=== PATIENT | female | born 1980 | race Caucasian/White ===

== ENCOUNTER 2020-04-08 14:19 | Emergency (ER) | payer SELFPAY ==
[~2020-04-08] VITALS: Ht 167 cm; Wt 68.0 kg
[~2020-04-08 14:19] MED LIST: ALPR.5T PO; ARPZ10T; BSP10T PO; DIAZ10TA; FRS325T PO; HYDR50TA76 PO; IBUP-1780 PO; Ibuprofen PO; LORA0.5T34 PO; MAGN400T6 PO; PREN1TAB39 PO; PRX10T PO; SERT50TA PO
[2020-04-08 14:20] VITALS: BP 148/104
--- NOTE | 2020-04-08 14:27 | ED Psychosocial ---
General Chief Complaint: Psych/Social Disorder Stated Complaint: CONVULSIONS Source: patient Exam Limitations: clinical condition History of Present Illness Date Seen by Provider: April 08, 2020 Time Seen by Provider: 14:24 Initial Comments To ER with reports of convulsions getting more and more frequent over the past couple of months since she moved to [place] and then back to [place]. She is brought to the ER by her mother. She reports that she used meth but assures me it was no more recently than 1 week ago. She feels anxious. Timing/Duration: intermittent Severity: moderate Associated Symptoms: anxiety Allergies and Home Medications Allergies Coded Allergies: No Known Drug Allergies (Unverified , 01/23/10) Home Medications Buspirone Hcl 10 Mg Tablet, 15 MG PO BID, (Reported) Ferrous Sulfate 325 Mg Tab, 325 MG PO BID WITH MEALS Prescribed by: EVGENY LEE on 08/30/14 151 Hydroxyzine HCl 25 Mg Tablet, 25 MG PO Q4H Prescribed by: RENY CARY on 04/08/20 1610 Hydroxyzine Hcl 50 Mg Tablet, 1 EACH PO TID, (Reported) Lorazepam 0.5 Mg Tablet, 0.5 MG PO TID PRN for SEVERE ANXIETY Prescribed by: EVGENY LEE on 08/30/14 151 Vits W-Ca,Fe,Fa(<1MG) 1 Each Tablet, 1 EACH PO DAILY, (Reported) Sertraline Hcl 50 Mg Tablet, 50 MG PO DAILY, (Reported) [Ibuprofen] 600 MG TAB, 600 MG PO Q6H PRN for PAIN Prescribed by: EVGENY LEE on 08/30/14 1516 Patient Home Medication List Home Medication List Reviewed: Yes Review of Systems Constitutional: see HPI EENTM: see HPI Cardiovascular: no symptoms reported Genitourinary: no symptoms reported Psychiatric/Neurological: See HPI, Other (over body convulsions, able to continue carrying on conversation with me during these convulsions) Past Npvdtfx-Gyuodr-Tsgsjz Hx Immunizations Up To Date Tetanus Booster (TDap): Unknown PED Vaccines UTD: Yes Date of Influenza Vaccine: Aug 26, 2014 Past Medical History Reproductive Disorders: No Anxiety Adverse Reaction/Blood Tranf: No Family Medical History Patient reports no known family medical history. No Pertinent Family Hx Physical Exam Vital Signs - First Documented 04/08/20 14:20 Temp 37.0 Pulse 88 Resp 16 B/P (MAP) 148/104 (119) Pulse Ox 100 O2 Delivery Room Air Capillary Refill : Height, Weight, BMI Height: 5'6" Weight: 150lbs. oz. 68.556031wi; BMI Method:Stated General Appearance: WD/WN, no apparent distress HEENT: PERRL/EOMI, normal ENT inspection Respiratory: no respiratory distress, no accessory muscle use Cardiovascular: regular rate, rhythm, no murmur Gastrointestinal: normal bowel sounds, non tender, soft Neurologic/Psychiatric: alert Appearance/Memory: appropriate appearance, appropriate insight Behavior/Eye Contact: cooperative Skin: normal color, warm/dry Progress/Results/Core Measures Results/Orders Lab Results Laboratory Tests Test 04/08/20 15:10 04/08/20 15:27 Range/Units White Blood Count 6.7 4.3-11.0 10^3/uL Red Blood Count 5.00 4.35-5.85 10^6/uL Hemoglobin 15.1 11.5-16.0 G/DL Hematocrit 46 35-52 % Mean Corpuscular Volume 91 80-99 FL Mean Corpuscular Hemoglobin 30 25-34 PG Mean Corpuscular Hemoglobin Concent 33 32-36 G/DL Red Cell Distribution Width 13.4 10.0-14.5 % Platelet Count 267 130-400 10^3/uL Mean Platelet Volume 10.8 H 7.4-10.4 FL Neutrophils (%) (Auto) 63 42-75 % Lymphocytes (%) (Auto) 28 12-44 % Monocytes (%) (Auto) 8 0-12 % Eosinophils (%) (Auto) 2 0-10 % Basophils (%) (Auto) 0 0-10 % Neutrophils # (Auto) 4.2 1.8-7.8 X 10^3 Lymphocytes # (Auto) 1.9 1.0-4.0 X 10^3 Monocytes # (Auto) 0.5 0.0-1.0 X 10^3 Eosinophils # (Auto) 0.1 0.0-0.3 10^3/uL Basophils # (Auto) 0.0 0.0-0.1 10^3/uL Sodium Level 139 135-145 MMOL/L Potassium Level 4.1 3.6-5.0 MMOL/L Chloride Level 104 98-107 MMOL/L Carbon Dioxide Level 25 21-32 MMOL/L Anion Gap 10 5-14 MMOL/L Blood Urea Nitrogen 9 7-18 MG/DL Creatinine 0.92 0.60-1.30 MG/DL Estimat Glomerular Filtration Rate > 60 BUN/Creatinine Ratio 10 Glucose Level 86 70-105 MG/DL Calcium Level 10.0 8.5-10.1 MG/DL Corrected Calcium 8.5-10.1 MG/DL Total Bilirubin 0.4 0.1-1.0 MG/DL Aspartate Amino Transf (AST/SGOT) 18 5-34 U/L Alanine Aminotransferase (ALT/SGPT) 15 0-55 U/L Alkaline Phosphatase 66 40-136 U/L Total Protein 8.4 H 6.4-8.2 GM/DL Albumin 4.7 H 3.2-4.5 GM/DL Urine Color YELLOW Urine Clarity CLEAR Urine pH 8.0 5-9 Urine Specific Ames 1.010 L 1.016-1.022 Urine Protein NEGATIVE NEGATIVE Urine Glucose (UA) NEGATIVE NEGATIVE Urine Ketones NEGATIVE NEGATIVE Urine Nitrite NEGATIVE NEGATIVE Urine Bilirubin NEGATIVE NEGATIVE Urine Urobilinogen 0.2 < = 1.0 MG/DL Urine Leukocyte Esterase NEGATIVE NEGATIVE Urine RBC (Auto) NEGATIVE NEGATIVE Urine RBC NONE /HPF Urine WBC NONE /HPF Urine Squamous Epithelial Cells 0-2 /HPF Urine Crystals NONE /LPF Urine Bacteria NEGATIVE /HPF Urine Casts NONE /LPF Urine Mucus NEGATIVE /LPF Urine Culture Indicated NO Urine Opiates Screen NEGATIVE NEGATIVE Urine Oxycodone Screen NEGATIVE NEGATIVE Urine Methadone Screen NEGATIVE NEGATIVE Urine Propoxyphene Screen NEGATIVE NEGATIVE Urine Barbiturates Screen NEGATIVE NEGATIVE Ur Tricyclic Antidepressants Screen NEGATIVE NEGATIVE Urine Phencyclidine Screen NEGATIVE NEGATIVE Urine Amphetamines Screen POSITIVE H NEGATIVE Urine Methamphetamines Screen POSITIVE H NEGATIVE Urine Benzodiazepines Screen NEGATIVE NEGATIVE Urine Cocaine Screen NEGATIVE NEGATIVE Urine Cannabinoids Screen NEGATIVE NEGATIVE My Orders Orders - RENY CARY APRN Cbc With Automated Diff (04/08/20 14:21) Comprehensive Metabolic Panel (04/08/20 14:21) Ua Culture If Indicated (04/08/20 14:21) Drug Screen Stat (Urine) (04/08/20 14:21) Ed Iv/Invasive Line Start (04/08/20 14:21) Lorazepam Injection (Ativan Injection) (04/08/20 14:30) Medications Given in ED Current Medications Medications Dose Ordered Sig/Marion Route Start Time Stop Time Status Last Admin Dose Admin Lorazepam 1 mg ONCE ONCE IVP 04/08/20 14:30 04/08/20 14:31 DC 04/08/20 14:35 1 MG Vital Signs/I&O 04/08/20 14:20 Temp 37.0 Pulse 88 Resp 16 B/P (MAP) 148/104 (119) Pulse Ox 100 O2 Delivery Room Air Departure Communication (Admissions) [phone] with patient that her symptoms are caused by a combination of anxiety and methamphetamine use. She states she hasn't used methamphetamine for 11 days and it can stay positive in her system for 11 days. She informs me that I'm unaware of this fact because it never worked in a treatment center.She then stormed out of the emergency room, threw her discharge papers. Impression Primary Impression: Methamphetamine abuse Additional Impression: Convulsion Qualified Codes: R56.9 - Unspecified convulsions Disposition: 01 HOME, SELF-CARE Condition: Stable Departure-Patient Inst. Decision time for Depature: 16:08 Referrals: NO,LOCAL PHYSICIAN (PCP/Family) Primary Care Physician Patient Instructions: Panic Disorder (DC) Add. Discharge Instructions: All discharge instructions reviewed with patient and/or family. Voiced understanding. Scripts Hydroxyzine HCl (Hydroxyzine HCl) 25 Mg Tablet 25 MG PO Q4H, #30 TAB Prov: RENY CARY APRN 04/08/20 RENY CARY APRN April 08, 2020 14:27
[2020-04-08] MEDS ORDERED: LORazepam INJ 2 MG/ML (ATIVAN) VIAL IVP ONE (14:30)
--- NOTE | 2020-04-08 14:40 | NUR ---
LAB CONTACTED FOR BLOOD.
[2020-04-08 15:15] LABS: BASOPHILS % (AUTO) 0 % (0-10); EOSINOPHILS # (AUTO) 0.1 10^3/uL (0.0-0.3); EOSINOPHILS % (AUTO) 2 % (0-10); HEMATOCRIT 46 % (35-52); HEMOGLOBIN 15.1 G/DL (11.5-16.0); LYMPHOCYTES # (AUTO) 1.9 X 10^3 (1.0-4.0); LYMPHOCYTES % (AUTO) 28 % (12-44); MEAN CORPUSCULAR HEMOGLOBIN 30 PG (25-34); MEAN CORPUSCULAR HGB CONC 33 G/DL (32-36); MEAN CORPUSCULAR VOLUME 91 FL (80-99); MEAN PLATELET VOLUME 10.8 FL (7.4-10.4); MONOCYTES # (AUTO) 0.5 X 10^3 (0.0-1.0); MONOCYTES % (AUTO) 8 % (0-12); NEUTROPHILS # (AUTO) 4.2 X 10^3 (1.8-7.8); NEUTROPHILS % (AUTO) 63 % (42-75); PLATELET COUNT 267 10^3/uL (130-400); RED CELL DISTRIBUTION WIDTH 13.4 % (10.0-14.5); WHITE BLOOD COUNT 6.7 10^3/uL (4.3-11.0)
--- NOTE | 2020-04-08 15:25 | NUR ---
RESTING IN BED ET DENIES NEEDS AT THIS TIME.
[2020-04-08 15:26] LABS: ALBUMIN 4.7 GM/DL (3.2-4.5); CHLORIDE 104 MMOL/L (98-107); POTASSIUM 4.1 MMOL/L (3.6-5.0); SODIUM 139 MMOL/L (135-145)
[2020-04-08 15:28] LABS: GLUCOSE 86 MG/DL (70-105)
[2020-04-08 15:29] LABS: TOTAL PROTEIN 8.4 GM/DL (6.4-8.2)
[2020-04-08 15:30] LABS: BILIRUBIN,TOTAL 0.4 MG/DL (0.1-1.0); CARBON DIOXIDE 25 MMOL/L (21-32)
[2020-04-08 15:32] LABS: ALKALINE PHOSPHATASE 66 U/L (40-136); CREATININE SERUM 0.92 MG/DL (0.60-1.30); GFR ESTIMATED > 60
[2020-04-08 15:33] LABS: BUN/CREATININE RATIO 10
[2020-04-08 15:35] LABS: ALANINE AMINOTRANSFERASE 15 U/L (0-55)
[2020-04-08 15:37] LABS: BILIRUBIN,URINE NEGATIVE (NEGATIVE); CLARITY,URINE CLEAR; COLOR,URINE YELLOW; GLUCOSE, URINE (UA) NEGATIVE (NEGATIVE); KETONES,URINE NEGATIVE (NEGATIVE); LEUKOCYTE ESTERASE ,URINE NEGATIVE (NEGATIVE); NITRITE,URINE NEGATIVE (NEGATIVE); PROTEIN,URINE NEGATIVE (NEGATIVE)
[2020-04-08 15:48] LABS: BACTERIA,URINE NEGATIVE /HPF; SQUAMOUS EPITHELIAL CELL,UR 0-2 /HPF
[2020-04-08 15:53] LABS: AMPHETAMINE SCREEN, URINE POSITIVE (NEGATIVE); BARBITURATE SCREEN URINE NEGATIVE (NEGATIVE); BENZODIAZEPINES SCREEN URINE NEGATIVE (NEGATIVE); CANNABINOID SCREEN, URINE NEGATIVE (NEGATIVE); COCAINE SCREEN URINE NEGATIVE (NEGATIVE); METHADONE STAT NEGATIVE (NEGATIVE); METHAMPHETAMINE SCREEN URINE S POSITIVE (NEGATIVE); OPIATE SCREEN URINE NEGATIVE (NEGATIVE); OXYCODONE STAT NEGATIVE (NEGATIVE); PROPOXYPHENE STAT NEGATIVE (NEGATIVE); TRICYCLIC ANTIDEPRESSANTS SCRE NEGATIVE (NEGATIVE)
--- NOTE | 2020-04-08 16:09 | NUR ---
RENY TALKING TO PT'S MOTHER AT THIS TIME.
[2020-04-08] MEDS ORDERED: HYDR-700 PO (16:10)
--- NOTE | 2020-04-08 16:14 | NUR ---
PT UPSET UPON DISCHARGE. THROWING HER PAPERS AND CUSSING. STATES WE WONT DO ANYTHING FOR HER BECAUSE SHE "SUPPOSEDLY" HAD DRUGS IN HER SYSTEM. WANTING PROVIDERS NAME BECAUSE SHE SHOULD HAVE HAD A CT AND EKG DONE. STATES WE DID NOTHING FOR HER. NOTIFIED HER THAT HER BP WAS BETTER, NO LONGER HAVING SPASMS, AND SHE HAS BEEN SLEEPING SINCE MEDICATION GIVEN. PT STATES YOU FUCKING DID NOTHING FOR ME AND STORMED OUT THE DOOR.
--- OUTSIDE RECORDS SUMMARY | 2020-04-08 18:06 | XMS REPORT ---
Author Faith Yang [facility] Address [address] [place] [address] Care Team Providers Care Associate Buyer Name Role Phone SERENAPHANA Unavailable PROBLEMS Type Condition ICD9-CM Code [id number] Code Onset Dates Condition S tatus SNOMED Code Problem Constipation, unspecified constipation type K59.00 Active 91993590 Problem Generalized abdominal pain R10.84 Act yuriy [id number] ALLERGIES No Information ENCOUNTERS Encounter Location Date Diagnosis [facility] [address] [id number] [address] [place] [phone] Feb, [facility] [address] [id number] Feb, Sore throat J02.9 and Dental infection K04.7 [facility] [id number] [place] [id number] Feb, [facility] [address] [id number] [address] [place] [address] Jul, Generalized abdominal pain R 10.84 ; Constipation, unspecified constipation type K59.00 and Drug abuse F19.10 [facility] [address] [id number] [address] [place] [id number] Jan, Encounter for dental examina tion Z01.20 and Dental caries K02.9 [facility] [address] [id number] [address] [place] [phone] Feb, [facility] [id number] [address] [place] [phone] 13 Feb, 2015 [facility] [address] [id number] [address] [place] [phone] Sep, [facility] [address] [id number] [address] [place] [address], [place] [address] 17 Sep, 2014 [facility] [address] [id number] [address] [place] [address], [place] [address] 20 Aug, 2014 [facility] [address] [id number] [address] [place] [address], [place] [address] 20 Aug, 2014 [facility] [address] [id number] [address] [place] [address], [place] [address] 17 Aug, 2014 [facility] [address] [id number] [address] [place] [address], [place] [address] 30 Sep, 2013 [facility] [address] [id number] [address] [place] [address], [place] [address] 29 Sep, 2013 [facility] [address] [id number] [address] [place] [address], [place] [address] 29 Sep, 2013 [facility] [address] [id number] [address] [place] [address], [place] [address] 22 Sep, 2013 [facility] [address] [id number] [address] [place] [address], [place] [address] 22 Sep, 2013 [facility] [address] [id number] [address] [place] [address], [place] [address] 22 Sep, 2013 [facility] [address] [id number] [address] [place] [address], [place] [address] 22 Sep, 2013 [facility] [address] [id number] [address] [place] [address], [place] [address] 17 Sep, 2013 [facility] [address] [id number] [address] [place] [address], [place] [address] 17 Sep, 2013 [facility] [address] [id number] [address] [place] [address], [place] [address] 15 Sep, 2013 [facility] [address] [id number] [address] [place] [address], [place] [address] 15 Sep, 2013 [facility] [address] [id number] [address] [place] [address], [place] [address] 10 Sep, 2013 [facility] [address] [id number] [facility] [place] [address] 10 Jul, 2013 [facility] [address] [id number] [address] [place] [address], [place] [address] 05 Jul, 2013 [facility] [address] [id number] [address] [place] [address], [place] [address] 04 Jul, 2013 [facility] [address] [id number] [address] [place] [address], [place] [address] 03 Jul, 2013 [facility] [address] [id number] [address] [place] [address], [place] [address] Jul, [facility] [address] [id number] [address] [place] [address], [place] [address] Jul, [facility] [address] [id number] [address] [place] [address], [place] [address] Jun, [facility] [address] [id number] [address] [place] [address], [place] [address] Jun, [facility] [address] [id number] [address] [place] [address], [place] [address] Jun, [facility] [address] [id number] [address] [place] [address], [place] [address] Jun, [facility] [address] [id number] [address] [place] [address], [place] [address] May, [facility] [address] [id number] [address] [place] [address], [place] [address] May, [facility] [address] [id number] [address] [place] [address], [place] [address] May, [facility] [address] [id number] [address] [place] [address], [place] [address] May, [facility] [address] [id number] [address] [place] [address], [place] [address] Apr, [facility] [address] [id number] [address] [place] [address] Apr, [facility] [address] [id number] [address] [place] [phone] Aug, [facility] [address] [id number] [address] [place] [address] Aug, [facility] [address] [id number] [address] [place] [address] Aug, [facility] [address] [id number] [address] [place] [address] Aug, [facility] [address] [id number] [address] [place] [phone] Aug, [facility] [address] [id number] [address] [place] [address] Aug, [facility] [address] [id number] [address] [place] [address] Jul, [facility] [address] [id number] [address] [place] [address] Jun, [facility] [address] [id number] [address] [place] [address] Aug, IMMUNIZATIONS No Known Immunizations SOCIAL HISTORY Never Assessed REASON FOR VISIT PLAN OF CARE VITAL SIGNS MEDICATIONS Unknown Medications RESULTS No Results PROCEDURES No Known procedures INSTRUCTIONS MEDICATIONS ADMINISTERED No Known Medications MEDICAL (GENERAL) HISTORY Type Description Date Medical History HBP Medical History Back problems Medical History Maternal drug dependence com plicating , childbirth, or the puerperium, unspecified as to episode of care
--- OUTSIDE RECORDS SUMMARY | 2020-04-08 18:06 | XMS REPORT ---
Author Author Faith Pat [facility] Address [address] [place] [address] Care Team Providers Care Job Molder Name Role Phone Raffy Patistin Unavailable PROBLEMS Type Condition ICD9-CM Code [id number] Code Onset Dates Condition S tatus SNOMED Code Problem Borderline personality disorder in adult F60.3 Active [id number] ALLERGIES No Information ENCOUNTERS Encounter Location Date Diagnosis [facility] [address] [place] [address] [id number] Oct, [facility] [address] [place] [id number] Oct, [facility] [address] [place] [address] [id number] Oct, [facility] [address] [place] [address] [id number] Oct, [facility] [address] [place] [address] [id number] Oct, Anxiety F41.9 and Problems in relationship with spouse or partner Z63.0 [facility] [address] [place] [id number] Oct, [facility] [address] [place] [id number] Oct, Problems in relationship with spouse or partner Z63.0 [facility] [address] [place] [address] [id number] Oct, Borderline personality disorder in adult F60.3 ; Screening cholesterol level Z13.220 and Screening for diabetes mellitus Z13.1 IMMUNIZATIONS No Known Immunizations SOCIAL HISTORY Never Assessed REASON FOR VISIT Test results PLAN OF CARE VITAL SIGNS MEDICATIONS Unknown Medications RESULTS No Results PROCEDURES No Known procedures INSTRUCTIONS MEDICATIONS ADMINISTERED No Known Medications MEDICAL (GENERAL) HISTORY Type Description Date Medical History Borderline personality disorder Medical History PTSD Medical History ADHD Medical History L4-5 pain (resolved) Medical History Gestational diabetes
--- OUTSIDE RECORDS SUMMARY | 2020-04-08 18:06 | XMS REPORT ---
Author Author Faith LEE EVGENY [facility] Address [address] [place] [address] Care Team Providers Care Shirt Presser Name Role Phone EVGENY LEE Unavailable PROBLEMS Type Condition ICD9-CM Code QFO01-AB Code Onset Dates Condition S tatus SNOMED Code Problem Constipation, unspecified constipation type K59.00 Active [id number] Problem Generalized abdominal pain R10.84 Act yuriy [id number] ALLERGIES No Information ENCOUNTERS Encounter Location Date Diagnosis [facility] [address] [facility] [id number] [address] [place] [phone] Feb, [facility] [address] [phone] Feb, Sore throat J02.9 and Dental infection K04.7 [facility] [id number] [place] [phone] Feb, [facility] [address] [id number] [address] [place] [phone] Jul, Generalized abdominal pain R 10.84 ; Constipation, unspecified constipation type K59.00 and Drug abuse F19.10 [facility] [address] [facility] [id number] [address] [place] [id number] Jan, Encounter for dental examina tion Z01.20 and Dental caries K02.9 [facility] [address] [id number] [address] [place] [phone] 14 Feb, 2015 [facility] [id number] [place] [phone] 13 Feb, 2015 [facility] [address] [id number] [address] [place] [phone] Sep, [facility] [address] [id number] [address] [place] [address], [place] [address] 17 Sep, 2014 [facility] [address] [id number] [address] [place] [address], [place] [address] 20 Aug, 2014 [facility] [address] [id number] [address] [place] [address], [place] [address] 20 Aug, 2014 [facility] [address] [id number] [address] [place] [address], [place] [address] 17 Aug, 2014 [facility] [address] [id number] [address] [place] [address], [place] [address] 30 Sep, 2013 [facility] [address] [id number] [address] [place] [address], [place] [phone] 29 Sep, 2013 [facility] [address] [id number] [address] [place] [address], [place] [address] 29 Sep, 2013 [facility] [address] [id number] [address] [place] [address], [place] [phone] 22 Sep, 2013 [facility] [address] [id number] [address] [place] [address], [place] [address] 22 Sep, 2013 [facility] [address] [id number] [address] [place] [address], [place] [address] 22 Sep, 2013 [facility] [address] [id number] [address] [place] [address], [place] [address] 22 Sep, 2013 [facility] [address] [id number] [address] [place] [address], [place] [address] 17 Sep, 2013 [facility] [address] [id number] [address] [place] [address], [place] [address] 17 Sep, 2013 [facility] [address] [id number] [address] [place] [address], [place] [address] 15 Sep, 2013 [facility] [address] [id number] [address] [place] [address], [place] [address] 15 Sep, 2013 [facility] [address] [id number] [address] [place] [address], [place] [id number] 10 Sep, 2013 [facility] [address] [id number] [facility] [place] [address] 10 Jul, 2013 [facility] [address] [id number] [address] [place] [address], [place] [address] 05 Jul, 2013 [facility] [address] [id number] [address] [place] [address], [place] [address] 04 Jul, 2013 [facility] [address] [id number] [address] [place] [address], [place] [address] 03 Jul, 2013 [facility] [address] [id number] [address] [place] [address], [place] [address] Jul, [facility] [address] [id number] [address] [place] [address], [place] [address] Jul, [facility] [address] [id number] [address] [place] [address], [place] [id number] Jun, [facility] [address] [id number] [address] [place] [address], [place] [address] Jun, [facility] [address] [id number] [address] [place] [address], [place] [address] Jun, [facility] [address] [id number] [address] [place] [address], [place] [address] Jun, [facility] [address] [id number] [address] [place] [address], [place] [address] May, [facility] [address] [id number] [address] [place] [address], [place] [address] May, [facility] [address] [id number] [address] [place] [address], [place] [address] May, [facility] [address] [id number] [address] [place] [address], [place] [address] May, [facility] [address] [id number] [address] [place] [address], [place] [address] Apr, [facility] [address] [id number] [address] [place] [phone] Apr, [facility] [address] [id number] [address] [place] [phone] Aug, [facility] [address] [id number] [address] [place] [phone] Aug, [facility] [address] [id number] [address] [place] [phone] Aug, [facility] [address] [id number] [address] [place] [phone] Aug, [facility] [address] [id number] [address] [place] [phone] Aug, [facility] [address] [id number] [address] [place] [phone] Aug, [facility] [address] [id number] [address] [place] [phone] Jul, [facility] [address] [id number] [address] [place] [phone] Jun, [facility] [address] [id number] [address] [place] [phone] Aug, IMMUNIZATIONS No Known Immunizations SOCIAL HISTORY [...]
--- OUTSIDE RECORDS SUMMARY | 2020-04-08 18:06 | XMS REPORT ---
Author Author Faith Pat [facility] Address [address] [place] [address] Care Team Providers Care Loom Inspector Name Role Phone Bi Jesica Unavailable PROBLEMS Type Condition ICD9-CM Code EQD68-KI Code Onset Dates Condition S tatus SNOMED Code Problem Encounter for weight loss counseling Z71.3 Active 033510860 Problem Dysuria R30.0 Active 78970874 Problem Borderline personality disorder in adult F60.3 Active 12242108 Problem Anxiety F41.9 Active 87569456 Problem History of PID Z87.42 Active 62338 2000 Problem Encounter for smoking cessation counseling Z71.6 Active 399440910 ALLERGIES No Information ENCOUNTERS Encounter Location Date Diagnosis [facility] [address] [place] [address] [phone] Feb, Anxiety F41.9 [facility] [address] [place] [address] [phone] Oct, Dysuria R30.0 ; History of PID Z87.42 ; Encounter for smoking cessation counseling Z71.6 and Encounter for weight loss counseling Z71.3 [facility] [address] [place] [address] [id number] Oct, [facility] [address] [place] [address] [phone] Oct, Anxiety F41.9 [facility] [address] [place] [address] [id number] Oct, Anxiety F41.9 [facility] [address] [place] [address] [id number] Oct, [facility] [address] [place] [address] [id number] Oct, [facility] [address] [place] [address] [phone] Oct, Anxiety F41.9 and Problems in relationship with spouse or partner Z63.0 [facility] [address] [place] [address] [id number] Oct, [employer] [facility] [address] [place] [address] [id number] Oct, Problems in relationship with spouse or partner Z63.0 [employer] [address] [place] [address] [phone] Oct, Borderline personality disorder in adult F60.3 ; Screening cholesterol level Z13.220 and Screening for diabetes mellitus Z13.1 IMMUNIZATIONS No Known Immunizations SOCIAL HISTORY Never Assessed REASON FOR VISIT Med refill PLAN OF CARE VITAL SIGNS MEDICATIONS Medication Instructions Dosage Frequency Start Date End Date Duration S tatus Gabapentin 600 MG Orally four times a day 1 tablet 6h Oct, 30 day(s) Active RESULTS No Results PROCEDURES No Known procedures INSTRUCTIONS MEDICATIONS ADMINISTERED No Known Medications MEDICAL (GENERAL) HISTORY Type Description Date Medical History Borderline personality disorder Medical History PTSD Medical History ADHD Medical History L4-5 pain (resolved) Medical History Gestational diabetes
--- OUTSIDE RECORDS SUMMARY | 2020-04-08 18:06 | XMS REPORT ---
Author Author Faith Pat [facility] Address [address] [place] [address] Care Team Providers Care Animal Control Specialist Name Role Phone Bi, Jesica Unavailable PROBLEMS Type Condition ICD9-CM Code BUS48-[place] Code Onset Dates Condition S tatus SNOMED Code Problem Borderline personality disorder in adult F60.3 Active 22431175 ALLERGIES No Known Allergies ENCOUNTERS Encounter Location Date Diagnosis [facility] [address] [place] [address] [phone] Oct, [facility] [address] [place] [address] [phone] Oct, [facility] [address] [place] [address] [phone] Oct, [facility] [address] [place] [address] [id number] Oct, Borderline personality disorder in adult F60.3 ; Screening cholesterol level Z13.220 and Screening for diabetes mellitus Z13.1 IMMUNIZATIONS No Known Immunizations SOCIAL HISTORY Never Assessed REASON FOR VISIT establish care and PLAN OF CARE Activity Details Follow Up 6 Months or prn Reason: Pending Test HEMOGLOBIN A1c Pending Test LIPID PANEL WITH REFLEX TO D IRECT LDL VITAL SIGNS Temperature 97.9 degrees Fahrenheit 2019-11-09 Heart Rate 80 /min 2019-11-09 Respiratory Rate 20 /min 2019-11-09 Oximetry 100 % 2019-11-09 Weight 149.2 lbs 2019-11-09 Height 65.0 in 2019-11-09 BMI 24.83 kg/m2 2019-11-09 Blood pressure systolic 139 mm Hg 2019-11-09 Blood pressure diastolic 89 mm Hg 2019-11-09 MEDICATIONS Medication Instructions Dosage Frequency Start Date End Date Duration S tatus Latuda 60 MG Orally Once a day 1 tablet with food 24h Active Gabapentin 600 MG Orally Once a day 1 tablet 24h Active RESULTS No Results PROCEDURES No Known procedures INSTRUCTIONS MEDICATIONS ADMINISTERED No Known Medications MEDICAL (GENERAL) HISTORY Type Description Date Medical History Borderline personality disorder Medical History PTSD Medical History ADHD Medical History L4-5 pain (resolved) Medical History Gestational diabetes
--- OUTSIDE RECORDS SUMMARY | 2020-04-08 18:06 | XMS REPORT ---
Author Author Faith Vieyra Doctor Organization [facility] Address Unknown Phone Unavailable Care Team Providers Care Balloon Maker Name Role Phone Migration, Doctor Unavailable Unavailable PROBLEMS Type Condition ICD9-CM Code IIG90-PT Code Onset Dates Condition S tatus SNOMED Code Problem Screening for diabetes mellitus V77.1 Active 951322332 Problem Screening for iron deficiency anemia V78.0 Active 470256304 Problem Need for prophylactic vaccination and inoculation, Influen za V04.81 Active 150478320 Problem Insufficient care V23.7 Act yuriy [id number] Problem Elevated blood pressure reading without diagnosi s of hypertension 796.2 Active 514889920 Problem Constipation, unspecified constipation type K59.00 Active 49833277 Problem DTAP TEST V06.1 Active Problem Generalized abdominal pain R10.84 Act yuriy 204427593 Problem Screening of Streptococcus B V28.6 A ctive 591066143 Problem Other malaise and fatigue 780.79 Acti ve 332508384 Problem Lumbago 724.2 Active 630763505 Problem Maternal drug dependence com plicating , childbirth, or the puerperium, unspecified as to episode of care 648.30 Active Problem Anxiety state, unspecified 300.00 Act yuriy [id number] ALLERGIES No Information ENCOUNTERS Encounter Location Date Diagnosis [facility] [address] [facility] [id number] [address] [place] [address] Jul, Generalized abdominal pain R 10.84 ; Constipation, unspecified constipation type K59.00 and Drug abuse F19.10 [facility] [address] [facility] [id number] [place] [id number] Jan, Encounter for dental examination Z01.20 and Dental caries K02.9 [facility] [address] [id number] [place] [address] Feb, [facility] [address] [id number] [place] [address] Feb, [facility] [address] [id number] [place] [address] 17 Sep, 2014 [facility] [address] [id number] [place] [address] 17 Sep, 2014 [facility] [address] [id number] [place] [address] 20 Aug, 2014 [facility] [address] [id number] [place] [address] 20 Aug, 2014 [facility] [address] [id number] [place] [address] 17 Aug, 2014 [facility] [address] [id number] [place] [address] 30 Jul, 2013 [facility] [address] [id number] [place] [address] 29 Sep, 2013 [facility] [address] [id number] [place] [address] 29 Sep, 2013 [facility] [address] [id number] [place] [address] 22 Sep, 2013 [facility] [address] [id number] [place] [address] 22 Sep, 2013 [facility] [address] [id number] [place] [address] 22 Sep, 2013 [facility] [address] [id number] [place] [address] 22 Jul, 2013 [facility] [address] [id number] [place] [address] 17 Sep, 2013 [facility] [address] [id number] [place] [address] 17 Sep, 2013 [facility] [address] [id number] [place] [address] 15 Sep, 2013 [facility] [address] [id number] [place] [address] 15 Sep, 2013 [facility] [address] [id number] [place] [address] 10 Jul, 2013 [facility] [address] [facility] [id number] [facility] [place] [address] 10 Jul, 2013 [facility] [address] [facility] [id number] [facility] [place] [address] 05 Jul, 2013 [facility] [address] [id number] [facility] [place] [address] 04 Jul, 2013 [facility] [address] [facility] [id number] [facility] [place] [address] Jul, 2013 [facility] [address] [facility] [id number] [facility] [place] [address] Jul, [facility] [address] [facility] [id number] [place] [address] Jul, [facility] [address] [id number] [place] [address] Jun, [facility] [address] [id number] [place] [address] Jun, [facility] [address] [id number] [place] [address] Jun, [facility] [address] [id number] [place] [address] Jun, [facility] [address] [id number] [place] [address] May, [facility] [address] [id number] [place] [address] May, [facility] [address] [id number] [place] [address] May, [facility] [address] [id number] [place] [address] May, [facility] [address] [id number] [place] [address] Apr, [facility] [address] [id number] [place] [address] Apr, [facility] [address] [id number] [place] [address] Aug, [facility] [address] [id number] [place] [address] Aug, [facility] [address] [id number] [place] [address] Aug, [facility] [address] [id number] [place] [address] Aug, [facility] [id number] [place] [address] Aug, [facility] [address] [id number] [place] [address] Aug, [facility] [address] [id number] [place] [address] Jul, [facility] [address] [id number] [place] [address] Jun, [facility] [address] [id number] [place] [address] Aug, IMMUNIZATIONS No Known Immunizations SOCIAL HISTORY Never Assessed REASON FOR VISIT PLAN OF CARE VITAL SIGNS MEDICATIONS No Known Medications RESULTS No Results PROCEDURES No Known procedures INSTRUCTIONS MEDICATIONS ADMINISTERED No Known Medications MEDICAL (GENERAL) HISTORY Type Description Date Medical History HBP Medical History Back problems
--- OUTSIDE RECORDS SUMMARY | 2020-04-08 18:06 | XMS REPORT ---
Author Faith Yang [facility] Address [address] [place] [address] Care Team Providers Care Lining Cementer Name Role Phone SERENAPHANA Unavailable PROBLEMS Type Condition ICD9-CM Code MCI88-TB Code Onset Dates Condition S tatus SNOMED Code Problem Constipation, unspecified constipation type K59.00 Active 05653469 Problem Generalized abdominal pain R10.84 Act yuriy [id number] ALLERGIES No Information ENCOUNTERS Encounter Location Date Diagnosis [facility] [place] [address] [id number] [address] [place] [id number] 14 Feb, 2020 [facility] [address] [address] Feb, Sore throat J02.9 and Dental infection K04.7 [facility] [id number] [place] [address] Feb, [facility] [address] [id number] [address] [place] [id number] Jul, Generalized abdominal pain R 10.84 ; Constipation, unspecified constipation type K59.00 and Drug abuse F19.10 [facility] [address] [id number] [address] [place] [address] [id number] Jan, Encounter for dental examina tion Z01.20 and Dental caries K02.9 [facility] [place] [address] [id number] [address] [place] [id number] Feb, [facility] [place] [id number] [place] [address] 13 Feb, 2015 [facility] [place] [address] [id number] [address] [place] [id number] Sep, [facility] [address] [id number] [address] [place] [address], [place] [address] 17 Sep, 2014 [facility] [address] [id number] [address] [place] [address], [place] [address] 20 Aug, 2014 [facility] [address] [id number] [address] [place] [address], [place] [address] 20 Aug, 2014 [facility] [address] [id number] [address] [place] [address], [place] [address] 17 Aug, 2014 [facility] [address] [id number] [address] [place] [address], [place] [address] 30 Sep, 2013 [facility] [address] [id number] [address] [place] [address], [place] [address] 29 Sep, 2013 [facility] [address] [id number] [address] [place] [address], [place] [address] 29 Sep, 2013 [facility] [address] [id number] [address] [place] [address], [place] [address] 22 Sep, 2013 [facility] [address] [id number] [address] [place] [address], [place] [address] 22 Sep, 2013 [facility] [address] [id number] [address] [place] [address], [place] [address] 22 Sep, 2013 [facility] [address] [id number] [address] [place] [address], [place] [address] 22 Sep, 2013 [facility] [address] [id number] [address] [place] [address], [place] [address] 17 Sep, 2013 [facility] [address] [id number] [address] [place] [address], [place] [address] 17 Sep, 2013 [facility] [address] [id number] [address] [place] [address], [place] [address] 15 Sep, 2013 [facility] [address] [id number] [address] [place] [address], [place] [address] 15 Sep, 2013 [facility] [address] [id number] [address] [place] [address], [place] [address] 10 Sep, 2013 [facility] [address] [id number] [facility] [place] [address] 10 Jul, 2013 [facility] [address] [id number] [address] [place] [address], [place] [address] 05 Jul, 2013 [facility] [address] [id number] [address] [place] [address], [place] [address] 04 Jul, 2013 [facility] [address] [id number] [address] [place] [address], [place] [address] 03 Jul, 2013 [facility] [address] [id number] [address] [place] [address], [place] [address] Jul, [facility] [address] [id number] [address] [place] [address], [place] [address] Jul, [facility] [address] [id number] [address] [place] [address], [place] [address] Jun, [facility] [address] [id number] [address] [place] [address], [place] [address] Jun, [facility] [address] [id number] [address] [place] [address], [place] [address] Jun, [facility] [address] [id number] [address] [place] [address], [place] [address] Jun, [facility] [address] [id number] [address] [place] [address], [place] [address] May, [facility] [address] [id number] [address] [place] [address], [place] [address] May, [facility] [address] [id number] [address] [place] [address], [place] [address] May, [facility] [address] [id number] [address] [place] [address], [place] [address] May, [facility] [address] [id number] [address] [place] [address], [place] [address] Apr, [facility] [address] [id number] [address] [place] [id number] Apr, [facility] [place] [address] [id number] [address] [place] [id number] Aug, [facility] [place] [address] [id number] [address] [place] [id number] Aug, [facility] [place] [address] [id number] [address] [place] [id number] Aug, [facility] [place] [address] [id number] [address] [place] [id number] Aug, [facility] [place] [address] [id number] [address] [place] [id number] Aug, [facility] [place] [address] [id number] [address] [place] [id number] Aug, [facility] [place] [address] [id number] [address] [place] [id number] Jul, [facility] [place] [address] [id number] [address] [place] [id number] Jun, [facility] [place] [address] [id number] [address] [place] [id number] Aug, IMMUNIZATIONS No Known Immunizations SOCIAL HISTORY [...]
--- OUTSIDE RECORDS SUMMARY | 2020-04-08 18:06 | XMS REPORT ---
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 [email or web address] Unbxd Address [address] [address] Care Team Providers Care Book Publisher Name Role Phone NO, LOCAL PHYSICIAN Unavailable Unavailable LYONS, MARGI K Unavailable JENNY GUO Unavailable Migration, Doctor Unavailable Unavailable Migration, Doctor Unavailable Unavailable Migration, Doctor Unavailable Unavailable Migration, Doctor Unavailable Unavailable Migration, Doctor Unavailable Unavailable Migration, Doctor Unavailable Unavailable МАРИНА ESQUEDA Unavailable Unavailable ALMAZAN, ZAHEER Unavailable Unavailable ALMAZAN, ZAHEER Unavailable Unavailable ALMAZAN, ZAHEER Unavailable Unavailable LYONS, MARGI Unavailable Marla JENA Unavailable LYONS, MARGI Unavailable LYONS, MARGI Unavailable LYONS, MARGI Unavailable LYONS, MARGI Unavailable Marla JENA Unavailable Via [facility] Unavailable Unavaila ble Unavailable Unavailable Bi, Jesica Unavailable Ziggy Norris Unavailable Unavailable Bi, Jesica Unavailable Bi, Jesica Unavailable Ziggy Norris Unavailable Bi, Jesica Unavailable Bi, Jesica Unavailable Bi, Jesica Unavailable Via [facility] Unavailable Unavaila ble Migration, Doctor Unavailable Unavailable LYONS, MARGI Unavailable EVGENY LEE Unavailable LYONS, MARGI Unavailable Bi, Jesica Unavailable Jesica Pat Unavailable Unavailable Unavailable ELBERTBEATA Unavailable Unavailable ALICIA ENG Unavailable Unavailable ALICIA ENG Unavailable Unavailable STEPHANY JANE MD Unavailable Unavailable NO, LOCAL PHYSICIAN PCP Unavailable Unavailable Unavailable Unavailable Unavailable Unavailable Unavailable Unavailable Unavailable Unavailable Unavailable Unavailable Unavailable Unavailable Unavailable Unavailable Unavailable Unavailable Unavailable Allergies Normalized Allergy Reported Date of Reaction(s) Care Provider Facility Allergy Type classification allergen Allergy Onset NKMA (13 Unclassified NO KNOWN DRUG 10-12-2019 - UNKNOWN [facility] sources.) ALLERGIES [facility] #1 [facility] ([address]) Medications Current Medications Medication Ingredient Drug Dose Dates Status Sig Sig Care Class(es) (Normalized) (Original) Provid er gabapentin gabapentin Anti-epilep 600 mg 11-16-20 Active take 1 Gabapentin no 600 mg oral Translation tic Agent 19 tablet by 600 MG name tablet (5 s: [ mouth four Orally four sources.) Gabapentin times daily times a day 600 MG] 1 tablet 6h Oct, 30 day(s) Active 600 mg Active take 1 Gabapent no name tablet in 600 by MG mouth Orally once Once a daily day 1 tablet 24h Active lurasidone lurasidone Atypical 60 mg Active take 1 Latuda 60 MG no hydrochlori Translation Antipsychot tablet by Orally Once na me de 60 mg s: [ Latuda ic mouth once a day 1 oral tablet 60 MG] daily at tablet with (4 mealtime food 24h 30 sources.) days Active nitrofurant NITROFURANT Nitrofuran 100 mg Active take 1 Macrobid 100 no oin, OIN, Antibacteri capsule by MG Orally name macrocrysta MACROCRYSTA al mouth every every 12 hrs ls 25 mg / LS / twelve hours 1 capsule nitrofurant Nitrofurant at mealtime with food oin, oin, 12h 7 day(s) monohydrate Monohydrate Active 75 mg oral Translation capsule (1 s: [ source.) Macrobid 100 MG] no no Active no no information Vits information information Vits name (1 source.) W-Ca,Fe,Fa( W-Ca,Fe,Fa( <1MG) Active 1 ORAL Daily Completed/Discontinued Medications Medication Ingredient Drug Dose Dates Status Sig Sig Care Class(es) (Normalized) (Original) Provid er no Acetaminoph no 10-12-20 no no no no information en information - informat information infor mation name (1 source.) 10-12-20 ion 19 no Acetaminoph Opioid 10-12-20 no no no no information en / Agonist - informat information informati on name (1 source.) HYDROcodone 10-15-20 ion 19 ciprofloxac Ciprofloxac Quinolone 500 mg 10-12-20 no no no no in 500 mg in Antimicrobi - informat information informa tion name oral tablet al 10-19-20 ion (1 source.) 19 no fentaNYL Opioid 10-12-20 no no no no information Agonist - informat information information name (1 source.) 10-12-20 ion 19 no Ketorolac Nonsteroida 12-23-19 no no no no information l - informat information information name (2 Anti-inflam 12-23-19 ion sources.) matory 20 Drug, Cyclooxygen ase Inhibitor 10-12-2019 no no no no name - information inform informat 10-12-2019 ation ion no KETOROLAC no 07-03-20 no no no no information VIAL INJ 30 information - informat informati on information name (1 source.) MG/CC 07-03-20 ion (TORADOL 19 VIAL) no Morphine Opioid 10-12-20 no no no no information Agonist - informat information information name (1 source.) 10-12-20 ion 19 naproxen Naproxen Nonsteroida 250 mg 10-12-20 no no no no 250 mg oral l - informat information information name tablet (1 Anti-inflam 10-18-20 ion source.) matory Drug 19 no Normal no 07-03-20 no no no no information saline information - informat information infor mation name (1 source.) 07-03-20 ion 19 no Ondansetron Serotonin-3 12-23-19 no no no no information Receptor 20 - informat information information name (1 source.) Antagonist 12-23-19 ion 20 no PROMETHAZIN no 07-03-20 no no no no information E VIAL INJ information - informat informatio n information name (1 source.) 25 MG/CC 07-03-20 ion (PHENERGAN 19 VIAL) no Sodium no 11-15-20 no no no no information Chloride information 19 - informat information inf ormation name (1 source.) 0.9% 10-12-20 ion intravenous 19 solutio(Sod ium Chloride 0.9% Bolus) Problems Problem Normalized Date Last Normalized Normalized Provider Tiffany israelty Classification Problem(s) Recorded Problem Problem Sta tus Duration Other upper Acute Episodic Active MARGI LYONS [facility] respiratory pharyngitis[facility] [address] [facility] infections (3 unspecified of [place] sources.) Translations: [place] ([address]) [ - Sore throat J02.9] Other nervous Anesthesia of Episodic Active [facility] skin District [facility] of disorders (1 [place] source.) [facility] ([address]) Personality Borderline Chronic Active [facility] core disorders ([address] [facility] ([address]) sources.) disorder Translations: [ Borderline personality disorder in adult, - Borderline personality disorder in adult F60.3] Other nervous Disturbance of Episodic Active [facility] skin sensation District #1 of disorders (1 [place] source.) [facility] ([address]) Other Other long Episodic Active no name [facility] - source.) drug therapy [place] ([address]) Unclassified Patient no information Active Ziggy Norris [facility] ([address] [facility] ([address]) status Translations: [ Encounter for weight loss counseling, Encounter for smoking cessation counseling] Other female Personal Episodic [facility] genital history of [facility] ([address]) disorders (8 other diseases sources.) of the female genital tract Translations: [ History of PID, - History of PID [id number]] Genitourinary Personal Episodic Active no name Via Armando howell symptoms and history of Hospitals - ill-defined urinary [place] conditions (10 (tract) ([address]) sources.) infections Translations: [ - Dysuria R30.0, Dysuria, Dysuria, Personal history of other diseases of urinary system] Calculus of Personal Episodic Active no name [facility] urinary tract history of Hospitals - (1 source.) urinary [place] calculi ([address]) Administrative Problems in Episodic Active Jesica Pat althcore /social relationship [address] [facility] ([address]) admission (20 with spouse or sources.) partner Translations: [ - Problems in relationship with spouse or partner Z63.0, - Encounter for weight loss counseling Z71.3, - Encounter for smoking cessation counseling Z71.6] Epilepsy; Seizure Episodic Active LOCAL NO Castro Via convulsions (1 [facility] source.) Hospital (000[address]) Urinary tract Tubulo-interst Episodic Active no name Via [facility] infections (1 [facility] - source.) nephritis, not [place] specified as ([address]) acute or chronic Procedures Procedure Normalized Procedure Procedure Result Performer Facility Date 11-23-2019 Urine test no information no name [facility] visual color cmprsn (34578) meths 11-23-2019 Urnls dip stick/tablet no information no [facility] rg[facility] non-auto w/o (08153) micrscp Immunizations The data below is from unstructured sources Immunization Event Date Not Given Reason Dose Number [employer] Lot Number Vaccine Information Statement (VIS) Deta il Results Test Name Value Interpretation Reference Range Date Time Fa cility (Normalized) (Normalized) (Medline Reference) laboratory on 2020-04-08 Albumin 4.7 g/dL (H) 3.4 - 5.4 g/dL 04-08-2020 PENDING LOCATION [Mass/Vol] 11: [facility] (22111) ALP [Catalytic 66 U/L (NEG) 44 - 147 U/L 04-08-2020 PEND ING LOCATION activity/Vol] 11: [facility] (68598) ALT [Catalytic 15 U/L (NEG) 4 - 40 U/L 04-08-2020 PENDIN G LOCATION activity/Vol] 11: [facility] (30037) Amphetamines Positive (A) 04-08-2020 PENDING LOCAT ION Screen Ql (U) 11: [facility] (21021) Anion gap 10 mmol/L (NEG) 3 - 11 mmol/L 04-08-2020 PENDING LOCATION [Moles/Vol] 11: [facility] (23455) AST [Catalytic 18 U/L (NEG) 10 - 34 U/L 04-08-2020 PENDI NG LOCATION activity/Vol] 11: [facility] (48046) Bacteria LM Ql Negative (no code) 04-08-2020 PENDING LOC ATION (Urine sed) 11: [facility] (55283) Barbiturates Ql Negative (no code) 04-08-2020 PENDING LO CATION (U) 11:0400 [facility] (10542) Basophils (Bld) 0.0 10*3/uL (NEG) 0 - 0.3 10*3/uL 04-08-2020 PENDING LOCATION [#/Vol] 11:0 [facility] (11411) Basophils/100 0 % (NEG) 0.5 - 1 % 04-08-2020 PENDING LOCATION WBC (Bld) 11:0 [facility] (75379) Benzodiazepines Negative (no code) 04-08-2020 PENDING LO CATION Ql (U) 11:0 [facility] (34149) Bilirubin 0.4 mg/dL (NEG) 0.1 - 1.2 mg/dL 04-08-2020 PENDIN G LOCATION [Mass/Vol] 11:0 [facility] (81978) Bilirubin Ql (U) Negative (no code) 04-08-2020 PENDING L OCATION 11: [facility] (00366) Calcium 10.0 mg/dL (NEG) 8.5 - 10.2 mg/dL 04-08-2020 PEND ING LOCATION [Mass/Vol] 11: [facility] (86875) Cannabinoids Negative (no code) 04-08-2020 PENDING LOCAT ION Screen Ql (U) 11:0 [facility] (72079) Casts LM Ql NONE (no code) 04-08-2020 PENDING LOCATI ON (Urine sed) 11:0 [facility] (80604) Chloride 104 mmol/L (NEG) 95 - 106 mmol/L 04-08-2020 PENDI NG LOCATION [Moles/Vol] 11:0400 [facility] (54450) Clarity (U) CLEAR (no code) 04-08-2020 PENDING LOCATI ON 11:-0400 [facility] (16465) CO2 [Moles/Vol] 25 mmol/L (NEG) 23 - 29 mmol/L 04-08-2020 P ENDING LOCATION 11:0400 [facility] (17724) Cocaine Ql (U) Negative (no code) 04-08-2020 PENDING LOC ATION 11:0400 [facility] (44861) Color (U) YELLOW (no code) 04-08-2020 PENDING LOCATI ON 11: [facility] (80153) Creatinine 0.92 mg/dL (NEG) 04-08-2020 PENDING LOCATI ON [Mass/Vol] 11:-0 [facility] (39274) Creatinine and > (no code) 04-08-2020 PENDING LOC ATION Glomerular 11: [facility] (89606) filtration rate.predicted panel - Serum, Plasma or Blood Crystals LM Ql NONE (no code) 04-08-2020 PENDING LOC ATION (Urine sed) 11: [facility] (44922) Eosinophils 0.1 10*3/uL (NEG) 0.05 - 0.5 04-08-2020 PENDING LOCATION (Bld) [#/Vol] 10*3/uL 11:0 [facility] (25366) Eosinophils/100 2 % (NEG) 1 - 4 % 04-08-2020 PENDIN G LOCATION WBC (Bld) 11: [facility] (27741) Epithelial 0-2 (no code) 04-08-2020 PENDING LOCATI ON cells.squamous 11: [facility] (05031) LM Ql (Urine sed) Erythrocyte 13.4 % (NEG) 11.6 - 14.6 % 04-08-2020 PENDIN G LOCATION distribution 11: [facility] (49045) width (RBC) [Ratio] Glucose 86 mg/dL (NEG) 60 - 125 mg/dL 04-08-2020 PENDING LOCATION [Mass/Vol] 11:0 [facility] (32029) Glucose Auto Negative (no code) 04-08-2020 PENDING LOCAT ION test strip Ql 11:0 [facility] (18720) (U) Hematocrit (Bld) 46 % (NEG) 36.1 - 50.3 % 04-08-2020 P ENDING LOCATION [Volume 11: [facility] (58722) fraction] Hemoglobin (Bld) 15.1 g/dL (NEG) 12.1 - 17.2 g/dL 04-08-2020 PENDING LOCATION [Mass/Vol] 11:0400 [facility] (10465) Ketones Auto Negative (no code) 04-08-2020 PENDING LOCAT ION test strip Ql 11:0400 [facility] (59426) (U) Leukocyte Negative (no code) 04-08-2020 PENDING LOCATI ON esterase Test 11:0 [facility] (25086) strip Ql (U) Lymphocytes 1.9 10*3/uL (NEG) 0.9 - 2.9 04-08-2020 PENDING LOCATION (Bld) [#/Vol] 10*3/uL 11:0 [facility] (99549) Lymphocytes/100 28 % (NEG) 20 - 40 % 04-08-2020 PENDIN G LOCATION WBC (Bld) 11: [facility] (21702) MCH (RBC) 30 pg (NEG) 27 - 31 pg 04-08-2020 PENDING LOC ATION [Entitic mass] 11: [facility] (48750) MCHC (RBC) 33 g/dL (NEG) 32 - 36 g/dL 04-08-2020 PENDING LOCATION [Mass/Vol] 11: [facility] (85255) MCV (RBC) 91 (NEG) 04-08-2020 PENDING LOCATI ON [Entitic vol] 11: [facility] (73734) Methadone Screen Negative (no code) 04-08-2020 PENDING L OCATION Ql (U) 11:0 [facility] (61656) Methamphetamine Positive (A) 04-08-2020 PENDING LO CATION (U) [Mass/Vol] 11:0 [facility] (24089) Monocytes (Bld) 0.5 10*3/uL (NEG) 0.3 - 0.9 04-08-2020 PEND ING LOCATION [#/Vol] 10*3/uL 11:0400 [facility] (65676) Monocytes/100 8 % (NEG) 2 - 8 % 04-08-2020 PENDING LOCATION WBC (Bld) 11:0 [facility] (15175) Mucus Ql (Urine Negative (no code) 04-08-2020 PENDING LO CATION sed) 11:0400 [facility] (51040) Neutrophils 4.2 10*3/uL (NEG) 1.7 - 7 10*3/uL 04-08-2020 PE NDING LOCATION (Bld) [#/Vol] 11:0400 [facility] (96910) Neutrophils/100 63 % (NEG) 40 - 60 % 04-08-2020 PENDIN G LOCATION WBC (Bld) 11: [facility] (13212) Nitrite Ql (U) Negative (no code) 04-08-2020 PENDING LOC ATION 11:0 [facility] (24547) Opiates Screen Negative (no code) 04-08-2020 PENDING LOC ATION Ql (U) 11: [facility] (72157) Oxycodone Ql (U) Negative (no code) 04-08-2020 PENDING L OCATION 11: [facility] (31964) pH (U) 8.0 [pH] (no code) 4.6 - 8 [pH] 04-08-2020 PENDING L OCATION 11: [facility] (45724) Phencyclidine Ql Negative (no code) 04-08-2020 PENDING L OCATION (U) 11: [facility] (11805) Platelet mean 10.8 (H) 04-08-2020 PENDING LOCA TION volume (Bld) 11: [facility] (99650) [Entitic vol] Platelets (Bld) 267 10*3/uL (NEG) 150 - 450 04-08-2020 PEND ING LOCATION [#/Vol] 10*3/uL 11: [facility] (76482) Potassium 4.1 mmol/L (NEG) 3.7 - 5.2 mmol/L 04-08-2020 PEND ING LOCATION [Moles/Vol] 11: [facility] (18063) Propoxyphene Ql Negative (no code) 04-08-2020 PENDING LO CATION (U) 11: [facility] (39946) Protein 8.4 g/dL (H) 6.4 - 8.3 g/dL 04-08-2020 PENDING LOCATION [Mass/Vol] 11:0 [facility] (92550) Protein Ql (U) Negative (no code) 04-08-2020 PENDING LOC ATION 11:0 [facility] (31057) RBC (Bld) 5.00 10*6/uL (NEG) 4.2 - 6.1 04-08-2020 PENDING L OCATION [#/Vol] 10*6/uL 11:10-0400 [facility] (49777) RBC LM.HPF NONE (no code) 04-08-2020 PENDING LOCATI ON (Urine sed) 11: [facility] (42967) [#/Area] RBC Ql (U) Negative (no code) 04-08-2020 PENDING LOCATI ON 11: [facility] (17543) Sodium 139 mmol/L (NEG) 135 - 145 mmol/L 04-08-2020 PEND ING LOCATION [Moles/Vol] 11: [facility] (44130) Specific gravity 1.010 (L) 04-08-2020 PENDING L OCATION (U) [Rel 11: [facility] (93615) density] Tricyclic Negative (no code) 04-08-2020 PENDING LOCATI ON antidepressants 11: [facility] (75093) Screen Ql (U) Urea nitrogen 9 mg/dL (NEG) 7 - 20 mg/dL 04-08-2020 PENDI NG LOCATION [Mass/Vol] 11: [facility] (52795) Urea 10 mg/mg (no code) 6 - 22 mg/mg 04-08-2020 PENDING L OCATION nitrogen/Creatin 11: [facility] (77058) ine [Mass ratio] Urinalysis NO (no code) 04-08-2020 PENDING LOCATI ON complete W 11: [facility] (82595) Reflex Culture panel - Urine Urobilinogen (U) 0.2 mg/dL (no code) 04-08-2020 PENDING L OCATION [Mass/Vol] 11: [facility] (35013) WBC (Bld) 6.7 10*3/uL (NEG) 3.5 - 10.5 04-08-2020 PENDING L OCATION [#/Vol] 10*3/uL 11:0 [facility] (56281) WBC LM.HPF NONE (no code) 04-08-2020 PENDING LOCATI ON (Urine sed) 11:0 [facility] (95608) [#/Area] not yet categorized on 2020-03-11 Control neg~pos (no code) [facility] (15964) Exp date 5/12/22 (no code) [facility] (62364) Lot # [id number] (no code) [facility] (68078) not yet categorized on 2019-12-24 Type of Urine Clean Catch (no code) [facility] collection Clinic () method laboratory on 2019-12-23 Albumin 4.0 g/dL (no code) 3.4 - 5.4 g/dL 12-23-2019 Via Chr isti [Mass/Vol] 21:500500 Clinic (05394) ALP [Catalytic 46 U/L (no code) 44 - 147 U/L 12-23-2019 [facility] activity/Vol] 21:500500 Clinic (52237) ALT [Catalytic 14 U/L (no code) 4 - 40 U/L 12-23-2019 Via Ch risti activity/Vol] :0500 Clinic (02987) Anion gap 9 mmol/L (no code) 3 - 11 mmol/L 12-23-2019 Via Chri sti [Moles/Vol] :500500 Clinic (63667) Appearance (U) Clear (no code) 12-23-2019 [facility] 21:0500 Clinic (57198) AST [Catalytic 14 U/L (null) 10 - 34 U/L 12-23-2019 Via C hristi activity/Vol] :500500 Clinic (01326) Bilirubin 0.9 mg/dL (no code) 0.1 - 1.2 mg/dL 12-23-2019 [facility] r[facility] [Mass/Vol] :500500 Clinic (85570) Bilirubin Ql (U) Negative (no code) 12-23-2019 Via Armando ti 21:0 Clinic (17307) Calcium 9.0 mg/dL (no code) 8.5 - 10.2 mg/dL 12-23-2019 Via C hristi [Mass/Vol] :0500 Clinic (31259) Chloride 105 mmol/L (no code) 95 - 106 mmol/L 12-23-2019 Via C hristi [Moles/Vol] :500500 Clinic (27934) CO2 [Moles/Vol] 23 mmol/L (no code) 23 - 29 mmol/L 12-23-2019 V ia [facility] 21:50-0500 Clinic (22015) Color (U) Straw (no code) 12-23-2019 [facility] 21:100500 Clinic (69703) Creatinine 0.60 mg/dL (no code) 12-23-2019 [facility] [Mass/Vol] 21:50-0500 Clinic (11139) Erythrocyte 12.8 % (no code) 11.6 - 14.6 % 12-23-2019 Via Ch r[facility] distribution :320 Clinic (84794) width (RBC) [Ratio] GFR/1.73 sq mL/min/{1.73_m2} (no code) 90 - 120 12-23-2019 [facility] M.predicted MDRD mL/min/{1.73_m2} 21:500500 Clinic (0 0000) (S/P/Bld) [Vol rate/Area] Globulin (S) 2.6 g/dL (no code) 2 - 3.5 g/dL 12-23-2019 [facility] r[facility] [Mass/Vol] 21:500500 Clinic (61084) Glucose 94 mg/dL (no code) 60 - 125 mg/dL 12-23-2019 [facility] [Mass/Vol] 21:500500 Clinic (19736) Glucose Auto Negative (no code) 12-23-2019 [facility] test strip Ql 21:0 Clinic (57282) (U) HCG ( Negative (no code) 12-23-2019 [facility] test) Ql (U) 21:110500 Clinic (06397) Hematocrit (Bld) 38.0 % (no code) 36.1 - 50.3 % 12-23-2019 V [facility] [Volume :320500 Clinic (96915) fraction] Hemoglobin (Bld) 12.5 g/dL (no code) 12.1 - 17.2 g/dL 12-23-2019 [facility] [Mass/Vol] 21:32-0500 Clinic (97983) Ketones Auto Negative (no code) 12-23-2019 [facility] test strip Ql 21:0 Clinic (06198) (U) Leukocyte Negative (no code) 12-23-2019 [facility] esterase Test 21:0500 Clinic (11775) strip Ql (U) MCH (RBC) 30.3 pg (no code) 27 - 31 pg 12-23-2019 [facility] [Entitic mass] 21:320500 Clinic (60301) MCHC (RBC) 32.9 g/dL (no code) 32 - 36 g/dL 12-23-2019 Via Chri sti [Mass/Vol] 21:320500 Clinic (55663) MCV (RBC) 92.0 fL (no code) 80 - 100 fL 12-23-2019 Via Venkata i [Entitic vol] 21:320500 Clinic (93460) Nitrite Ql (U) Negative (no code) 12-23-2019 [facility] 21:100500 Clinic (25339) pH (U) 8.0 (no code) 12-23-2019 [facility] 21:100500 Clinic (85738) Platelet mean 10.7 fL (no code) 7.2 - 11.7 fL 12-23-2019 [facility] volume (Bld) :320500 Clinic (25324) [Entitic vol] Platelets (Bld) 268 10*3/uL (no code) 150 - 450 12-23-2019 [facility] [#/Vol] 10*3/uL 21:320500 Clinic (73976) Potassium 3.4 mmol/L (null) 3.7 - 5.2 mmol/L 12-23-2019 [facility] [Moles/Vol] 21:50-0500 Clinic (00863) Protein (U) Negative (no code) 0 - 20 mg/dL 12-23-2019 Via [facility] [Mass/Vol] 21:100500 Clinic (86613) Protein 6.6 g/dL (no code) 6.4 - 8.3 g/dL 12-23-2019 [facility] [Mass/Vol] 21:50-0500 Clinic (49052) RBC (Bld) 4.13 10*6/uL (no code) 4.2 - 6.1 12-23-2019 Via Armando ti [#/Vol] 10*6/uL 21:320500 Clinic (76986) RBC (U) [#/Vol] Negative (no code) 0 - 55 /uL 12-23-2019 Via C hristi 21:100500 Clinic (33716) Sodium 137 mmol/L (no code) 135 - 145 mmol/L 12-23-2019 [facility] [Moles/Vol] 21:50-0500 Clinic (25233) Specific gravity 1.005 (no code) 12-23-2019 Via Armando ti (U) [Rel 21:100500 Clinic (50523) density] Urea nitrogen 5 mg/dL (no code) 7 - 20 mg/dL 12-23-2019 Via C hristi [Mass/Vol] 21:50-0500 Clinic (13699) Urobilinogen (U) Negative (no code) 12-23-2019 [facility] ti [Mass/Vol] 21:100500 Clinic (33660) WBC (Bld) 6.3 10*3/uL (no code) 3.5 - 10.5 12-23-2019 Via Armando ti [#/Vol] 10*3/uL 21:32-0500 Clinic (97346) urinalysis w/o scope (ih) on 2019-11-23 Appearance (U) cloudy (no code) 11-23-2019 [facility] 07:00-0500 Clinic (62455) Bilirubin Ql (U) Negative (no code) 11-23-2019 [facility] 07:000500 Clinic (45200) Color (U) yellow (no code) 11-23-2019 [facility] 07:000500 Clinic (46444) Glucose Ql (U) Negative (no code) 11-23-2019 [facility] 07:000500 Clinic (14939) Hemoglobin Ql Negative (no code) 11-23-2019 [facility] (U) 07:00-0500 Clinic (86121) Ketones Ql (U) Negative (no code) 11-23-2019 [facility] 07:00-0500 Clinic (72524) Leukocyte Negative (no code) 11-23-2019 [facility] esterase Test 07:00-0500 Clinic (56357) strip Ql (U) Nitrite Ql (U) Negative (no code) 11-23-2019 [facility] 07:00-0500 Clinic (04858) pH (U) 7.5 [pH] (no code) 4.6 - 8 [pH] 11-23-2019 [facility] 07:00-0500 Clinic (72031) Protein Ql (U) Negative (no code) 11-23-2019 [facility] 07:00-0500 Clinic (49952) Specific gravity 1.015 (no code) 11-23-2019 [facility] (U) [Rel 07:00-0500 Clinic (75363) density] Urobilinogen (U) 0.2 mg/dL (no code) 11-23-2019 [facility] [Mass/Vol] 07:000500 Clinic (72790) Urinalysis w/o no information (no code) 11-23-2019 [facility] re scope (IH) 07:000500 Clinic (07816) test urine (ih) on 2019-11-23 HCG ( no information (no code) 11-23-2019 [facility] re test) Ql (U) 07:00-0500 Clinic (72145) laboratory on 2019-11-23 Glucose Ql (U) neg~neg~neg (no code) [facility] (09827[facility] Nitrite Ql (U) yellow~cloudy~ne (no code) [facility] g~neg Clinic (44493) laboratory on 2019-11-09 Cholesterol 172 mg/dL (N) 180 - 200 mg/dL [facility] [Mass/Vol] Clinic (81884) Cholesterol in 63 mg/dL (N) [facility] HDL [Mass/Vol] Clinic (98760) Cholesterol in 88 mg/dL (N) 0 - 100 mg/dL [facility] LDL [Mass/Vol] Clinic (78546) Cholesterol non 109 mg/dL (N) [facility] HDL [Mass/Vol] Clinic (75088) Cholesterol.tota 2.7 {ratio} (N) [facility] l/Cholesterol in Clinic (27131) HDL [Mass ratio] HbA1c (Bld) 5.2 (N) [facility] [Mass fraction] Clinic (90613) Triglyceride 114 mg/dL (N) 0 - 150 mg/dL [facility] [Mass/Vol] Clinic (99556) not yet categorized on 2019-10-12 Tricyclics Negative (no code) 10-12-2019 [facility] 10:03-0500 Clinic (49370) Type of Urine Catheter (no code) [facility] (24460) method no information Reason For (no code) [facility] Exam\.br\fever w Hospitals - abdominal and [place] (57435) back pain\.br\ \.br\REPORT\.br\ EXAMINATION: CT Abdomen and Pelvis with intravenous contrast.\.br\ \.br\TECHNIQUE: Multiple contiguous axial images were obtained through the abdomen\.br\and pelvis after the uneventful administration of intravenous contrast. All CT\.br\scans use one or more of the following dose optimizing techniques: automated\.br\ex posure control, MA and/or KvP adjustment based on a patient size and exam\.br\type, or iterative reconstruction.\ .br\ \.br\HISTORY: Abdominal pain.\.br\ \.br\COMPARISON: None available.\.br\ \.br\FINDINGS:\. br\ \.br\Limited views of the lower thorax are unremarkable.\.b r\ \.br\The liver is normal without focal lesion. There is no biliary ductal dilation.\.br\Ga llbladder is normal. Pancreas is normal. Spleen is normal. Adrenal glands\.br\are normal.\.br\ \.br\There are patchy areas of linear hypoenhancement in the right kidney with mild\.br\dilatio n of the renal pelvis and urothelial enhancement suggestive of\.br\pyeloneph ritis. No obstructing stone is seen. Left kidney appears normal.\.br\Urin baylee bladder is normal.\.br\ \.br\There are no dilated loops of large or small bowel. No obstruction or\.br\inflammat ion. No free fluid or air. No abdominal or pelvic lymphadenopathy. \.br\Aorta is normal in caliber without aneurysm.\.br\ \.br\There are no suspicious osseous lesions.\.br\ \.br\IMPRESSION: \.br\ \.br\1. CT findings suggestive of right-sided pyelonephritis.\ .br\ \.br\Tech Comments: IV Contrast Name: Omnipaque 300\.br\Contrast amount in ml's: 80.000\.br\Dicta bharat on workstation:[id number]\.br\ \.br\Signature Line\.br\ FINAL \.br\ \.br\DICTATED BY: ANNIA MATTSON MD\.br\DICTATED DT/TM: 10/12/2019 5:05 PM\.br\SIGNED BY: ANNIA MATTSON MD\.br\SIGNED (ELECTRONIC SIGNATURE): 10/12/2019 6:16 PM\.br\ \.br\TECHNOLOGIS T: HUGH FARMER RT(R),SHABBIR LOONEY ARR\.br\ \.br\ laboratory on 2019-10-12 Albumin 3.7 g/dL (no code) 3.4 - 5.4 g/dL 10-12-2019 [facility] is[facility] [Mass/Vol] 09:480500 Clinic ([id number]) ALP [Catalytic 63 U/L (no code) 44 - 147 U/L 10-12-2019 [facility] Le[facility] activity/Vol] 09:48 Clinic (10611) ALT [Catalytic 35 U/L (no code) 4 - 40 U/L 10-12-2019 Via Ch risti activity/Vol] 09:48050 Clinic (06821) Amphetamine+Meth Negative (no code) 10-12-2019 Via Armando dante amphetamine Ql 10:03 Clinic (35927) (U) Anion gap 11 mmol/L (no code) 3 - 11 mmol/L 10-12-2019 Via Chri sti [Moles/Vol] 09:160500 Clinic (33593) Anion gap 10 mmol/L (no code) 3 - 11 mmol/L 10-12-2019 [facility] Chri sti [Moles/Vol] 09:480500 Clinic (60917) Appearance (U) Clear (no code) 10-12-2019 [facility] 09:550500 Clinic (43870) AST [Catalytic 34 U/L (no code) 10 - 34 U/L 10-12-2019 Via C hristi activity/Vol] 09:480500 Clinic ([id number]) Barbiturates Negative (no code) 10-12-2019 [facility] Screen Ql (U) 10:030500 Clinic (21609) Basophils (Bld) 0.02 10*3/uL (no code) 0 - 0.3 10*3/uL 9 [facility] [#/Vol] 09:240500 Clinic (90027) Basophils/100 0 % (no code) 0.5 - 1 % 10-12-2019 [facility] Chri sti WBC (Bld) 09:240500 Clinic (01494) Benzodiazepines Negative (no code) 10-12-2019 Via Venkata i Ql (U) 10:030500 Clinic (01794) Bilirubin 0.8 mg/dL (no code) 0.1 - 1.2 mg/dL 10-12-2019 [facility] Ch risti [Mass/Vol] 09:48-0500 Clinic (16031) Bilirubin Ql (U) Negative (no code) 10-12-2019 Via Armando ti 09:55-0500 Clinic (00223) Calcium 8.3 mg/dL (null) 8.5 - 10.2 mg/dL 10-12-2019 Via C hristi [Mass/Vol] 09:480500 Clinic (40547) Calcium.ionized 1.03 mmol/L (null) 1.2 - 1.4 mmol/L 9 [facility] Le[facility] (Bld) 09:160500 Clinic (98350) [Moles/Vol] Cannabinoids Positive (null) 10-12-2019 [facility] Screen Ql (U) 10:0500 Clinic (16987) Chloride (BldC) 101 (no code) 10-12-2019 Via Venkata i [Moles/Vol] 09:160500 Clinic (94861) Chloride 99 mmol/L (no code) 95 - 106 mmol/L 10-12-2019 [facility] Ch risti [Moles/Vol] 09:48-0500 Clinic (00550) CO2 [Moles/Vol] 21 mmol/L (null) 23 - 29 mmol/L 10-12-2019 V [facility] Leanna 09:48-0500 Clinic (75046) CO2 Calc (BldV) 22 (null) 10-12-2019 [facility] Venkata i [Moles/Vol] 09:16-0500 Clinic (01502) Cocaine Ql (U) Negative (no code) 10-12-2019 [facility] 10:030500 Clinic (03985) Color (U) Straw (no code) 10-12-2019 [facility] 09:55-0500 Clinic (07281) Creatinine 0.6 mg/dL (no code) 10-12-2019 [facility] [Mass/Vol] 09:16-0500 Clinic (32665) Creatinine 0.70 mg/dL (no code) 10-12-2019 [facility] [Mass/Vol] 09:48 Clinic (69488) Eosinophils 0.02 10*3/uL (no code) 0.05 - 0.5 10-12-2019 [facility] Ch risti (Bld) [#/Vol] 10*3/uL 09: Clinic (38595) Eosinophils/100 0 % (no code) 1 - 4 % 10-12-2019 [facility]isti WBC (Bld) 09: Clinic () Erythrocyte 12.7 % (no code) 11.6 - 14.6 % 10-12-2019 [facility] Ch risti distribution 09: Clinic () width (RBC) [Ratio] GFR/1.73 sq mL/min/{1.73_m2} (no code) 90 - 120 10-12-2019 [facility] M.predicted MDRD mL/min/{1.73_m2} 09:48 Clinic (0 0000) (S/P/Bld) [Vol rate/Area] Globulin (S) 3.2 g/dL (no code) 2 - 3.5 g/dL 10-12-2019 [facility] Ch risti [Mass/Vol] 09:48 Clinic (31713) Glucose 107 mg/dL (null) 60 - 125 mg/dL 10-12-2019 [facility] [Mass/Vol] 09:16 Clinic (22472) Glucose 108 mg/dL (null) 60 - 125 mg/dL 10-12-2019 [facility] [Mass/Vol] 09:48 Clinic (02583) Glucose Auto Negative (no code) 10-12-2019 [facility] test strip Ql 09:55 Clinic (17302) (U) HCG ( Negative (no code) 10-12-2019 [facility] test) Ql (U) 09: Clinic (95571) Hematocrit (Bld) 35.9 % (null) 36.1 - 50.3 % 10-12-2019 V woo Ram [Volume 09: Clinic (05542) fraction] Hematocrit 36.0 (null) 10-12-2019 [facility] (BldV) [Volume 09:16 Clinic (97315) fraction] Hemoglobin (Bld) 12.2 g/dL (no code) 12.1 - 17.2 g/dL 10-12-2019 [facility] [Mass/Vol] 09:160500 Clinic (54763) Hemoglobin (Bld) 11.7 g/dL (null) 12.1 - 17.2 g/dL 10-12-2019 [facility] [Mass/Vol] 09:0 Clinic (24179) Immature 0.3 (no code) 10-12-2019 [facility] granulocytes 09:0500 Clinic (54574) Auto Ql (Bld) Ketones Auto Negative (no code) 10-12-2019 [facility] test strip Ql 09:550 Clinic (94160) (U) Leukocyte Negative (no code) 10-12-2019 [facility] esterase Test 09:550 Clinic (43203) strip Ql (U) Lymphocytes 1.08 10*3/uL (no code) 0.9 - 2.9 10-12-2019 [facility] Chr isti (Bld) [#/Vol] 10*3/uL 09:0500 Clinic (96977) Lymphocytes/100 12 % (null) 20 - 40 % 10-12-2019 Via risti WBC (Bld) 09: Clinic (65747) MCH (RBC) 30.2 pg (no code) 27 - 31 pg 10-12-2019 [facility] [Entitic mass] 09: Clinic (41496) MCHC (RBC) 32.6 g/dL (no code) 32 - 36 g/dL 10-12-2019 [facility] Chri sti [Mass/Vol] 09:240500 Clinic (35127) MCV (RBC) 92.8 fL (no code) 80 - 100 fL 10-12-2019 Via Venkata i [Entitic vol] 09: Clinic (30051) Methadone Screen Negative (no code) 10-12-2019 [facility] Armando ti Ql (U) 10:030500 Clinic (38981) Monocytes (Bld) 1.03 10*3/uL (null) 0.3 - 0.9 10-12-2019 [facility] [#/Vol] 10*3/uL 09:240500 Clinic (52944) Monocytes/100 12 % (null) 2 - 8 % 10-12-2019 Via Chri sti WBC (Bld) 09: Clinic (68147) Neutrophils 6.58 10*3/uL (no code) 1.7 - 7 10*3/uL 10-12-2019 V woo Ram (Bld) [#/Vol] 09:240500 Clinic (42273) Nitrite Ql (U) Negative (no code) 10-12-2019 [facility] 09:550500 Clinic (89812) Nucleated 0.0 (no code) 10-12-2019 [facility] RBC/100 WBC 09: Clinic (52698) (Bld) [Ratio] Opiates Screen Negative (no code) 10-12-2019 [facility] Ql (U) 10: Clinic (15329) pH (U) 9.0 (null) 10-12-2019 [facility] 09:550500 Clinic (28681) Phencyclidine Ql Negative (no code) 10-12-2019 [facility] Armando ti (U) 10:030500 Clinic (65891) Platelet mean 11.5 fL (no code) 7.2 - 11.7 fL 10-12-2019 [facility] volume (Bld) 09:0500 Clinic (91941) [Entitic vol] Platelets (Bld) 261 10*3/uL (no code) 150 - 450 10-12-2019 [facility] [#/Vol] 10*3/uL 09:240500 Clinic (37885) Potassium 4.0 mmol/L (no code) 3.7 - 5.2 mmol/L 10-12-2019 [facility] [Moles/Vol] 09:160500 Clinic (74700) Potassium 3.9 mmol/L (no code) 3.7 - 5.2 mmol/L 10-12-2019 [facility] [Moles/Vol] 09:48-0500 Clinic (77316) Protein (U) Negative (no code) 0 - 20 mg/dL 10-12-2019 [facility] isti [Mass/Vol] 09:55-0500 Clinic (61363) Protein 6.9 g/dL (no code) 6.4 - 8.3 g/dL 10-12-2019 [facility] [Mass/Vol] 09:48-0500 Clinic (40572) RBC (Bld) 3.87 10*6/uL (null) 4.2 - 6.1 10-12-2019 [facility] Armando ti [#/Vol] 10*6/uL 09:240500 Clinic (81605) RBC (U) [#/Vol] Negative (no code) 0 - 55 /uL 10-12-2019 Via C hristi 09:550500 Clinic (31365) Segmented 75 % (no code) 35 - 80 % 10-12-2019 [facility] neutrophils/100 09:240500 Clinic (35000) WBC (Bld) Sodium 134 mmol/L (null) 135 - 145 mmol/L 10-12-2019 [facility] [Moles/Vol] 09:160500 Clinic (99262) Sodium 130 mmol/L (null) 135 - 145 mmol/L 10-12-2019 [facility] [Moles/Vol] 09:480500 Clinic (29263) Specific gravity 1.005 (no code) 10-12-2019 Via Armadno ti (U) [Rel 09:550500 Clinic (24285) density] Urea nitrogen 6 mg/dL (no code) 7 - 20 mg/dL 10-12-2019 Via C hristi [Mass/Vol] 09:160500 Clinic (58668) Urea nitrogen 5 mg/dL (no code) 7 - 20 mg/dL 10-12-2019 [facility] C hristi [Mass/Vol] 09:48-0500 Clinic (27861) Urobilinogen (U) Negative (no code) 10-12-2019 [facility] Armando ti [Mass/Vol] 09:55-0500 Clinic (56449) WBC (Bld) 8.8 10*3/uL (no code) 3.5 - 10.5 10-12-2019 [facility] Armando ti [#/Vol] 10*3/uL 09:240500 Clinic (60280) not yet categorized on 2019-07-03 Urine Volume Urine Volume (no code) 07-03-2019 Hospital Sufficient 20:07-0400 [facility] (10[facility] (68072) no information Urine Saved if (A) 07-03-2019 Hospital Culture Needed 20: [facility] (48hrs from time [facility] of collection) (93652) laboratory on 2019-07-03 Albumin BCG dye 4.3 (no code) 07-03-2019 Hospital [Mass/Vol] 19:330400 [facility] (40434) ALP [Catalytic 64 U/L (no code) 44 - 147 U/L 07-03-2019 Hosp ital activity/Vol] 19:330400 [facility] (85667) ALT [Catalytic 21 U/L (no code) 4 - 40 U/L 07-03-2019 Hospit al activity/Vol] 19:330400 [facility] (27254) Amphetamines Ql Negative (no code) 07-03-2019 Hospital (U) 20: [facility] (31423) Amylase 57 U/L (no code) 40 - 140 U/L 07-03-2019 Hospital [Catalytic 19:0400 [facility] activity/Vol] [facility] (87671) Anion gap 16 mmol/L (H) 3 - 11 mmol/L 07-03-2019 Hospital [Moles/Vol] 19:330400 [facility] (30747) AST [Catalytic 19 U/L (no code) 10 - 34 U/L 07-03-2019 Hospi adam activity/Vol] 19:330400 [facility] (17603) Bacteria LM Ql Negative (no code) 07-03-2019 Hospital (Urine sed) 20: [facility] (59593) Barbiturates Negative (no code) 07-03-2019 Hospital Screen Ql (U) 20: [facility] (31158) Basophils (Bld) 0.0 10*3/uL (no code) 0 - 0.3 10*3/uL 07-03-2019 Hospital [#/Vol] 19:33-0400 [facility] (24417) Basophils/100 0.20 % (no code) 0.5 - 1 % 07-03-2019 Hospital WBC (Bld) 19:33-0400 [facility] (32477) Benzodiazepine Negative (no code) 07-03-2019 Hospital metabolites 20: [facility] Screen Ql (U) [facility] (74210) Bilirubin 0.6 mg/dL (no code) 0.1 - 1.2 mg/dL 07-03-2019 Hospit al [Mass/Vol] 19:330400 [facility] (23906) Bilirubin N/A (A) 07-03-2019 Hospital Confirm Ql (U) 20: [facility] (86354) Bilirubin Ql (U) Negative (no code) 07-03-2019 Hospital 20: [facility] () Calcium 9.5 mg/dL (no code) 8.5 - 10.2 mg/dL 07-03-2019 Hospi adam [Mass/Vol] 19:330 [facility] () Carboxy Negative (no code) 07-03-2019 Hospital tetrahydrocannab 20: [facility] inol Ql (U) [facility] (25071) Chloride 109 mmol/L (no code) 95 - 106 mmol/L 07-03-2019 Hospi adam [Moles/Vol] 19:330 [facility] (59631) Clarity (U) Clear (no code) 07-03-2019 Hospital 20: [facility] (01966) Cocaine Ql (U) Negative (no code) 07-03-2019 Hospital 20: [facility] (17499) Color (U) Yellow (no code) 07-03-2019 Hospital 20: [facility] (77233) Creatinine 0.75 mg/dL (no code) 07-03-2019 Hospital [Mass/Vol] 19:040 [facility] (23557) Eosinophils 0.2 10*3/uL (no code) 0.05 - 0.5 07-03-2019 Hospita l (Bld) [#/Vol] 10*3/uL 19:330400 [facility] (18519) Eosinophils/100 3.7 % (no code) 1 - 4 % 07-03-2019 Hospit al WBC (Bld) 19:330 [facility] (50374) Epithelial 0-5/HPF (A) 07-03-2019 Hospital cells.squamous 20: [facility] LM.HPF (Urine [facility] sed) [#/Area] (85433) Erythrocyte 12.0 % (no code) 11.6 - 14.6 % 07-03-2019 Hospit al distribution 19: [facility] width (RBC) [facility] [Ratio] (73875) Ethanol Ql (U) <10.00 (L) 07-03-2019 Hospital 20: [facility] () GFR/1.73 sq 86 (no code) 90 - 120 07-03-2019 Hospital M.predicted MDRD mL/min/{1.73_m2} mL/min/{1.73_m2} 19: [facility] (S/P/Bld) [Vol [facility] rate/Area] (30630) Globulin (S) 2.8 g/dL (no code) 2 - 3.5 g/dL 07-03-2019 Hospit al [Mass/Vol] 19: [facility] (34394) Glucose 93 mg/dL (no code) 60 - 125 mg/dL 07-03-2019 Hospita l [Mass/Vol] 19:33040 [facility] (97001) Glucose Test Negative (no code) 07-03-2019 Hospital strip (U) 20: [facility] [Mass/Vol] [facility] (39092) HCO3 (P) 17 (L) 07-03-2019 Hospital [Moles/Vol] 19: [facility] (87706) Hematocrit (Bld) 45.0 % (no code) 36.1 - 50.3 % 07-03-2019 H ospital [Volume 19:0 [facility] fraction] [facility] (58863) Hemoglobin (Bld) 14.9 g/dL (no code) 12.1 - 17.2 g/dL 07-03-2019 Hospital [Mass/Vol] 19:330400 [facility] (32730) Hemoglobin Ql Negative (no code) 07-03-2019 Hospital (U) 20: [facility] (40483) Ketones (U) Negative (no code) 07-03-2019 Hospital [Mass/Vol] 20: [facility] (28106) Leukocyte Negative (no code) 07-03-2019 Hospital esterase Test 20: [facility] strip Ql (U) [facility] (16146) Lipase 35 U/L (no code) 10 - 73 U/L 07-03-2019 Hospital [Catalytic 19: [facility] activity/Vol] [facility] (64500) Lymphocytes 1.97 10*3/uL (no code) 0.9 - 2.9 07-03-2019 Hospita l (Bld) [#/Vol] 10*3/uL 19: [facility] (29801) Lymphocytes/100 32.8 % (no code) 20 - 40 % 07-03-2019 Hospit al WBC (Bld) 19:0 [facility] (52008) MCH (RBC) 30.6 pg (no code) 27 - 31 pg 07-03-2019 Hospital [Entitic mass] 19:330400 [facility] (38974) MCHC (RBC) 33.1 g/dL (no code) 32 - 36 g/dL 07-03-2019 Hospital [Mass/Vol] 19:330400 [facility] (71117) MCV (RBC) 92.4 fL (no code) 80 - 100 fL 07-03-2019 Hospital [Entitic vol] 19:330400 [facility] (01928) Methylenedioxyme Negative (no code) 07-03-2019 Hospital thamphetamine 20: [facility] Screen Ql (U) [facility] (96717) Monocytes (Bld) 0.5 10*3/uL (no code) 0.3 - 0.9 07-03-2019 Hosp ital [#/Vol] 10*3/uL 19:330400 [facility] (68199) Monocytes/100 8.0 % (no code) 2 - 8 % 07-03-2019 Hospital WBC (Bld) 19:0400 [facility] (05212) Neutrophils 3.32 10*3/uL (no code) 1.7 - 7 10*3/uL 07-03-2019 H ospital (Bld) [#/Vol] 19:330400 [facility] (48295) Neutrophils/100 55.3 % (no code) 40 - 60 % 07-03-2019 Hospit al WBC (Bld) 19: [facility] (23304) Nitrite Ql (U) Negative (no code) 07-03-2019 Hospital 20: [facility] (33661) Opiates Screen Negative (no code) 07-03-2019 Hospital Ql (U) 20: [facility] (61467) Osmolality Calc 283 (no code) 07-03-2019 Hospital [Osmolality] 19: [facility] (68578) Oxycodone Ql (U) Negative (no code) 07-03-2019 Hospital 20: [facility] (30492) pH (U) 8.5 [pH] (no code) 4.6 - 8 [pH] 07-03-2019 Hospital 20: [facility] (81541) Phencyclidine Ql Negative (no code) 07-03-2019 Hospital (U) 20: [facility] (71238) Platelet mean 11.0 fL (H) 7.2 - 11.7 fL 07-03-2019 Hosp ital volume (Bld) 19:330400 [facility] [Entitic vol] [facility] (87566) Platelets (Bld) 294 10*3/uL (no code) 150 - 450 07-03-2019 Hosp ital [#/Vol] 10*3/uL 19:330400 [facility] (92307) Potassium 3.9 mmol/L (no code) 3.7 - 5.2 mmol/L 07-03-2019 Hosp ital [Moles/Vol] 19:330400 [facility] (61872) Propoxyphene Ql Negative (no code) 07-03-2019 Hospital (U) 20: [facility] (35239) Protein (U) Negative (no code) 0 - 20 mg/dL 07-03-2019 Hospita l [Mass/Vol] 20:0400 [facility] (03824) Protein 7.1 g/dL (no code) 6.4 - 8.3 g/dL 07-03-2019 Hospita l [Mass/Vol] 19:33-0400 [facility] (20148) RBC (Bld) 4.87 10*6/uL (no code) 4.2 - 6.1 07-03-2019 Hospital [#/Vol] 10*6/uL 19:330400 [facility] (60413) RBC LM.HPF Negative (no code) 0 - 4 /[HPF] 07-03-2019 Hospital (Urine sed) 20: [facility] [#/Area] [facility] (44030) Sodium 138 mmol/L (no code) 135 - 145 mmol/L 07-03-2019 Hosp ital [Moles/Vol] 19:330400 [facility] (24216) Specific gravity 1.015 (no code) 07-03-2019 Hospital (U) [Rel 20: [facility] density] [facility] (12105) Tricyclic Negative (no code) 07-03-2019 Hospital antidepressants 20: [facility] Ql (U) [facility] (88154) Urea nitrogen 6 mg/dL (no code) 7 - 20 mg/dL 07-03-2019 Hospi adam [Mass/Vol] 19:0400 [facility] (73266) Urobilinogen Qn 0.2 (no code) 07-03-2019 Hospital (U) 20: [facility] (43536) WBC (Bld) 6.00 10*3/uL (no code) 3.5 - 10.5 07-03-2019 Hospital [#/Vol] 10*3/uL 19:33-0400 [facility] (70107) WBC LM.HPF Nothing Seen on (no code) 07-03-2019 Hospital (Urine sed) Microscopic 20:07 [facility] [#/Area] [facility] (05031) Yeast.budding Ql No Yeast present (no code) 07-03-2019 Hosp ital (Urine sed) 20:07040 [facility] (79150) Vital Signs Vital Sign Value Interpretation Reference Date Time Care Prov ider Facility (Normalized) (Normalized) Range BMI (Body Mass 25.06 kg/m2 (no code) 15 - 25 kg/m2 11-23-2019 Ronan Norris [facility] Index) 16:00-050 Clinic (25745) BMI (Body Mass 24.83 kg/m2 (no code) 15 - 25 kg/m2 11-16-2019 Ronan Pat [facility] Index) 12:00-05067204 Clinic (84009) BMI (Body Mass 24.83 kg/m2 (no code) 15 - 25 kg/m2 11-09-2019 Ronan Pat [facility] Index) 15:20-0500 87565 Clinic (29039) Body 97.8 [degF] (no code) 97.8 - 99.0 11-23-2019 Ziggy calhoun [facility] Temperature [degF] 16:00-0500 [address] Clinic (0000 0) Body 97.8 [degF] (no code) 97.8 - 99.0 11-16-2019 Jesica kennedy [facility] Temperature [degF] 12:00-05067204 Clinic (0000 0) Body 97.9 [degF] (no code) 97.8 - 99.0 11-09-2019 Jesica kennedy [facility] Temperature [degF] 15:20-05067204 Clinic (0000 0) Body weight 68.31 kg (no code) kg 11-23-2019 Ziggy villalpando [facility] 16:00-0500 Clinic (32859) Body weight 67.68 kg (no code) kg 11-16-2019 Jesica Pat [facility] 12:00 Clinic (60585) Body weight 67.68 kg (no code) kg 11-09-2019 Jesica Pat [facility] 15: Clinic (60058) Blood Pressure 114/ (no code) Systolic: 90 - 11-23-2019 Dino Norris [facility] 77mm[Hg] 120 mm[Hg] 16: Clinic (14496) Diastolic: 60 - 80 mm[Hg] Blood Pressure 128/ (no code) Systolic: 90 - 11-16-2019 Leobardo Pat [facility] 82mm[Hg] 120 mm[Hg] 12: Clinic (76531) Diastolic: 60 - 80 mm[Hg] Blood Pressure 139/ (no code) Systolic: 90 - 11-09-2019 Leobardo Pat [facility] 89mm[Hg] 120 mm[Hg] 15: Clinic (94290) Diastolic: 60 - 80 mm[Hg] Height 165.1 cm (no code) cm 11-23-2019 Ziggy Norris [facility] 16:00 Clinic (44420) Height 165.1 cm (no code) cm 11-16-2019 Jes[facility] 12: [facility] (85971) Height 165.1 cm (no code) cm 11-09-2019 Jesica [facility] 15: Clinic (83652) Pulse (Heart 81 /min (no code) 60 - 100 /min 11-23-2019 Ziggy Norris [facility] Rate) 16:00 Clinic (50927) Pulse (Heart 76 /min (no code) 60 - 100 /min 11-16-2019 Jesica Pat [facility] Rate) 12:00 Clinic (08492) Pulse (Heart 80 /min (no code) 60 - 100 /min 11-09-2019 Jesica Pat [facility] Rate) 15: Clinic (15802) Pulse Oximetry 100 % (no code) 95 - 100 % 11-23-2019 Ziggy Key kylenida [facility] 16:00-0500 [address] Clinic (66135) Pulse Oximetry 99 % (no code) 95 - 100 % 11-16-2019 [facility] 12:00-0500 53887 Clinic (48333) Pulse Oximetry 100 % (no code) 95 - 100 % 11-09-2019 Jesica Pat [facility] 15:20-0500 29624 Clinic (35054) Respiratory 18 /min (no code) 12 - 20 /min 11-23-2019 Ziggy alva [facility] Rate 16:00-0500 [id number] Clinic (25407) Respiratory 17 /min (no code) 12 - 20 /min 11-16-2019 Jesica goff [facility] Rate 12:00-0500 25011 Clinic (74077) Respiratory 20 /min (no code) 12 - 20 /min 11-09-2019 Jesica goff [facility] Rate 15:20-0500 51009 Clinic (02142) Interventions No Information Plan of Treatment Normalized Care Care Detail Care Activity Date Care Provider F acility Activity Patient Education Panic Disorder (DC) no information LOCAL NO [facility] (05928) Patient encounter [facility] 11-13-2019 Jesica Pat [phone] [facility] (76626) Patient encounter [facility] 11-27-2019 Jesica Pat [phone] [facility] (49110) Patient encounter [facility] 12-10-2019 Ziggy Norris [facility] [id number] (55542) Patient referral no information no information LOCAL NO [facility] (20053) no information no information no information Jesica Pat [address] [facility] (03082) Goals Patient Goal Desired Goal no information no information Social History Normalized Code Original Code Date Value Tobacco smoking status Tobacco smoking status no information Smokes tobacco daily NHIS NHIS (finding) no information no information 09-19-2015 Occasionally Us es no information no information 08-29-2014 No no information no information 08-30-2014 Denies no information no information 04-08-2020 Current [facility] Smoker no information no information 04-08-2020 METH Sex Assigned At Sex Assigned At no information F emale Functional Status The data below is from unstructured sourcesNo functional status results.No functional status results.No functional status results.No functional status results.No functional status results.No Functional Status information availableNo Functional Status information available Mental Status The data below is from unstructured sourcesNo Mental Status Information Available Encounters Encounter Normalized Encounter Encounter Diagnosis Care Provi luis Organization Date Type 04-08-2020 Emergency department no information (no phone) [facility] patient visit Hospital (no phone) 04-08-2020 04-08-2020 Emergency department no information STEPHANY UMANA MD [facility] patient visit (no phone) [facility] (no phone) 12-23-2019 Emergency department no information (no phone) Vi a [facility] - patient visit - [place] (no phone ) 12-23-2019 10-12-2019 Emergency department no information no name no organization name - patient visit 10-12-2019 03-11-2020 Nursing evaluation of Acute pharyngitis, CHRIS WHITMAN (no [facility] (no phone) patient and report unspecified phone) 03-28-2020 Patient encounter Borderline personality Lyndsay winchester (no [facility] procedure disorder phone) (no phone) 03-26-2020 Patient encounter Anxiety disorder, Jesica Pat (n o [facility] procedure unspecified phone) (no phone) 03-24-2020 Patient encounter Anxiety disorder, Jesica Pat (n o [facility] procedure unspecified phone) (no phone) 03-16-2020 Patient encounter no information [facility]) [facility] (no 03-16-2020 phone) 03-11-2020 Patient encounter no information (no phone) [facility] (no phone) 11-23-2019 Patient encounter Dysuria [facility]iggy Norris [facility] (no phone) 11-23-2019 11-19-2019 Patient encounter no information Jesica Pat (no [facility] procedure phone) (no phone) 11-16-2019 Patient encounter Anxiety disorder, Stefano Corbett (no [facility] procedure unspecified phone) Jesica Pat (no phone) (no phone) 11-14-2019 Patient encounter no information Jesica Pat (no [facility] procedure phone) (no phone) 11-13-2019 Patient encounter Anxiety disorder, Jesica Pat (n o [facility] - procedure unspecified phone) Stefano Corbett (no phone) 11-13-2019 (no phone) 11-09-2019 Patient encounter Borderline personality Jesica Gómez marcia (no [facility] - procedure disorder phone) Stefano Changsummer (no phone) 11-09-2019 (no phone) 07-03-2019 Patient encounter no information no name no or ganization name - procedure 07-03-2019 03-11-2020 Telephone encounter no information CHRIS RUT (no [facility] phone) MARGI LYONS (no (no phone) phone) 11-23-2019 Tobacco use cessation no information no name n o organization name intermediate 3-10 minutes Medical Equipment The data below is from unstructured sourcesNo Medical Equipment Information available Payers Normalized Payer Value Unknown no information ([id number]) Private Health Insurance no information Evaluation note Note Type Note Facility Evaluation No Assessments Information Available A scension note [facility] ([id number]) History general Narrative - Reported Note Type Note Facility History general Narrative - Reported Type Medical Borderline personality diso rder History Medical PTSD History Medical ADHD History Medical L4-5 pain (resolved) History Medical Gestational diabetes History [facility] ([id number]) History general Narrative - Reported Note Type Note Facility History general Narrative - Reported Type Medical HBP History Medical Back problems History Medical Maternal drug dependence co mplicating , childbirth, or the puerperium, History unspecified as to episode o [facility] ([id number]) Clinical Note Note Type Note Facility Note Reason For Exam\.br\Abdomin al pain, generalized\.br\ \.br\REPORT\.br\PROCEDURE: Via CT Abdomen Pelvis without contrast.\.br\ \.br\TECHNIQ UE: Multiple contiguous [facility] axial images were obtained through the abdomen\.br\and pelvis without the use of Hospitals intravenous contrast. All CT scans use one or more\.b r\of the following dose - [place] optimizing techniques: automated exposu re control, MA\.br\and/or KvP adjustment (28129) based on a patient size and exam type, or iterative\.br\reconstruction.\.br\ \.br\INDICATION: Abdominal pain.\.br\ \ .br\Comparison made with prior examination of 10/12/2019.\.br\ \.br\FI NDINGS: The heart size is normal. The lung bases are clear. The liver is\.br\ normal in size without focal lesions. Gallbladder is unremarkable. No biliary \.br\duct dilatation. Spleen is normal. The pancreas and adrenal glands are\.br \unremarkable. There is no evidence of nephrolithiasis or obstructive uropathy .\.br\Aorta is nonaneurysmal. Bowel gas pattern is nonspecific. No free air. No \.br\ascites. No focal inflammatory changes. Bladder is normal. No pelvic m ass,\.br\adenopathy or free fluid. There are numerous calcified phleboliths in t he\.br\pelvis. It is difficult to completely exclude a distal ureteral st one.\.br\ \.br\IMPRESSION: Multiple calcified phleboliths in the pelvis. Di fficult to exclude\.br\the distal or ureteral ureteral stone although there is no overt evidence of\.br\hydronephrosis.\.br\ \.br\No oth er acute abnormality in the abdomen or pelvis.\.br\ \.br\\.br\Dictated on work station:[id number]\.br\ \.br\Signature Line\.br\ FINAL \.br\ \.br\DICTATED BY: VINH JONAS II, MD\.br\DICTATED DT/TM: 12/24/19 7:40 AM\.br\SIGNED BY: VINH JONAS II, MD\.br\SIGNED (ELECTRONIC SIGNA TURLaureano): 12/24/2019 7:45 AM\.br\ \.br\TECHNOLOGIST: VIKTOR ABBOTT RT(R)(C T)\.br\ \.br\ Advance Directives Directive Response Recor ded Date/Time Advance Directives No 2:43pm Health Care Power of Lock And Dam Equipment Repairer No 09/19/15 2:43pm Organ Donor Yes 09/19/15 2:43pm Resuscitation Status Full Code 09/19/15 2:43pm Directive Response Recor ded Date/Time Advance Directives No 6:44pm Health Care Power of Lock And Dam Equipment Repairer No 08/14/14 6:44pm Organ Donor Yes 08/14/14 6:44pm Resuscitation Status Full Code 08/14/14 6:44pm Directive Response Recor ded Date/Time Advance Directives No 10:24pm Health Care Power of Lock And Dam Equipment Repairer No 08/28/14 10:24pm Organ Donor Yes 08/28/14 10:24pm Resuscitation Status Full Code 08/28/14 10:24pm Resuscitation Status Full Code 08/28/14 8:48pm Advance Directive Response Recorded Date/Time Advance Directives No Ma y 2019 2:24pm Health Care Power of Lock And Dam Equipment Repairer No September 19, 2015 2:43pm Organ Donor Yes September 19, 2015 2:43pm Resuscitation Status Full Code April 08, 2020 2:24pm Discharge Instructions No hospital discharge instructions.No hospital discharge instructions. Patient Instructions Physician Instructions New, Converted or Re-Newed RX: Call to Patients Pharmacy Goal/Follow Up: Follow up with mental health as soon as possible. Follow up in 6 weeks for visit. Activity: Activity as Tolerated (Avoid stenuous activity x 6 weeks) Symptoms to Report to : Bleeding Excessive, Fever Over 101 Degrees F, Pain/Pressure in Chest, Cramps in Feet or Legs, Vaginal Discharge Foul, Shortness of Breath For Any Problems or Questions: Contact Your Physician Chief Complaint and Reason for Visit Chief Complaint Psych/Social Disorde r Reason for Visit [id number] Additional Source Comments This clinical document has been generated using [employer] software that has been certified by the Office of the National Coordinator for Health Information Technology (ONC 15.99.04.3023.Diam.[id number]) and the National Committee for Line Maintainer Section (NCQA, as an eMeasure certified technology). FOR RECORDS PERTAINING TO PATIENTS WHO ARE OR HAVE BEEN ENROLLED IN A CHEMICAL D EPENDENCY/SUBSTANCE ABUSE PROGRAM, SOME INFORMATION MAY BE OMITTED. This clinica l summary was aggregated from multiple sources. Caution should be exercised in using it in the provision of clinical care. This summary normalizes information from multiple sources, and as a consequence, information in this document may ma terially change the coding, format and clinical context of patient data. In cece tion, data may be omitted in some cases. CLINICAL DECISIONS SHOULD BE BASED ON T HE PRIMARY CLINICAL RECORDS. [employer] [facility]. provides no warranty or guara ntee of the accuracy or completeness of information in this document.The followi ng information is based on time limited clinical information UNRECOGNIZED CONTENT PROVIDED BELOW FOR UNRECOGNIZED SECTION REASON FOR VISIT [id number]-Migestablish care and BHanxiety medsMAPpa in right sideTest resultsDCF Reportstate insurance inquiryMed refillMessage to s elf UNRECOGNIZED CONTENT PROVIDED BELOW FOR UNRECOGNIZED SECTION MEDICAL (GENERAL) HISTORY Type Description Date Medical History HBP Medical History Back problems
--- OUTSIDE RECORDS SUMMARY | 2020-04-08 18:06 | XMS REPORT ---
Author Author Faith [facility] Address [address] [place] [id number] Care Team Providers Care Chief Wharfinger Name Role Phone Ziggy Norris Unavailable PROBLEMS Type Condition ICD9-CM Code [id number] Code Onset Dates Condition S tatus SNOMED Code Problem Encounter for weight loss counseling Z71.3 Active 570149924 Problem Dysuria R30.0 Active 71102341 Problem Borderline personality disorder in adult F60.3 Active 95866971 Problem Anxiety F41.9 Active 28278726 Problem History of PID Z87.42 Active 96746 2000 Problem Encounter for smoking cessation counseling Z71.6 Active [id number] ALLERGIES No Known Allergies ENCOUNTERS Encounter Location Date Diagnosis [facility] [address] [place] [address] [id number] Nov, [facility] [address] [place] [address] [phone] Oct, [facility] [address] [place] [address] [id number] Oct, Dysuria R30.0 ; History of PID Z87.42 ; Encounter for smoking cessation counseling Z71.6 and Encounter for weight loss counseling Z71.3 [facility] [address] [place] [address] [id number] Oct, [facility] [address] [place] [address] [phone] Oct, Anxiety F41.9 [facility] [address] [place] [address] [phone] Oct, Anxiety F41.9 [facility] [address] [place] [address] [phone] Oct, [facility] [address] [place] [address] [id number] Oct, [facility] [address] [place] [address] [phone] Oct, Anxiety F41.9 and Problems in relationship with spouse or partner Z63.0 [facility] [address] [place] [address] [id number] Oct, [facility] [address] [place] [address] [phone] Oct, Problems in relationship with spouse or partner Z63.0 [facility] [address] [place] [address] [phone] Oct, Borderline personality disorder in adult F60.3 ; Screening cholesterol level Z13.220 and Screening for diabetes mellitus Z13.1 IMMUNIZATIONS No Known Immunizations SOCIAL HISTORY Never Assessed REASON FOR VISIT pain right side PLAN OF CARE Activity Details Follow Up 2 Weeks Reason: VITAL SIGNS Temperature 97.8 degrees Fahrenheit 2019-11-23 Heart Rate 81 /min 2019-11-23 Respiratory Rate 18 /min 2019-11-23 Oximetry 100 % 2019-11-23 Weight 150.6 lbs 2019-11-23 Height 65.0 in 2019-11-23 BMI 25.06 kg/m2 2019-11-23 Blood pressure systolic 114 mm Hg 2019-11-23 Blood pressure diastolic 77 mm Hg 2019-11-23 MEDICATIONS Medication Instructions Dosage Frequency Start Date End Date Duration S tatus Gabapentin 600 MG Orally four times a day 1 tablet 6h Oct, 30 day(s) Active Latuda 60 MG Orally Once a day 1 tablet with food 24h 30 days Active Ibuprofen 800 MG Orally Three times a day 1 tablet with food or milk as needed 8h 10 days Active Macrobid 100 MG Orally every 12 hrs 1 capsule with food 12h 7 day(s) Active BusPIRone HCl 10 MG Orally Twice a day 1 tablet 12h Oct, 30 days Active RESULTS Name Result Date Reference Range Urinalysis w/o scope () 2019-11-23 Urine-Color yellow Appearance cloudy leukocyte neg Nitrite, Urine neg Urobilinogen,Semi-Qn 0.2 Protein neg pH 7.5 Occult Blood neg Specific [place] 1.015 Ketones neg Bilirubin neg Glucose neg WBC Esterase Urinalysis Gross Exam Microscopic Examination Test Urine () 2019-11-23 Test, Urine PROCEDURES Procedure Date Ordered Result Body Site URINE TEST Nov 23, 2019 BEHAV CHNG SMOKING 3-10 MIN Nov 23, 2019 URINE-NO MICRO Nov 23, 2019 INSTRUCTIONS MEDICATIONS ADMINISTERED No Known Medications MEDICAL (GENERAL) HISTORY Type Description Date Medical History Borderline personality disorder Medical History PTSD Medical History ADHD Medical History L4-5 pain (resolved) Medical History Gestational diabetes
--- OUTSIDE RECORDS SUMMARY | 2020-04-08 18:06 | XMS REPORT ---
Author Author Faith Pat [facility] Address [address] [address] Care Team Providers Care Director Of Online Education Name Role Phone Raffy Patistin Unavailable PROBLEMS Type Condition ICD9-CM Code [id number] Code Onset Dates Condition S tatus SNOMED Code Problem Borderline personality disorder in adult F60.3 Active 70709822 Problem Anxiety F41.9 Active 52266704 ALLERGIES No Information ENCOUNTERS Encounter Location Date Diagnosis [facility] [address] [place] [address] [phone] Oct, [facility] [address] [place] [address] [phone] Oct, [facility] [address] [place] [address] [id number] Oct, Anxiety F41.9 [facility] [address] [place] [address] [id number] Oct, [facility] [address] [place] [address] [id number] Oct, [facility] [address] [place] [address] [phone] Oct, Anxiety F41.9 and Problems in relationship with spouse or partner Z63.0 [facility] [address] [place] [address] [phone] Oct, [facility] [address] [place] [address] [id number] Oct, Problems in relationship with spouse or partner Z63.0 [facility] [address] [place] [address] [phone] Oct, Borderline personality disorder in adult F60.3 ; Screening cholesterol level Z13.220 and Screening for diabetes mellitus Z13.1 IMMUNIZATIONS No Known Immunizations SOCIAL HISTORY Never Assessed REASON FOR VISIT MAP PLAN OF CARE VITAL SIGNS MEDICATIONS Unknown Medications RESULTS No Results PROCEDURES No Known procedures INSTRUCTIONS MEDICATIONS ADMINISTERED No Known Medications MEDICAL (GENERAL) HISTORY Type Description Date Medical History Borderline personality disorder Medical History PTSD Medical History ADHD Medical History L4-5 pain (resolved) Medical History Gestational diabetes
--- OUTSIDE RECORDS SUMMARY | 2020-04-08 18:06 | XMS REPORT ---
Author Author Faith Pat [email or web address] Address [address] [place] [address] Care Team Providers Care Aeronautical Design Engineer Name Role Phone Raffy Patistin Unavailable PROBLEMS Type Condition ICD9-CM Code [id number] Code Onset Dates Condition S tatus SNOMED Code Problem Borderline personality disorder in adult F60.3 Active 45685163 ALLERGIES No Information ENCOUNTERS Encounter Location Date Diagnosis [email or web address] [address] [place] [address] [phone] Oct, [email or web address] [address] [place] [address] [phone] Oct, [email or web address] [address] [place] [address] [phone] Oct, [email or web address] [address] [place] [address] [phone] Oct, [email or web address] [address] [place] [address] [id number] Oct, Anxiety F41.9 and Problems in relationship with spouse or partner Z63.0 [email or web address] [address] [place] [address] [phone] Oct, [email or web address] [address] [place] [address] [phone] Oct, Problems in relationship with spouse or partner Z63.0 [facility] [address] [place] [address] [id number] Oct, Borderline personality disorder in adult F60.3 ; Screening cholesterol level Z13.220 and Screening for diabetes mellitus Z13.1 IMMUNIZATIONS No Known Immunizations SOCIAL HISTORY Never Assessed REASON FOR VISIT DCF Report PLAN OF CARE VITAL SIGNS MEDICATIONS Unknown Medications RESULTS No Results PROCEDURES No Known procedures INSTRUCTIONS MEDICATIONS ADMINISTERED No Known Medications MEDICAL (GENERAL) HISTORY Type Description Date Medical History Borderline personality disorder Medical History PTSD Medical History ADHD Medical History L4-5 pain (resolved) Medical History Gestational diabetes
--- OUTSIDE RECORDS SUMMARY | 2020-04-08 18:06 | XMS REPORT ---
Author Author Faith Pat [facility] Address [address] [place] [address] Care Team Providers Care Sailing Instructor Name Role Phone Raffy Patistin Unavailable PROBLEMS Type Condition ICD9-CM Code FBS17-IX Code Onset Dates Condition S tatus SNOMED Code Problem Encounter for weight loss counseling Z71.3 Active 075527070 Problem Dysuria R30.0 Active 96146774 Problem Borderline personality disorder in adult F60.3 Active 34864259 Problem Anxiety F41.9 Active 72881830 Problem History of PID Z87.42 Active 32785 2000 Problem Encounter for smoking cessation counseling Z71.6 Active 207465621 ALLERGIES No Information ENCOUNTERS Encounter Location Date Diagnosis [facility] [address] [place] [address] [phone] March, Borderline personality disorder in adult F60.3 and Anxiety F41.9 [facility] [address] [place] [address] [id number] Feb, Anxiety F41.9 [facility] [address] [place] [address] [id number] Feb, Anxiety F41.9 [facility] [address] [place] [address] [phone] Oct, Dysuria R30.0 ; History of PID Z87.42 ; Encounter for smoking cessation counseling Z71.6 and Encounter for weight loss counseling Z71.3 [facility] [address] [place] [address] [phone] Oct, [facility] [address] [place] [address] [id number] Oct, Anxiety F41.9 [facility] [address] [place] [address] [id number] Oct, Anxiety F41.9 [facility] [address] [place] [address] [id number] Oct, [facility] [address] [place] [address] [id number] Oct, [facility] [address] [place] [address] [id number] Oct, Anxiety F41.9 and Problems in relationship with spouse or partner Z63.0 [facility] [address] [place] [address] [phone] Oct, [facility] [address] [place] [address] [phone] Oct, Problems in relationship with spouse or partner Z63.0 [facility] [address] [place] [address] [phone] Oct, Borderline personality disorder in adult F60.3 ; Screening cholesterol level Z13.220 and Screening for diabetes mellitus Z13.1 IMMUNIZATIONS No Known Immunizations SOCIAL HISTORY Never Assessed REASON FOR VISIT Message to self PLAN OF CARE VITAL SIGNS MEDICATIONS Medication Instructions Dosage Frequency Start Date End Date Duration S tatus Latuda 60 MG Orally Once a day 1 tablet with food 24h 30 days Active RESULTS No Results PROCEDURES No Known procedures INSTRUCTIONS MEDICATIONS ADMINISTERED No Known Medications MEDICAL (GENERAL) HISTORY Type Description Date Medical History Borderline personality disorder Medical History PTSD Medical History ADHD Medical History L4-5 pain (resolved) Medical History Gestational diabetes
--- OUTSIDE RECORDS SUMMARY | 2020-04-08 18:06 | XMS REPORT ---
Author Author Faith Pat [facility] Address [address] [place] [address] Care Team Providers Care Mri Tech Name Role Phone Raffy Patistin Unavailable PROBLEMS Type Condition ICD9-CM Code FUG39-WN Code Onset Dates Condition S tatus SNOMED Code Problem Encounter for weight loss counseling Z71.3 Active 167791271 Problem Dysuria R30.0 Active 41867227 Problem Borderline personality disorder in adult F60.3 Active 04575287 Problem Anxiety F41.9 Active 67271551 Problem History of PID Z87.42 Active 84995 2000 Problem Encounter for smoking cessation counseling Z71.6 Active 950947006 ALLERGIES No Information ENCOUNTERS Encounter Location Date Diagnosis [facility] [address] [place] [address] [id number] Nov, [facility] [address] [place] [address] [phone] Oct, Dysuria R30.0 ; History of PID Z87.42 ; Encounter for smoking cessation counseling Z71.6 and Encounter for weight loss counseling Z71.3 [facility] [address] [place] [address] [phone] Oct, [facility] [address] [place] [address] [phone] Oct, Anxiety F41.9 [facility] [address] [place] [address] [phone] Oct, Anxiety F41.9 [facility] [address] [place] [address] [id number] Oct, [facility] [address] [place] [address] [phone] Oct, [facility] [address] [place] [address] [id number] Oct, Anxiety F41.9 and Problems in relationship with spouse or partner Z63.0 [facility] [address] [place] [address] [phone] Oct, [facility] [address] [place] [address] [id number] Oct, Problems in relationship with spouse or partner Z63.0 [facility] [address] [place] [address] [phone] Oct, Borderline personality disorder in adult F60.3 ; Screening cholesterol level Z13.220 and Screening for diabetes mellitus Z13.1 IMMUNIZATIONS No Known Immunizations SOCIAL HISTORY Never Assessed REASON FOR VISIT state insurance inquiry PLAN OF CARE VITAL SIGNS MEDICATIONS Unknown Medications RESULTS No Results PROCEDURES No Known procedures INSTRUCTIONS MEDICATIONS ADMINISTERED No Known Medications MEDICAL (GENERAL) HISTORY Type Description Date Medical History Borderline personality disorder Medical History PTSD Medical History ADHD Medical History L4-5 pain (resolved) Medical History Gestational diabetes
--- OUTSIDE RECORDS SUMMARY | 2020-04-08 18:06 | XMS REPORT ---
Author Author Faith Pat [facility] Address [address] [place] [address] Care Team Providers Care Diet Therapist Name Role Phone Raffy Patistin Unavailable PROBLEMS Type Condition ICD9-CM Code [id number] Code Onset Dates Condition S tatus SNOMED Code Problem Borderline personality disorder in adult F60.3 Active 46907946 Problem Anxiety F41.9 Active 61369631 ALLERGIES No Known Allergies ENCOUNTERS Encounter Location Date Diagnosis [facility] [address] [place] [address] [phone] Oct, [facility] [address] [place] [address] [phone] Oct, [facility] [address] [place] [address] [phone] Oct, Anxiety F41.9 [facility] [address] [place] [address] [phone] Oct, [facility] [address] [place] [address] [phone] Oct, [facility] [address] [place] [address] [phone] Oct, Anxiety F41.9 and Problems in relationship with spouse or partner Z63.0 [facility] [address] [place] [address] [phone] Oct, [facility] [address] [place] [address] [phone] Oct, Problems in relationship with spouse or partner Z63.0 [facility] [address] [place] [address] [phone] Oct, Borderline personality disorder in adult F60.3 ; Screening cholesterol level Z13.220 and Screening for diabetes mellitus Z13.1 IMMUNIZATIONS No Known Immunizations SOCIAL HISTORY Never Assessed REASON FOR VISIT anxiety meds PLAN OF CARE Activity Details Follow Up 3 Months or sooner if needed . Reason: VITAL SIGNS Temperature 97.8 degrees Fahrenheit 2019-11-16 Heart Rate 76 /min 2019-11-16 Respiratory Rate 17 /min 2019-11-16 Oximetry 99 % 2019-11-16 Weight 149.2 lbs 2019-11-16 Height 65.0 in 2019-11-16 BMI 24.83 kg/m2 2019-11-16 Blood pressure systolic 128 mm Hg 2019-11-16 Blood pressure diastolic 82 mm Hg 2019-11-16 MEDICATIONS Medication Instructions Dosage Frequency Start Date End Date Duration S tatus Latuda 60 MG Orally Once a day 1 tablet with food 24h 30 days Active Gabapentin 600 MG Orally four times a day 1 tablet 6h Oct, 30 day(s) Active BusPIRone HCl 10 MG Orally Twice a day 1 tablet 12h Oct, 30 days Active Gabapentin 600 MG Orally Once a day 1 tablet 24h Active RESULTS No Results PROCEDURES No Known procedures INSTRUCTIONS MEDICATIONS ADMINISTERED No Known Medications MEDICAL (GENERAL) HISTORY Type Description Date Medical History Borderline personality disorder Medical History PTSD Medical History ADHD Medical History L4-5 pain (resolved) Medical History Gestational diabetes
--- OUTSIDE RECORDS SUMMARY | 2020-04-08 18:07 | XMS REPORT ---
Author Author Faith Vieyra Doctor Organization [facility] Address Unknown Phone Unavailable Care Team Providers Care Bung Sewer Name Role Phone Migration, Doctor Unavailable Unavailable PROBLEMS Type Condition ICD9-CM Code RJP35-ZG Code Onset Dates Condition S tatus SNOMED Code Problem Screening for diabetes mellitus V77.1 Active 722323639 Problem Screening for iron deficiency anemia V78.0 Active 872805116 Problem Need for prophylactic vaccination and inoculation, Influen za V04.81 Active 768419876 Problem Insufficient care V23.7 Act yuriy [id number] Problem Elevated blood pressure reading without diagnosi s of hypertension 796.2 Active 520552757 Problem Constipation, unspecified constipation type K59.00 Active 51692433 Problem DTAP TEST V06.1 Active Problem Generalized abdominal pain R10.84 Act yuriy 326646990 Problem Screening of Streptococcus B V28.6 A ctive 130510769 Problem Other malaise and fatigue 780.79 Acti ve 884170146 Problem Lumbago 724.2 Active 025457364 Problem Maternal drug dependence com plicating , childbirth, or the puerperium, unspecified as to episode of care 648.30 Active Problem Anxiety state, unspecified 300.00 Act yuriy [id number] ALLERGIES No Information ENCOUNTERS Encounter Location Date Diagnosis [facility] [address] [id number] [address] [place] [id number] Jul, Generalized abdominal pain R 10.84 ; Constipation, unspecified constipation type K59.00 and Drug abuse F19.10 [facility] [address] [facility] [id number] [address] [place] [id number] Jan, Encounter for dental examina tion Z01.20 and Dental caries K02.9 [facility] [address] [facility] [id number] [address] [place] [phone] Feb, [facility] [address] [id number] [address] [place] [id number] 13 Feb, 2015 [facility] [address] [id number] [address] [place] [address], [place] [address] 17 Sep, 2014 [facility] [place] [address] [id number] [address] [place] [address], [place] [address] 17 Sep, 2014 [facility] [address] [id number] [address] [place] [address], [place] [address] 20 Aug, 2014 [facility] [place] [facility] [address] [id number] [address] [place] [address], [place] [address] 20 Aug, 2014 [facility] [address] [id number] [address] [place] [address], [place] [address] 17 Aug, 2014 [facility] [place] [address] [id number] [address] [place] [address], [place] [address] 30 Jul, 2013 [facility] [place] [address] [id number] [address] [place] [address], [place] [address] 29 Jul, 2013 [facility] [place] [address] [id number] [address] [place] [address], [place] [id number] 29 Jul, 2013 [facility] [place] [address] [id number] [address] [place] [address], [place] [address] 22 Jul, 2013 [facility] [place] [facility] [address] [id number] [address] [place] [address], [place] [address] 22 Jul, 2013 [facility] [place] [facility] [address] [id number] [address] [place] [address], [place] [address] 22 Jul, 2013 [facility] [place] [facility] [address] [id number] [address] [place] [address], [place] [address] 22 Jul, 2013 [facility] [place] [facility] [address] [id number] [address] [place] [address], [place] [address] 17 Sep, 2013 [facility] [place] [facility] [address] [id number] [address] [place] [address], [place] [id number] 17 Sep, 2013 [facility] [place] [facility] [address] [id number] [address] [place] [address], [place] [address] 15 Sep, 2013 [facility] [place] [address] [id number] [facility] [place] [address] 15 Jul, 2013 [facility] [address] [id number] [facility] [place] [address] 10 Jul, 2013 [facility] [address] [id number] [facility] [place] [address] 10 Jul, 2013 [facility] [address] [id number] [address] [place] [address], [place] [id number] 05 Sep, 2013 [facility] [address] [id number] [address] [place] [address], [place] [id number] 04 Jul, 2013 [facility] [address] [id number] [address] [place] [address], [place] [address] 03 Jul, 2013 [facility] [address] [id number] [address] [place] [address], [place] [address] 02 Jul, 2013 [facility] [address] [id number] [address] [place] [address], [place] [address] 02 Jul, 2013 [facility] [address] [id number] [address] [place] [address], [place] [address] Jun, [facility] [address] [id number] [address] [place] [address], [place] [address] Jun, [facility] [address] [id number] [address] [place] [address], [place] [address] Jun, [facility] [address] [id number] [address] [place] [address], [place] [address] Jun, [facility] [address] [id number] [address] [place] [address], [place] [address] May, [facility] [address] [id number] [address] [place] [address], [place] [address] May, [facility] [address] [id number] [address] [place] [address], [place] [address] May, [facility] [address] [id number] [address] [place] [address], [place] [address] May, [facility] [address] [id number] [address] [place] [id number] Apr, [facility] [address] [id number] [address] [place] [phone] Apr, [facility] [address] [id number] [address] [place] [phone] Aug, [facility] [address] [id number] [address] [place] [phone] Aug, [facility] [address] [id number] [address] [place] [phone] Aug, [facility] [address] [id number] [address] [place] [id number] Aug, [facility] [address] [id number] [address] [place] [id number] Aug, [facility] [address] [id number] [address] [place] [phone] Aug, [facility] [address] [id number] [address] [place] [phone] Jul, [facility] [address] [id number] [address] [place] [phone] Jun, [facility] [address] [id number] [address] [place] [phone] Aug, IMMUNIZATIONS No Known Immunizations SOCIAL HISTORY Never Assessed REASON FOR VISIT EMR-[facility] PLAN OF CARE VITAL SIGNS MEDICATIONS No Known Medications RESULTS No Results PROCEDURES No Known procedures INSTRUCTIONS MEDICATIONS ADMINISTERED No Known Medications MEDICAL (GENERAL) HISTORY Type Description Date Medical History HBP Medical History Back problems
--- OUTSIDE RECORDS SUMMARY | 2020-04-08 18:07 | XMS REPORT ---
Author Author Faith LYONS Organization [facility] Address [address] [place] [address] Care Team Providers Care Wedding Makeup Artist Name Role Phone SERENA MARGI Unavailable PROBLEMS Type Condition ICD9-CM Code PUE41-II Code Onset Dates Condition S tatus SNOMED Code Problem Screening for diabetes mellitus V77.1 Active 120751149 Problem Screening for iron deficiency anemia V78.0 Active 293942919 Problem Need for prophylactic vaccination and inoculation, Influen za V04.81 Active 915028493 Problem Insufficient care V23.7 Act yuriy 6305336205824 Problem Elevated blood pressure reading without diagnosi s of hypertension 796.2 Active 181309523 Problem Constipation, unspecified constipation type K59.00 Active 49184449 Problem DTAP TEST V06.1 Active Problem Generalized abdominal pain R10.84 Act yuriy 169048611 Problem Screening of Streptococcus B V28.6 A ctive 060630825 Problem Other malaise and fatigue 780.79 Acti ve 569491818 Problem Lumbago 724.2 Active 355654443 Problem Maternal drug dependence com plicating , childbirth, or the puerperium, unspecified as to episode of care 648.30 Active Problem Anxiety state, unspecified 300.00 Act yuriy 103235862 ALLERGIES No Information ENCOUNTERS Encounter Location Date Diagnosis [facility] [address] [facility] [id number] [address] [place] [id number] Jul, Generalized abdominal pain R 10.84 ; Constipation, unspecified constipation type K59.00 and Drug abuse F19.10 [facility] [address] [facility] [id number] [address] [place] [address] [id number] Jan, Encounter for dental examina tion Z01.20 and Dental caries K02.9 [facility] [address] [facility] [id number] [address] [place] [phone] Feb, [facility] [address] [id number] [address] [place] [address], [place] [address] 13 Feb, 2015 [facility] [place] [facility] [address] [id number] [address] [place] [address], [place] [address] 17 Sep, 2014 [facility] [place] [facility] [address] [id number] [address] [place] [address], [place] [address] 17 Sep, 2014 [facility] [place] [facility] [address] [id number] [address] [place] [address], [place] [address] 20 Aug, 2014 [facility] [address] [id number] [address] [place] [address], [place] [address] 20 Aug, 2014 [facility] [place] [facility] [address] [id number] [address] [place] [address], [place] [address] 17 Aug, 2014 [facility] [place] [facility] [address] [id number] [address] [place] [address], [place] [address] 30 Jul, 2013 [facility] [place] [facility] [address] [id number] [address] [place] [address], [place] [address] 29 Sep, 2013 [facility] [place] [facility] [address] [id number] [address] [place] [address], [place] [address] 29 Sep, 2013 [facility] [place] [facility] [address] [id number] [address] [place] [address], [place] [address] 22 Sep, 2013 [facility] [place] [facility] [address] [id number] [address] [place] [address], [place] [address] 22 Sep, 2013 [facility] [place] [facility] [address] [id number] [address] [place] [address], [place] [address] 22 Sep, 2013 [facility] [place] [facility] [address] [id number] [address] [place] [address], [place] [address] 22 Sep, 2013 [facility] [place] [facility] [address] [id number] [address] [place] [address], [place] [address] 17 Sep, 2013 [facility] [place] [facility] [address] [id number] [address] [place] [address], [place] [address] 17 Sep, 2013 [facility] [place] [facility] [address] [id number] [address] [place] [address], [place] [address] 15 Jul, 2013 [facility] [place] [facility] [address] [id number] [address] [place] [address], [place] [address] 15 Jul, 2013 [facility] [place] [facility] [address] [id number] [facility] [address] 10 Jul, 2013 [facility] [place] [facility] [address] [id number] [address] [place] [address], [place] [address] 10 Jul, 2013 [facility] [place] [facility] [address] [id number] [address] [place] [address], [place] [address] 05 Jul, 2013 [facility] [place] [facility] [address] [id number] [address] [place] [address], [place] [address] 04 Jul, 2013 [facility] [place] [facility] [address] [id number] [address] [place] [address], [place] [address] 03 Jul, 2013 [facility] [place] [facility] [address] [id number] [address] [place] [address], [place] [address] 02 Jul, 2013 [facility] [place] [facility] [address] [id number] [address] [place] [address], [place] [address] 02 Jul, 2013 [facility] [place] [facility] [address] [id number] [address] [place] [address], [place] [address] Jun, [facility] [place] [facility] [address] [id number] [address] [place] [address], [place] [address] Jun, [facility] [place] [facility] [address] [id number] [address] [place] [address], [place] [address] Jun, [facility] [place] [facility] [address] [id number] [address] [place] [address], [place] [address] Jun, [facility] [place] [facility] [address] [id number] [address] [place] [address], [place] [address] May, [facility] [place] [facility] [address] [id number] [address] [place] [address], [place] [address] May, [facility] [place] [facility] [address] [id number] [address] [place] [address], [place] [address] May, [facility] [place] [facility] [address] [id number] [address] [place] [id number] May, [facility] [address] [id number] [address] [place] [phone] Apr, [facility] [address] [id number] [address] [place] [phone] Apr, [facility] [address] [id number] [address] [place] [phone] Aug, [facility] [address] [id number] [address] [place] [phone] Aug, [facility] [address] [id number] [address] [place] [phone] Aug, [facility] [address] [id number] [address] [place] [phone] Aug, [facility] [address] [id number] [address] [place] [phone] Aug, [facility] [address] [id number] [address] [place] [phone] Aug, [facility] [address] [id number] [address] [place] [phone] Jul, [facility] [address] [id number] [address] [place] [phone] Jun, [facility] [address] [id number] [address] [place] [phone] Aug, IMMUNIZATIONS No Known Immunizations SOCIAL HISTORY Never Assessed REASON FOR VISIT PLAN OF CARE VITAL SIGNS Height 65 in 2014-08-07 Weight 188.1 lbs 2014-08-07 Temperature 97.6 degrees Fahrenheit 2014-08-07 Heart Rate 78 bpm 2014-08-07 Respiratory Rate 20 2014-08-07 Blood pressure systolic 120 mmHg 2014-08-07 Blood pressure diastolic 78 mmHg 2014-08-07 MEDICATIONS No Known Medications RESULTS No Results PROCEDURES Procedure Date Ordered Result Body Site URINE-NO MICRO Aug 07, 2014 INSTRUCTIONS MEDICATIONS ADMINISTERED No Known Medications MEDICAL (GENERAL) HISTORY Type Description Date Medical History HBP Medical History Back problems
--- OUTSIDE RECORDS SUMMARY | 2020-04-08 18:07 | XMS REPORT ---
Author Author Faith LYONS Organization [facility] Address [address] [place] [address] Care Team Providers Care Research Geologist Name Role Phone SERENA MARGI Unavailable PROBLEMS Type Condition ICD9-CM Code AKO47-UN Code Onset Dates Condition S tatus SNOMED Code Problem Screening for diabetes mellitus V77.1 Active 015016254 Problem Screening for iron deficiency anemia V78.0 Active 649037892 Problem Need for prophylactic vaccination and inoculation, Influen za V04.81 Active 426442249 Problem Insufficient care V23.7 Act yuriy 6051107551010 Problem Elevated blood pressure reading without diagnosi s of hypertension 796.2 Active 903095931 Problem Constipation, unspecified constipation type K59.00 Active 04771430 Problem DTAP TEST V06.1 Active Problem Generalized abdominal pain R10.84 Act yuriy 112271438 Problem Screening of Streptococcus B V28.6 A ctive 912133416 Problem Other malaise and fatigue 780.79 Acti ve 690977012 Problem Lumbago 724.2 Active 842393722 Problem Maternal drug dependence com plicating , childbirth, or the puerperium, unspecified as to episode of care 648.30 Active Problem Anxiety state, unspecified 300.00 Act yuriy 165897250 ALLERGIES No Information ENCOUNTERS Encounter Location Date Diagnosis [facility] [address] [facility] [id number] [address] [place] [id number] Jul, Generalized abdominal pain R 10.84 ; Constipation, unspecified constipation type K59.00 and Drug abuse F19.10 [facility] [address] [facility] [id number] [address] [place] [id number] Jan, Encounter for dental examina tion Z01.20 and Dental caries K02.9 [facility] [address] [facility] [id number] [address] [place] [phone] Feb, [facility] [address] [id number] [address] [place] [address], [place] [address] 13 Feb, 2015 [facility] [place] [facility] [address] [id number] [address] [place] [address], [place] [address] 17 Sep, 2014 [facility] [place] [facility] [address] [id number] [address] [place] [address], [place] [address] 17 Sep, 2014 [facility] [place] [facility] [address] [id number] [address] [place] [address], [place] [address] 20 Aug, 2014 [facility] [address] [id number] [address] [place] [address], [place] [address] 20 Aug, 2014 [facility] [place] [facility] [address] [id number] [address] [place] [address], [place] [address] 17 Aug, 2014 [facility] [place] [facility] [address] [id number] [address] [place] [address], [place] [address] 30 Jul, 2013 [facility] [place] [facility] [address] [id number] [address] [place] [address], [place] [address] 29 Sep, 2013 [facility] [place] [facility] [address] [id number] [address] [place] [address], [place] [address] 29 Sep, 2013 [facility] [place] [facility] [address] [id number] [address] [place] [address], [place] [address] 22 Sep, 2013 [facility] [place] [facility] [address] [id number] [address] [place] [address], [place] [address] 22 Sep, 2013 [facility] [place] [facility] [address] [id number] [address] [place] [address], [place] [address] 22 Sep, 2013 [facility] [place] [facility] [address] [id number] [address] [place] [address], [place] [address] 22 Sep, 2013 [facility] [place] [facility] [address] [id number] [address] [place] [address], [place] [address] 17 Sep, 2013 [facility] [place] [facility] [address] [id number] [address] [place] [address], [place] [address] 17 Sep, 2013 [facility] [place] [facility] [address] [id number] [address] [place] [address], [place] [address] 15 Jul, 2013 [facility] [place] [facility] [address] [id number] [address] [place] [address], [place] [address] 15 Jul, 2013 [facility] [place] [facility] [address] [id number] [facility] [place] [address] 10 Jul, 2013 [facility] [place] [facility] [address] [id number] [address] [place] [address], [place] [address] 10 Jul, 2013 [facility] [place] [facility] [address] [id number] [address] [place] [address], [place] [address] 05 Jul, 2013 [facility] [place] [facility] [address] [id number] [address] [place] [address], [place] [address] 04 Jul, 2013 [facility] [place] [facility] [address] [id number] [address] [place] [address], [place] [address] 03 Jul, 2013 [facility] [place] [facility] [address] [id number] [address] [place] [address], [place] [address] 02 Jul, 2013 [facility] [place] [facility] [address] [id number] [address] [place] [address], [place] [address] 02 Jul, 2013 [facility] [place] [facility] [address] [id number] [address] [place] [address], [place] [address] Jun, [facility] [place] [facility] [address] [id number] [address] [place] [address], [place] [address] Jun, [facility] [place] [facility] [address] [id number] [address] [place] [address], [place] [address] Jun, [facility] [place] [facility] [address] [id number] [address] [place] [address], [place] [address] Jun, [facility] [place] [facility] [address] [id number] [address] [place] [address], [place] [address] May, [facility] [place] [facility] [address] [id number] [address] [place] [address], [place] [address] May, [facility] [place] [facility] [address] [id number] [address] [place] [address], [place] [address] May, [facility] [place] [facility] [address] [id number] [address] [place] [phone] May, [facility] [address] [id number] [address] [place] [phone] Apr, [facility] [address] [id number] [address] [place] [phone] Apr, [facility] [address] [id number] [address] [place] [phone] Aug, [facility] [address] [id number] [address] [place] [phone] Aug, [facility] [address] [id number] [address] [place] [phone] Aug, [facility] [address] [id number] [address] [place] [phone] Aug, [facility] [address] [id number] [address] [place] [id number] Aug, [facility] [address] [id number] [address] [place] [phone] Aug, [facility] [address] [id number] [address] [place] [id number] Jul, [facility] [address] [id number] [address] [place] [id number] Jun, [facility] [address] [id number] [address] [place] [id number] Aug, IMMUNIZATIONS No Known Immunizations SOCIAL HISTORY Never Assessed REASON FOR VISIT PLAN OF CARE VITAL SIGNS Height 65 in 2014-08-19 Weight 187.1 lbs 2014-08-19 Temperature 97.4 degrees Fahrenheit 2014-08-19 Heart Rate 82 bpm 2014-08-19 Respiratory Rate 20 2014-08-19 Blood pressure systolic 132 mmHg 2014-08-19 Blood pressure diastolic 62 mmHg 2014-08-19 MEDICATIONS No Known Medications RESULTS No Results PROCEDURES Procedure Date Ordered Result Body Site URINE-NO MICRO Aug 19, 2014 INSTRUCTIONS MEDICATIONS ADMINISTERED No Known Medications MEDICAL (GENERAL) HISTORY Type Description Date Medical History HBP Medical History Back problems
--- OUTSIDE RECORDS SUMMARY | 2020-04-08 18:07 | XMS REPORT ---
Author Author Faith Vieyra Doctor Organization [facility] Address Unknown Phone Unavailable Care Team Providers Care Central Services Tech Name Role Phone Migration, Doctor Unavailable Unavailable PROBLEMS Type Condition ICD9-CM Code ASL88-ON Code Onset Dates Condition S tatus SNOMED Code Problem Screening for diabetes mellitus V77.1 Active 844392382 Problem Screening for iron deficiency anemia V78.0 Active 534809286 Problem Need for prophylactic vaccination and inoculation, Influen za V04.81 Active 624370478 Problem Insufficient care V23.7 Act yuryi [id number] Problem Elevated blood pressure reading without diagnosi s of hypertension 796.2 Active 086899179 Problem Constipation, unspecified constipation type K59.00 Active 36766801 Problem DTAP TEST V06.1 Active Problem Generalized abdominal pain R10.84 Act yuriy 339572341 Problem Screening of Streptococcus B V28.6 A ctive 715447041 Problem Other malaise and fatigue 780.79 Acti ve 941207655 Problem Lumbago 724.2 Active 292219744 Problem Maternal drug dependence com plicating , childbirth, or the puerperium, unspecified as to episode of care 648.30 Active Problem Anxiety state, unspecified 300.00 Act yuriy [id number] ALLERGIES No Information ENCOUNTERS Encounter Location Date Diagnosis [facility] [address] [id number] [address] [place] [id number] Jul, Generalized abdominal pain R 10.84 ; Constipation, unspecified constipation type K59.00 and Drug abuse F19.10 [facility] [address] [facility] [id number] [address] [place] [id number] Jan, Encounter for dental examina tion Z01.20 [address] Dental caries K02.9 [facility] [address] [facility] [id number] [address] [place] [address] Feb, [facility] [address] [id number] [address] [place] [address] 13 Feb, 2015 [facility] [address] [id number] [address] [place] [address], [place] [address] 17 Sep, 2014 [facility] [address] [id number] [address] [place] [address], [place] [address] 17 Sep, 2014 [facility] [address] [id number] [address] [place] [address], [place] [address] 20 Aug, 2014 [facility] [address] [id number] [address] [place] [address], [place] [address] 20 Aug, 2014 [facility] [address] [id number] [address] [place] [address], [place] [address] 17 Aug, 2014 [facility] [address] [id number] [address] [place] [address], [place] [address] 30 Jul, 2013 [facility] [address] [id number] [address] [place] [address], [place] [address] 29 Jul, 2013 [facility] [address] [id number] [address] [place] [address], [place] [address] 29 Jul, 2013 [facility] [address] [id number] [address] [place] [address], [place] [address] 22 Jul, 2013 [facility] [address] [id number] [address] [place] [address], [place] [address] 22 Jul, 2013 [facility] [address] [id number] [address] [place] [address], [place] [address] 22 Jul, 2013 [facility] [address] [id number] [address] [place] [address], [place] [address] 22 Jul, 2013 [facility] [address] [id number] [address] [place] [address], [place] [address] 17 Sep, 2013 [facility] [address] [id number] [address] [place] [address], [place] [address] 17 Sep, 2013 [facility] [address] [id number] [address] [place] [address], [place] [address] 15 Sep, 2013 [facility] [address] [id number] [facility] [place] [address] 15 Jul, 2013 [facility] [address] [id number] [facility] [place] [address] 10 Jul, 2013 [facility] [address] [id number] [facility] [place] [address] 10 Jul, 2013 [facility] [address] [id number] [address] [place] [address], [place] [address] 05 Sep, 2013 [facility] [address] [id number] [address] [place] [address], [place] [address] 04 Jul, 2013 [facility] [address] [id number] [address] [place] [address], [place] [address] 03 Jul, 2013 [facility] [address] [id number] [address] [place] [address], [place] [address] 02 Jul, 2013 [facility] [address] [id number] [address] [place] [address], [place] [address] 02 Jul, 2013 [facility] [address] [id number] [address] [place] [address], [place] [address] Jun, [facility] [address] [id number] [address] [place] [address], [place] [address] Jun, [facility] [address] [id number] [address] [place] [address], [place] [address] Jun, [facility] [address] [id number] [address] [place] [address], [place] [address] Jun, [facility] [address] [id number] [address] [place] [address], [place] [address] May, [facility] [address] [id number] [address] [place] [address], [place] [address] May, [facility] [address] [id number] [address] [place] [address], [place] [address] May, [facility] [address] [id number] [address] [place] [address], [place] [address] May, [facility] [address] [id number] [address] [place] [address] Apr, [facility] [address] [id number] [address] [place] [address] Apr, [facility] [address] [id number] [address] [place] [address] Aug, [facility] [address] [id number] [address] [place] [address] Aug, [facility] [address] [id number] [address] [place] [address] Aug, [facility] [address] [id number] [address] [place] [address] Aug, [facility] [address] [id number] [address] [place] [address] Aug, [facility] [address] [id number] [address] [place] [address] Aug, [facility] [address] [id number] [address] [place] [address] Jul, [facility] [address] [id number] [address] [place] [address] Jun, [facility] [address] [id number] [address] [place] [address] Aug, IMMUNIZATIONS No Known Immunizations SOCIAL HISTORY Never Assessed REASON FOR VISIT EMR[place] [place]AN OF CARE VITAL SIGNS MEDICATIONS No Known Medications RESULTS No Results PROCEDURES No Known procedures INSTRUCTIONS MEDICATIONS ADMINISTERED No Known Medications MEDICAL (GENERAL) HISTORY Type Description Date Medical History HBP Medical History Back problems
--- OUTSIDE RECORDS SUMMARY | 2020-04-08 18:07 | XMS REPORT ---
Author Author Faith LYONS Organization [facility] Address [address] [place] [address] Care Team Providers Care Consulting Services Project Manager Name Role Phone SERENA MARGI Unavailable PROBLEMS Type Condition ICD9-CM Code WHU88-MC Code Onset Dates Condition S tatus SNOMED Code Problem Screening for diabetes mellitus V77.1 Active 787349573 Problem Screening for iron deficiency anemia V78.0 Active 250132640 Problem Need for prophylactic vaccination and inoculation, Influen za V04.81 Active 986876736 Problem Insufficient care V23.7 Act yuriy 1723620449718 Problem Elevated blood pressure reading without diagnosi s of hypertension 796.2 Active 440712130 Problem Constipation, unspecified constipation type K59.00 Active 26235960 Problem DTAP TEST V06.1 Active Problem Generalized abdominal pain R10.84 Act yuriy 924121256 Problem Screening of Streptococcus B V28.6 A ctive 656024706 Problem Other malaise and fatigue 780.79 Acti ve 301881947 Problem Lumbago 724.2 Active 960174663 Problem Maternal drug dependence com plicating , childbirth, or the puerperium, unspecified as to episode of care 648.30 Active Problem Anxiety state, unspecified 300.00 Act yuriy 915014958 ALLERGIES No Information ENCOUNTERS Encounter Location Date Diagnosis [facility] [address] [facility] [id number] [address] [place] [address] Jul, Generalized abdominal pain R 10.84 ; Constipation, unspecified constipation type K59.00 and Drug abuse F19.10 [facility] [address] [facility] [id number] [address] [place] [id number] Jan, Encounter for dental examina tion Z01.20 and Dental caries K02.9 [facility] [address] [facility] [id number] [address] [place] [address] Feb, [facility] [address] [id number] [address] [place] [address], [place] [address] 13 Feb, 2015 [facility] [address] [id number] [address] [place] [address], [place] [address] 17 Sep, 2014 [facility] [address] [id number] [address] [place] [address], [place] [address] 17 Sep, 2014 [facility] [address] [id number] [address] [place] [address], [place] [address] 20 Aug, 2014 [facility] [address] [id number] [address] [place] [address], [place] [address] 20 Aug, 2014 [facility] [address] [id number] [address] [place] [address], [place] [address] 17 Aug, 2014 [facility] [address] [id number] [address] [place] [address], [place] [address] 30 Jul, 2013 [facility] [address] [id number] [address] [place] [address], [place] [address] 29 Sep, 2013 [facility] [address] [id number] [address] [place] [address], [place] [address] 29 Sep, 2013 [facility] [address] [id number] [address] [place] [address], [place] [address] 22 Sep, 2013 [facility] [address] [id number] [address] [place] [address], [place] [address] 22 Sep, 2013 [facility] [address] [id number] [address] [place] [address], [place] [address] 22 Sep, 2013 [facility] [address] [id number] [address] [place] [address], [place] [address] 22 Sep, 2013 [facility] [address] [id number] [address] [place] [address], [place] [address] 17 Sep, 2013 [facility] [address] [id number] [address] [place] [address], [place] [address] 17 Sep, 2013 [facility] [address] [id number] [address] [place] [address], [place] [address] 15 Jul, 2013 [facility] [address] [id number] [address] [place] [address], [place] [address] 15 Jul, 2013 [facility] [address] [id number] [facility] [place] [address] 10 Jul, 2013 [facility] [address] [id number] [address] [place] [address], [place] [address] 10 Jul, 2013 [facility] [address] [id number] [address] [place] [address], [place] [address] 05 Jul, 2013 [facility] [address] [id number] [address] [place] [address], [place] [address] 04 Jul, 2013 [facility] [address] [id number] [address] [place] [address], [place] [address] 03 Jul, 2013 [facility] [address] [id number] [address] [place] [address], [place] [address] 02 Jul, 2013 [facility] [address] [id number] [address] [place] [address], [place] [address] 02 Jul, 2013 [facility] [address] [id number] [address] [place] [address], [place] [address] Jun, [facility] [address] [id number] [address] [place] [address], [place] [address] Jun, [facility] [address] [id number] [address] [place] [address], [place] [address] Jun, [facility] [address] [id number] [address] [place] [address], [place] [address] Jun, [facility] [address] [id number] [address] [place] [address], [place] [address] May, [facility] [address] [id number] [address] [place] [address], [place] [address] May, [facility] [address] [id number] [address] [place] [address], [place] [address] May, [facility] [address] [id number] [address] [place] [address] May, [facility] [address] [id number] [address] [place] [address] Apr, [facility] [address] [id number] [address] [place] [address] Apr, [facility] [address] [id number] [address] [place] [address] Aug, [facility] [address] [id number] [address] [place] [phone] Aug, [facility] [address] [id number] [address] [place] [address] Aug, [facility] [address] [id number] [address] [place] [address] Aug, [facility] [address] [id number] [address] [place] [address] Aug, [facility] [address] [id number] [address] [place] [address] Aug, [facility] [address] [id number] [address] [place] [address] Jul, [facility] [address] [id number] [address] [place] [address] Jun, [facility] [address] [id number] [address] [place] [address] Aug, IMMUNIZATIONS No Known Immunizations SOCIAL HISTORY Never Assessed REASON FOR VISIT PLAN OF CARE VITAL SIGNS Height 65 in 2014-07-23 Weight 182 lbs 2014-07-23 Temperature 97.6 degrees Fahrenheit 2014-07-23 Heart Rate 80 bpm 2014-07-23 Respiratory Rate 20 2014-07-23 Blood pressure systolic 126 mmHg 2014-07-23 Blood pressure diastolic 70 mmHg 2014-07-23 MEDICATIONS No Known Medications RESULTS No Results PROCEDURES Procedure Date Ordered Result Body Site URINE-NO MICRO Jul 23, 2014 INSTRUCTIONS MEDICATIONS ADMINISTERED No Known Medications MEDICAL (GENERAL) HISTORY Type Description Date Medical History HBP Medical History Back problems
--- OUTSIDE RECORDS SUMMARY | 2020-04-08 18:07 | XMS REPORT ---
Author Author Faith LYONS Organization [facility] Address [address] [place] [address] Care Team Providers Care Shipping Lead Name Role Phone SERENA MARGI Unavailable PROBLEMS Type Condition ICD9-CM Code NLG18-YV Code Onset Dates Condition S tatus SNOMED Code Problem Screening for diabetes mellitus V77.1 Active 592447155 Problem Screening for iron deficiency anemia V78.0 Active 348740492 Problem Need for prophylactic vaccination and inoculation, Influen za V04.81 Active 141094282 Problem Insufficient care V23.7 Act yuriy 8579240224469 Problem Elevated blood pressure reading without diagnosi s of hypertension 796.2 Active 614531484 Problem Constipation, unspecified constipation type K59.00 Active 91082349 Problem DTAP TEST V06.1 Active Problem Generalized abdominal pain R10.84 Act yuriy 605622539 Problem Screening of Streptococcus B V28.6 A ctive 962936478 Problem Other malaise and fatigue 780.79 Acti ve 058776387 Problem Lumbago 724.2 Active 438936711 Problem Maternal drug dependence com plicating , childbirth, or the puerperium, unspecified as to episode of care 648.30 Active Problem Anxiety state, unspecified 300.00 Act yuriy 249900192 ALLERGIES No Information ENCOUNTERS Encounter Location Date Diagnosis [facility] [address] [facility] [id number] [address] [place] [address] Jul, Generalized abdominal pain R 10.84 ; Constipation, unspecified constipation type K59.[address] [facility] [address] [facility] [id number] [address] [place] [id number] Jan, Encounter for dental examina tion Z01.20 and Dental caries K02.9 [facility] [address] [facility] [id number] [address] [place] [address] Feb, [facility] [address] [id number] [address] [place] [address], [place] [address] 13 Feb, 2015 [facility] [address] [id number] [address] [place] [address], [place] [address] 17 Sep, 2014 [facility] [address] [id number] [address] [place] [address], [place] [address] 17 Sep, 2014 [facility] [address] [id number] [address] [place] [address], [place] [address] 20 Aug, 2014 [facility] [address] [id number] [address] [place] [address], [place] [address] 20 Aug, 2014 [facility] [address] [id number] [address] [place] [address], [place] [address] 17 Aug, 2014 [facility] [address] [id number] [address] [place] [address], [place] [address] 30 Jul, 2013 [facility] [address] [id number] [address] [place] [address], [place] [address] 29 Sep, 2013 [facility] [address] [id number] [address] [place] [address], [place] [address] 29 Sep, 2013 [facility] [address] [id number] [address] [place] [address], [place] [address] 22 Sep, 2013 [facility] [address] [id number] [address] [place] [address], [place] [address] 22 Sep, 2013 [facility] [address] [id number] [address] [place] [address], [place] [address] 22 Sep, 2013 [facility] [address] [id number] [address] [place] [address], [place] [address] 22 Sep, 2013 [facility] [address] [id number] [address] [place] [address], [place] [address] 17 Sep, 2013 [facility] [address] [id number] [address] [place] [address], [place] [address] 17 Sep, 2013 [facility] [address] [id number] [address] [place] [address], [place] [address] 15 Jul, 2013 [facility] [address] [id number] [address] [place] [address], [place] [address] 15 Jul, 2013 [facility] [address] [id number] [facility] [place] [address] 10 Jul, 2013 [facility] [address] [id number] [address] [place] [address], [place] [address] 10 Jul, 2013 [facility] [address] [id number] [address] [place] [address], [place] [address] 05 Jul, 2013 [facility] [address] [id number] [address] [place] [address], [place] [address] 04 Jul, 2013 [facility] [address] [id number] [address] [place] [address], [place] [address] 03 Jul, 2013 [facility] [address] [id number] [address] [place] [address], [place] [address] 02 Jul, 2013 [facility] [address] [id number] [address] [place] [address], [place] [address] 02 Jul, 2013 [facility] [address] [id number] [address] [place] [address], [place] [address] Jun, [facility] [address] [id number] [address] [place] [address], [place] [address] Jun, [facility] [address] [id number] [address] [place] [address], [place] [address] Jun, [facility] [address] [id number] [address] [place] [address], [place] [address] Jun, [facility] [address] [id number] [address] [place] [address], [place] [address] May, [facility] [address] [id number] [address] [place] [address], [place] [address] May, [facility] [address] [id number] [address] [place] [address], [place] [address] May, [facility] [address] [id number] [address] [place] [address] May, [facility] [address] [id number] [address] [place] [address] Apr, [facility] [address] [id number] [address] [place] [id number] Apr, [facility] [address] [id number] [address] [place] [id number] Aug, [facility] [address] [id number] [address] [place] [id number] Aug, [facility] [address] [id number] [address] [place] [id number] Aug, [facility] [address] [id number] [address] [place] [id number] Aug, [facility] [address] [id number] [address] [place] [id number] Aug, [facility] [address] [id number] [address] [place] [phone] Aug, [facility] [address] [id number] [address] [place] [id number] Jul, [facility] [address] [id number] [address] [place] [id number] Jun, [facility] [address] [id number] [address] [place] [id number] Aug, IMMUNIZATIONS No Known Immunizations SOCIAL HISTORY Never Assessed REASON FOR VISIT PLAN OF CARE VITAL SIGNS Height 65 in 2014-07-08 Weight 180.6 lbs 2014-07-08 Temperature 98 degrees Fahrenheit 2014-07-08 Heart Rate 86 bpm 2014-07-08 Respiratory Rate 22 2014-07-08 Blood pressure systolic 130 mmHg 2014-07-08 Blood pressure diastolic 86 mmHg 2014-07-08 MEDICATIONS No Known Medications RESULTS No Results PROCEDURES No Known procedures INSTRUCTIONS MEDICATIONS ADMINISTERED No Known Medications MEDICAL (GENERAL) HISTORY Type Description Date Medical History HBP Medical History Back problems
--- OUTSIDE RECORDS SUMMARY | 2020-04-08 18:07 | XMS REPORT ---
Author Author Faith LYONS Organization [facility] Address [address] [place] [address] Care Team Providers Care Art Sales Consultant Name Role Phone SERENA MARGI Unavailable PROBLEMS Type Condition ICD9-CM Code [id number] Code Onset Dates Condition S tatus SNOMED Code Problem Screening for diabetes mellitus V77.1 Active 450150557 Problem Screening for iron deficiency anemia V78.0 Active 986167415 Problem Need for prophylactic vaccination and inoculation, Influen za V04.81 Active 415296412 Problem Insufficient care V23.7 Act yuriy [id number] Problem Elevated blood pressure reading without diagnosi s of hypertension 796.2 Active 687213517 Problem Constipation, unspecified constipation type K59.00 Active 90269302 Problem DTAP TEST V06.1 Active Problem Generalized abdominal pain R10.84 Act yuriy 428977421 Problem Screening of Streptococcus B V28.6 A ctive 586205091 Problem Other malaise and fatigue 780.79 Acti ve 176870115 Problem Lumbago 724.2 Active 592041614 Problem Maternal drug dependence com plicating , childbirth, or the puerperium, unspecified as to episode of care 648.30 Active Problem Anxiety state, unspecified 300.00 Act yuriy [id number] ALLERGIES No Information ENCOUNTERS Encounter Location Date Diagnosis [facility] [address] [facility] [id number] [address] [place] [address] Jul, Generalized abdominal pain R 10.84 ; Constipation, unspecified constipation type K59.00 and Drug abuse F19.10 [facility] [address] [facility] [id number] [address] [place] [id number] Jan, Encounter for dental examina tion Z01.20 and Dental caries K02.9 [facility] [address] [facility] [id number] [address] [place] [address] Feb, [facility] [address] [id number] [address] [place] [address], [place] [address] 13 Feb, 2015 [facility] [address] [id number] [address] [place] [address], [place] [address] 17 Sep, 2014 [facility] [address] [id number] [address] [place] [address], [place] [id number] 17 Sep, 2014 [facility] [address] [id number] [address] [place] [address], [place] [address] 20 Aug, 2014 [facility] [address] [id number] [address] [place] [address], [place] [address] 20 Aug, 2014 [facility] [address] [id number] [address] [place] [address], [place] [address] 17 Aug, 2014 [facility] [address] [id number] [address] [place] [address], [place] [address] 30 Jul, 2013 [facility] [address] [id number] [address] [place] [address], [place] [address] 29 Sep, 2013 [facility] [address] [id number] [address] [place] [address], [place] [address] 29 Sep, 2013 [facility] [address] [id number] [address] [place] [address], [place] [address] 22 Sep, 2013 [facility] [address] [id number] [address] [place] [address], [place] [address] 22 Sep, 2013 [facility] [address] [id number] [address] [place] [address], [place] [address] 22 Sep, 2013 [facility] [address] [id number] [address] [place] [address], [place] [address] 22 Sep, 2013 [facility] [address] [id number] [address] [place] [address], [place] [address] 17 Sep, 2013 [facility] [address] [id number] [address] [place] [address], [place] [address] 17 Sep, 2013 [facility] [address] [id number] [address] [place] [address], [place] [address] 15 Jul, 2013 [facility] [address] [id number] [address] [place] [address], [place] [address] 15 Jul, 2013 [facility] [address] [id number] [facility] [place] [address] 10 Jul, 2013 [facility] [address] [id number] [address] [place] [address], [place] [address] 10 Jul, 2013 [facility] [address] [id number] [address] [place] [address], [place] [address] 05 Jul, 2013 [facility] [address] [id number] [address] [place] [address], [place] [address] 04 Jul, 2013 [facility] [address] [id number] [address] [place] [address], [place] [address] 03 Jul, 2013 [facility] [address] [id number] [address] [place] [address], [place] [address] 02 Jul, 2013 [facility] [address] [id number] [address] [place] [address], [place] [address] 02 Jul, 2013 [facility] [address] [id number] [address] [place] [address], [place] [address] Jun, [facility] [address] [id number] [address] [place] [address], [place] [address] Jun, [facility] [address] [id number] [address] [place] [address], [place] [address] Jun, [facility] [address] [id number] [address] [place] [address], [place] [address] Jun, [facility] [address] [id number] [address] [place] [address], [place] [address] May, [facility] [address] [id number] [address] [place] [address], [place] [address] May, [facility] [address] [id number] [address] [place] [address], [place] [address] May, [facility] [address] [id number] [address] [place] [address] May, [facility] [address] [id number] [address] [place] [address] Apr, [facility] [address] [id number] [address] [place] [address] Apr, [facility] [address] [id number] [address] [place] [address] Aug, [facility] [address] [id number] [address] [place] [address] Aug, [facility] [address] [id number] [address] [place] [address] Aug, [facility] [address] [id number] [address] [place] [address] Aug, [facility] [address] [id number] [address] [place] [address] Aug, [facility] [address] [id number] [address] [place] [address] Aug, [facility] [address] [id number] [address] [place] [address] Jul, [facility] [address] [id number] [address] [place] [address] Jun, [facility] [address] [id number] [address] [place] [address] Aug, IMMUNIZATIONS No Known Immunizations SOCIAL HISTORY Never Assessed REASON FOR VISIT PLAN OF CARE VITAL SIGNS Height 65 in 2014-08-14 Weight 187 lbs 2014-08-14 Temperature 97.9 degrees Fahrenheit 2014-08-14 Heart Rate 88 bpm 2014-08-14 Respiratory Rate 20 2014-08-14 Blood pressure systolic 128 mmHg 2014-08-14 Blood pressure diastolic 78 mmHg 2014-08-14 MEDICATIONS No Known Medications RESULTS No Results PROCEDURES Procedure Date Ordered Result Body Site URINE-NO MICRO Aug 14, 2014 INSTRUCTIONS MEDICATIONS ADMINISTERED No Known Medications MEDICAL (GENERAL) HISTORY Type Description Date Medical History HBP Medical History Back problems
--- OUTSIDE RECORDS SUMMARY | 2020-04-08 18:07 | XMS REPORT ---
Author Author Faith LYONS Organization [facility] Address [address] [place] [address] Care Team Providers Care [employer] Supervisor Name Role Phone SERENAPHANA Unavailable PROBLEMS Type Condition ICD9-CM Code [id number] Code Onset Dates Condition S tatus SNOMED Code Problem Screening for diabetes mellitus V77.1 Active 720659801 Problem Screening for iron deficiency anemia V78.0 Active 744963627 Problem Need for prophylactic vaccination and inoculation, Influen za V04.81 Active 713029188 Problem Insufficient care V23.7 Act yuriy [id number] Problem Elevated blood pressure reading without diagnosi s of hypertension 796.2 Active 085207778 Problem Constipation, unspecified constipation type K59.00 Active 76619203 Problem DTAP TEST V06.1 Active Problem Generalized abdominal pain R10.84 Act yuriy 119966587 Problem Screening of Streptococcus B V28.6 A ctive 395936358 Problem Other malaise and fatigue 780.79 Acti ve 713897894 Problem Lumbago 724.2 Active 847455213 Problem Maternal drug dependence com plicating , childbirth, or the puerperium, unspecified as to episode of care 648.30 Active Problem Anxiety state, unspecified 300.00 Act yuriy 230511209 ALLERGIES No Information ENCOUNTERS Encounter Location Date Diagnosis [facility] [address] [place] [address] Jun, [facility] [address] [facility] [id number] [address] [address] Jul, Generalized abdominal pain R 10.84 ; Constipation, unspecified constipation type K59.00 and Drug abuse F19.10 [facility] [address] [id number] [place] [id number] Jan, Encounter for dental examina tion Z01.20 and Dental caries K02.9 [facility] [address] [id number] [address] [place] [address], [place] [address] 14 Feb, 2015 [facility] [address] [id number] [address] [place] [address], [place] [address] 13 Feb, 2015 [facility] [address] [id number] [address] [place] [address], [place] [address] 17 Sep, 2014 [facility] [address] [id number] [address] [place] [address], [place] [address] Sep, [facility] [address] [id number] [address] [place] [address], [place] [address] Aug, [facility] [address] [id number] [address] [place] [address], [place] [address] 20 Aug, 2014 [facility] [address] [id number] [address] [place] [address], [place] [address] 17 Aug, 2014 [facility] [address] [id number] [address] [place] [address], [place] [address] 30 Jul, 2013 [facility] [address] [id number] [address] [place] [address], [place] [address] 29 Jul, 2013 [facility] [address] [id number] [address] [place] [address], [place] [address] 29 Jul, 2013 [facility] [address] [id number] [address] [place] [address], [place] [address] 22 Jul, 2013 [facility] [address] [id number] [address] [place] [address], [place] [address] 22 Jul, 2013 [facility] [address] [id number] [address] [place] [address], [place] [address] 22 Jul, 2013 [facility] [address] [id number] [address] [place] [address], [place] [address] 22 Jul, 2013 [facility] [address] [id number] [address] [place] [address], [place] [address] 17 Jul, 2013 [facility] [address] [id number] [address] [place] [address], [place] [address] 17 Jul, 2013 [facility] [address] [id number] [facility] [place] [address] 15 Jul, 2013 [facility] [address] [id number] [address] [place] [address], [place] [address] 15 Jul, 2013 [facility] [address] [id number] [address] [place] [address], [place] [address] 10 Jul, 2013 [facility] [address] [id number] [address] [place] [address], [place] [address] 10 Jul, 2013 [facility] [address] [id number] [address] [place] [address], [place] [address] 05 Jul, 2013 [facility] [address] [id number] [address] [place] [address], [place] [address] 04 Jul, 2013 [facility] [address] [id number] [address] [place] [address], [place] [address] 03 Jul, 2013 [facility] [address] [id number] [address] [place] [address], [place] [address] 02 Jul, 2013 [facility] [address] [id number] [address] [place] [address], [place] [address] Jul, 2013 [facility] [address] [id number] [address] [place] [address], [place] [address] Jun, [facility] [address] [id number] [address] [place] [address], [place] [address] Jun, [facility] [address] [id number] [address] [place] [address], [place] [address] Jun, [facility] [address] [id number] [address] [place] [address], [place] [address] Jun, [facility] [address] [id number] [address] [place] [address], [place] [address] May, [facility] [address] [id number] [address] [place] [address], [place] [address] May, [facility] [address] [id number] [address] [place] [address] 14 May, 2014 [facility] [address] [id number] [address] [place] [address] May, [facility] [address] [id number] [address] [place] [address] Apr, [facility] [address] [id number] [address] [place] [address] Apr, [facility] [address] [id number] [address] [place] [address] Aug, [facility] [address] [id number] [address] [place] [address] Aug, [facility] [address] [id number] [address] [place] [address] Aug, [facility] [address] [id number] [address] [place] [address] Aug, [facility] [address] [id number] [address] [place] [address] Aug, [facility] [address] [id number] [address] [place] [address] Aug, [facility] [address] [id number] [address] [place] [address] Jul, [facility] [address] [id number] [address] [place] [address] Jun, [facility] [address] [id number] [address] [place] [address] Aug, IMMUNIZATIONS No Known Immunizations SOCIAL HISTORY Never Assessed REASON FOR VISIT PLAN OF CARE VITAL SIGNS Height 65 in 2014-06-25 Weight 177.3 lbs 2014-06-25 Temperature 97.5 degrees Fahrenheit 2014-06-25 Heart Rate 84 bpm 2014-06-25 Respiratory Rate 18 2014-06-25 Blood pressure systolic 117 mmHg 2014-06-25 Blood pressure diastolic 82 mmHg 2014-06-25 MEDICATIONS Unknown Medications RESULTS No Results PROCEDURES Procedure Date Ordered Result Body Site URINE-NO MICRO June 25, 2014 INSTRUCTIONS MEDICATIONS ADMINISTERED No Known Medications MEDICAL (GENERAL) HISTORY Type Description Date Medical History HBP Medical History Back problems
--- OUTSIDE RECORDS SUMMARY | 2020-04-08 18:07 | XMS REPORT ---
Author Author Faith Vieyra Doctor Organization [facility] Address Unknown Phone Unavailable Care Team Providers Care Manager Clinical Informatics Name Role Phone Migration, Doctor Unavailable Unavailable PROBLEMS Type Condition ICD9-CM Code JNK17-UF Code Onset Dates Condition S tatus SNOMED Code Problem Screening for diabetes mellitus V77.1 Active 767102360 Problem Screening for iron deficiency anemia V78.0 Active 164865230 Problem Need for prophylactic vaccination and inoculation, Influen za V04.81 Active 599243180 Problem Insufficient care V23.7 Act yuriy 0814017444215 Problem Elevated blood pressure reading without diagnosi s of hypertension 796.2 Active 821264247 Problem Constipation, unspecified constipation type K59.00 Active 75389079 Problem DTAP TEST V06.1 Active Problem Generalized abdominal pain R10.84 Act yuriy 516120970 Problem Screening of Streptococcus B V28.6 A ctive 600561841 Problem Other malaise and fatigue 780.79 Acti ve 356605575 Problem Lumbago 724.2 Active 686174801 Problem Maternal drug dependence com plicating , childbirth, or the puerperium, unspecified as to episode of care 648.30 Active Problem Anxiety state, unspecified 300.00 Act yuriy [id number] ALLERGIES No Information ENCOUNTERS Encounter Location Date Diagnosis [facility] [address] [place] [id number] [address] [place] [address] Jul, Generalized abdominal pain R 10.84 ; Constipation, unspecified constipation type K59.00 and Drug abuse F19.10 [facility] [address] [facility] [id number] [address] [place] [id number] Jan, Encounter for dental examina tion Z01.20 and Dental caries K02.9 [facility] [address] [facility] [id number] [address] [place] [address] Feb, [facility] [address] [place] [id number] [address] [place] [address] 13 Feb, 2015 [facility] [address] [id number] [address] [place] [address], [place] [address] 17 Sep, 2014 [facility] [address] [id number] [address] [place] [address], [place] [address] 17 Sep, 2014 [facility] [address] [id number] [address] [place] [address], [place] [address] 20 Aug, 2014 [facility] [address] [id number] [address] [place] [address], [place] [address] 20 Aug, 2014 [facility] [address] [id number] [address] [place] [address], [place] [address] 17 Aug, 2014 [facility] [address] [id number] [address] [place] [address], [place] [address] 30 Jul, 2013 [facility] [address] [id number] [address] [place] [address], [place] [address] 29 Jul, 2013 [facility] [address] [id number] [address] [place] [address], [place] [address] 29 Jul, 2013 [facility] [address] [id number] [address] [place] [address], [place] [address] 22 Jul, 2013 [facility] [address] [id number] [address] [place] [address], [place] [address] 22 Jul, 2013 [facility] [address] [id number] [address] [place] [address], [place] [address] 22 Jul, 2013 [facility] [address] [id number] [address] [place] [address], [place] [address] 22 Jul, 2013 [facility] [address] [id number] [address] [place] [address], [place] [address] 17 Sep, 2013 [facility] [address] [id number] [address] [place] [address], [place] [address] 17 Sep, 2013 [facility] [address] [id number] [address] [place] [address], [place] [address] 15 Sep, 2013 [facility] [address] [id number] [facility] [place] [address] 15 Jul, 2013 [facility] [address] [id number] [facility] [place] [address] 10 Jul, 2013 [facility] [address] [id number] [facility] [place] [address] 10 Jul, 2013 [facility] [address] [id number] [address] [place] [address], [place] [address] 05 Sep, 2013 [facility] [address] [id number] [address] [place] [address], [place] [address] 04 Jul, 2013 [facility] [address] [id number] [address] [place] [address], [place] [address] 03 Jul, 2013 [facility] [address] [id number] [address] [place] [address], [place] [address] 02 Jul, 2013 [facility] [address] [id number] [address] [place] [address], [place] [address] 02 Jul, 2013 [facility] [address] [id number] [address] [place] [address], [place] [address] Jun, [facility] [address] [id number] [address] [place] [address], [place] [address] Jun, [facility] [address] [id number] [address] [place] [address], [place] [address] Jun, [facility] [address] [id number] [address] [place] [address], [place] [address] Jun, [facility] [address] [id number] [address] [place] [address], [place] [address] May, [facility] [address] [id number] [address] [place] [address], [place] [address] May, [facility] [address] [id number] [address] [place] [address], [place] [address] May, [facility] [address] [id number] [address] [place] [address], [place] [address] May, [facility] [address] [id number] [address] [place] [address] Apr, [facility] [address] [id number] [address] [place] [address] Apr, [facility] [address] [id number] [address] [place] [address] Aug, [facility] [address] [id number] [address] [place] [address] Aug, [facility] [address] [id number] [address] [place] [address] Aug, [facility] [address] [id number] [address] [place] [phone] Aug, [facility] [address] [id number] [address] [place] [phone] Aug, [facility] [address] [id number] [address] [place] [phone] Aug, [facility] [address] [id number] [address] [place] [phone] Jul, [facility] [address] [id number] [address] [place] [id number] Jun, [facility] [address] [id number] [address] [place] [phone] Aug, IMMUNIZATIONS No Known Immunizations SOCIAL HISTORY Never Assessed REASON FOR VISIT EMR[place] [place] OF CARE VITAL SIGNS MEDICATIONS No Known Medications RESULTS No Results PROCEDURES No Known procedures INSTRUCTIONS MEDICATIONS ADMINISTERED No Known Medications MEDICAL (GENERAL) HISTORY Type Description Date Medical History HBP Medical History Back problems
--- OUTSIDE RECORDS SUMMARY | 2020-04-08 18:07 | XMS REPORT ---
Author Author Faith Gutiérrez Organization [facility] [place] Address [address] [place] [address] Care Team Providers Care Glass Forming Engineer Name Role Phone JENA Gutiérrez Unavailable PROBLEMS Type Condition ICD9-CM Code [id number] Code Onset Dates Condition S tatus SNOMED Code Problem Screening for diabetes mellitus V77.1 Active 796514921 Problem Screening for iron deficiency anemia V78.0 Active 243427800 Problem Need for prophylactic vaccination and inoculation, Influen za V04.81 Active 667679923 Problem Insufficient care V23.7 Act yuriy [id number] Problem Elevated blood pressure reading without diagnosi s of hypertension 796.2 Active 348819442 Problem Constipation, unspecified constipation type K59.00 Active 85301393 Problem DTAP TEST V06.1 Active Problem Generalized abdominal pain R10.84 Act yuriy 124722598 Problem Screening of Streptococcus B V28.6 A ctive 331345625 Problem Other malaise and fatigue 780.79 Acti ve 068725554 Problem Lumbago 724.2 Active 282228460 Problem Maternal drug dependence com plicating , childbirth, or the puerperium, unspecified as to episode of care 648.30 Active Problem Anxiety state, unspecified 300.00 Act yuriy [id number] ALLERGIES No Information ENCOUNTERS Encounter Location Date Diagnosis [facility] [address] [facility] [id number] [address] [place] [address] Jul, Generalized abdominal pain R 10.84 ; Constipation, unspecified constipation type K59.00 and Drug abuse F19.10 [facility] [address] [facility] [id number] [address] [place] [address] [id number] Jan, Encounter for dental examina tion Z01.20 and Dental caries K02.9 [facility] [place] [address] [facility] [id number] [address] [place] [address] 14 Feb, 2015 [facility] [address] [id number] [address] [place] [address], [place] [address] 13 Feb, 2015 [facility] [address] [id number] [address] [place] [address], [place] [address] 17 Sep, 2014 [facility] [address] [id number] [address] [place] [address], [place] [address] 17 Sep, 2014 [facility] [address] [id number] [address] [place] [address], [place] [address] 20 Aug, 2014 [facility] [address] [id number] [address] [place] [address], [place] [address] 20 Aug, 2014 [facility] [address] [id number] [address] [place] [address], [place] [address] 17 Aug, 2014 [facility] [address] [id number] [address] [place] [address], [place] [address] 30 Jul, 2013 [facility] [address] [id number] [address] [place] [address], [place] [address] 29 Sep, 2013 [facility] [address] [id number] [address] [place] [address], [place] [address] 29 Sep, 2013 [facility] [address] [id number] [address] [place] [address], [place] [address] 22 Sep, 2013 [facility] [address] [id number] [address] [place] [address], [place] [address] 22 Sep, 2013 [facility] [address] [id number] [address] [place] [address], [place] [address] 22 Sep, 2013 [facility] [address] [id number] [address] [place] [address], [place] [address] 22 Sep, 2013 [facility] [address] [id number] [address] [place] [address], [place] [address] 17 Sep, 2013 [facility] [address] [id number] [address] [place] [address], [place] [address] 17 Sep, 2013 [facility] [address] [id number] [facility] [place] [address] 15 Jul, 2013 [facility] [address] [id number] [address] [place] [address], [place] [address] 15 Jul, 2013 [facility] [address] [id number] [facility] [place] [address] 10 Jul, 2013 [facility] [address] [id number] [address] [place] [address], [place] [address] 10 Jul, 2013 [facility] [address] [id number] [address] [place] [address], [place] [address] 05 Jul, 2013 [facility] [address] [id number] [address] [place] [address], [place] [address] 04 Jul, 2013 [facility] [address] [id number] [address] [place] [address], [place] [address] 03 Jul, 2013 [facility] [address] [id number] [address] [place] [address], [place] [address] 02 Jul, 2013 [facility] [address] [id number] [address] [place] [address], [place] [address] 02 Jul, 2013 [facility] [address] [id number] [address] [place] [address], [place] [address] Jun, [facility] [address] [id number] [address] [place] [address], [place] [address] Jun, [facility] [address] [id number] [address] [place] [address], [place] [address] Jun, [facility] [address] [id number] [address] [place] [address], [place] [address] Jun, [facility] [address] [id number] [address] [place] [address], [place] [address] May, [facility] [address] [id number] [address] [place] [address], [place] [address] May, [facility] [address] [id number] [address] [place] [address], [place] [address] 14 May, 2014 [facility] [place] [address] [id number] [address] [place] [address] 14 May, 2014 [facility] [place] [address] [id number] [address] [place] [address] Apr, [facility] [place] [address] [id number] [address] [place] [address] Apr, [facility] [place] [address] [id number] [address] [place] [address] Aug, [facility] [place] [address] [id number] [address] [place] [phone] Aug, [facility] [place] [address] [id number] [address] [place] [phone] Aug, [facility] [place] [address] [id number] [address] [place] [address] Aug, [facility] [place] [address] [id number] [address] [place] [address] Aug, [facility] [place] [address] [id number] [address] [place] [phone] Aug, [facility] [place] [address] [id number] [address] [place] [phone] Jul, [facility] [place] [address] [id number] [address] [place] [address] Jun, [facility] [place] [address] [id number] [address] [place] [address] Aug, IMMUNIZATIONS No Known Immunizations SOCIAL HISTORY Never Assessed REASON FOR VISIT PLAN OF CARE VITAL SIGNS Height 65 in 2014-06-10 Weight 160.25 lbs 2014-06-10 Temperature 97.9 degrees Fahrenheit 2014-06-10 Heart Rate 80 bpm 2014-06-10 Respiratory Rate 18 2014-06-10 Blood pressure systolic 118 mmHg 2014-06-10 Blood pressure diastolic 84 mmHg 2014-06-10 MEDICATIONS No Known Medications RESULTS No Results PROCEDURES Procedure Date Ordered Result Body Site COMPLETE CBC W/AUTO DIFF WBC June 10, 2014 GLUCOSE TEST June 10, 2014 DRUG SCREEN, QUALITATE/MULTI June 10, 2014 OB US >/= 14 WKS, SNGL FETUS June 10, 2014 VENIPUNCT, ROUTINE* June 10, 2014 URINE-NO MICRO June 10, 2014 INSTRUCTIONS MEDICATIONS ADMINISTERED No Known Medications MEDICAL (GENERAL) HISTORY Type Description Date Medical History HBP Medical History Back problems
--- OUTSIDE RECORDS SUMMARY | 2020-04-08 18:07 | XMS REPORT ---
Author Author Faith Gutiérrez Organization [facility] Address [address] [place] [address] Care Team Providers Care Treatment Specialist Name Role Phone JENA Gutiérrez Unavailable PROBLEMS Type Condition ICD9-CM Code MPG14-YF Code Onset Dates Condition S tatus SNOMED Code Problem Screening for diabetes mellitus V77.1 Active 193711969 Problem Screening for iron deficiency anemia V78.0 Active 716248983 Problem Need for prophylactic vaccination and inoculation, Influen za V04.81 Active 737878190 Problem Insufficient care V23.7 Act yuriy [id number] Problem Elevated blood pressure reading without diagnosi s of hypertension 796.2 Active 779066116 Problem Constipation, unspecified constipation type K59.00 Active 58533277 Problem DTAP TEST V06.1 Active Problem Generalized abdominal pain R10.84 Act yuriy 729002652 Problem Screening of Streptococcus B V28.6 A ctive 066825607 Problem Other malaise and fatigue 780.79 Acti ve 885033671 Problem Lumbago 724.2 Active 671422409 Problem Maternal drug dependence com plicating , childbirth, or the puerperium, unspecified as to episode of care 648.30 Active Problem Anxiety state, unspecified 300.00 Act yuriy 357622816 ALLERGIES No Information ENCOUNTERS Encounter Location Date Diagnosis [facility] [address] [place] [address] Jun, [facility] [address] [facility] [id number] [address] [address] Jul, Generalized abdominal pain R 10.84 ; Constipation, unspecified constipation type K59.00 and Drug abuse F19.10 [facility] [address] [facility] [id number] [address] [id number] Jan, Encounter for dental examina tion Z01.20 and Dental caries K02.9 [facility] [address] [id number] [address] [place] [address], [place] [address] 14 Feb, 2015 [facility] [address] [id number] [address] [place] [address], [place] [address] 13 Feb, 2015 [facility] [address] [id number] [address] [place] [address], [place] [address] 17 Sep, 2014 [facility] [address] [id number] [address] [place] [address], [place] [address] Sep, [facility] [address] [id number] [address] [place] [address], [place] [address] Aug, [facility] [address] [id number] [address] [place] [address], [place] [address] Aug, [facility] [address] [id number] [address] [place] [address], [place] [address] Aug, [facility] [address] [id number] [address] [place] [address], [place] [address] 30 Jul, 2013 [facility] [address] [id number] [address] [place] [address], [place] [address] 29 Jul, 2013 [facility] [address] [id number] [address] [place] [address] 29 Jul, 2013 [facility] [address] [id number] [address] [place] [address] 22 Jul, 2013 [facility] [address] [id number] [address] [place] [address] 22 Jul, 2013 [facility] [address] [id number] [address] [place] [address], [place] [address] 22 Jul, 2013 [facility] [address] [id number] [address] [place] [address], [place] [address] 22 Jul, 2013 [facility] [address] [id number] [address] [place] [address] 17 Jul, 2013 [facility] [address] [id number] [address] [place] [address] 17 Jul, 2013 [facility] [address] [id number] [address] [place] [address], [place] [address] 15 Jul, 2013 [facility] [address] [id number] [address] [place] [address], [place] [address] 15 Jul, 2013 [facility] [address] [id number] [address] [place] [address], [place] [address] 10 Jul, 2013 [facility] [address] [id number] [address] [place] [address], [place] [address] 10 Jul, 2013 [facility] [address] [id number] [address] [place] [address], [place] [address] 05 Jul, 2013 [facility] [address] [id number] [address] [place] [address], [place] [address] 04 Jul, 2013 [facility] [address] [id number] [address] [place] [address], [place] [address] 03 Jul, 2013 [facility] [address] [id number] [address] [place] [address], [place] [address] 02 Jul, 2014 [facility] [address] [id number] [address] [place] [address], [place] [address] Jul, [facility] [address] [id number] [address] [place] [address], [place] [address] Jun, [facility] [address] [id number] [address] [place] [address], [place] [address] Jun, [facility] [address] [id number] [address] [place] [address], [place] [address] Jun, [facility] [address] [id number] [address] [place] [address], [place] [address] Jun, [facility] [address] [id number] [address] [place] [address], [place] [address] May, [facility] [address] [id number] [address] [place] [address], [place] [address] May, [facility] [address] [id number] [address] [place] [address] 14 May, 2014 [facility] [address] [id number] [address] [place] [address] May, [facility] [address] [id number] [address] [place] [address] Apr, [facility] [address] [id number] [address] [place] [phone] Apr, [facility] [address] [id number] [address] [place] [address] Aug, [facility] [address] [id number] [address] [place] [address] Aug, [facility] [address] [id number] [address] [place] [address] Aug, [facility] [address] [id number] [address] [place] [address] Aug, [facility] [address] [id number] [address] [place] [address] Aug, [facility] [address] [id number] [address] [place] [address] Aug, [facility] [address] [id number] [address] [place] [address] Jul, [facility] [address] [id number] [address] [place] [address] Jun, [facility] [address] [id number] [address] [place] [address] Aug, IMMUNIZATIONS No Known Immunizations SOCIAL HISTORY Never Assessed REASON FOR VISIT PLAN OF CARE VITAL SIGNS Height 65 in 2014-07-30 Weight 184.3 lbs 2014-07-30 Temperature 98 degrees Fahrenheit 2014-07-30 Heart Rate 84 bpm 2014-07-30 Respiratory Rate 18 2014-07-30 Blood pressure systolic 122 mmHg 2014-07-30 Blood pressure diastolic 74 mmHg 2014-07-30 MEDICATIONS Unknown Medications RESULTS No Results PROCEDURES Procedure Date Ordered Result Body Site GLUCOSE BLOOD TEST Jul 30, 2014 URINALYSIS, AUTO, W/O SCOPE Jul 30, 2014 STREP CULTURE Jul 30, 2014 INSTRUCTIONS MEDICATIONS ADMINISTERED No Known Medications MEDICAL (GENERAL) HISTORY Type Description Date Medical History HBP Medical History Back problems
--- OUTSIDE RECORDS SUMMARY | 2020-04-08 18:08 | XMS REPORT ---
Author Author Faith Vieyra Doctor Organization [facility] Address Unknown Phone Unavailable Care Team Providers Care Branch Credit Counselor Name Role Phone Migration, Doctor Unavailable Unavailable PROBLEMS Type Condition ICD9-CM Code HYY24-RB Code Onset Dates Condition S tatus SNOMED Code Problem Screening for diabetes mellitus V77.1 Active 872288649 Problem Screening for iron deficiency anemia V78.0 Active 200240437 Problem Need for prophylactic vaccination and inoculation, Influen za V04.81 Active 276410926 Problem Insufficient care V23.7 Act yuriy [id number] Problem Elevated blood pressure reading without diagnosi s of hypertension 796.2 Active 550981541 Problem Constipation, unspecified constipation type K59.00 Active 70051812 Problem DTAP TEST V06.1 Active Problem Generalized abdominal pain R10.84 Act yuriy 420631603 Problem Screening of Streptococcus B V28.6 A ctive 552821788 Problem Other malaise and fatigue 780.79 Acti ve 901791694 Problem Lumbago 724.2 Active 500573559 Problem Maternal drug dependence com plicating , childbirth, or the puerperium, unspecified as to episode of care 648.30 Active Problem Anxiety state, unspecified 300.00 Act yuriy [id number] ALLERGIES No Information ENCOUNTERS Encounter Location Date Diagnosis [facility] [address] [id number] [address] [place] [address] Jul, Generalized abdominal pain R 10.84 ; Constipation, unspecified constipation type K59.00 and Drug abuse F19.10 [facility] [address] [facility] [id number] [address] [place] [id number] Jan, Encounter for dental examina tion Z01.20 and Dental caries K02.9 [facility] [address] [facility] [id number] [address] [place] [address] Feb, [facility] [address] [id number] [address] [place] [address] 13 Feb, 2015 [facility] [address] [id number] [address] [place] [address], [place] [address] 17 Sep, 2014 [facility] [address] [id number] [address] [place] [address], [place] [address] 17 Sep, 2014 [facility] [address] [id number] [address] [place] [address], [place] [address] 20 Aug, 2014 [facility] [address] [id number] [address] [place] [address], [place] [address] 20 Aug, 2014 [facility] [address] [id number] [address] [place] [address], [place] [address] 17 Aug, 2014 [facility] [address] [id number] [address] [place] [address], [place] [address] 30 Jul, 2013 [facility] [address] [id number] [address] [place] [address], [place] [address] 29 Jul, 2013 [facility] [address] [id number] [address] [place] [address], [place] [address] 29 Jul, 2013 [facility] [address] [id number] [address] [place] [address], [place] [address] 22 Jul, 2013 [facility] [address] [id number] [address] [place] [address], [place] [address] 22 Jul, 2013 [facility] [address] [id number] [address] [place] [address], [place] [address] 22 Jul, 2013 [facility] [address] [id number] [address] [place] [address], [place] [address] 22 Jul, 2013 [facility] [address] [id number] [address] [place] [address], [place] [address] 17 Sep, 2013 [facility] [address] [id number] [address] [place] [address], [place] [address] 17 Sep, 2013 [facility] [address] [id number] [address] [place] [address], [place] [address] 15 Sep, 2013 [facility] [address] [id number] [facility] [place] [address] 15 Jul, 2013 [facility] [address] [id number] [facility] [place] [address] 10 Jul, 2013 [facility] [address] [id number] [facility] [place] [address] 10 Jul, 2013 [facility] [address] [id number] [address] [place] [address], [place] [address] 05 Sep, 2013 [facility] [address] [id number] [address] [place] [address], [place] [address] 04 Jul, 2013 [facility] [address] [id number] [address] [place] [address], [place] [address] 03 Jul, 2013 [facility] [address] [id number] [address] [place] [address], [place] [address] 02 Jul, 2013 [facility] [address] [id number] [address] [place] [address], [place] [address] 02 Jul, 2013 [facility] [address] [id number] [address] [place] [address], [place] [address] Jun, [facility] [address] [id number] [address] [place] [address], [place] [address] Jun, [facility] [address] [id number] [address] [place] [address], [place] [address] Jun, [facility] [address] [id number] [address] [place] [address], [place] [address] Jun, [facility] [address] [id number] [address] [place] [address], [place] [id number] May, [facility] [address] [id number] [address] [place] [address], [place] [id number] May, [facility] [address] [id number] [address] [place] [address], [place] [address] May, [facility] [address] [id number] [address] [place] [address], [place] [address] May, [facility] [address] [id number] [address] [place] [id number] Apr, [facility] [address] [id number] [address] [place] [phone] Apr, [facility] [address] [id number] [address] [place] [phone] Aug, [facility] [address] [id number] [address] [place] [id number] Aug, [facility] [address] [id number] [address] [place] [id number] Aug, [facility] [address] [id number] [address] [place] [phone] Aug, [facility] [address] [id number] [address] [place] [phone] Aug, [facility] [address] [id number] [address] [place] [phone] Aug, [facility] [address] [id number] [address] [place] [phone] Jul, [facility] [address] [id number] [address] [place] [phone] Jun, [facility] [address] [id number] [address] [place] [id number] Aug, IMMUNIZATIONS No Known Immunizations SOCIAL HISTORY Never Assessed REASON FOR VISIT EMR-[facility] PLAN OF CARE VITAL SIGNS MEDICATIONS No Known Medications RESULTS No Results PROCEDURES No Known procedures INSTRUCTIONS MEDICATIONS ADMINISTERED No Known Medications MEDICAL (GENERAL) HISTORY Type Description Date Medical History HBP Medical History Back problems
--- OUTSIDE RECORDS SUMMARY | 2020-04-08 18:08 | XMS REPORT ---
Author Author Faith Vieyra Doctor Organization [facility] Address Unknown Phone Unavailable Care Team Providers Care Delinquent Tax Collection Assistant Name Role Phone Migration, Doctor Unavailable Unavailable PROBLEMS Type Condition ICD9-CM Code [id number] Code Onset Dates Condition S tatus SNOMED Code Problem Screening for diabetes mellitus V77.1 Active 888529141 Problem Screening for iron deficiency anemia V78.0 Active 364838943 Problem Need for prophylactic vaccination and inoculation, Influen za V04.81 Active 509973223 Problem Insufficient care V23.7 Act yuriy [id number] Problem Elevated blood pressure reading without diagnosi s of hypertension 796.2 Active 762113646 Problem Constipation, unspecified constipation type K59.00 Active 79151044 Problem DTAP TEST V06.1 Active Problem Generalized abdominal pain R10.84 Act yuriy 608924979 Problem Screening of Streptococcus B V28.6 A ctive 361330242 Problem Other malaise and fatigue 780.79 Acti ve 206619312 Problem Lumbago 724.2 Active 061142851 Problem Maternal drug dependence com plicating , childbirth, or the puerperium, unspecified as to episode of care 648.30 Active Problem Anxiety state, unspecified 300.00 Act yuriy 664976509 ALLERGIES No Information ENCOUNTERS Encounter Location Date Diagnosis [facility] [address] [id number] [address] [place] [id number] Jul, Generalized abdominal pain R 10.84 ; Constipation, unspecified constipation type K59.00 and Drug abuse F19.10 [facility] [address] [facility] [id number] [address] [place] [id number] Jan, Encounter for dental examina tion Z01.20 and Dental caries K02.9 [facility] [address] [facility] [id number] [address] [place] [phone] Feb, [facility] [address] [id number] [address] [place] [id number] 13 Feb, 2015 [facility] [address] [id number] [address] [place] [address], [place] [address] 17 Sep, 2014 [facility] [address] [id number] [address] [place] [address], [place] [address] 17 Sep, 2014 [facility] [address] [id number] [address] [place] [address], [place] [address] 20 Aug, 2014 [facility] [address] [id number] [address] [place] [address], [place] [address] 20 Aug, 2014 [facility] [address] [id number] [address] [place] [address], [place] [address] 17 Aug, 2014 [facility] [address] [id number] [address] [place] [address], [place] [address] 30 Jul, 2013 [facility] [address] [id number] [address] [place] [address], [place] [address] 29 Jul, 2013 [facility] [address] [id number] [address] [place] [address], [place] [address] 29 Jul, 2013 [facility] [address] [id number] [address] [place] [address], [place] [address] 22 Jul, 2013 [facility] [address] [id number] [address] [place] [address], [place] [address] 22 Jul, 2013 [facility] [address] [id number] [address] [place] [address], [place] [address] 22 Jul, 2013 [facility] [address] [id number] [address] [place] [address], [place] [address] 22 Jul, 2013 [facility] [address] [id number] [address] [place] [address], [place] [address] 17 Sep, 2013 [facility] [address] [id number] [address] [place] [address], [place] [address] 17 Sep, 2013 [facility] [address] [id number] [address] [place] [address], [place] [address] 15 Sep, 2013 [facility] [address] [id number] [facility] [place] [address] 15 Jul, 2013 [facility] [address] [id number] [facility] [place] [address] 10 Jul, 2013 [facility] [address] [id number] [facility] [place] [address] 10 Jul, 2013 [facility] [address] [id number] [address] [place] [address], [place] [address] 05 Sep, 2013 [facility] [address] [id number] [address] [place] [address], [place] [address] 04 Jul, 2013 [facility] [address] [id number] [address] [place] [address], [place] [address] 03 Jul, 2013 [facility] [address] [id number] [address] [place] [address], [place] [address] 02 Jul, 2013 [facility] [address] [id number] [address] [place] [address], [place] [address] 02 Jul, 2013 [facility] [address] [id number] [address] [place] [address], [place] [address] Jun, [facility] [address] [id number] [address] [place] [address], [place] [address] Jun, [facility] [address] [id number] [address] [place] [address], [place] [address] Jun, [facility] [address] [id number] [address] [place] [address], [place] [address] Jun, [facility] [address] [id number] [address] [place] [address], [place] [address] May, [facility] [address] [id number] [address] [place] [address], [place] [address] May, [facility] [address] [id number] [address] [place] [address], [place] [address] May, [facility] [address] [id number] [address] [place] [address], [place] [address] May, [facility] [address] [id number] [address] [place] [phone] Apr, [facility] [address] [id number] [address] [place] [phone] Apr, [facility] [address] [id number] [address] [place] [phone] Aug, [facility] [address] [id number] [address] [place] [phone] Aug, [facility] [address] [id number] [address] [place] [phone] Aug, [facility] [address] [id number] [address] [place] [phone] Aug, [facility] [address] [id number] [address] [place] [phone] Aug, [facility] [address] [id number] [address] [place] [phone] Aug, [facility] [address] [id number] [address] [place] [phone] Jul, [facility] [address] [id number] [address] [place] [phone] Jun, [facility] [address] [id number] [address] [place] [phone] Aug, IMMUNIZATIONS No Known Immunizations SOCIAL HISTORY Never Assessed REASON FOR VISIT [facility] PLAN OF CARE VITAL SIGNS MEDICATIONS Medication Instructions Dosage Frequency Start Date End Date Duration S tatus Magnesium Oxide 400 mg 1 Tablet 1 time per day 17 Sep, 2 014 Active buspirone 15 mg take 1 tablet by Oral route 2 times pe r day DOSE INCREASE Jul, Active Vistaril 50 mg take 1-2 capsule by Oral route 3 times per day Jul, Active Folic Acid 1 mg take 1 tablet (1 mg) by oral route once da rubén Jul, Active Zoloft 50 mg 1 tablet by Oral route 1 time per day DOS E INCREASE Jul, Active RESULTS No Results PROCEDURES No Known procedures INSTRUCTIONS MEDICATIONS ADMINISTERED No Known Medications MEDICAL (GENERAL) HISTORY Type Description Date Medical History HBP Medical History Back problems
--- OUTSIDE RECORDS SUMMARY | 2020-04-08 18:08 | XMS REPORT ---
Author Author Faith GUO Organization [facility] Address [address] [place] [address] Care Team Providers Care Sprinkler Irrigation Equipment Mechanic Name Role Phone JENNY GUO Unavailable PROBLEMS Type Condition ICD9-CM Code FLW49-VN Code Onset Dates Condition S tatus SNOMED Code Problem Maternal drug dependence com plicating , childbirth, or the puerperium, unspecified as to episode of care 648.30 Active Problem Elevated blood pressure reading without diagnosi s of hypertension 796.2 Active 111128613 Problem DTAP TEST V06.1 Active Problem Need for prophylactic vaccination and inoculation, Influen za V04.81 Active 007375516 Problem Screening for diabetes mellitus V77.1 Active 071139473 Problem Insufficient care V23.7 Act yuriy [id number] Problem Screening for iron deficiency anemia V78.0 Active 099226734 Problem Generalized abdominal pain R10.84 Act yuriy 221392814 Problem Constipation, unspecified constipation type K59.00 Active 92548448 Problem Lumbago 724.2 Active 681481532 Problem Anxiety state, unspecified 300.00 Act yuriy 634939970 Problem Screening of Streptococcus B V28.6 A ctive 304397602 Problem Other malaise and fatigue 780.79 Acti ve 491828603 ALLERGIES Substance Reaction Event Type Date Status N.K.D.A. Unknown Non Drug Allergy Jul, Unknown SOCIAL HISTORY No smoking Hx information available PLAN OF CARE Activity Details Follow Up 2 Weeks Reason:establish car e VITAL SIGNS Height 65 in 2016-08-16 Weight 163.0 lbs 2016-08-16 Temperature 98.1 degrees Fahrenheit 2016-08-16 Heart Rate 104 bpm 2016-08-16 Respiratory Rate 20 2016-08-16 BMI 27.12 kg/m2 2016-08-16 Blood pressure systolic 140 mmHg 2016-08-16 Blood pressure diastolic 90 mmHg 2016-08-16 MEDICATIONS Medication Instructions Dosage Frequency Start Date End Date Duration S tatus Xanax 0.5 MG Orally Three times a day 1 tablet 8h Active Citrate of Magnesia 1.745 GM/30ML Orally mix one to on e with fluid for all 8 ounces as directed Jul, Active Bentyl 10 mg Orally Four times a day 1 capsule 6h Jul, Jul, 10 days Active RESULTS Name Result Date Reference Range UA LONG DIP (IN HOUSE) 2016-08-16 Lot # [id number] Exp date 2016-12 Clarity clear Color yellow Odor none GLU negative GLORIA negative KET negative SG 1.020 BLO negative pH 6.0 Protein negaive URO 0.2 NIT negative NANCY negative Lot # [id number] Exp date 2017-09 URINE DRUG SCREEN (IN HOUSE) 2016-08-16 Lot # [id number] Exp date Control + COCAINE negative AMPH positive MTD negative THC positive OPIATE negative BENZO positive PCP negative BAR negative OXY negtive MAMP positive TCA positive MDMA negative AMYLASE 2016-08-16 Amylase, Serum 54 31-124 LIPASE 2016-08-16 Lipase, Serum 28 0-59 CBC 2016-08-16 WBC 7.6 3.4-10.8 RBC 4.39 3.77-5.28 Hemoglobin 12.6 11.1-15.9 Hematocrit 38.9 34.0-46.6 MCV 89 79-97 MCH 28.7 26.6-33.0 MCHC 32.4 31.5-35.7 RDW 13.5 12.3-15.4 Platelets 301 150-379 Neutrophils 61 Lymphs 30 Monocytes 8 Eos 1 Basos 0 Neutrophils (Absolute) 4.6 1.4-7.0 Lymphs (Absolute) 2.3 0.7-3.1 Monocytes(Absolute) 0.6 0.1-0.9 Eos (Absolute) 0.1 0.0-0.4 Baso (Absolute) 0.0 0.0-0.2 Immature Granulocytes 0 Immature Grans (Abs) 0.0 0.0-0.1 CMP 2016-08-16 Glucose, Serum 86 65-99 BUN 10 6-20 Creatinine, Serum 0.77 0.57-1.00 eGFR If NonAfricn Am 100 >59 eGFR If Africn Am 116 >59 BUN/Creatinine Ratio 13 8-20 Sodium, Serum 141 134-144 Potassium, Serum 4.5 3.5-5.2 Chloride, Serum 101 97-108 Carbon Dioxide, Total 18 18-29 Calcium, Serum 9.1 8.7-10.2 Protein, Total, Serum 7.3 6.0-8.5 Albumin, Serum 4.5 3.5-5.5 Globulin, Total 2.8 1.5-4.5 A/G Ratio 1.6 1.1-2.5 Bilirubin, Total 0.4 0.0-1.2 Alkaline Phosphatase, S 68 39-117 AST (SGOT) 18 0-40 ALT (SGPT) 13 0-32 Xray : Abdomen (IN HOUSE) 2016-08-16 PROCEDURES Procedure Date Ordered Related Diagnosis Body Site URINALYSIS, AUTO, W/O SCOPE Aug 16, 2016 LAB NOT BILLED BY [facility] Aug 16, 2016 VENIPUNCT, ROUTINE* Aug 16, 2016 X-RAY EXAM OF ABDOMEN Aug 16, 2016 Office Visit, Est Pt., Level 3 Aug 16, 2016 DRUG SCREEN NON TLC DEVICES Aug 16, 2016 IMMUNIZATIONS No Known Immunizations
--- OUTSIDE RECORDS SUMMARY | 2020-04-08 18:08 | XMS REPORT ---
Author Author Faith Vieyra Doctor Organization [facility] Address Unknown Phone Unavailable Care Team Providers Care Senior Salesforce Developer Name Role Phone Migration, Doctor Unavailable Unavailable PROBLEMS Type Condition ICD9-CM Code VCC70-KJ Code Onset Dates Condition S tatus SNOMED Code Problem Screening for diabetes mellitus V77.1 Active 879216816 Problem Screening for iron deficiency anemia V78.0 Active 518365373 Problem Need for prophylactic vaccination and inoculation, Influen za V04.81 Active 502490330 Problem Insufficient care V23.7 Act yuriy 2629806870056 Problem Elevated blood pressure reading without diagnosi s of hypertension 796.2 Active 055800396 Problem Constipation, unspecified constipation type K59.00 Active 68797197 Problem DTAP TEST V06.1 Active Problem Generalized abdominal pain R10.84 Act yuriy 311464556 Problem Screening of Streptococcus B V28.6 A ctive 413988696 Problem Other malaise and fatigue 780.79 Acti ve 867515659 Problem Lumbago 724.2 Active 811699670 Problem Maternal drug dependence com plicating , childbirth, or the puerperium, unspecified as to episode of care 648.30 Active Problem Anxiety state, unspecified 300.00 Act yuriy 692520145 ALLERGIES No Information ENCOUNTERS Encounter Location Date Diagnosis [facility] [address] [id number] [address] [place] [id number] Jul, Generalized abdominal pain R 10.84 ; Constipation, unspecified constipation type K59.00 and Drug abuse F19.10 [facility] [address] [facility] [id number] [address] [place] [id number] Jan, Encounter for dental examina tion Z01.20 and Dental caries K02.9 [facility] [address] [facility] [id number] [address] [place] [phone] Feb, [facility] [address] [id number] [address] [place] [phone] 13 Feb, 2015 [facility] [address] [id number] [address] [place] [address], [place] [address] 17 Sep, 2014 [facility] [address] [id number] [address] [place] [address], [place] [address] 17 Sep, 2014 [facility] [address] [id number] [address] [place] [address], [place] [address] 20 Aug, 2014 [facility] [address] [id number] [address] [place] [address], [place] [address] 20 Aug, 2014 [facility] [address] [id number] [address] [place] [address], [place] [address] 17 Aug, 2014 [facility] [address] [id number] [address] [place] [address], [place] [address] 30 Jul, 2013 [facility] [address] [id number] [address] [place] [address], [place] [address] 29 Jul, 2013 [facility] [address] [id number] [address] [place] [address], [place] [address] 29 Jul, 2013 [facility] [address] [id number] [address] [place] [address], [place] [address] 22 Jul, 2013 [facility] [address] [id number] [address] [place] [address], [place] [address] 22 Jul, 2013 [facility] [address] [id number] [address] [place] [address], [place] [address] 22 Jul, 2013 [facility] [address] [id number] [address] [place] [address], [place] [address] 22 Jul, 2013 [facility] [address] [id number] [address] [place] [address], [place] [address] 17 Sep, 2013 [facility] [address] [id number] [address] [place] [address], [place] [address] 17 Sep, 2013 [facility] [address] [id number] [address] [place] [address], [place] [address] 15 Sep, 2013 [facility] [address] [id number] [facility] [place] [address] 15 Jul, 2013 [facility] [address] [id number] [facility] [place] [address] 10 Jul, 2013 [facility] [address] [id number] [facility] [place] [address] 10 Jul, 2013 [facility] [address] [id number] [address] [place] [address], [place] [address] 05 Sep, 2013 [facility] [address] [id number] [address] [place] [address], [place] [address] 04 Jul, 2013 [facility] [address] [id number] [address] [place] [address], [place] [address] 03 Jul, 2013 [facility] [address] [id number] [address] [place] [address], [place] [address] 02 Jul, 2013 [facility] [address] [id number] [address] [place] [address], [place] [address] 02 Jul, 2013 [facility] [address] [id number] [address] [place] [address], [place] [address] Jun, [facility] [address] [id number] [address] [place] [address], [place] [address] Jun, [facility] [address] [id number] [address] [place] [address], [place] [address] Jun, [facility] [address] [id number] [address] [place] [address], [place] [address] Jun, [facility] [address] [id number] [address] [place] [address], [place] [address] May, [facility] [address] [id number] [address] [place] [address], [place] [address] May, [facility] [address] [id number] [address] [place] [address], [place] [address] May, [facility] [address] [id number] [address] [place] [address], [place] [address] May, [facility] [address] [id number] [address] [place] [phone] Apr, [facility] [address] [id number] [address] [place] [phone] Apr, [facility] [address] [id number] [address] [place] [phone] Aug, [facility] [address] [id number] [address] [place] [phone] Aug, [facility] [address] [id number] [address] [place] [phone] Aug, [facility] [address] [id number] [address] [place] [phone] Aug, [facility] [address] [id number] [address] [place] [phone] Aug, [facility] [address] [id number] [address] [place] [id number] Aug, [facility] [address] [id number] [address] [place] [id number] Jul, [facility] [address] [id number] [address] [place] [phone] Jun, [facility] [address] [id number] [address] [place] [phone] Aug, IMMUNIZATIONS No Known Immunizations SOCIAL HISTORY Never Assessed REASON FOR VISIT [facility] PLAN OF CARE VITAL SIGNS MEDICATIONS No Known Medications RESULTS No Results PROCEDURES No Known procedures INSTRUCTIONS MEDICATIONS ADMINISTERED No Known Medications MEDICAL (GENERAL) HISTORY Type Description Date Medical History HBP Medical History Back problems
== END 2020-04-08 16:14 | disposition home or self-care (01) ==
LOC: EDUNIT# 14:19 → ER 14:20
DX: R56.9 Unspecified convulsions (principal); F15.10 Other stimulant abuse, uncomplicated; F41.9 Anxiety disorder, unspecified
CPT/HCPCS: 36415; 80053; 80306; 81000; 85025

== ENCOUNTER 2020-06-18 21:37 | Emergency (ER) | payer SELFPAY ==
[~2020-06-18] VITALS: Ht 165 cm; Wt 66.0 kg
[~2020-06-18 21:37] MED LIST changes: +HYDR-700 PO
--- OUTSIDE RECORDS SUMMARY | 2020-06-18 21:43 | XMS REPORT ---
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 [employer] Organization [id number] [employer] Address [address] [address] Care Team Providers Care Sales Branch Manager Name Role Phone NO, LOCAL PHYSICIAN Unavailable Unavailable LYONS, MARGI K Unavailable JENNY GUO Unavailable Migration, Doctor Unavailable Unavailable Migration, Doctor Unavailable Unavailable Migration, Doctor Unavailable Unavailable Migration, Doctor Unavailable Unavailable Migration, Doctor Unavailable Unavailable Migration, Doctor Unavailable Unavailable МАРИНА ESQUEDA Unavailable Unavailable ALMAZAN, ZAHEER Unavailable Unavailable ALMAZAN, ZAHEER Unavailable Unavailable ALMAZAN, ZAHEER Unavailable Unavailable LYONS, MARGI Unavailable JENA Gutiérrez Unavailable LYONS, MARGI Unavailable LYONS, MARGI Unavailable LYONS, MARGI Unavailable LYONS, MARGI Unavailable BLAYNE GutiérrezIDI Unavailable [facility] Unavailable Unavaila ble Unavailable Unavailable Bi, Jesica Unavailable Ziggy Norris Unavailable Unavailable Bi, Jesica Unavailable Bi, Jesica Unavailable Ziggy Norris Unavailable Bi, Jesica Unavailable Bi, Jesica Unavailable Bi, Jesica Unavailable [facility] Unavailable Unavaila ble Migration, Doctor Unavailable Unavailable LYONS, MARGI Unavailable JESUS EVGENY Unavailable LYONS, MARGI Unavailable Bi, Jesica Unavailable Jesica Pat Unavailable Unavailable Unavailable BEATA BOSWELL Unavailable Unavailable ALICIA ENG Unavailable Unavailable ALICIA ENG Unavailable Unavailable BUCK ARCE, STEPHANY Jimenez Unavailable Unavailable RENY CARY APRN Unavailable Unavailable NO, LOCAL PHYSICIAN PCP Unavailable SHERRIE MAN Unavailable Unavailable Jesica Pat Unavailable JESUS, EVGENY Unavailable Jesica Pat Unavailable EDM , EDDOC - Generic for Unavailable Unavailable REFERRED, SELF Unavailable Unavailable Physician, No Primary or Family Unavailable Unavaila deya Driscoll MD, Gregg Key Unavailable Unavailable CHRIS BETTENCOURT Unavailable Unavailable JESUS, EVGENY Unavailable JESUS, EVGENY Unavailable Unavailable Unavailable Unavailable Unavailable Unavailable Unavailable Unavailable Unavailable Unavailable Unavailable Unavailable Unavailable Unavailable Unavailable Unavailable Unavailable Unavailable Unavailable Unavailable Unavailable Allergies Allergy Reported Allergen(s) Allergy Type Date of Reaction(s) Care Facility Classificati Onset Provider on Unclassified No Known Medication [facility] 10-12-2019 NA NA Via [facility] (5 sources) Allergies [facility] ([id number]) Unclassified Depakot Propensity 04-15-2020 NIght Jesica jimenez [facility] (1 source) to adverse terrors Other Phone: Clinic reactions [phone] Encounters Encounter Date Encounter Type Encounter Diagnosis Care Provider Facility Start: Patient encounter NA NA Pending sale to [facility] 05-22-2020 procedure [facility] Start: Patient encounter CHRIS BETTENCOURT [facility] 05-12-2020 procedure [facility] Start: Patient encounter CHRIS BETTENCOURT [facility] 04-30-2020 procedure [facility] Start: Emergency department EDDOC - Generic for [facility] 04-19-2020 patient visit MARV ARCE End: 04-19-2020 Start: Patient encounter Unspecified Jesica Perez [facility] 04-15-2020 procedure convulsions Start: Emergency department LOCAL NO [facility] 04-08-[address] [facility] End: 04-08-2020 Start: Emergency department STEPHANY ARCE V [facility] 04-08-2020 patient visit [facility] End: 04-08-2020 Start: Patient encounter RENY CARY [facility] 04-08-2020 procedure [facility] Start: Patient encounter Jesica Pat [facility] 04-07-2020 procedure Start: Patient encounter Borderline [facility] 03-28-2020 procedure personality disorde r Start: Patient encounter Anxiety disorder, Jesica Pat [facility] 03-26-2020 procedure unspecified Start: Patient encounter Anxiety disorder, Jesica Pat [facility] 03-24-2020 procedure unspecified Start: Patient encounter [facility] Di strict #1 03-16-2020 procedure of [facility] End: 03-16-2020 Start: Patient encounter NA [facility]alt 03-11-2020 procedure [facility] Start: Emergency department NA NA [facility] 12-23-2019 patient visit - [place] End: 12-23-2019 Start: Patient encounter Dysuria Ziggy Norris [facility] 11-23-2019 procedure Start: [facility] use [facility] 11-23-2019 intermediate 3-10 Other Phone: [phone]) minutes Start: [facility] 11-19-2019 procedure Start: Patient encounter Anxiety disorderStefano Bernardosummer [facility] 11-16-2019 procedure unspecified Start: Patient encounter Jesica Pat [facility] 11-14-2019 procedure Start: Patient encounter Anxiety disorder, Jesica Pat [facility] 11-13-2019 procedure unspecified Start: Patient encounter Borderline Jesica Pat [facility] 11-09-2019 procedure personality disorde r Start: Emergency department NA NA Via [facility] 10-12-2019 patient visit ([id number]) End: 10-12-2019 Start: Patient encounter [facility] Di strict #1 07-03-2019 procedure of [facility] ([id number]) End: 07-03-2019 Start: Emergency department SHERRIE FELICIANO [facility] 09-19-2015 patient visit [facility] End: 09-19-2015 Medical Equipment The data below is from unstructured sourcesNo Medical Equipment Information available Goals Date Patient Goal Desired Activity/St ate Immunizations The data below is from unstructured sources Immunization Event Date Not Given Reason Dose Number Solar Manager Lot Number Vaccine Information Statement (VIS) Deta il No Known Immunizations Interventions No Information Medications Current Medications Medication Drug Dates Sig Sig (Original) Class(es) (Normalized) gabapentin 600 mg oral Anti-epile Start: take 1 tablet G abapentin 600 MG Orally four times a tablet ptic Agent 11-16-2019 by mouth four day 1 tablet 6h Oct, 30 day(s) (6 sources) times daily Active take 1 Gabapentin 600 tablet by MG Orally Once mouth once a day 1 tablet daily 24h Active lamoTRIgine 25 mg oral Mood Start: take 1 tablet L amictal 25 MG Orally Once a day 1 tablet Stabilizer 04-15-2020 by mouth once tablet 24h 1 March, 30 day(s) Active (1 source) , daily Anti-epile ptic Agent nitrofurantoin, Nitrofuran take 1 capsule Macrobid 100 M G Orally every 12 hrs 1 macrocrystals 25 mg / Antibacter by mouth every capsule with food 12h 7 day(s) Active nitrofurantoin, ial twelve hours at monohydrate 75 mg oral mealtime capsule (1 source) Vits Vits W-Ca,Fe,Fa( A ctive 1 ORAL W-Ca,Fe,Fa(<1MG) Daily (1 source) Completed/Discontinued Medications Medication Drug Dates Sig Sig (Original) Class(es) (Normalized) Acetaminophen Start: (1 source) 10-12-2019 End: 10-12-2019 Acetaminophen / Opioid Start: HYDROcodone Agonist 10-12-2019 (1 source) End: 10-15-2019 ciprofloxacin 500 mg Quinolone Start: oral tablet Antimicrob 10-12-2019 (1 source) ial End: 10-19-2019 fentaNYL Opioid Start: (1 source) Agonist 10-12-2019 End: 10-12-2019 Ketorolac Nonsteroid Start: (2 sources) al 12-23-2019 Anti-infla mmatory End: Drug, 12-23-2019 Cyclooxyge nase Inhibitor Start: 10-12-2019 End: 10-12-2019 KETOROLAC VIAL INJ 30 Start: MG/CC (TORADOL VIAL) 07-03-2019 (1 source) End: 07-03-2019 lurasidone hydrochloride Atypical take 1 tablet Latud a 60 MG Orally Once a day 1 tablet 60 mg oral tablet Antipsycho by mouth once with food 24 h 30 days Not-Taking (5 sources) tic daily at mealtime Morphine Opioid Start: (1 source) Agonist 10-12-2019 End: 10-12-2019 naproxen 250 mg oral Nonsteroid Start: tablet al 10-12-2019 (1 source) Anti-infla mmatory End: Drug 10-18-2019 Normal saline Start: (1 source) 07-03-2019 End: 07-03-2019 Ondansetron Serotonin- Start: (1 source) 3 Receptor 12-23-2019 Antagonist End: 12-23-2019 PROMETHAZINE VIAL INJ 25 Start: MG/CC (PHENERGAN VIAL) 07-03-2019 (1 source) End: 07-03-2019 Sodium Chloride 0.9% Start: intravenous 10-12-2019 solutio(Sodium Chloride 0.9% Bolus) End: (1 source) 10-12-2019 Payers Date Payer Normalized Payer Policy ID [facility] [id number] [place] [id number] Plan of Treatment Date Care Activity Detail Author Start: [facility] 05-16-2020 Start: Patient encounter procedure [facility] [employer] [facility] 12-10-2019 Start: [facility] 11-27-2019 Start: Patient encounter procedure [facility] [employer] [facility] 11-13-2019 Patient Education Panic Disorder (DC) [place] [facility] ([id number]) Patient referral [place] Via [facility] ([id number]) [facility] (27925) Problems Active Problems Problem Problem Date Last Documented Episodic/[facility] Provider Classificati Recorded Date onic on Administrati Problems in relationship with Episodic Jesica Pat ve/social spouse or partner ; Translations: O ther Phone: admission [Patient encounter status] [phone] (20 sources) [phone] Other female History of pelvic inflammatory Episodic Ziggy genital disease ; Translations: [History of Buehner disorders PID] Other Phone: (6 sources) [phone] Other female Personal history of other diseases Episodic Ziggy genital of the female genital tract ; Buehn er disorders Translations: [ - History of PID Ot her Phone: (6 sources) [id number]] [phone] Personality Borderline personality disorder ; Chronic Jesica Bi disorders Translations: [Borderline Other Cliff ne: (20 sources) personality disorder] [phone] Residual Procedure and treatment not carried 04-08-2020 Epi sodic SHERRIE codes; out due to patient leaving prior to ALAN FELICIANO unclassified being seen by health care p glendy (1 source) Past or Other Problems Problem Problem Date Last Documented Episodic/Chr Provider Classificati Recorded Date onic on Calculus of Personal history of urinary calculi Episodic NA NA urinary tract (1 source) Genitourinar Personal history of urinary (tract) 04-20-2020 Ep isodic NA NA y symptoms infections ; Translations: and [Dysuria] ill-defined conditions (15 sources) Other Anesthesia of skin Episodic BEATA nervous BROWN system disorders (1 source) Other Disturbance of skin sensation Episodic BEATA nervous BROWN system disorders (1 source) Urinary Tubulo-interstitial nephritis, not Episodic NA NA tract specified as acute or chron ic infections (1 source) Procedures Date Procedure Procedure Detail Performing Cl inician Start: Urine Ziggy Raoultonieanuj 11-23-2019 test visual color Other Phone: cmprsn meths Start: Urnls dip Ziggy Raoulnida 11-23-2019 stick/tablet rgnt Other Phone: non-auto w/o micrscp Results Test Name Value Interpreta Reference Facilit Date tion Range y Time not yet categorized on 2020-05-22 COMMENT Invalid Communi Interpreta ty tion Code [facility] ([id number]) Prescribed Drug 1 Gabapentin Invalid Communi Interpreta ty tion Code [facility] (99230) Prescribed Drug 2 Gabapentin Invalid Communi Interpreta ty tion Code [facility] (79805) Prescribed Drug 3 Gabapentin Invalid Communi Interpreta ty tion Code [facility] (94254) Prescribed Drug 4 Gabapentin Invalid Communi Interpreta ty tion Code [facility] (51796) Prescribed Drug 5 Gabapentin Invalid Communi Interpreta ty tion Code [facility] (41510) laboratory on 2020-05-22 Amphetamines Ql (U) Negative Normal <500 ng/mL Commun i [facility] (70930) Barbiturates Ql (U) Negative Normal <300 ng/mL Commun i [facility] (64083) Benzodiazepines Ql Negative Normal <100 ng/mL Communi (U) [facility] (50990) Benzoylecgonine Ql Negative Normal <150 ng/mL Communi (U) [facility] (27335) Creatinine (U) 38.6 mg/dL Normal > or = Communi [Mass/Vol] 20.0 mg/dL [facility] (61584) Drug screen comment CONSISTENT Normal Communi (U) [Interp] [facility] (66731) Drug screen comment INCONSISTENT Abnormal Communi (U) [Interp] [facility] (86822) Methadone Ql (U) Negative Normal <100 ng/mL Communi [facility] (55070) Opiates Ql (U) Negative Normal <100 ng/mL Communi [facility] (88829) Oxidants Ql (U) Negative Normal <200 Communi mcg/mL [facility] (70443) oxyCODONE Ql (U) Negative Normal <100 ng/mL Communi [facility] (67115) pH (U) 7.1 [pH] Normal 4.5-9.[address] [facility] (23824) Phencyclidine Ql (U) Negative Normal <25 ng/mL Commu ni [facility] (32036) Tetrahydrocannabinol 17 High <5 ng/mL Commu ni (U) [Mass/Vol] [facility] (28900) Tetrahydrocannabinol Positive Abnormal <20 ng/mL Commu ni Ql (U) [facility] (98509) not yet categorized on 2020-05-12 Exp date 06/13/2020 Invalid Communi Interpreta ty tion Code [facility] (25663) GLU FINGERSTICK 106 Invalid Communi Interpreta ty tion Code [facility] (94016) Lot # [id number] Invalid Communi Interpreta ty tion Code [facility] (66408) Lot # [id number] Invalid Communi Interpreta ty tion Code [facility] (44125) PC + Invalid Communi Interpreta ty tion Code [facility] (49560) TCA 10/2020~+~neg~neg~neg~positive~neg~neg~neg~ne Invalid Communi g~neg~neg~neg~neg~neg Interpreta ty tion Code [facility] (19883) not yet categorized on 2020-04-30 BLO Negative Invalid Communi Interpreta ty tion Code [facility] (52952) COMMENT Invalid Communi Interpreta ty tion Code [facility] (71115) KET 10/27/2020~clear~yello~none~neg~neg~neg Invali d Communi Interpreta ty tion Code [facility] (08881) NANCY neg~neg Invalid Communi Interpreta ty tion Code [facility] (63244) Lot # [id number] Invalid Communi Interpreta ty tion Code [facility] (38275) SG 1.005 Invalid Communi Interpreta ty tion Code [facility] (73763) TCA [id number]~10/2020~pos~neg~neg~neg~positive~n Invalid Communi eg~neg~neg~neg~neg~positive~neg~neg~neg Interpreta ty tion Code [facility] (59563) URO 0.2 Invalid Communi Interpreta ty tion Code [facility] (76202) laboratory on 2020-04-30 Amphetamines Ql (U) Negative Normal <500 ng/mL Commun i ty [facility] (52109) Barbiturates Ql (U) Negative Normal <300 ng/mL Commun i ty [facility] (31636) Benzodiazepines Ql Negative Normal <100 ng/mL Communi (U) ty [facility] (74868) Benzoylecgonine Ql Negative Normal <150 ng/mL Communi (U) [facility] (11819) Creatinine (U) 16.8 mg/dL Low > or = Communi [Mass/Vol] 20.0 mg/dL [facility] (62071) Drug screen comment CONSISTENT Normal Communi (U) [Interp] [facility] (39415) Drug screen comment INCONSISTENT Abnormal Communi (U) [Interp] [facility] (17188) Methadone Ql (U) Negative Normal <100 ng/mL Communi [facility] (66742) Opiates Ql (U) Negative Normal <100 ng/mL Communi [facility] (92214) Oxidants Ql (U) Negative Normal <200 Communi mcg/mL [facility] (75897) oxyCODONE Ql (U) Negative Normal <100 ng/mL Communi [facility] (16262) pH (Bld) 6.0 [pH] Invalid Communi Interpreta ty tion [facility] (40560) pH (U) 6.4 [pH] Normal 4.5-9.[address] [facility] (79711) Phencyclidine Ql (U) Negative Normal <25 ng/mL Commu ni [facility] (20772) Protein (U) Negative Invalid Communi [Mass/Vol] Interpreta ty tion Code [facility] (35381) Specific gravity (U) 1.006 Normal > or = Commu ni [Rel density] 1.003 [facility] (05810) Tetrahydrocannabinol 12 High <5 ng/mL Commu ni (U) [Mass/Vol] [facility] (23779) Tetrahydrocannabinol Positive Abnormal <20 ng/mL Commu ni Ql (U) [facility] (79398) not yet categorized on 2020-04-19 UA BACTERIA 2+ Abnormal NEGATIVE [facility] (88145) UA BILIRUBIN Negative NEGATIVE [place] [facility] (50087[facility] UA BLOOD DIPSTICK Negative NEGATIVE [facility] (50792) UA EPITHELIAL CELLS 2+ Abnormal 0 - 1+ [place] epi/[facility] (19343) UA GLUCOSE DIPSTICK Negative NEGATIVE [facility] (52039) UA KETONE DIPSTICK Negative NEGATIVE [facility] (13648) UA LEUKOCYTE 2+ Abnormal NEGATIVE [place] [facility] (49506) UA NITRITE DIPSTICK Negative NEGATIVE [facility] (93770) UA PROTEIN DIPSTICK Negative NEGATIVE [facility] (25347) UA RBC 0-3 Invalid 0 - 3 [place] Interpreta rbc/[facility] [place] (12437) UA SPECIFIC GRAVITY 1.009 Low 1.015-1.[address] (18042) UA UROBILINOGEN NORMAL NORMAL [facility] (69178) UA VOLUME FOR EXAM 6.0 Invalid (12mL STD) [facility] mL [facility] (82534) UA WBC 0 - 5 [place] wbc/[facility] (60698) UR PH 6.0 Normal 5.0-7.0 [facility] (12981) UR TEST Negative Invalid NEGATIVE [facility] (88406) laboratory on 2020-04-08 Albumin [Mass/Vol] 4.7 g/dL High 3.2-4.5 PENDING 03-28 2-2 g/dL LOCATIO 020 [facility] 11:10-0 (42968) 400 ALP [Catalytic 66 U/L Negative 40-136 U/L PENDING activity/Vol] LOCATIO 020 [facility] 11:10-0 (22774) 400 ALT [Catalytic 15 U/L Negative 0-55 U/L PENDING activity/Vol] LOCATIO 020 [facility] 11:10-0 (10312) 400 Amphetamines Screen Positive Abnormal NEGATIVE PENDING 10-29 Ql (U) LOCATIO 020 [facility] 11:27-0 (33430) 400 Anion gap 10 mmol/L Negative 5-14 PENDING 2 [Moles/Vol] mmol/L LOCATIO 020 [facility] 11:10-0 (37520) 400 AST [Catalytic 18 U/L Negative 5-34 U/L PENDING activity/Vol] LOCATIO 020 N [facility] 11:10-0 (63975) 400 Bacteria LM Ql Negative Invalid PENDING (Urine sed) Interpreta LOCATIO 020 tion Code N [facility] 11:27-0 (80576) 400 Barbiturates Ql (U) Negative Invalid NEGATIVE PENDING 10-29 Interpreta LOCATIO 020 tion Code N [facility] 11:27-0 (08171) 400 Basophils (Bld) 0.0 10*3/uL Negative 0.0-0.1 PENDING 04-08 [#/Vol] 10*3/uL LOCATIO 020 N [facility] 11:10-0 (80261) 400 Basophils/100 WBC 0 % Negative 0-10 % PENDING 04-08 (Bld) LOCATIO 020 N [facility] 11:10-0 (78662) 400 Benzodiazepines Ql Negative Invalid NEGATIVE PENDING - 2-2 (U) Interpreta LOCATIO 020 tion Code N [facility] 11:27-0 (92822) 400 Bilirubin [Mass/Vol] 0.4 mg/dL Negative 0.1-1.0 PENDING -2 mg/dL LOCATIO 020 N [facility] 11:10-0 (04803) 400 Bilirubin Ql (U) Negative Invalid NEGATIVE PENDING Interpreta LOCATIO 020 tion Code N [facility] 11:27-0 (43662) 400 Calcium [Mass/Vol] 10.0 mg/dL Negative 8.5-10.1 PENDING -2 mg/dL LOCATIO 020 N [facility] 11:10-0 (17857) 400 Cannabinoids Screen Negative Invalid NEGATIVE PENDING 10-29 Ql (U) Interpreta LOCATIO 020 tion Code N [facility] 11:27-0 (69497) 400 Casts LM Ql (Urine NONE Invalid PENDING sed) Interpreta LOCATIO 020 tion Code N [facility] 11:27-0 (22653) 400 Chloride [Moles/Vol] 104 mmol/L Negative 98-107 PENDING 0 5-12-2 mmol/L LOCATIO 020 N [facility] 11:10-0 (77359) 400 Clarity (U) CLEAR Invalid PENDING Interpreta LOCATIO 020 tion Code N [facility] 11:27-0 (71413) 400 CO2 [Moles/Vol] 25 mmol/L Negative 21-32 PENDING mmol/L LOCATIO 020 N [facility] 11:10-0 (86713) 400 Cocaine Ql (U) Negative Invalid NEGATIVE PENDING Interpreta LOCATIO 020 tion Code N [facility] 11:27-0 (36469) 400 Color (U) YELLOW Invalid PENDING Interpreta LOCATIO 020 tion Code N [facility] 11:27-0 (67112) 400 Creatinine 0.92 mg/dL Negative 0.60-1.30 PENDING [Mass/Vol] mg/dL LOCATIO 020 N [facility] 11:10-0 (96377) 400 Creatinine and > PENDING Glomerular LOCATIO 020 filtration N [facility] 11:10-0 rate.predicted panel (25310) 400 - Serum, Plasma or Blood Crystals LM Ql NONE Invalid PENDING (Urine sed) Interpreta LOCATIO 020 tion Code N [facility] 11:27-0 (89537) 400 Eosinophils (Bld) 0.1 10*3/uL Negative 0.0-0.3 PENDING 10-29 [#/Vol] 10*3/uL LOCATIO 020 N [facility] 11:10-0 (24382) 400 Eosinophils/100 WBC 2 % Negative 0-10 % PENDING 10-29 (Bld) LOCATIO 020 N [facility] 11:10-0 (58299) 400 Epithelial 0-2 Invalid PENDING cells.squamous LM Ql Interpreta LOCATIO 020 (Urine sed) tion Code N [facility] 11:27-0 (56506) 400 Erythrocyte 13.4 % Negative 10.0-14.5 PENDING distribution width % LOCATIO 020 (RBC) [Ratio] N [facility] 11:10-0 (31392) 400 Glucose [Mass/Vol] 86 mg/dL Negative 70-105 PENDING 05-1 2-2 mg/dL LOCATIO 020 N [facility] 11:10-0 (84862) 400 Glucose Auto test Negative Invalid NEGATIVE PENDING 04-08 strip Ql (U) Interpreta LOCATIO 020 tion Code N [facility] 11:27-0 (97031) 400 Hematocrit (Bld) 46 % Negative 35-52 % PENDING [Volume fraction] LOCATIO 020 N [facility] 11:10-0 (81612) 400 Hemoglobin (Bld) 15.1 g/dL Negative 11.5-16.0 PENDING 04-08- [Mass/Vol] g/dL LOCATIO 020 N [facility] 11:10-0 (64885) 400 Ketones Auto test Negative Invalid NEGATIVE PENDING 04-08 strip Ql (U) Interpreta LOCATIO 020 tion Code N [facility] 11:27-0 (25232) 400 Leukocyte esterase Negative Invalid NEGATIVE PENDING 03-28 Test strip Ql (U) Interpreta LOCATIO 020 tion Code [facility] 11:27-0 (91034) 400 Lymphocytes (Bld) 1.9 10*3/uL Negative 1.0-4.0 PENDING 10-29 [#/Vol] 10*3 LOCATIO 020 [facility] 11:10-0 (76259) 400 Lymphocytes/100 WBC 28 % Negative 12-44 % PENDING 2 (Bld) LOCATIO 020 [facility] 11:10-0 (81379) 400 MCH (RBC) [Entitic 30 pg Negative 25-34 pg PENDING 05-1 2-2 mass] LOCATIO 020 [facility] 11:10-0 (51291) 400 MCHC (RBC) 33 g/dL Negative 32-36 g/dL PENDING [Mass/Vol] LOCATIO 020 [facility] 11:10-0 (71103) 400 MCV (RBC) [Entitic 91 Negative 80-99 PENDING 05-1 2-2 vol] [foz_us] LOCATIO 020 [facility] 11:10-0 (19926) 400 Methadone Screen Ql Negative Invalid NEGATIVE PENDING 10-29 (U) Interpreta LOCATIO 020 tion Code [facility] 11:27-0 (99635) 400 Methamphetamine (U) Positive Abnormal NEGATIVE PENDING 10-29 [Mass/Vol] LOCATIO 020 [facility] 11:27-0 (39859) 400 Monocytes (Bld) 0.5 10*3/uL Negative 0.0-1.0 PENDING 04-08 [#/Vol] 10*3 LOCATIO 020 N [facility] 11:10-0 (05039) 400 Monocytes/100 WBC 8 % Negative 0-12 % PENDING 04-082 (Bld) LOCATIO 020 N [facility] 11:10-0 (33256) 400 Mucus Ql (Urine sed) Negative Invalid PENDING 04-08 Interpreta LOCATIO 020 tion Code N [facility] 11:27-0 ([id number]) 400 Neutrophils (Bld) 4.2 10*3/uL Negative 1.8-7.8 PENDING 10-29 [#/Vol] 10*3 LOCATIO 020 N [facility] 11:10-0 ([id number]) 400 Neutrophils/100 WBC 63 % Negative 42-75 % PENDING 10-29 (Bld) LOCATIO 020 N [facility] 11:10-0 ([id number]) 400 Nitrite Ql (U) Negative Invalid NEGATIVE PENDING Interpreta LOCATIO 020 tion Code N [facility] 11:27-0 ([id number]) 400 Opiates Screen Ql Negative Invalid NEGATIVE PENDING 04-08 (U) Interpreta LOCATIO 020 tion Code N [facility] 11:27-0 ([id number]) 400 oxyCODONE Ql (U) Negative Invalid NEGATIVE PENDING Interpreta LOCATIO 020 tion Code N [facility] 11:27-0 ([id number]) 400 pH (U) 8.0 [pH] Invalid 5-9 PENDING Interpreta LOCATIO 020 tion Code N [facility] 11:27-0 ([id number]) 400 Phencyclidine Ql (U) Negative Invalid NEGATIVE PENDING Interpreta LOCATIO 020 tion Code N [facility] 11:27-0 ([id number]) 400 Platelet mean volume 10.8 High 7.4-10.4 PENDING (Bld) [Entitic vol] [[id number]] LOCATIO 020 N [facility] 11:10-0 ([id number]) 400 Platelets (Bld) 267 10*3/uL Negative 130-400 PENDING 04-08 [#/Vol] 10*3/uL LOCATIO 020 N [facility] 11:10-0 ([id number]) 400 Potassium 4.1 mmol/L Negative 3.6-5.0 PENDING [Moles/Vol] mmol/L LOCATIO 020 N [facility] 11:10-0 ([id number]) 400 Propoxyphene Ql (U) Negative Invalid NEGATIVE PENDING 10-29 Interpreta LOCATIO 020 tion Code N [facility] 11:27-0 ([id number]) 400 Protein [Mass/Vol] 8.4 g/dL High 6.4-8.2 PENDING 05- 2-2 g/dL LOCATIO 020 N [facility] 11:10-0 ([id number]) 400 Protein Ql (U) Negative Invalid NEGATIVE PENDING Interpreta LOCATIO 020 tion Code N [facility] 11:27-0 (69442) 400 RBC (Bld) [#/Vol] 5.00 10*6/uL Negative 4.35-5.85 PENDING 10*6/uL LOCATIO 020 N [facility] 11:10-0 ([id number]) 400 RBC LM.HPF (Urine NONE Invalid PENDING sed) [#/Area] Interpreta LOCATIO 020 tion Code N [facility] 11:27-0 ([id number]) 400 RBC Ql (U) Negative Invalid NEGATIVE PENDING Interpreta LOCATIO 020 tion Code N [facility] 11:27-0 ([id number]) 400 Sodium [Moles/Vol] 139 mmol/L Negative 135-145 PENDING 10-29 mmol/L LOCATIO 020 [facility] 11:10-0 (52975) 400 Specific gravity (U) 1.010 Low 1.016-1.02 PENDING 0 [Rel density] 2 LOCATIO 020 N [facility] 11:27-0 (72079) 400 Tricyclic Negative Invalid NEGATIVE PENDING antidepressants Interpreta LOCATIO 020 Screen Ql (U) tion Code N [facility] 11:27-0 (03428) 400 Urea nitrogen 9 mg/dL Negative 7-18 mg/dL PENDING [Mass/Vol] LOCATIO 020 N [facility] 11:10-0 (52364) 400 Urea 10 mg/mg PENDING nitrogen/Creatinine LOCATIO 020 [Mass ratio] N [facility] 11:10-0 (65965) 400 Urinalysis complete NO Invalid PENDING W Reflex Culture Interpreta LOCATIO 020 panel - Urine tion Code N [facility] 11:27-0 ([id number]) 400 Urobilinogen (U) 0.2 mg/dL Invalid < = 1.0 PENDING [Mass/Vol] Interpreta mg/dL LOCATIO 020 tion Code N [facility] 11:27-0 ([id number]) 400 WBC (Bld) [#/Vol] 6.7 10*3/uL Negative 4.3-11.0 PENDING 10-29 10*3/uL LOCATIO 020 N [facility] 11:10-0 ([id number]) 400 WBC LM.HPF (Urine NONE Invalid PENDING sed) [#/Area] Interpreta LOCATIO 020 tion Code N [facility] 11:27-0 ([id number]) 400 not yet categorized on 2020-03-11 Control neg~pos Invalid Communi Interpreta ty tion Code [facility] ([id number]) Exp date 04/08/22 Invalid Communi Interpreta ty tion Code [facility] ([id number]) Lot # [id number] Invalid Communi Interpreta ty tion Code [facility] ([id number]) not yet categorized on 2019-12-24 Type of Urine Clean Catch Invalid Via collection method Interpreta [facility]anna tion Code Clinic (40515) laboratory on 2019-12-23 Albumin [Mass/Vol] 4.0 g/dL Invalid 3.5-4.8 Via 11-29 6-2 Interpreta g/dL Leanna 020 tion Code Clinic 21:50-0 (59312) 500 ALP [Catalytic 46 U/L Invalid 26-104 U/L Via activity/Vol] Interpreta Leanna 020 tion Code Clinic 21:50-0 (47066) 500 ALT [Catalytic 14 U/L Invalid 14-54 U/L Via activity/Vol] Interpreta Leanna 020 tion Code Clinic 21:50-0 (05113) 500 Anion gap 9 mmol/L Invalid 3-20 mEq/L Via [Moles/Vol] Interpreta Leanna 020 tion Code Clinic 21:50-0 ([id number]) 500 Appearance (U) Clear Invalid Via Interpreta Leanna 020 tion Code Clinic 21:10-0 (36033) 500 AST [Catalytic 14 U/L Invalid 15-41 U/L Via activity/Vol] Interpreta Leanna 020 tion Code Clinic 21:50-0 ([id number]) 500 Bilirubin [Mass/Vol] 0.9 mg/dL Invalid 0.2-1.2 Via Interpreta mg/dL Leanna 020 tion Code Clinic 21:50-0 ([id number]) 500 Bilirubin Ql (U) Negative Invalid Negative Via Interpreta [facility] 020 tion Code Clinic 21:10-0 ([id number]) 500 Calcium [Mass/Vol] 9.0 mg/dL Invalid 8.6-10.0 Via 11-29 Interpreta mg/dL [facility] 020 tion Code Clinic 21:50-0 (42234) 500 Chloride [Moles/Vol] 105 mmol/L Invalid 99-109 Via 0 Interpreta mEq/L [facility] 020 tion Code Clinic 21:50-0 ([id number]) 500 CO2 [Moles/Vol] 23 mmol/L Invalid 22-32 Via Interpreta mEq/L Le[facility] 020 tion Code Clinic 21:50-0 (02883) 500 Color (U) Straw Invalid Via Interpreta [facility] 020 tion Code Clinic 21:10-0 (40276) 500 Creatinine 0.60 mg/dL Invalid 0.44-1.03 Via [Mass/Vol] Interpreta mg/dL Le[facility] 020 tion Code Clinic 21:50-0 (76887) 500 Erythrocyte 12.8 % Invalid 11.5-14.5 Via distribution width Interpreta % Leanna 020 (RBC) [Ratio] tion Code Clinic 21:32-0 (42108) 500 GFR/1.73 sq mL/min/{1.73_m2} Invalid >60 mL/min Via M.predicted MDRD Interpreta Leanna 020 (S/P/Bld) [Vol tion Code Clinic 21:50-0 rate/Area] (57810) 500 Globulin (S) 2.6 g/dL Invalid 1.9-4.3 Via [Mass/Vol] Interpreta g/dL Le[facility] 020 tion Code Clinic 21:50-0 (37618) 500 Glucose [Mass/Vol] 94 mg/dL Invalid 70-100 Via 11-29 Interpreta mg/dL [facility] 020 tion Code Clinic 21:50-0 (10915) 500 Glucose Auto test Negative Invalid Negative Via 12-23 strip Ql (U) Interpreta Le[facility] 020 tion Code Clinic 21:10-0 ([id number]) 500 HCG ( test) Negative Invalid Negative Via Ql (U) Interpreta Le[facility] 020 tion Code Clinic 21:11-0 ([id number]) 500 Hematocrit (Bld) 38.0 % Invalid 37.0-47.0 Via [Volume fraction] Interpreta % Leanna 020 tion Code Clinic 21:32-0 (82738) 500 Hemoglobin (Bld) 12.5 g/dL Invalid 12.0-16.0 Via [Mass/Vol] Interpreta g/dL Le[facility] 020 tion Code Clinic 21:32-0 (93741) 500 Ketones Auto test Negative Invalid Negative Via 12-23 strip Ql (U) Interpreta Leanna 020 tion Code Clinic 21:10-0 (57893) 500 Leukocyte esterase Negative Invalid Negative Via 11-29 Test strip Ql (U) Interpreta Leanna 020 tion Code Clinic 21:10-0 (02645) 500 MCH (RBC) [Entitic 30.3 pg Invalid 27.0-32.0 Via 11-29 mass] Interpreta pg Leanna 020 tion Code Clinic 21:32-0 (65780) 500 MCHC (RBC) 32.9 g/dL Invalid 32.0-36.0 Via [Mass/Vol] Interpreta g/dL Le[facility] 020 tion Code Clinic 21:32-0 (42913) 500 MCV (RBC) [Entitic 92.0 fL Invalid 82.0-99.0 Via 11-29-2 vol] Interpreta fL Leanna 020 tion Code Clinic 21:32-0 (11249) 500 Nitrite Ql (U) Negative Invalid Negative Via Interpreta [facility] 020 tion Code Clinic 21:10-0 (31238) 500 pH (U) 8.0 Invalid 5.0-8.0 Via Interpreta [facility] 020 tion Code Clinic 21:10-0 (82537) 500 Platelet mean volume 10.7 fL Invalid 9.4-12.4 Via (Bld) [Entitic vol] Interpreta fL Leanna 020 tion Code Clinic 21:32-0 (11392) 500 Platelets (Bld) 268 10*3/uL Invalid 150-400 Via 12-23 [#/Vol] Interpreta K/uL Leanna 020 tion Code Clinic 21:32-0 (97081) 500 Potassium 3.4 mmol/L Invalid 3.6-5.1 Via [Moles/Vol] Interpreta mEq/L [facility] 020 tion Code Clinic 21:50-0 (06512) 500 Protein (U) Negative Invalid Negative Via [Mass/Vol] Interpreta Leanna 020 tion Code Clinic 21:100 (56587) 500 Protein [Mass/Vol] 6.6 g/dL Invalid 6.1-7.9 Via 11-29 Interpreta g/dL Leanna 020 tion Code Clinic 21:50-0 (87493) 500 RBC (Bld) [#/Vol] 4.13 10*6/uL Invalid 4.00-5.20 Via Interpreta 10*6/uL Leanna 020 tion Code Clinic 21:32-0 (47535) 500 RBC (U) [#/Vol] Negative Invalid Negative Via Interpreta Leanna 020 tion Code Clinic 21:100 (76534) 500 Sodium [Moles/Vol] 137 mmol/L Invalid 136-144 Via Interpreta mEq/L Leanna 020 tion Code Clinic 21:50-0 (23686) 500 Specific gravity (U) 1.005 Invalid 1.003-1.03 Via 0 [Rel density] Interpreta 0 Leanna 020 tion Code Clinic 21:100 (64296) 500 Urea nitrogen 5 mg/dL Invalid 4-20 mg/dL Via [Mass/Vol] Interpreta Leanna 020 tion Code Clinic 21:50-0 (17518) 500 Urobilinogen (U) Negative Invalid <1.0 mg/dL Via 12-23 [Mass/Vol] Interpreta Leanna 020 tion Code Clinic 21:10-0 (95751) 500 WBC (Bld) [#/Vol] 6.3 10*3/uL Invalid 4.8-10.8 Via Interpreta K/uL Leanna 020 tion Code Clinic 21:32-0 (40818) 500 urinalysis w/o scope (ih) on 2019-11-23 Appearance (U) cloudy [address] 07:00-0 (65135) 500 Bilirubin Ql (U) Negative [address] 07:00-0 (37192) 500 Color (U) yellow [address] 07:00-0 (42975) 500 Glucose Ql (U) Negative [address] 07:00-0 (81911) 500 Hemoglobin Ql (U) Negative Invalid [facility] 11-23 Interpreta ore 019 tion Code Clinic 07:00-0 (13086) 500 Ketones Ql (U) Negative [address] 07:00-0 (18393) 500 Leukocyte esterase Negative [address] Test strip Ql (U) [address] 07:00-0 (33908) 500 Nitrite Ql (U) Negative [address] 07:00-0 (36901) 500 pH (U) 7.5 [pH] Invalid [facility] 11-23 Interpreta ore 019 tion Code Clinic 07:00-0 (05007) 500 Protein Ql (U) Negative Invalid [address] Interpreta ore 019 tion Code Clinic 07:00-0 (50832) 500 Specific gravity (U) 1.[address] [Rel density] Interpreta ore 019 tion Code [facility] 07:00-0 (59646) 500 Urobilinogen (U) 0.2 mg/dL Invalid [facility] [Mass/Vol] Interpreta [facility] 019 tion Code [facility] 07:00-0 (84103) 500 Urinalysis w/o scope [facility] ([facility]) [address] 07:00-0 (22316) 500 test urine (ih) on 2019-11-23 HCG ( test) [facility] Ql (U) [address] 07:00-0 (03168) 500 laboratory on 2019-11-23 Glucose Ql (U) neg~neg~neg Invalid [facility] Interpreta ore tion Code [facility] (57482) Nitrite Ql (U) yellow~cloudy~neg~neg Invalid [facility] Interpreta ore tion Code [facility] (10485) laboratory on 2019-11-09 Cholesterol 172 mg/dL Normal <200 mg/dL [facility] [Mass/Vol] [facility] (07273) Cholesterol in HDL 63 mg/dL Normal >50 mg/dL [facility] [Mass/Vol] [facility] (89897) Cholesterol in LDL 88 mg/dL Normal mg/dL [facility] [Mass/Vol] (calc) [facility] (75876) Cholesterol non HDL 109 mg/dL Normal <130 mg/dL [facility] [Mass/Vol] (calc) [facility] (12725) Cholesterol.total/Ch 2.7 {ratio} Normal <5.0 Healt hC olesterol in HDL (calc) [facility] [Mass ratio] [facility] (56922) HbA1c (Bld) [Mass 5.2 Normal <5.7 % of [facility] fraction] total Hgb [facility] (53650) Triglyceride 114 mg/dL Normal <150 mg/dL [facility] [Mass/Vol] [facility] (55312) not yet categorized on 2019-10-12 Tricyclics Negative Invalid Not Via Interpreta Detected Leanna 019 tion Code [facility] 10:030 (23950) 500 Type of Urine Catheter Invalid Via collection method Interpreta Leanna tion Code [facility] (77568) Reason For Exam\.br\fever w abdominal and Invalid Via back pain\.br\ \.br\REPORT\.br\EXAMINATION: Interpreta Leanna CT Abdomen and Pelvis with intravenous tion Code [facility]osp[facility] contrast.\.br\ \.br\TECHNIQUE: Multiple ls - contiguous axial images were obtained through [place] the abdomen\.br\and pelvis after the (22567) uneventful administration of intravenou s contrast. All CT\.br\scans use one or m ore of the following dose optimizing technique s: automated\.br\exposure control, MA and/ or KvP adjustment based on a patient size and exam\.br\type, or iterative reconstruction.\.br\ \.br\HISTORY: Abdo seble pain.\.br\ \.br\COMPARISON: None available.\.br\ \.br\FINDINGS:\.br\ \.br\Limited views of the lower thorax are unremarkable.\.br\ \.br\The liver is no rmal without focal lesion. There is no bilia ry ductal dilation.\.br\Gallbladder is nor mal. Pancreas is normal. Spleen is normal. A drenal glands\.br\are normal.\.br\ \.br\There are patchy areas of linear hypoenhancement in the right kidney with mild\.br\dilation of the renal pelvis and urothelial enhancement suggestive of\.br\pyelonephritis. No obstructing stone is seen. Left kidney appears normal.\.br\Urinary bladder is normal.\.br\ \.br\There are no dilated loops of large or small bowel. No obstruction or\.br\inflammation. No free fluid or a ir. No abdominal or pelvic lymphadenopathy.\.br\Aorta is normal in caliber without aneurysm.\.br\ \.br\The re are no suspicious osseous lesions.\.br\ \.br\IMPRESSION:\.br\ \.br\1. CT findin gs suggestive of right-sided pyelonephritis.\.br\ \.br\Tech Comments : IV Contrast Name: Omnipaque 300\.br\Contra st amount in ml's: 80.000\.br\Dictated on workstation:[id number]\.br\ \.br\Signature Line\.br\ FINAL \.br\ \.br\DICTATED BY: ANNIA MATTSON MD\.br\DICTATED DT/TM: 10/12/2019 5:05 PM\.br\SIGNED BY: ANNIA MATTSON MD\.br\SIGNED (ELECTRONIC SIGNATURE): 10/12/2019 6:16 PM\.br\ \.br\TECHNOLOGI ST: HUGH FARMER(R),AAYUSH, SHABBIR AR R\.br\ \.br\ laboratory on 2019-10-12 Albumin [Mass/Vol] 3.7 g/dL 3.5-4.8 Via g/dL [facility] 019 Clinic 09:48-0 (83231) 500 ALP [Catalytic 63 U/L 26-104 U/L Via activity/Vol] [facility] 019 Clinic 09:48-0 (22903) 500 ALT [Catalytic 35 U/L 14-54 U/L Via activity/Vol] [facility] 019 Clinic 09:48-0 (98347) 500 Amphetamine+Methamph Negative Invalid Not Via etamine Ql (U) Interpreta Detected Leanna 019 tion Code Clinic 10:03-0 (61387) 500 Anion gap 11 mmol/L Invalid 3-20 mEq/L Via [Moles/Vol] Interpreta Leanna 019 tion Code Clinic 09:16-0 (07203) 500 Anion gap 10 mmol/L 3-20 mEq/L Via [Moles/Vol] [facility] 09:48-0 (73895) 500 Appearance (U) Clear Invalid Via Interpreta Leanna 019 tion Code Clinic 09:55-0 (23942) 500 AST [Catalytic 34 U/L 15-41 U/L Via activity/Vol] [place] [address] Clinic 09:48-0 (54674) 500 Barbiturates Screen Negative Invalid Not Via Ql (U) Interpreta Detected Leanna 019 tion Code Clinic 10:03-0 (29563) 500 Basophils (Bld) 0.02 10*3/uL Invalid 0.00-0.20 Via 09-28 5 [#/Vol] Interpreta 10*3/uL Leanna 019 tion Code Clinic 09:24-0 (73725) 500 Basophils/100 WBC 0 % Invalid 0-2 % Via 10-12 -2 (Bld) Interpreta Leanna 019 tion Code Clinic 09:24-0 (54027) 500 Benzodiazepines Ql Negative Invalid Not Via 09-28 5-2 (U) Interpreta Detected Leanna 019 tion Code Clinic 10:03-0 (05855) 500 Bilirubin [Mass/Vol] 0.8 mg/dL 0.2-1.2 Via 10-12 -2 mg/dL Leanna 019 Clinic 09:48-0 (09678) 500 Bilirubin Ql (U) Negative Invalid Negative Via Interpreta Leanna 019 tion Code Clinic 09:55-0 (42093) 500 Calcium [Mass/Vol] 8.3 mg/dL Invalid 8.6-10.0 Via - 5-2 Interpreta mg/dL Leanna 019 tion Code Clinic 09:48-0 (92550) 500 Calcium.ionized 1.03 mmol/L Invalid 1.19-1.41 Via 10-12 (Bld) [Moles/Vol] Interpreta mmol/L Leanna 019 tion Code Clinic 09:16-0 (70130) 500 Cannabinoids Screen Positive Invalid Not Via Ql (U) Interpreta Detected Leanna 019 tion Code Clinic 10:030 (90644) 500 Chloride (BldC) 101 Invalid 99-109 Via [Moles/Vol] Interpreta mEq/L Leanna 019 tion Code Clinic 09:16-0 (01178) 500 Chloride [Moles/Vol] 99 mmol/L 99-109 Via 10-12 mEq/L [facility] 019 Clinic 09:48-0 (31390) 500 CO2 [Moles/Vol] 21 mmol/L Invalid 22-32 Via Interpreta mEq/L Leanna 019 tion Code Clinic 09:48-0 (98308) 500 CO2 Calc (BldV) 22 Invalid 25-29 Via [Moles/Vol] Interpreta mEq/L Leanna 019 tion Code Clinic 09:16-0 (38137) 500 Cocaine Ql (U) Negative Invalid Not Via Interpreta Detected Leanna 019 tion Code Clinic 10:03-0 (15645) 500 Color (U) Straw Invalid Via Interpreta Leanna 019 tion Code Clinic 09:55-0 (40031) 500 Creatinine 0.6 mg/dL Invalid 0.4-1.0 Via 10-12- [Mass/Vol] Interpreta mg/dL Leanna 019 tion Code Clinic 09:16-0 (31346) 500 Creatinine 0.70 mg/dL 0.44-1.03 Via 10-12-2 [Mass/Vol] mg/dL Leanna 019 Clinic 09:48-0 (81979) 500 Eosinophils (Bld) 0.02 10*3/uL Invalid 0.00-0.50 Via [#/Vol] Interpreta 10*3/uL Leanna 019 tion Code Clinic 09:24-0 (42188) 500 Eosinophils/100 WBC 0 % Invalid 0-4 % Via 2 (Bld) Interpreta Leanna 019 tion Code Clinic 09:24-0 (04212) 500 Erythrocyte 12.7 % Invalid 11.5-14.5 Via distribution width Interpreta % Leanna 019 (RBC) [Ratio] tion Code Clinic 09:24-0 (82473) 500 GFR/1.73 sq mL/min/{1.73_m2} >60 mL/min Via M.predicted MDRD Leanna 019 (S/P/Bld) [Vol Clinic 09:48-0 rate/Area] (80635) 500 Globulin (S) 3.2 g/dL 1.9-4.3 Via 10-12-2 [Mass/Vol] g/dL Le[facility] 019 Clinic 09:48-0 (43073) 500 Glucose [Mass/Vol] 107 mg/dL Invalid 70-100 Via - 5-2 Interpreta mg/dL Leanna 019 tion Code Clinic 09:16-0 (44666) 500 Glucose [Mass/Vol] 108 mg/dL Invalid 70-100 Via 09-28 5-2 Interpreta mg/dL Leanna 019 tion Code Clinic 09:48-0 (80269) 500 Glucose Auto test Negative Invalid Negative Via 10-12 - strip Ql (U) Interpreta Leanna 019 tion Code Clinic 09:55-0 (75606) 500 HCG ( test) Negative Invalid Negative Via -2 Ql (U) Interpreta Leanna 019 tion Code Clinic 09:19-0 (14195) 500 Hematocrit (Bld) 35.9 % Invalid 37.0-47.0 Via [Volume fraction] Interpreta % Leanna 019 tion Code Clinic 09:24-0 (23907) 500 Hematocrit (BldV) 36.0 Invalid 37.0-47.0 Via 10-12 - [Volume fraction] Interpreta % Leanna 019 tion Code Clinic 09:16-0 (76723) 500 Hemoglobin (Bld) 12.2 g/dL Invalid 12.0-16.0 Via 10-12- 2 [Mass/Vol] Interpreta g/dL Leanna 019 tion Code Clinic 09:16-0 (76669) 500 Hemoglobin (Bld) 11.7 g/dL Invalid 12.0-16.0 Via 10-12- 2 [Mass/Vol] Interpreta g/dL Leanna 019 tion Code Clinic 09:24-0 (55664) 500 Immature 0.3 Invalid 0.0-1.0 % Via 2 granulocytes Auto Ql Interpreta Leanna 019 (Bld) tion Code Clinic 09:24-0 (26284) 500 Ketones Auto test Negative Invalid Negative Via 10-12 -2 strip Ql (U) Interpreta Leanna 019 tion Code Clinic 09:55-0 (72375) 500 Leukocyte esterase Negative Invalid Negative Via 09-28 Test strip Ql (U) Interpreta Leanna 019 tion Code Clinic 09:55-0 (90488) 500 Lymphocytes (Bld) 1.08 10*3/uL Invalid 0.80-3.30 Via [#/Vol] Interpreta 10*3/uL Leanna 019 tion Code Clinic 09:24-0 (87672) 500 Lymphocytes/100 WBC 12 % Invalid 20-46 % Via -2 (Bld) Interpreta Leanna 019 tion Code Clinic 09:24-0 (71338) 500 MCH (RBC) [Entitic 30.2 pg Invalid 27.0-32.0 Via - 5-2 mass] Interpreta pg Leanna 019 tion Code Clinic 09:24-0 (83632) 500 MCHC (RBC) 32.6 g/dL Invalid 32.0-36.0 Via 15-2 [Mass/Vol] Interpreta g/dL Leanna 019 tion Code Clinic 09:24-0 (62420) 500 MCV (RBC) [Entitic 92.8 fL Invalid 82.0-99.0 Via - 5-2 vol] Interpreta fL Leanna 019 tion Code Clinic 09:24-0 (36784) 500 Methadone Screen Ql Negative Invalid Not Via (U) Interpreta Detected Leanna 019 tion Code Clinic 10:0 (13326) 500 Monocytes (Bld) 1.03 10*3/uL Invalid 0.30-1.00 Via 09-28 5 [#/Vol] Interpreta 10*3/uL Leanna 019 tion Code Clinic 09:240 (32103) 500 Monocytes/100 WBC 12 % Invalid 4-11 % Via 10-12 -2 (Bld) Interpreta Leanna 019 tion Code Clinic 09:240 (88658) 500 Neutrophils (Bld) 6.58 10*3/uL Invalid 1.90-7.00 Via [#/Vol] Interpreta 10*3/uL Leanna 019 tion Code Clinic 09:24-0 (18497) 500 Nitrite Ql (U) Negative Invalid Negative Via Interpreta Leanna 019 tion Code Clinic 09:550 (86546) 500 Nucleated RBC/100 0.0 Invalid 0 /100 WBC Via 09-28 WBC (Bld) [Ratio] Interpreta Leanna 019 tion Code Clinic 09:240 (63249) 500 Opiates Screen Ql Negative Invalid Not Via 10-12 (U) Interpreta Detected Leanna 019 tion Code Clinic 10:0 (02313) 500 pH (U) 9.0 Invalid 5.0-8.0 Via Interpreta Leanna 019 tion Code Clinic 09:55-0 (82432) 500 Phencyclidine Ql (U) Negative Invalid Not Via Interpreta Detected Leanna 019 tion Code Clinic 10:030 (14485) 500 Platelet mean volume 11.5 fL Invalid 9.4-12.4 Via - (Bld) [Entitic vol] Interpreta fL Leanna 019 tion Code Clinic 09:24-0 (74537) 500 Platelets (Bld) 261 10*3/uL Invalid 150-400 Via 10-12 -2 [#/Vol] Interpreta K/uL Leanna 019 tion Code Clinic 09:240 (87692) 500 Potassium 4.0 mmol/L Invalid 3.6-5.1 Via [Moles/Vol] Interpreta mEq/L Le[facility] 019 tion Code Clinic 09:16-0 (23932) 500 Potassium 3.9 mmol/L 3.6-5.1 Via 10-12-2 [Moles/Vol] mEq/L [facility] 019 Clinic 09:48-0 (40600) 500 Protein (U) Negative Invalid Negative Via [Mass/Vol] Interpreta Leanna 019 tion Code Clinic 09:55-0 (15578) 500 Protein [Mass/Vol] 6.9 g/dL 6.1-7.9 Via g/dL [facility] 019 Clinic 09:48-0 (44342) 500 RBC (Bld) [#/Vol] 3.87 10*6/uL Invalid 4.00-5.20 Via Interpreta 10*6/uL Leanna 019 tion Code Clinic 09:24-0 (27181) 500 RBC (U) [#/Vol] Negative Invalid Negative Via Interpreta Leanna 019 tion Code Clinic 09:55-0 (85908) 500 Segmented 75 % Invalid 51-75 % Via neutrophils/100 WBC Interpreta Leanna 019 (Bld) tion Code Clinic 09:24-0 (59754) 500 Sodium [Moles/Vol] 134 mmol/L Invalid 136-144 Via Interpreta mEq/L [facility]anna 019 tion Code Clinic 09:16-0 (63071) 500 Sodium [Moles/Vol] 130 mmol/L Invalid 136-144 Via Interpreta mEq/L [facility] 019 tion Code Clinic 09:48-0 (27001) 500 Specific gravity (U) 1.005 Invalid 1.003-1.03 Via 1 [Rel density] Interpreta 0 Leanna 019 tion Code Clinic 09:55-0 (00195) 500 Urea nitrogen 6 mg/dL Invalid 4-20 mg/dl Via [Mass/Vol] Interpreta Leanna 019 tion Code Clinic 09:16-0 (11165) 500 Urea nitrogen 5 mg/dL 4-20 mg/dL Via [Mass/Vol] [facility] 019 Clinic 09:48-0 (55313) 500 Urobilinogen (U) Negative Invalid <1.0 mg/dL Via 10-12 [Mass/Vol] Interpreta Leanna 019 tion Code Clinic 09:55-0 (44974) 500 WBC (Bld) [#/Vol] 8.8 10*3/uL Invalid 4.8-10.8 Via Interpreta K/uL Leanna 019 tion Code Clinic 09:24-0 (45403) 500 not yet categorized on 2019-07-03 Urine Volume Urine Volume Sufficient (10mL) Invalid [facility]ospita Interpreta l 019 tion Code Distric 20:07-0 t [address] [place] [address] ([id number]) Urine Saved if Culture Needed (48hrs from Abnormal Hosp cruz time of collection) l 019 Distric 20:-0 [address] [place] [address] (42305) laboratory on 2019-07-03 Albumin BCG dye 4.3 Invalid 3.6-5.1 Hospita [Mass/Vol] Interpreta g/dL l 019 tion Code Distric 19:33-0 t [address] [place] [address] (53215) ALP [Catalytic 64 U/L Invalid 35-130 U/L [facility] activity/Vol] Interpreta l 019 tion Code Distric 19:33-0 t [address] [place] [address] ([id number]) ALT [Catalytic 21 U/L Invalid 6-45 U/L Hospita activity/Vol] Interpreta l 019 tion Code Distric 19:33-0 t [address] [place] [address] ([id number]) Amphetamines Ql (U) Negative Invalid NEGATIVE Hospita 04-29 Interpreta l 019 tion Code Distric 20:07-0 t [address] [place] [address] ([id number]) Amylase [Catalytic 57 U/L Invalid 20-100 U/L Hospita 04-29 activity/Vol] Interpreta l 019 tion Code Distric 19:33-0 t [address] [place] [address] ([id number]) Anion gap 16 mmol/L High 6-14 Hospita [Moles/Vol] l 019 Distric 19:33-0 t [address] [place] [address] ([id number]) AST [Catalytic 19 U/L Invalid 2-40 U/L Hospita 2 activity/Vol] Interpreta l 019 tion Code Distric 19:33-0 t [address] [place] [address] ([id number]) Bacteria LM Ql Negative Invalid Hospita 07-03-2 (Urine sed) Interpreta l 019 tion Code Distric 20:07-0 t [address] [place] [address] ([id number]) Barbiturates Screen Negative Invalid NEGATIVE Hospita 2 Ql (U) Interpreta l 019 tion Code Distric 20:07-0 [address] [place] [address] ([id number]) Basophils (Bld) 0.0 10*3/uL Invalid 0.0-0.2 Hospita 07-03 [#/Vol] Interpreta K/uL l 019 tion Code Distric 19:33-0 [address] [place] [address] ([id number]) Basophils/100 WBC 0.20 % Invalid 0.00-2.50 Hospita 07-03 (Bld) Interpreta % l 019 tion Code Distric 19:33-0 [address] [place] [address] ([id number]) Benzodiazepine Negative Invalid NEGATIVE [facility]ospita metabolites Screen Interpreta l 019 Ql (U) tion Code Distric 20:07-0 [address] [place] [address] ([id number]) Bilirubin [Mass/Vol] 0.6 mg/dL Invalid 0.2-1.2 Hospita Interpreta mg/dL l 019 tion Code Distric 19:33-0 t [address] [place] [address] ([id number]) Bilirubin Confirm Ql N/A Abnormal Negative [facility] 2 (U) l 019 Distric 20:07-0 t [address] [place] [address] ([id number]) Bilirubin Ql (U) Negative Invalid Negative [facility] 2 Interpreta l 019 tion Code Distric 20:07-0 t [address] [place] [address] ([id number]) Calcium [Mass/Vol] 9.5 mg/dL Invalid 8.3-10.4 [facility] 08-0 6-2 Interpreta mg/dL l 019 tion Code Distric 19:33-0 t [address] [place] [address] ([id number]) Carboxy Negative Invalid NEGATIVE [facility]ospita tetrahydrocannabinol Interpreta l 019 Ql (U) tion Code Distric 20:07-0 t [address] [place] [address] ([id number]) Chloride [Moles/Vol] 109 mmol/L Invalid 95-114 [facility] 0 8-06-2 Interpreta mmol/L l 019 tion Code Distric 19:33-0 t [address] [place] [address] ([id number]) Clarity (U) Clear Invalid Clear [facility] Interpreta l 019 tion Code Distric 20:07-0 t [address] [place] [address] ([id number]) Cocaine Ql (U) Negative Invalid NEGATIVE [facility]ospita Interpreta l 019 tion Code Distric 20:07-0 t [address] [place] [address] ([id number]) Color (U) Yellow Invalid Colorless- [facility]ospita Interpreta Lt. Yellow l 019 tion Code Distric 20:07-0 t [address] [place] [address] ([id number]) Creatinine 0.75 mg/dL Invalid 0.50-1.50 [facility]osp[facility] [Mass/Vol] Interpreta mg/dL l 019 tion Code Distric 19:33-0 t [address] [place] [address] ([id number]) Eosinophils (Bld) 0.2 10*3/uL Invalid 0.0-0.7 [facility]ospita 04-29 [#/Vol] Interpreta K/uL l 019 tion Code Distric 19:33-0 t [address] [place] [address] ([id number]) Eosinophils/100 WBC 3.7 % Invalid 0.0-7.0 % [facility]osp[facility] 04-29 (Bld) Interpreta l 019 tion Code Distric 19:33-0 t [address] [place] [address] ([id number]) Epithelial 0-5/HPF [facility]normal [facility] cells.squamous l 019 LM.HPF (Urine sed) Distric 20:07-0 [#/Area] t [address] [place] [address] ([id number]) Erythrocyte 12.0 % Invalid 11.6-14.8 [facility] distribution width Interpreta % l 019 (RBC) [Ratio] tion Code Distric 19:33-0 t [address] [place] [address] ([id number]) Ethanol Ql (U) <10.00 Low 20.00-80.0 [facility]osp[facility] 08-06-2 0 mg/dL l 019 Distric 20:07-0 t [address] [place] [address] ([id number]) GFR/1.73 sq 86 mL/min/{1.73_m2} Invalid >59 [facility]osp[facility] 0 8-06-2 M.predicted MDRD Interpreta mL/min/1.7 l 019 (S/P/Bld) [Vol tion Code 3m2 Distric 19:33-0 rate/Area] t [address] [place] [address] () Globulin (S) 2.8 g/dL Invalid 2.3-3.5 [facility]ospita 08-06-2 [Mass/Vol] Interpreta g/dL l 019 tion Code Distric 19:33-0 t [address] [place] [address] () Glucose [Mass/Vol] 93 mg/dL Invalid 70-110 [facility]osp[facility] 08-0 6-2 Interpreta mg/dL l 019 tion Code Distric 19:33-0 t [address] [place] [address] () Glucose Test strip Negative Invalid Negative [facility] 08-0 6-2 (U) [Mass/Vol] Interpreta l 019 tion Code Distric 20:07-0 t [address] [place] [address] () HCO3 (P) [Moles/Vol] 17 Low 22-33 [facility]osp[facility] 08 -06-2 mEq/L l 019 Distric 19:33-0 t [address] [place] [address] ([id number]) Hematocrit (Bld) 45.0 % Invalid 36.0-46.0 [facility] 06- 2 [Volume fraction] Interpreta % l 019 tion Code Distric 19:33-0 t [address] [place] [address] ([id number]) Hemoglobin (Bld) 14.9 g/dL Invalid 13.0-15.0 [facility] 08-06- 2 [Mass/Vol] Interpreta g/dL l 019 tion Code Distric 19:33-0 t [address] [place] [address] ([id number]) Hemoglobin Ql (U) Negative Invalid Negative [facility] 08-06 -2 Interpreta l 019 tion Code Distric 20:07-0 t [address] [place] [address] () Ketones (U) Negative Invalid Negative [facility] 08-06-2 [Mass/Vol] Interpreta l 019 tion Code Distric 20:07-0 t [address] [place] [address] ([id number]) Leukocyte esterase Negative Invalid Negative [facility] 0 6-2 Test strip Ql (U) Interpreta l 019 tion Code Distric 20:07-0 t [address] [place] [address] ([id number]) Lipase [Catalytic 35 U/L Invalid 7-59 U/L [facility]osp[facility] 07-03 activity/Vol] Interpreta l 019 tion Code Distric 19:33-0 t [address] [place] [address] ([id number]) Lymphocytes (Bld) 1.97 10*3/uL Invalid 0.60-3.40 [facility]ospita [#/Vol] Interpreta K/uL l 019 tion Code Distric 19:33-0 t [address] [place] [address] ([id number]) Lymphocytes/100 WBC 32.8 % Invalid 10.0-50.0 [facility] 2 (Bld) Interpreta % l 019 tion Code Distric 19:33-0 t [address] [place] [address] ([id number]) MCH (RBC) [Entitic 30.6 pg Invalid 27.0-31.0 [facility]osp[facility] 08-0 6-2 mass] Interpreta pg l 019 tion Code Distric 19:33-0 t [address] [place] [address] ([id number]) MCHC (RBC) 33.1 g/dL Invalid 32.0-36.0 [facility]osp[facility] 06-2 [Mass/Vol] Interpreta g/dL l 019 tion Code Distric 19:33-0 t [address] [place] [address] ([id number]) MCV (RBC) [Entitic 92.4 fL Invalid 80.0-97.0 [facility]osp[facility] 08-0 6-2 vol] Interpreta fL l 019 tion Code Distric 19:33-0 t [address] [place] [address] ([id number]) Methylenedioxymetham Negative Invalid NEGATIVE [facility]ospita phetamine Screen Ql Interpreta l 019 (U) tion Code Distric 20:07-0 t [address] [place] [address] ([id number]) Monocytes (Bld) 0.5 10*3/uL Invalid 0.0-0.9 [facility]osp[facility] 07-03 [#/Vol] Interpreta K/uL l 019 tion Code Distric 19:33-0 t #1 of [facility] ([id number]) Monocytes/100 WBC 8.0 % Invalid 0.0-12.0 % [facility]ospita 08-0 6-2 (Bld) Interpreta l 019 tion Code Distric 19:33-0 t [address] [place] [address] ([id number]) Neutrophils (Bld) 3.32 10*3/uL Invalid 2.00-6.90 [facility]ospita [#/Vol] Interpreta K/uL l 019 tion Code Distric 19:33-0 t [address] [place] [address] ([id number]) Neutrophils/100 WBC 55.3 % Invalid 37.0-80.0 [facility] 2 (Bld) Interpreta % l 019 tion Code Distric 19:33-0 t [address] [place] [address] ([id number]) Nitrite Ql (U) Negative Invalid Negative [facility] 2 Interpreta l 019 tion Code Distric 20:07-0 t [address] [place] [address] ([id number]) Opiates Screen Ql Negative Invalid NEGATIVE [facility]osp[facility] 07-032 (U) Interpreta l 019 tion Code Distric 20:07-0 t [address] [place] [address] ([id number]) Osmolality Calc 283 Invalid 280-295 [facility]osp[facility] 2 [Osmolality] Interpreta l 019 tion Code Distric 19:33-0 t [address] [place] [address] ([id number]) oxyCODONE Ql (U) Negative Invalid NEGATIVE [facility] 2 Interpreta l 019 tion Code Distric 20:07-0 t [address] [place] [address] ([id number]) pH (U) 8.5 [pH] Invalid 5-8.5 [facility]osp[facility] 2 Interpreta l 019 tion Code Distric 20:07-0 t [address] [place] [address] ([id number]) Phencyclidine Ql (U) Negative Invalid NEGATIVE [facility]osp[facility] 2 Interpreta l 019 tion Code Distric 20:07-0 t [address] [place] [address] ([id number]) Platelet mean volume 11.0 fL High 7.4-10.0 Hospita -2 (Bld) [Entitic vol] fL l 019 Distric 19:33-0 t [address] [place] [address] ([id number]) Platelets (Bld) 294 10*3/uL Invalid 150-400 [facility]ospita 07-03 [#/Vol] Interpreta K/uL l 019 tion Code Distric 19:33-0 t [address] [place] [address] ([id number]) Potassium 3.9 mmol/L Invalid 3.5-5.3 [facility]ospita 07-03- [Moles/Vol] Interpreta mmol/L l 019 tion Code Distric 19:33-0 t [address] [place] [address] ([id number]) Propoxyphene Ql (U) Negative Invalid NEGATIVE [facility]osp[facility] 04-29 Interpreta l 019 tion Code Distric 20:07-0 t [address] [place] [address] ([id number]) Protein (U) Negative Invalid Negative [facility]ospita [Mass/Vol] Interpreta l 019 tion Code Distric 20:07-0 t [address] [place] [address] ([id number]) Protein [Mass/Vol] 7.1 g/dL Invalid 6.0-8.3 [facility]ospita 08-0 6-2 Interpreta g/dL l 019 tion Code Distric 19:33-0 t [address] [place] [address] ([id number]) RBC (Bld) [#/Vol] 4.87 10*6/uL Invalid 3.60-5.00 Hospita Interpreta M/uL l 019 tion Code Distric 19:33-0 t [address] [place] [address] ([id number]) RBC LM.HPF (Urine Negative Invalid Hospita sed) [#/Area] Interpreta l 019 tion Code Distric 20:07-0 t [address] [place] [address] ([id number]) Sodium [Moles/Vol] 138 mmol/L Invalid 134-148 [facility]ospita 04-29 Interpreta mmol/L l 019 tion Code Distric 19:33-0 t [address] [place] [address] ([id number]) Specific gravity (U) 1.015 Invalid 1.000-1.03 [facility]ospita 0 [Rel density] Interpreta 0 l 019 tion Code Distric 20:07-0 t [address] [place] [address] ([id number]) Tricyclic Negative Invalid NEGATIVE Hospita antidepressants Ql Interpreta l 019 (U) tion Code Distric 20:07-0 t [address] [place] [address] ([id number]) Urea nitrogen 6 mg/dL Invalid 5-25 mg/dL [facility]ospita [Mass/Vol] Interpreta l 019 tion Code Distric 19:33-0 t [address] [place] [address] ([id number]) Urobilinogen Qn (U) 0.2 Invalid 0.2-1.0 Hospita 04-29 Interpreta l 019 tion Code Distric 20:07-0 t [address] [place] [address] ([id number]) WBC (Bld) [#/Vol] 6.00 10*3/uL Invalid 5.00-10.00 Hospita 0 Interpreta K/uL l 019 tion Code Distric 19:33-0 t [address] [place] [address] ([id number]) WBC LM.HPF (Urine Nothing Seen on Microscopic Invalid Hospi ta sed) [#/Area] Interpreta l 019 tion Code Distric 20:07-0 t [address] [place] [address] (68398) Yeast.budding Ql No Yeast present Invalid [facility]ospita 0 6-2 (Urine sed) Interpreta l 019 tion Code Distric 20:07-0 t [address] [place] [address] ([id number]) Social History Date Type Detail Facility Start: Tobacco smoking status NHIS Smokes tobacco parviz ly [facility] 04-08-2020 (finding) [facility] ([id number]) Start: Current Everyday Smoker [facility] 04-08-2020 [facility] ([id number]) Start: METH [facility] 04-08-2020 [facility] ([id number]) Start: Occasionally Uses [facility] 09-19-2015 [facility] ([id number]) Start: Denies [facility] 08-30-2014 [facility] ([id number]) Start: No [facility] 08-29-2014 [facility] ([id number]) Start: Sex Assigned At Female [facility] 1980 [facility] ([id number]) Vital Signs Date Time Vital Sign Value Performing Clinician Facil [facility] 04-15-2020 Body height 165.1 cm [facility] 15:40-0400 Other Phone: [phone] 04-15-2020 Body mass index 24.86 kg/m2 Jesica Pat [facility] 15:40-0400 (BMI) [Ratio] Other Phone: [phone]) 04-15-2020 Body temperature 98 [degF] Jesica [facility] 15:40-0400 Other Phone: [phone]) 04-15-2020 Body weight 67.77 kg Jesica Bi [facility] 15:40-0400 Other Phone: ([phone]) 04-15-2020 Blood Pressure 136/ [facility] 15:40-0400 82mm[Hg] Other Phone: [phone] 04-15-2020 Heart rate 87 /min Jesica Bi [facility] 15:40-0400 Other Phone: [phone] 04-15-2020 Respiratory rate 17 /min [facility] 15:40-0400 Other Phone: [phone]) 04-15-2020 SaO2% (BldA) [Mass 100 % [facility] 15:40-0400 fraction] Other Phone: [phone]) 11-23-2019 Body height 165.1 cm [facility] 16:00-0500 Other Phone: [phone] 11-23-2019 Body mass index 25.06 kg/m2 [facility] 16:00-0500 (BMI) [Ratio] Other Phone: [phone] 11-23-2019 Body temperature 97.8 [degF] [facility] 16:00-0500 Other Phone: [phone] 11-23-2019 Body weight 68.31 kg [facility] 16:00-0500 Other Phone: [phone]) 11-23-2019 Blood Pressure 114/ [facility] 16:00-0500 77mm[Hg] Other Phone: [phone]) 11-23-2019 Heart rate 81 /min [facility] 16:[facility]-0500 Other Phone: [phone]) 11-23-2019 Respiratory rate 18 /min [facility] 16:00-0500 Other Phone: [phone] 11-23-2019 SaO2% (BldA) [Mass 100 % [facility] 16:00-0500 fraction] Other Phone: ([phone]) 11-16-2019 Body height 165.1 cm Jesica Pat [facility] 12:000500 Other Phone: () 11-16-2019 Body mass index 24.83 kg/m2 [facility] 12:000500 (BMI) [Ratio] Other Phone: () 11-16-2019 Body temperature 97.8 [degF] [facility] 12:000500 Other Phone: () 11-16-2019 Body weight 67.68 kg [facility] 12:000500 Other Phone: () 11-16-2019 Blood Pressure 128/ Jesica Pat [facility] 12:000500 82mm[Hg] Other Phone: [phone] 11-16-2019 Heart rate 76 /min [facility] 12:000500 Other Phone: [phone]) 11-16-2019 Respiratory rate 17 /min [facility] 12:000500 Other Phone: [phone] 11-16-2019 SaO2% (BldA) [Mass 99 % Jesica [facility] 12:00-0500 fraction] Other Phone: ([phone]) 11-09-2019 Body height 165.1 cm [facility] 15:20-0500 Other Phone: [phone] 11-09-2019 Body mass index 24.83 kg/m2 [facility] 15:200500 (BMI) [Ratio] Other Phone: [phone] 11-09-2019 Body temperature 97.9 [degF] [facility] 15:200500 Other Phone: [phone] 11-09-2019 Body weight 67.68 kg Jesica Pat [facility] 15:200500 Other Phone: [phone] 11-09-2019 Blood Pressure 139/ Jesica Bi [facility] 15:200500 89mm[Hg] Other Phone: [phone] 11-09-2019 Heart rate 80 /min [facility] 15:20-0500 Other Phone: [phone] 11-09-2019 Respiratory rate 20 /min [facility] 15:200500 Other Phone: [phone]) 11-09-2019 SaO2% (BldA) [Mass 100 % Jesica [facility] 15:20-0500 fraction] Other Phone: [phone]) 08-01-2013 Body height 165.1 cm [facility] 15:33-0400 Other Phone: [facility] ([phone]) 08-01-2013 Body temperature 97.4 [degF] [facility] 15:33-0400 Other Phone: [facility] ([phone]) 08-01-2013 Body weight 75.07 kg [facility] 15:33-0400 Other Phone: [facility] ([phone]) Functional Status The data below is from unstructured sourcesNo functional status results.No functional status results.No functional status results.No functional status results.No functional status results.No Functional Status information availableNo Functional Status information available Mental Status The data below is from unstructured sourcesNo Mental Status Information Available Clinical Notes 2020-04-19 Note Date & Note Facility Type 04-19-2020 ~[facility] )~DISCHARGE I NSTRUCTIONS (ED) ~REPORT #: [facility] [id number] REPORT STATUS: Draft ~DATE: 0 04/19/20 TIME: 1253~ Center ([id number]) ~PATIENT: FAITH HYMAN UNIT #: [id number]~ ROOM/BED: ~: 82 A GE: 39 SEX: F ATTEND: MOUSTAPHA Prince MD for EDM ~ADM DT: AUTHOR: Rashaad Rodgers ~ ~* ALL edits or amendments must be made on the electronic/computer document *~ ~Current patient of record information for this document is:~FAITH HYMAN~PatID: [id number] Age: 39~ : 1980~ ~Report i ncluding patient information as it appeared at the time this document ~was generated and provided to the patient i s as follows below.~ ~ ~FAITH Ledbetter tID: [id number] Age: 39~ : 1980~ Printed: 04/19/2020 12:53 PM~By: RASHAAD SIMONS~ ~General Emerg ency Department Discharge Instructions~ ~The exam and treatment y ou received in the Emergency Department were for an~urgent problem and are not intended as complete care. It is import ant that you~follow up with a doctor, nurse practitioner, or physic echo personal injury legal assistant for ongoing~care. If your symptoms become w orse or you do not improve as expected and you~are unable to reach your usual health care provider, [facility] We are available 24 hours a day. ~ ~You were t reated in the Emergency Department by: ~Primary Provider: BRADEN TSANG~ ~Follow Up Information:~ ~Follow up with Your Phys ician in 2-3 days. Call as soon as possible to arrange.~ ~Prescrip tions Written:~Cephalexin (Keflex) 500 mg Capsule, Take one (1) c apsule by mouth 3 times per~day for 10 days FINISH ALL OF THIS MEDICATION~Dispense Thirty (30).~Prescriber: RASHAAD SIMONS~Sixto r Prescription given to patient~ ~Ondansetron (Zofran) 4 mg ODT , Dissolve one (1) tablet under the tongue three~times a day as n eeded for nausea vomiting~Dispense Five (5).~ ~PATIENT'S NAME: FAITH HYMAN ACCOUNT NO: [id number]~ ~ ~ ~Prescrib er: RASHAAD SIMONS~Paper Prescription given to patient~ ~Hydroco done-Acetaminophen (Dennis) 5 mg-325 mg Tablet, Take 1 tablet(s) by mouth~every 6 hours as needed for pain~Dispense Twelve (12).~P rescriber: RASHAAD SIMONS~Paper Prescription given to pat mariellant~ ~The Following Instructions Were Selected for You Toda y: Dysuria~ ~Dysuria~ ~You have been seen for dysuria. ~ ~Dysuria is the medical term for painful urination. There are several ca uses and~they include:~ * Bladder infection.~ * Sexually transmit bharat diseases (STDs). These include gonorrhea, chlamydia,~ syphilis , herpes and others).~ * Prostate problem.~ * Kidney stones.~ * Bladder, prostate or kidney cancer (these are rare).~ ~Although the cause of your pain and discomfort is not yet known, we believe it~is OK for you to go home.~ ~The doctor will decide whether to prescribe pain medicine.~ ~Follow up with your family doctor to try to find a cause for your pain.~ ~YOU SHOULD SEEK MEDICAL ATTENTION IMMEDIATELY, EITHER HERE OR AT THE NEAR ST~EMERGENCY DEPARTMENT IF ANY OF THE FOLLOWING OCCURS:~ * You hav e pain in your belly, pelvis or back.~ * You have fever (temp erature higher than 100.4 F / 38 C) that won't go away.~ * You have vomiting that does not stop after a few times.~ * You are unab le to urinate.~ * You have any other concerns.~ ~Medication Instru ctions: Cephalexin (Keflex) 500 mg Capsule, Ondansetron~(Zofran) 4 mg ODT~ ~Cephalexin (Keflex) 500 mg Capsule~You have been g iven an antibiotic in the cephalosporin class. This medication~tr eats many kinds of infections including those of the skin, respiratory tract,~sinuses, ear, and urinary tract. ~ * DO NOT take this medication if you are allergic to cepha losporins or have~ life-threatening allergic reactions to penicillins. People who are~ allergic to penicillin may have a cross-reaction (allergy) to~ cephalosporins. Serious cross-react ions to cephalosporins in~ penicillin-allergic patients are rare.~ * DO NOT give your medication to anyone else.~ ~PATIENT&ap os;S NAME: FAITH HYMAN ACCOUNT NO: [id number]~ ~ ~ ~ * Keep this medication out of the reach of children. Always keep this~ me dication in child-proof containers. DO NOT give your medication to~ anyone else.~ ~If you develop the following side-effects, you should report them to your doctor~as soon as possible and immediat elaine STOP taking the medication:~ * Reduced amount of urine, seizures (convulsions), severe watery or bloody~ diarrhea, skin rash or itching.~ * Stomach pain or cramps, swollen joints, unusual bleeding or bruising,~ weakness.~ * CAUTION: If you develop difficulty breathing, wheezing, dizziness,~ hoarse ness or throat swelling, call 911 immediately.~ ~IT IS VERY IMPO RTANT that you finish all the medication in this prescription,~si nce the medicine is used to treat an ongoing infection in your body .~ ~THESE INSTRUCTIONS ARE NOT COMPREHENSIVE (complete): Ask your pharmacist for~additional information and precautions for this me dication.~ ~Ondansetron (Zofran) 4 mg ODT~You have been given a prescription for a medication for nausea and vomiting.~ * It is OK to take this medication if you are . Be sure to tell your~ regular doctor or general production manager (OB doctor) that you have been taking this~ medication.~ * Take this medication as directed.~ * If you are taking phenobarbital, narcotic pain med ications,~ antidepressants, or sleeping pills your dosage may need to be adjusted. Be~ sure to inform your doctor of all the other med ications that you are~ taking.~ * DO NOT take this medication if you have liver disease or heart disease.~ * DO NOT take pain k illers (narcotic medication) unless specifically~ instru cted to do so by your doctor~ * DO NOT drink alcoholic bevera ges while taking this medicine.~ * If you develop any reactio ns that you believe may be from the medication be~ sure to tell yo ur doctor or return to the ER (Some reactions may include: ~ dizzi ness, shaking, visual disturbances, nervousness, fainting, ra sh).~ * If you become dizzy, sit or lie down at the first sig ns. You should be~ careful going up and down stairs.~ * Keep this medication out of the reach of children. Always keep this~ medicati on in child-proof containers. DO NOT give your medication to~ anyone else.~ ~You have been given a medication, or a pres cription for a medication, that~causes drowsiness or dizziness. DO NOT drive a car, operate machinery, ride a~bike, or perform jobs that require you to be alert until you know how you are~going to react to this medication.~ ~THESE INSTRUCTIONS ARE NO T COMPREHENSIVE (complete): Ask your pharmacist for~additional info rmation and precautions for this medication.~ ~What To Do:~ ~ ~MAIA ENT'S NAME: FAITH HYMAN ACCOUNT NO: [id number]~ ~ ~ ~ * Take this sheet with you when you go to your follow-up visit.~ * If y ou have any problem arranging the follow-up visit, contact the~ Emergency Department immediately.~ * Take all medications as directed.~ ~Additional Information:~ ~ * There are occasions w here additional lab tests return - such as a culture~ result or a n X-ray or EKG - is further reviewed after you are discharged.~ If a change in your diagnosis or treatment is indicated, we will atte mpt to~ contact you. It is critical that we have a current phone n umber for you.~ ~ * If you had X-rays done, we can provide you a C D with those X-rays for your~ review and follow-up.~ ~ * Cultur e results may take 2-3 days. We review many culture results an d will~ attempt to contact you if the results are significant or m ay change your~ treatment. ~ ~If side effects develop, such as a r rex, difficulty breathing, or a severe upset~stomach,~stop the med ication and call your doctor or the Emergency Department.~ ~P reventative Health Instructions:~ ~The care you received i n the emergency department has been done on an emergency~basis onl y and is not intended to be a substitute for regular medical care. If~your condition or symptoms persist or get worse at any ti me, you should return~to the emergency department if you're unab le to contact your own physician. ~Please understand that alth ough we may not have determined a specific cause of~your sym ptoms today, further evaluation may be necessary. It is impo rtant to~get a primary care provider (doctor, PA, or nurse practiti everett) for follow up as~well as ongoing healthcare needs. ~ ~The [facility] jyothi information is provided for you as education regarding ~preventative health care and follow up from your emergency depar tment visit:~ ~Regular exercise, good diet and adequate fluid intake are very important for~general health maintenance. Please discuss these with your primary care doctor~to develop a plan s pecific to your needs. ~ ~Tobacco use is a risk factor for multi ple serious illnesses. If you use~tobacco, please contact the [facility] tLine at 0-427-HUOLKAU ( ) or~[email or web address] to a ssist in your efforts to stop using tobacco products.~ ~During y our visit today your blood pressure may have been higher than norm al. ~If it was high you should have this rechecked. Follow up w ith your physician or~the referral provider for a recheck within 4 weeks. Hypertension is a common but~serious illness that should be monitored closely.~ ~If thoughts of increased anxiety and sadne ss prevent you from completing your~day to day activities a t home or work, please call our 20/06 assessment line at~ ~PATIENT'S NAME: FAITH HYMAN ACCOUNT NO: [id number]~ ~ ~ ~-22 3-TALK([id number]) to speak with an Interior Decorator Paperhanging. ~For deaf and hearing impaired, call .~For mental health and/o r substance use disorders you can call the Substance~Abuse and [facility] Services ([facility]) ~[facility] TTY for hearing impaired call ~ ~During ER visits many patients receive sedation or medications which may impair~your ju dgment and or make driving, working or operating machinery or even~ walking hazardous. Some of these medications include diphenhydrami ne (Benadryl)~and medications for anxiety, nausea and priyanka n. Ask your nurse if you have~received any sedating medications. If you received any potentially sedating~medications, pleas e rest today and do not drive.~ ~I, FAITH HYMAN, understand the instructions and will arrange for follow-up~care. ~ ~ 9~PATIENT/MANAGER PHYSICAL SIGNAT URE~ ~ ~ ~STAFF SIGNATURE~ ~ ~ ~ ~ ~ ~ ~ ~ ~ ~ ~ ~ ~ ~ ~ ~ ~ ~ ~ ~ ~ ~ ~ ~ ~ ~ ~ ~ ~ ~ ~PATIENT'S NAME: SHAHAB HYMANNEY AC COUNT NO: [id number] 04-19-2020 [facility] ([facility]) ED [facility]~ EMERGENCY PROVIDER [place] [facility] Note REPORT~REPORT#:[id number] REPORT STATUS: Draft~DATE:04/19/20 TIME: Center (80185) 1057~ ~PATIENT: FAITH HYMAN UNIT #: [id number]~ ROOM/BED: [facility] 3~: 0 81 AGE: 39 SEX: PCP PHYS: No Primary or Family Physician~AD M DATE: 04/19/20 INI AUTH: Rashaad Simons~ED ADMIT DT: 04/19 LAST SIG:~REP SERV REP SERV TM: 1057~ * ALL edits or amendments must be made on the electronic/computer document *~ ~ ~ ~HPI GREET~ ~General~Initial Greet Date/Time 1043~ ~Clinical Note~Clinical Note~ ~CC: flank pain x1 week~ ~HPI: This 31-year-old female presents complaint o f bilateral flank pain for the ~past week. She states that she has a history of UTIs and that for the past week~she has had bilateral flank pain but denies any manner of falling, twisting, or ~any in jury to any part of her body. She states that yesterday she beg an having ~burning and itching with urination and was concerne d that she may have a UTI. ~She also states that she has felt slig htly nauseous but has not vomited. She ~denies difficulty breathi ng, chest pain, vaginal bleeding, vaginal discharge, ~abdominal pain, pelvic pain.~ ~ ~ ~Review of Systems~ ~Constitutional: de nies chills, fever, malaise~Skin: denies rash, color change s~Eyes: denies diplopia, blurry vision~ENT: denies rhinorrhea, e ar pain~Cardiovascular: denies chest pain, palpitations~Respira tory: denies cough, hemoptysis, pleuritic pain, wheezing, s hortness of ~breath~GI: denies abdominal pain, constipation, di arrhea, nausea, vomiting~: reports dysuria, denies he maturia, reports flank pain~Heme: denies easy bruising or blee ding~MSK: reports back pain~Neuro: denies dizziness, focal wea kness, headache, confusion, altered LOC, ~syncope~Psych: denies kristan cidal ideation, desire to harm others or themselves~ ~All systems reviewed and are otherwise negative unless noted~ ~Physical Exam~A ll vitals signs have been reviewed~ ~General: awake, alert, no ac basilio distress, cooperative, appears uncomfortable~Head: normocephal ic, atraumatic~Eyes: EOMI, normal conjunctiva, normal sclera, atra umatic~ENT: airway patent, mucous membranes moist~Neck: atraumatic , trachea midline~Cardio: heart rate regular, rhythm regular, no murmurs noted~Pulm/Chest: lung sounds equal bilaterally, lung juan luis nds normal, no wheezes noted,~no rales noted~GI: soft, mildly tender to palpation diffusely, no distension~Skin: warm, dr y, color normal for ethnicity, no rash~Neuro: oriented x3, speech normal, no motor deficits, no sensory deficits, CN II~-X II intact, patient ambulates independently with no gait ab normalities~ ~ ~Medical Decision Making:~This is a 39-year-old female with a past medical history relevant for UTIs who ~presents with complaint of dysuria and bilateral flank pain. She denies an y ~history of trauma or injury to her back or any part of her b ivis. She is ~afebrile, non-tachycardic, not hypoxic, normotens zunilda on initial examination. ~She endorses nausea but no vomiting. W e will therefore proceed with urinalysis ~and evaluati on and symptomatic treatment in the ER.~ ~ ~Data Interpret ation:~All ordered laboratory and radiographic studies hav e been reviewed and ~considered in the medical decision mray ing including ED course, treatment plan, ~differential diagnosis , and disposition of the patient. ~ ~Mid-level Attestation:~Elias Barney PA-C, have evaluated and treated this patient inde pendently in ~a manner consistent with my level of training an d licensure.~ ~Dragon Statement:~Parts of this medical record were created with voice dictation software. All ~efforts were m sarai to review the grammar, syntax, and vocabulary of this medical ~record and to edit and correct as necessary to reflect the wor ds and actions of ~this medical encounter as accurately as poss ible. This medical record was ~dictated in a noisy patient care e nvironment. Furthermore, diagnostic data may ~be automatically i mported into this document after patient disposition and ~medical decision making.~ ~Past Medical History~Stated Complaint FEVER/ FLANK PAIN~ ~COURSE~ ~Med Data~Med Data~Medication(s) Ordered:~Ce ntral Nervous System Agents~ Sig/Marion Start time Last~ Medica tion Dose Route Stop Time Status Admin~ Hydrocodone Bitart/ 1 TAB LET X1ED STA 04/19 1057 CKD~ Acetaminophen PO 04/19 105~ Ketor olac 15 MG X1ED STA 04/19 1057 AC~ Tromethamine IM 04/19 1058~ ~G astrointestinal Drugs~ Sig/Marion Start time Last~ Medication Dos e Route Stop Time Status Admin~ Ondansetron HCl 4 MG X1ED STA 1056 AC~ PO 04/19 1058~ ~ ~ ~Patient Discharge Departure~ ~Lisseth l Signs/Condition~Vital Signs~All vital signs available at the time of this entry have been reviewed.~ ~RPT #: [id number]~EN D OF REPORT~ 04-19-2020 [facility]~ EMERGENCY PROVIDER [place] [facility] Note REPORT~REPORT#:[id number] REPORT STATUS: Draft~DATE:04/19/20 TIME: Center ([id number]) 1057~ ~PATIENT: FAITH HYMAN UNIT #: [id number]~ ROOM/BED: [place] [address]~: 0 81 AGE: 39 SEX: PCP PHYS: No Primary or Family Physician~AD M DATE: 04/19/20 INI AUTH: Rashaad Simons~ED ADMIT DT: 04/19 LAST SIG: Rashaad Simons~REP SERV DT: 04/19 REP SERV TM: 1057~ * ALL edits or amendments must be made on the electronic/computer document *~ ~ ~ ~HPI GREET~ ~General~In itial Greet Date/Time 04/19/20 1043~ ~Clinical Note~Clinical Note~First Documented:~ Result Date Time~ Pulse Ox 100 04/19 10 41~ B/P 128/72 04/19 1041~ B/P Mean 90 04/19 104~ O2 Delivery Nikky m air 04/19 1041~ Temp 36.6 04/19 1041~ Pulse 78 04/19 1041~ Resp 2 1 04/19 1041~ ~Last Documented:~ Result Date Time~ Pulse Ox 100 04/19 1041~ B/P 128/72 04/19 1041~ B/P Mean 90 04/19 1041~ O2 Delivery Room air 04/19 1041~ Temp 36.6 04/19 1041~ Pulse 78 1041~ Resp 21 04/19 104~ ~ ~CC: flank pain x1 week~ ~HPI: This 31-year-old female presents complaint of bilateral flank p ain for the ~past week. She states that she has a history of UTIs a nd that for the past week~she has had bilateral flank pain b ut denies any manner of falling, twisting, or ~any injury to an y part of her body. She states that yesterday she began having ~burning and itching with urination and was concerned that she ma y have a UTI. ~She also states that she has felt slightly nause ous but has not vomited. She ~denies difficulty breathing, chest pain, vaginal bleeding, vaginal discharge, ~abdominal pain, pel amee pain.~ ~ ~ ~Review of Systems~ ~Constitutional: denies chills , fever, malaise~Skin: denies rash, color changes~Eyes: denies diplopia, blurry vision~ENT: denies rhinorrhea, ear pain ~Cardiovascular: denies chest pain, palpitations~Respiratory: d enies cough, hemoptysis, pleuritic pain, wheezing, shortness of ~breath~GI: denies abdominal pain, constipation, diarrhea, nausea, vomiting~: reports dysuria, denies hematuria, repo rts flank pain~Heme: denies easy bruising or bleeding~MSK: reports back pain~Neuro: denies dizziness, focal weakness, headache, co nfusion, altered LOC, ~syncope~Psych: denies suicidal ideatio n, desire to harm others or themselves~ ~All systems reviewed and a re otherwise negative unless noted~ ~Physical Exam~All vitals signs have been reviewed~ ~General: awake, alert, no acute distre ss, cooperative, appears uncomfortable~Head: normocephalic, atra umatic~Eyes: EOMI, normal conjunctiva, normal sclera, atraumatic~ ENT: airway patent, mucous membranes moist~Neck: atraumatic, trach ea midline~Cardio: heart rate regular, rhythm regular, no murmur s noted~Pulm/Chest: lung sounds equal bilaterally, lung sounds n ormal, no wheezes noted,~no rales noted~GI: soft, mildly tender to palpation diffusely, no distension~Skin: warm, dry, color shahnaz l for ethnicity, no rash~Neuro: oriented x3, speech normal, no motor deficits, no sensory deficits, CN II~-XII intact, pa franco ambulates independently with no gait abnormalitie s~ ~ ~Medical Decision Making:~This is a 39-year-old female wi th a past medical history relevant for UTIs who ~presents with co mplaint of dysuria and bilateral flank pain. She denies any ~h istory of trauma or injury to her back or any part of her body. Sh e is ~afebrile, non-tachycardic, not hypoxic, normotens zunilda on initial examination. ~She endorses nausea but no vomiting. W e will therefore proceed with urinalysis ~and evaluati on and symptomatic treatment in the ER.~ ~Review patient's records through the [employer] system reveals that patient has a ~hist ory of lumbar radiculopathy, chronic low back pain~ ~ ~Data Interpretation:~All ordered laboratory and radiographic lucho dies have been reviewed and ~considered in the medical decision mary ing including ED course, treatment plan, ~differential diagnosis , and disposition of the patient. ~ ~Mid-level Attestation:~Elias Barney PA-C, have evaluated and treated this patient inde pendently in ~a manner consistent with my level of training an d licensure.~ ~Dragon Statement:~Parts of this medical record were created with voice dictation software. All ~efforts were m sarai to review the grammar, syntax, and vocabulary of this medical ~record and to edit and correct as necessary to reflect the wor ds and actions of ~this medical encounter as accurately as poss ible. This medical record was ~dictated in a noisy patient care e nvironment. Furthermore, diagnostic data may ~be automatically i mported into this document after patient disposition and ~medical decision making.~ ~Past Medical History~Stated Complaint FEVER/ FLANK PAIN~Allergies~Coded Allergies:~No Known Allergies (04/19/20 )~ ~ ~COURSE~ ~Data~Diagnostics~Laboratory Tests:~ 04/19~ 1049 1049~ Urines~ Urine pH (5.0 - 7.0) 6.0~ Ur Sp ecific [place] (1.015 - 1.025) 1.009 L~ Urine Protein (NEGATIVE ) NEGATIVE~ Urine Ketones (NEGATIVE) NEGATIVE~ Urine Blood (NEGAT ZUNILDA) NEGATIVE~ Urine Nitrite (NEGATIVE) NEGATIVE~ Urine Bili rea (NEGATIVE) NEGATIVE~ Urine Urobilinogen (NORMAL) NORMAL~ Ur Leukocyte Esterase (NEGATIVE) 2+ *~ Urine RBC (0 - 3 rbc/h pf) 0-3~ Urine WBC (0 - 5 wbc/hpf) 2-5~ Ur Epithelial Cells (0 - 1+ epi/hpf) 2+ *~ Urine Bacteria (NEGATIVE) 2+ *~ Vol Urine Mar trifuged ((12mL STD) mL) 6.0~ Urine Glucose (NEGATIVE) NEGATIVE~ Urine Test (NEGATIVE) NEGATIVE~ ~ ~ ~Med Data~Med Data~Medication(s) Ordered:~Central Nervous System Agents~ Sig/Marion Start time Last~ Medication Dose Route Stop Time Status Admin~ Morphine Sulfate 4 MG X1ED STA 04/19 1105 DC~ IV 04/19 110 6~ Hydrocodone Bitart/ 1 TABLET X1ED STA 04/19 1057 CAN~ Acetami nophen PO 04/19 1058~ Ketorolac 15 MG X1ED STA 04/19 1057 CAN ~ Tromethamine IM 04/19 1058~ ~Electrolytic, Caloric, And Kaushik~ Sig/Marion Start time Last~ Medication Dose Route Stop Time Status Admin~ Sodium Chloride 1,000 ML BOLUS STA 04/19 1104 DC 04/19~ IV 04/19 1203 1206~ ~Gastrointestinal Drugs~ Sig/Marion Start time Last~ Medication Dose Route Stop Time Status Admin~ Ondansetr on HCl 4 MG X1ED STA 04/19 1105 DC~ IV 04/19 1106~ Ondansetron HCl 4 MG X1ED STA 04/19 1057 CAN~ PO 04/19 1058~ ~ ~ ~Patient Discha rge Departure~ ~Vital Signs/Condition~Vital Signs~First Docum ented:~ Result Date Time~ Pulse Ox 100 04/19 1041~ B/P 128/72 1041~ B/P Mean 90 04/19 1041~ O2 Delivery Room air 04/19 1041~ Temp 36.6 04/19 1041~ Pulse 78 04/19 1041~ Resp 21 04/19 1041~ ~Las t Documented:~ Result Date Time~ Pulse Ox 100 04/19 1041~ B/P 128/ 72 04/19 1041~ B/P Mean 90 04/19 1041~ O2 Delivery Room air 04/19 1041~ Temp 36.6 04/19 1041~ Pulse 78 04/19 1041~ Resp 21 04/19 1041 ~ ~All vital signs available at the time of this entry hav e been reviewed.~ ~RPT #: [id number]~END OF REPORT~ 04-19-2020 [facility] ([facility]) ED [facility]~ EMERGENCY PROVIDER [place] [facility] Note REPORT~REPORT#:[id number] REPORT STATUS: Draft~DATE:04/19/20 TIME: Center (19059) 105~ ~PATIENT: FAITH HYMAN UNIT #: [id number]~ ROOM/BED: [facility] - 3~: 0 81 AGE: 39 SEX: PCP PHYS: No Primary or Family Physician~AD M DATE: 04/19/20 INI AUTH: Rashaad Simons~ED ADMIT DT: 04/19 LAST SIG: Rashaad Simons~REP SERV DT: 04/19 REP SERV TM: 1057~ * ALL edits or amendments must be made on the electronic/computer document *~ ~ ~ ~HPI GREET~ ~General~In itial Greet Date/Time 04/19/20 1043~ ~Clinical Note~Clinical Note~First Documented:~ Result Date Time~ Pulse Ox 100 04/19 10 41~ B/P 128/72 04/19 1041~ B/P Mean 90 04/19 1041~ O2 Delivery Nikky m air 04/19 1041~ Temp 36.6 04/19 1041~ Pulse 78 04/19 1041~ Resp 2 1 04/19 1041~ ~Last Documented:~ Result Date Time~ Pulse Ox 100 04/19 1041~ B/P 128/72 04/19 1041~ B/P Mean 90 04/19 1041~ O2 Delivery Room air 04/19 1041~ Temp 36.6 04/19 104~ Pulse 78 1041~ Resp 21 04/19 1041~ ~ ~CC: flank pain x1 week~ ~HPI: This 31-year-old female presents complaint of bilateral flank p ain for the ~past week. She states that she has a history of UTIs a nd that for the past week~she has had bilateral flank pain b ut denies any manner of falling, twisting, or ~any injury to an y part of her body. She states that yesterday she began having ~burning and itching with urination and was concerned that she ma y have a UTI. ~She also states that she has felt slightly nause ous but has not vomited. She ~denies difficulty breathing, chest pain, vaginal bleeding, vaginal discharge, ~abdominal pain, pel amee pain.~ ~ ~ ~Review of Systems~ ~Constitutional: denies chills , fever, malaise~Skin: denies rash, color changes~Eyes: denies diplopia, blurry vision~ENT: denies rhinorrhea, ear pain ~Cardiovascular: denies chest pain, palpitations~Respiratory: d enies cough, hemoptysis, pleuritic pain, wheezing, shortness of ~breath~GI: denies abdominal pain, constipation, diarrhea, nausea, vomiting~: reports dysuria, denies hematuria, repo rts flank pain~Heme: denies easy bruising or bleeding~MSK: reports back pain~Neuro: denies dizziness, focal weakness, headache, co nfusion, altered LOC, ~syncope~Psych: denies suicidal ideatio n, desire to harm others or themselves~ ~All systems reviewed and a re otherwise negative unless noted~ ~Physical Exam~All vitals signs have been reviewed~ ~General: awake, alert, no acute distre ss, cooperative, appears uncomfortable~Head: normocephalic, atra umatic~Eyes: EOMI, normal conjunctiva, normal sclera, atraumatic~ ENT: airway patent, mucous membranes moist~Neck: atraumatic, trach ea midline~Cardio: heart rate regular, rhythm regular, no murmur s noted~Pulm/Chest: lung sounds equal bilaterally, lung sounds n ormal, no wheezes noted,~no rales noted~GI: soft, mildly tender to palpation diffusely, no distension~Skin: warm, dry, color shahnaz l for ethnicity, no rash~Neuro: oriented x3, speech normal, no motor deficits, no sensory deficits, CN II~-XII intact, pa franco ambulates independently with no gait abnormalitie s~ ~ ~Medical Decision Making:~This is a 39-year-old female wi th a past medical history relevant for UTIs who ~presents with co mplaint of dysuria and bilateral flank pain. She denies any ~h istory of trauma or injury to her back or any part of her body. Sh e is ~afebrile, non-tachycardic, not hypoxic, normotens zunilda on initial examination. ~She endorses nausea but no vomiting. W e will therefore proceed with urinalysis ~and evaluati on and symptomatic treatment in the ER.~ ~Review patient's records through the [employer] system reveals that patient has a ~hist ory of lumbar radiculopathy, chronic low back pain, b orderline personality ~disorder, PTSD, anxiety. She had a pos itive UDS for methamphetamine and ~cannabinoid usage on 04/08/2020 at [facility] in [place].~ ~ ~Data Interp retation:~All ordered laboratory and radiographic studies hav e been reviewed and ~considered in the medical decision mary ing including ED course, treatment plan, ~differential diagnosis , and disposition of the patient. ~ ~Mid-level Attestation:~Elias Barney PA-C, have evaluated and treated this patient inde pendently in ~a manner consistent with my level of training an d licensure.~ ~Dragon Statement:~Parts of this medical record were created with voice dictation software. All ~efforts were m sarai to review the grammar, syntax, and vocabulary of this medical ~record and to edit and correct as necessary to reflect the wor ds and actions of ~this medical encounter as accurately as poss ible. This medical record was ~dictated in a noisy patient care e [facility]. Furthermore, diagnostic data may ~be automatically i mported into this document after patient disposition and ~medical decision making.~ ~Past Medical History~Stated Complaint FEVER/ FLANK PAIN~Allergies~Coded Allergies:~No Known Allergies (04/19/20 )~ ~ ~COURSE~ ~Data~Diagnostics~Laboratory Tests:~ 04/19~ 1049 1049~ Urines~ Urine pH (5.0 - 7.0) 6.0~ Ur Sp ecific [place] (1.015 - 1.025) 1.009 L~ Urine Protein (NEGATIVE ) NEGATIVE~ Urine Ketones (NEGATIVE) NEGATIVE~ Urine Blood (NEGAT ZUNILDA) NEGATIVE~ Urine Nitrite (NEGATIVE) NEGATIVE~ Urine Bili rea (NEGATIVE) NEGATIVE~ Urine Urobilinogen (NORMAL) NORMAL~ Ur Leukocyte Esterase (NEGATIVE) 2+ *~ Urine RBC (0 - 3 rbc/h pf) 0-3~ Urine WBC (0 - 5 wbc/hpf) 2-5~ Ur Epithelial Cells (0 - 1+ epi/hpf) 2+ *~ Urine Bacteria (NEGATIVE) 2+ *~ Vol Urine Mar trifuged ((12mL STD) mL) 6.0~ Urine Glucose (NEGATIVE) NEGATIVE~ Urine Test (NEGATIVE) NEGATIVE~ ~ ~ ~Med Data~Med Data~Medication(s) Ordered:~Central Nervous System Agents~ Sig/Marion Start time Last~ Medication Dose Route Stop Time Status Admin~ Morphine Sulfate 4 MG X1ED STA 04/19 1105 DC~ IV 04/19 110 6~ Hydrocodone Bitart/ 1 TABLET X1ED STA 04/19 1057 CAN~ Acetami nophen PO 04/19 1058~ Ketorolac 15 MG X1ED STA 04/19 1057 CAN ~ Tromethamine IM 04/19 1058~ ~Electrolytic, Caloric, And Kaushik~ Sig/Marion Start time Last~ Medication Dose Route Stop Time Status Admin~ Sodium Chloride 1,000 ML BOLUS STA 04/19 1104 DC 04/19~ IV 04/19 1203 1206~ ~Gastrointestinal Drugs~ Sig/Marion Start time Last~ Medication Dose Route Stop Time Status Admin~ Ondansetr on HCl 4 MG X1ED STA 04/19 1105 DC~ IV 04/19 1106~ Ondansetron HCl 4 MG X1ED STA 04/19 1057 CAN~ PO 04/19 1058~ ~ ~ ~Patient Discha rge Departure~ ~Vital Signs/Condition~Vital Signs~First Docum ented:~ Result Date Time~ Pulse Ox 100 04/19 1041~ B/P 128/72 1041~ B/P Mean 90 04/19 1041~ O2 Delivery Room air 04/19 1041~ Temp 36.6 04/19 1041~ Pulse 78 04/19 1041~ Resp 21 04/19 1041~ ~Las t Documented:~ Result Date Time~ Pulse Ox 100 04/19 1041~ B/P 128/ 72 04/19 1041~ B/P Mean 90 04/19 1041~ O2 Delivery Room air 04/19 1041~ Temp 36.6 04/19 1041~ Pulse 78 04/19 1041~ Resp 21 04/19 1041 ~ ~All vital signs available at the time of this entry hav e been reviewed.~ ~RPT #: [id number]~END OF REPORT~ 04-19-2020 [facility] ([facility] ED [facility]~ EMERGENCY PROVIDER [place] Medical Note REPORT~REPORT#:[id number] REPORT STATUS: Draft~DATE:04/19/20 TIME: Center (41817) 105~ ~PATIENT: FAITH HYMAN UNIT #: [id number]~ ROOM/BED: [place] [address]~: 0 81 AGE: 39 SEX: PCP PHYS: No Primary or Family Physician~AD M DATE: 04/19/20 INI AUTH: Rashaad Simons~ED ADMIT DT: 04/19 LAST SIG: Rashaad Simons~REP SERV DT: 04/19 REP SERV TM: 1057~ * ALL edits or amendments must be made on the electronic/computer document *~ ~ ~ ~HPI GREET~ ~General~In itial Greet Date/Time 04/19/20 1043~ ~Clinical Note~Clinical Note~First Documented:~ Result Date Time~ Pulse Ox 100 04/19 10 41~ B/P 128/72 04/19 1041~ B/P Mean 90 04/19 1041~ O2 Delivery Nikky m air 04/19 1041~ Temp 36.6 04/19 1041~ Pulse 78 05/23 1041~ Resp 2 1 04/19 1041~ ~Last Documented:~ Result Date Time~ Pulse Ox 100 04/19 1215~ B/P 109/48 04/19 1215~ Pulse 74 04/19 1215~ B/P Me an 75 04/19 1130~ O2 Delivery Room air 04/19 1041~ Temp 36.6 04/19 1041~ Resp 21 04/19 1041~ ~ ~CC: flank pain x1 week~ ~HPI: This 31-year-old female presents complaint of bilateral flank p ain for the ~past week. She states that she has a history of UTIs a nd that for the past week~she has had bilateral flank pain b ut denies any manner of falling, twisting, or ~any injury to an y part of her body. She states that yesterday she began having ~burning and itching with urination and was concerned that she ma y have a UTI. ~She also states that she has felt slightly nause ous but has not vomited. She ~denies difficulty breathing, chest pain, vaginal bleeding, vaginal discharge, ~abdominal pain, pel aeme pain.~ ~ ~ ~Review of Systems~ ~Constitutional: denies chills , fever, malaise~Skin: denies rash, color changes~Eyes: denies diplopia, blurry vision~ENT: denies rhinorrhea, ear pain ~Cardiovascular: denies chest pain, palpitations~Respiratory: d enies cough, hemoptysis, pleuritic pain, wheezing, shortness of ~breath~GI: denies abdominal pain, constipation, diarrhea, nausea, vomiting~: reports dysuria, denies hematuria, repo rts flank pain~Heme: denies easy bruising or bleeding~MSK: reports back pain~Neuro: denies dizziness, focal weakness, headache, co nfusion, altered LOC, ~syncope~Psych: denies suicidal ideatio n, desire to harm others or themselves~ ~All systems reviewed and a re otherwise negative unless noted~ ~Physical Exam~All vitals signs have been reviewed~ ~General: awake, alert, no acute distre ss, cooperative, appears uncomfortable~Head: normocephalic, atra umatic~Eyes: EOMI, normal conjunctiva, normal sclera, atraumatic~ ENT: airway patent, mucous membranes moist~Neck: atraumatic, trach ea midline~Cardio: heart rate regular, rhythm regular, no murmur s noted~Pulm/Chest: lung sounds equal bilaterally, lung sounds n ormal, no wheezes noted,~no rales noted~GI: soft, mildly tender to palpation diffusely, no distension~Skin: warm, dry, color shahnaz l for ethnicity, no rash~Neuro: oriented x3, speech normal, no motor deficits, no sensory deficits, CN II~-XII intact, braden gamez ambulates independently with no gait abnormalitie s~ ~ ~Medical Decision Making:~This is a 39-year-old female wi th a past medical history relevant for UTIs who ~presents with co mplaint of dysuria and bilateral flank pain. She denies any ~h istory of trauma or injury to her back or any part of her body. Sh e is ~afebrile, non-tachycardic, not hypoxic, normotens zunilda on initial examination. ~She endorses nausea but no vomiting. W e will therefore proceed with urinalysis ~and evaluati on and symptomatic treatment in the ER.~ ~Review patient's records through the [employer] system reveals that patient has a ~hist ory of lumbar radiculopathy, chronic low back pain, b orderline personality ~disorder, PTSD, anxiety. She had a pos itive UDS for methamphetamine and ~cannabinoid usage on 04/08/2020 at [facility] in [place].~ ~ ~Data Interp retation:~All ordered laboratory and radiographic studies hav e been reviewed and ~considered in the medical decision mary ing including ED course, treatment plan, ~differential diagnosis , and disposition of the patient. ~ ~Mid-level Attestation:~Elias Barney PA-C, have evaluated and treated this patient inde pendently in ~a manner consistent with my level of training an d licensure.~ ~Dragon Statement:~Parts of this medical record were created with voice dictation software. All ~efforts were m sarai to review the grammar, syntax, and vocabulary of this medical ~record and to edit and correct as necessary to reflect the wor ds and actions of ~this medical encounter as accurately as poss ibrod. This medical record was ~dictated in a noisy patient care e nvironment. Furthermore, diagnostic data may ~be automatically i mported into this document after patient disposition and ~medical decision making.~ ~Past Medical History~Stated Complaint FEVER/ FLANK PAIN~Allergies~Coded Allergies:~No Known Allergies (04/19/20 )~ ~ ~COURSE~ ~Data~Diagnostics~Laboratory Tests:~ 04/19~ 1049 1049~ Urines~ Urine pH (5.0 - 7.0) 6.0~ Ur Sp ecific [place] (1.015 - 1.025) 1.009 L~ Urine Protein (NEGATIVE ) NEGATIVE~ Urine Ketones (NEGATIVE) NEGATIVE~ Urine Blood (NEGAT ZUNILDA) NEGATIVE~ Urine Nitrite (NEGATIVE) NEGATIVE~ Urine Bili rea (NEGATIVE) NEGATIVE~ Urine Urobilinogen (NORMAL) NORMAL~ Ur Leukocyte Esterase (NEGATIVE) 2+ *~ Urine RBC (0 - 3 rbc/h pf) 0-3~ Urine WBC (0 - 5 wbc/hpf) 2-5~ Ur Epithelial Cells (0 - 1+ epi/hpf) 2+ *~ Urine Bacteria (NEGATIVE) 2+ *~ Vol Urine Mar trifuged ((12mL STD) mL) 6.0~ Urine Glucose (NEGATIVE) NEGATIVE~ Urine Test (NEGATIVE) NEGATIVE~ ~ ~ ~Med Data~Med Data~Medication(s) Ordered:~Central Nervous System Agents~ Sig/Marion Start time Last~ Medication Dose Route Stop Time Status Admin~ Morphine Sulfate 4 MG X1ED STA 04/19 1105 DC 04/19~ IV 110 1220~ Hydrocodone Bitart/ 1 TABLET X1ED STA 04/19 1057 CA N~ Acetaminophen PO 04/19 1058~ Ketorolac 15 MG X1ED STA 04/19 10 57 CAN~ Tromethamine IM 04/19 1058~ ~Electrolytic, Caloric, And Kaushik~ Sig/Marion Start time Last~ Medication Dose Route Stop Time S tatus Admin~ Sodium Chloride 1,000 ML BOLUS STA 04/19 1104 DC 04/19~ IV 04/19 1203 1206~ ~Gastrointestinal Drugs~ Sig/Marion Start time Last~ Medication Dose Route Stop Time Status Admin~ Onda nsetron HCl 4 MG X1ED STA 04/19 1105 DC 04/19~ IV 04/19 1106 1220 ~ Ondansetron HCl 4 MG X1ED STA 04/19 1057 CAN~ PO 04/19 1058~ ~ ~ ~Patient Discharge Departure~ ~Vital Signs/Condition~Vital Signs~First Documented:~ Result Date Time~ Pulse Ox 100 04/19 10 41~ B/P 128/72 04/19 1041~ B/P Mean 90 04/19 1041~ O2 Delivery Nikky m air 04/19 1041~ Temp 36.6 04/19 1041~ Pulse 78 04/19 1041~ Resp 2 1 04/19 1041~ ~Last Documented:~ Result Date Time~ Pulse Ox 100 04/19 1215~ B/P 109/48 04/19 1215~ Pulse 74 04/19 1215~ B/P Me an 75 04/19 1130~ O2 Delivery Room air 04/19 1041~ Temp 36.6 04/19 1041~ Resp 21 04/19 1041~ ~All vital signs available at the time of this entry have been reviewed.~ ~ ~Clinical Impression~ Clinical Impression~Primary Impression: Lumbar pain~Secondary Impre ssions: Dysuria, Flank pain~ ~Disposition Decision~Discharge~ )( Discharged to Home Yes~ )( Time 1251~ )( Date 04/19/20~ ~Discha rge/Care Plan~Counseled Regarding Diagnosis, Lab results, Presc riptions, Need for follow-up, ~When to return to ED~Prescr iptions~keflex~norco 5mg #12~zofran odt~ Discharge Note~I have s poken with the patient and/or caregivers. I have explained the patient's~condition, diagnoses and treatment plan based on t he information available to me~at this time. I have answered the pa tient's and/or caregiver's questions and ~addressed any concerns. The patient and/or caregivers have as good an ~understandi ng of the patient's diagnosis, condition and treatment plan as can be~expected at this point. The vital signs have been stable . The patient's ~condition is stable and appropriate for discharge from the emergency department.~ ~ ~The patient will pursue further outpatient evaluation with the primary care ~physi pepe or other designated or consulting physician as outlined in the ~discharge instructions. The patient and/or caregivers are agree able to this plan~of care and follow-up instructions have been ex plained in detail. The patient ~and/or caregivers have receive d these instructions in written format and have ~expressed an u nderstanding of the discharge instructions. The patient and /or ~caregivers are aware that any significant change in conditio n or worsening of ~symptoms should prompt an immediate return to [facility] or the closest emergency ~department or a call to [facility].~ ~RPT #: [id number]~END OF REPORT~ 04-19-2020 [facility] ([facility]) ED [facility]~ EMERGENCY PROVIDER [place] Medical Note REPORT~REPORT#:[id number] REPORT STATUS: Draft~DATE:04/19/20 TIME: Center (21834) 1057~ ~PATIENT: FAITH HYMAN UNIT #: [id number]~ ROOM/BED: [facility]~: 06/19 AGE: 39 SEX: PCP PHYS: No Primary or Family Physician~ADM DATE : 04/19/20 INI AUTH: Rashaad Simons~ED ADMIT DT: 04/19 LAST SIG: Rashaad Simons~REP SERV DT: 04/19 REP SERV TM: 1057~ * ALL edits or amendments must be made on the electronic/computer document *~ ~ ~ ~HPI GREET~ ~General~In itial Greet Date/Time 04/19/20 1043~ ~Clinical Note~Clinical Note~First Documented:~ Result Date Time~ Pulse Ox 100 04/19 10 41~ B/P 128/72 04/19 1041~ B/P Mean 90 04/19 1041~ O2 Delivery Nikky m air 04/19 1041~ Temp 36.6 04/19 1041~ Pulse 78 04/19 1041~ Resp 2 1 04/19 1041~ ~Last Documented:~ Result Date Time~ Pulse Ox 98 04/19 1315~ B/P 114/64 04/19 1315~ B/P Mean 82 04/19 1315~ Pul se 66 04/19 1315~ O2 Delivery Room air 04/19 1041~ Temp 36.6 04/19 1041~ Resp 21 04/19 1041~ ~ ~CC: flank pain x1 week~ ~HPI: This 31-year-old female presents complaint of bilateral flank p ain for the ~past week. She states that she has a history of UTIs a nd that for the past week~she has had bilateral flank pain b ut denies any manner of falling, twisting, or ~any injury to an y part of her body. She states that yesterday she began having ~burning and itching with urination and was concerned that she ma y have a UTI. ~She also states that she has felt slightly nause ous but has not vomited. She ~denies difficulty breathing, chest pain, vaginal bleeding, vaginal discharge, ~abdominal pain, pel amee pain.~ ~ ~ ~Review of Systems~ ~Constitutional: denies chills , fever, malaise~Skin: denies rash, color changes~Eyes: denies diplopia, blurry vision~ENT: denies rhinorrhea, ear pain ~Cardiovascular: denies chest pain, palpitations~Respiratory: d enies cough, hemoptysis, pleuritic pain, wheezing, shortness of ~breath~GI: denies abdominal pain, constipation, diarrhea, nausea, vomiting~: reports dysuria, denies hematuria, repo rts flank pain~Heme: denies easy bruising or bleeding~MSK: reports back pain~Neuro: denies dizziness, focal weakness, headache, co nfusion, altered LOC, ~syncope~Psych: denies suicidal ideatio n, desire to harm others or themselves~ ~All systems reviewed and a re otherwise negative unless noted~ ~Physical Exam~All vitals signs have been reviewed~ ~General: awake, alert, no acute distre ss, cooperative, appears uncomfortable~Head: normocephalic, atra umatic~Eyes: EOMI, normal conjunctiva, normal sclera, atraumatic~ ENT: airway patent, mucous membranes moist~Neck: atraumatic, trach ea midline~Cardio: heart rate regular, rhythm regular, no murmur s noted~Pulm/Chest: lung sounds equal bilaterally, lung sounds n ormal, no wheezes noted,~no rales noted~GI: soft, mildly tender to palpation diffusely, no distension~Skin: warm, dry, color shahnaz l for ethnicity, no rash~Neuro: oriented x3, speech normal, no motor deficits, no sensory deficits, CN II~-XII intact, pa franco ambulates independently with no gait abnormalitie s~ ~ ~Medical Decision Making:~This is a 39-year-old female wi th a past medical history relevant for UTIs who ~presents with co mplaint of dysuria and bilateral flank pain. She denies any ~h istory of trauma or injury to her back or any part of her body. Sh e is ~afebrile, non-tachycardic, not hypoxic, normotens zunilda on initial examination. ~She endorses nausea but no vomiting. W e will therefore proceed with urinalysis ~and evaluati on and symptomatic treatment in the ER.~ ~Review patient's records through the [employer] system reveals that patient has a ~hist ory of lumbar radiculopathy, chronic low back pain, b orderline personality ~disorder, PTSD, anxiety. She had a pos itive UDS for methamphetamine and ~cannabinoid usage on 04/08/2020 at [facility] in [place]. Setting ~with p atient and informed her of laboratory results and patient replies ~understanding, stating she felt comfortable going home with a wait -and-see ~prescription for Keflex as well as pain nausea medicatio ns. Patient is afebrile~, non-tachycardic, normotensive, not hypo xic, resting comfortably in exam bed, ~nontoxic-appearing, stable f or discharge at this time.~ ~ ~Data Interpretation:~All ordered lab oratory and radiographic studies have been reviewed and ~conside red in the medical decision making including ED course, treatment p hilary, ~differential diagnosis, and disposition of the patie nt. ~ ~Mid-level Attestation:~I Johny PA-C, hav e evaluated and treated this patient independently in ~a manner consistent with my level of training and licensure.~ ~Edwin valenciaent:~Parts of this medical record were created with voice dictation software. All ~efforts were made to review the gramma r, syntax, and vocabulary of this medical ~record and to edit and correct as necessary to reflect the words and actions of ~this medical encounter as accurately as possible. This medical re cord was ~dictated in a noisy patient care environment. Further more, diagnostic data may ~be automatically imported into this do cument after patient disposition and ~medical decision chilo maki~ ~Past Medical History~Stated Complaint FEVER/FLANK PA IN~Allergies~Coded Allergies:~No Known Allergies (04/19/20 )~ ~ ~COURSE~ ~Data~Diagnostics~Laboratory Tests:~ 04/19~ 1049 1049~ Urines~ Urine pH (5.0 - 7.0) 6.0~ Ur Sp ecific [place] (1.015 - 1.025) 1.009 L~ Urine Protein (NEGATIVE ) NEGATIVE~ Urine Ketones (NEGATIVE) NEGATIVE~ Urine Blood (NEGAT ZUNILDA) NEGATIVE~ Urine Nitrite (NEGATIVE) NEGATIVE~ Urine Bili rea (NEGATIVE) NEGATIVE~ Urine Urobilinogen (NORMAL) NORMAL~ Ur Leukocyte Esterase (NEGATIVE) 2+ *~ Urine RBC (0 - 3 rbc/h pf) 0-3~ Urine WBC (0 - 5 wbc/hpf) 2-5~ Ur Epithelial Cells (0 - 1+ epi/hpf) 2+ *~ Urine Bacteria (NEGATIVE) 2+ *~ Vol Urine Mar trifuged ((12mL STD) mL) 6.0~ Urine Glucose (NEGATIVE) NEGATIVE~ Urine Test (NEGATIVE) NEGATIVE~ ~ ~ ~Med Data~Med Data~Medication(s) Ordered:~Central Nervous System Agents~ Sig/Marion Start time Last~ Medication Dose Route Stop Time Status Admin~ Morphine Sulfate 4 MG X1ED STA 04/19 1105 DC 04/19~ IV 1106 1220~ Hydrocodone Bitart/ 1 TABLET X1ED STA 04/19 1057 CA N~ Acetaminophen PO 04/19 1058~ Ketorolac 15 MG X1ED STA 04/19 10 57 CAN~ Tromethamine IM 04/19 1058~ ~Electrolytic, Caloric, And Kaushik~ Sig/Marion Start time Last~ Medication Dose Route Stop Time S tatus Admin~ Sodium Chloride 1,000 ML BOLUS STA 04/19 1104 DC 04/19~ IV 04/19 1203 1206~ ~Gastrointestinal Drugs~ Sig/Marion Start time Last~ Medication Dose Route Stop Time Status Admin~ Onda nsetron HCl 4 MG X1ED STA 04/19 1105 DC 04/19~ IV 04/19 1106 1220 ~ Ondansetron HCl 4 MG X1ED STA 04/19 1057 CAN~ PO 04/19 1058~ ~ ~ ~Patient Discharge Departure~ ~Vital Signs/Condition~Vital Signs~First Documented:~ Result Date Time~ Pulse Ox 100 04/19 10 41~ B/P 128/72 04/19 1041~ B/P Mean 90 04/19 1041~ O2 Delivery Nikky m air 04/19 1041~ Temp 36.6 04/19 1041~ Pulse 78 04/19 1041~ Resp 2 1 04/19 104~ ~Last Documented:~ Result Date Time~ Pulse Ox 98 04/19 1315~ B/P 114/64 04/19 1315~ B/P Mean 82 04/19 1315~ Pul se 66 04/19 1315~ O2 Delivery Room air 04/19 1041~ Temp 36.6 04/19 1041~ Resp 21 04/19 1041~ ~All vital signs available at the time of this entry have been reviewed.~ ~ ~Clinical Impression~ Clinical Impression~Primary Impression: Lumbar pain~Secondary Impre ssions: Dysuria, Flank pain~ ~Disposition Decision~Discharge~ )( Discharged to Home Yes~ )( Time 1251~ )( Date 04/19/20~ ~Discha rge/Care Plan~Counseled Regarding Diagnosis, Lab results, Presc riptions, Need for follow-up, ~When to return to ED~Prescr iptions~keflex~norco 5mg #12~zofran odt~ Discharge Note~I have s poken with the patient and/or caregivers. I have explained the patient's~condition, diagnoses and treatment plan based on t he information available to me~at this time. I have answered the pa tient's and/or caregiver's questions and ~addressed any concerns. The patient and/or caregivers have as good an ~understandi ng of the patient's diagnosis, condition and treatment plan as can be~expected at this point. The vital signs have been stable . The patient's ~condition is stable and appropriate for discharge from the emergency department.~ ~ ~The patient will pursue further outpatient evaluation with the primary care ~physi pepe or other designated or consulting physician as outlined in the ~discharge instructions. The patient and/or caregivers are agree able to this plan~of care and follow-up instructions have been ex plained in detail. The patient ~and/or caregivers have receive d these instructions in written format and have ~expressed an u nderstanding of the discharge instructions. The patient and /or ~caregivers are aware that any significant change in conditio n or worsening of ~symptoms should prompt an immediate return to [facility] or the closest emergency ~department or a call to 911.~ ~RPT #: [id number]~END OF REPORT~ 04-19-2020 [facility] ([facility]) ED [facility]~ EMERGENCY PROVIDER [place] Medical Note REPORT~REPORT#:[id number] REPORT STATUS: Signed~DATE:04/19/20 TIME: Center (64612) 1057~ ~PATIENT: FAITH HYMAN UNIT #: [id number]~ ROOM/BED: [facility]~: 06[facility]19 AGE: 39 SEX: PCP PHYS: No Primary or Family Physician~ADM DATE : 04/19/20 INI AUTH: Rashaad Simons~ED ADMIT DT: 04/19 LAST SIG: Rashaad Simons~REP SERV DT: 04/19 REP SERV TM: 1057~ * ALL edits or amendments must be made on the electronic/computer document *~ ~ ~ ~HPI GREET~ ~General~In itial Greet Date/Time 04/19/20 1043~ ~Clinical Note~Clinical Note~First Documented:~ Result Date Time~ Pulse Ox 100 04/19 10 41~ B/P 128/72 04/19 1041~ B/P Mean 90 04/19 1041~ O2 Delivery Nikky m air 04/19 1041~ Temp 36.6 04/19 1041~ Pulse 78 04/19 1041~ Resp 2 1 04/19 1041~ ~Last Documented:~ Result Date Time~ Pulse Ox 98 04/19 1315~ B/P 114/64 04/19 1315~ B/P Mean 82 04/19 1315~ Pul se 66 04/19 1315~ O2 Delivery Room air 04/19 1041~ Temp 36.6 04/19 1041~ Resp 21 04/19 1041~ ~ ~CC: flank pain x1 week~ ~HPI: This 31-year-old female presents complaint of bilateral flank p ain for the ~past week. She states that she has a history of UTIs a nd that for the past week~she has had bilateral flank pain b ut denies any manner of falling, twisting, or ~any injury to an y part of her body. She states that yesterday she began having ~burning and itching with urination and was concerned that she ma y have a UTI. ~She also states that she has felt slightly nause ous but has not vomited. She ~denies difficulty breathing, chest pain, vaginal bleeding, vaginal discharge, ~abdominal pain, pel amee pain.~ ~ ~ ~Review of Systems~ ~Constitutional: denies chills , fever, malaise~Skin: denies rash, color changes~Eyes: denies diplopia, blurry vision~ENT: denies rhinorrhea, ear pain ~Cardiovascular: denies chest pain, palpitations~Respiratory: d enies cough, hemoptysis, pleuritic pain, wheezing, shortness of ~breath~GI: denies abdominal pain, constipation, diarrhea, nausea, vomiting~: reports dysuria, denies hematuria, repo rts flank pain~Heme: denies easy bruising or bleeding~MSK: reports back pain~Neuro: denies dizziness, focal weakness, headache, co nfusion, altered LOC, ~syncope~Psych: denies suicidal ideatio n, desire to harm others or themselves~ ~All systems reviewed and a re otherwise negative unless noted~ ~Physical Exam~All vitals signs have been reviewed~ ~General: awake, alert, no acute distre ss, cooperative, appears uncomfortable~Head: normocephalic, atra umatic~Eyes: EOMI, normal conjunctiva, normal sclera, atraumatic~ ENT: airway patent, mucous membranes moist~Neck: atraumatic, trach ea midline~Cardio: heart rate regular, rhythm regular, no murmur s noted~Pulm/Chest: lung sounds equal bilaterally, lung sounds n ormal, no wheezes noted,~no rales noted~GI: soft, mildly tender to palpation diffusely, no distension~Skin: warm, dry, color shahnaz l for ethnicity, no rash~Neuro: oriented x3, speech normal, no motor deficits, no sensory deficits, CN II~-XII intact, pa franco ambulates independently with no gait abnormalitie s~ ~ ~Medical Decision Making:~This is a 39-year-old female wi th a past medical history relevant for UTIs who ~presents with co mplaint of dysuria and bilateral flank pain. She denies any ~h istory of trauma or injury to her back or any part of her body. Sh e is ~afebrile, non-tachycardic, not hypoxic, normotens zunilda on initial examination. ~She endorses nausea but no vomiting. W e will therefore proceed with urinalysis ~and evaluati on and symptomatic treatment in the ER.~ ~Review patient's records through the [employer] system reveals that patient has a ~hist ory of lumbar radiculopathy, chronic low back pain, b orderline personality ~disorder, PTSD, anxiety. She had a pos itive UDS for methamphetamine and ~cannabinoid usage on 04/08/2020 at [facility] in [place]. Setting ~with p atient and informed her of laboratory results and patient replies ~understanding, stating she felt comfortable going home with a wait -and-see ~prescription for Keflex as well as pain nausea medicatio ns. Patient is afebrile~, non-tachycardic, normotensive, not hypo xic, resting comfortably in exam bed, ~nontoxic-appearing, stable f or discharge at this time.~ ~ ~Data Interpretation:~All ordered lab oratory and radiographic studies have been reviewed and ~conside red in the medical decision making including ED course, treatment p hilary, ~differential diagnosis, and disposition of the patie nt. ~ ~Mid-level Attestation:~I Johny PA-C, hav e evaluated and treated this patient independently in ~a manner consistent with my level of training and licensure.~ ~Edwin Santana tement:~Parts of this medical record were created with voice dictation software. All ~efforts were made to review the gramma r, syntax, and vocabulary of this medical ~record and to edit and correct as necessary to reflect the words and actions of ~this medical encounter as accurately as possible. This medical re cord was ~dictated in a noisy patient care environment. Further more, diagnostic data may ~be automatically imported into this do cument after patient disposition and ~medical decision chilo maki~ ~Past Medical History~Stated Complaint FEVER/FLANK PA IN~Allergies~Coded Allergies:~No Known Allergies (04/19/20 )~ ~ ~COURSE~ ~Data~Diagnostics~Laboratory Tests:~ 04/19~ 1049 1049~ Urines~ Urine pH (5.0 - 7.0) 6.0~ Ur Sp ecific [place] (1.015 - 1.025) 1.009 L~ Urine Protein (NEGATIVE ) NEGATIVE~ Urine Ketones (NEGATIVE) NEGATIVE~ Urine Blood (NEGAT ZUNILDA) NEGATIVE~ Urine Nitrite (NEGATIVE) NEGATIVE~ Urine Bili rea (NEGATIVE) NEGATIVE~ Urine Urobilinogen (NORMAL) NORMAL~ Ur Leukocyte Esterase (NEGATIVE) 2+ *~ Urine RBC (0 - 3 rbc/h pf) 0-3~ Urine WBC (0 - 5 wbc/hpf) 2-5~ Ur Epithelial Cells (0 - 1+ epi/hpf) 2+ *~ Urine Bacteria (NEGATIVE) 2+ *~ Vol Urine Mar trifuged ((12mL STD) mL) 6.0~ Urine Glucose (NEGATIVE) NEGATIVE~ Urine Test (NEGATIVE) NEGATIVE~ ~ ~ ~Med Data~Med Data~Medication(s) Ordered:~Central Nervous System Agents~ Sig/Marion Start time Last~ Medication Dose Route Stop Time Status Admin~ Morphine Sulfate 4 MG X1ED STA 04/19 1105 DC 04/19~ IV 110 1220~ Hydrocodone Bitart/ 1 TABLET X1ED STA 04/19 1057 CA N~ Acetaminophen PO 04/19 1058~ Ketorolac 15 MG X1ED STA 04/19 10 57 CAN~ Tromethamine IM 04/19 1058~ ~Electrolytic, Caloric, And Kaushik~ Sig/Marion Start time Last~ Medication Dose Route Stop Time S tatus Admin~ Sodium Chloride 1,000 ML BOLUS STA 04/19 1104 DC 04/19~ IV 04/19 1203 1206~ ~Gastrointestinal Drugs~ Sig/Marion Start time Last~ Medication Dose Route Stop Time Status Admin~ Onda nsetron HCl 4 MG X1ED STA 04/19 1105 DC 04/19~ IV 04/19 1106 1220 ~ Ondansetron HCl 4 MG X1ED STA 04/19 1057 CAN~ PO 04/19 1058~ ~ ~ ~Patient Discharge Departure~ ~Vital Signs/Condition~Vital Signs~First Documented:~ Result Date Time~ Pulse Ox 100 04/19 10 41~ B/P 128/72 04/19 1041~ B/P Mean 90 04/19 1041~ O2 Delivery Nikky m air 04/19 1041~ Temp 36.6 04/19 1041~ Pulse 78 04/19 1041~ Resp 2 1 04/19 1041~ ~Last Documented:~ Result Date Time~ Pulse Ox 98 04/19 1315~ B/P 114/64 04/19 1315~ B/P Mean 82 04/19 1315~ Pul se 66 04/19 1315~ O2 Delivery Room air 04/19 1041~ Temp 36.6 04/19 1041~ Resp 21 04/19 1041~ ~All vital signs available at the time of this entry have been reviewed.~ ~ ~Clinical Impression~ Clinical Impression~Primary Impression: Lumbar pain~Secondary Impre ssions: Dysuria, Flank pain~ ~Disposition Decision~Discharge~ )( Discharged to Home Yes~ )( Time 1251~ )( Date 04/19/20~ ~Discha rge/Care Plan~Counseled Regarding Diagnosis, Lab results, Presc riptions, Need for follow-up, ~When to return to ED~Prescr iptions~keflex~norco 5mg #12~zofran odt~ Discharge Note~I have s poken with the patient and/or caregivers. I have explained the patient's~condition, diagnoses and treatment plan based on t he information available to me~at this time. I have answered the pa tient's and/or caregiver's questions and ~addressed any concerns. The patient and/or caregivers have as good an ~understandi ng of the patient's diagnosis, condition and treatment plan as can be~expected at this point. The vital signs have been stable . The patient's ~condition is stable and appropriate for discharge from the emergency department.~ ~ ~The patient will pursue further outpatient evaluation with the primary care ~physi pepe or other designated or consulting physician as outlined in the ~discharge instructions. The patient and/or caregivers are agree able to this plan~of care and follow-up instructions have been ex plained in detail. The patient ~and/or caregivers have receive d these instructions in written format and have ~expressed an u nderstanding of the discharge instructions. The patient and /or ~caregivers are aware that any significant change in conditio n or worsening of ~symptoms should prompt an immediate return to [facility] or the closest emergency ~department or a call to 911.~ ~ ~Elect ronically Signed by Rashaad Simons on 04/19/20 at 163 5~RPT #: [id number]~END OF REPORT~ 04-19-2020 [facility] ([facility]) ED [facility]~ EMERGENCY PROVIDER [place] Medical Note REPORT~REPORT#:[id number] REPORT STATUS: FSign~DATE:04/19/20 TIME: Center (97003) 105~ ~PATIENT: FAITH HYMAN UNIT #: [id number]~ ROOM/BED: [facility]19 AGE: 39 SEX: PCP PHYS: No Primary or Family Physician~ADM DATE : 04/19/20 INI AUTH: Rashaad Simons~ED ADMIT DT: 04/19 LAST SIG: Gregg Driscoll MD~REP SERV REP SERV TM: 1 057~ * ALL edits or amendments must be made on the electron ic/computer document *~ ~ ~ ~HPI GREET~ ~General~Initial Greet Date /Time 04/19/20 1043~ ~Clinical Note~Clinical Note~First Docu mented:~ Result Date Time~ Pulse Ox 100 04/19 1041~ B/P 128/72 1041~ B/P Mean 90 04/19 1041~ O2 Delivery Room air 04/19 1041~ Temp 36.6 04/19 1041~ Pulse 78 04/19 1041~ Resp 21 04/19 1041~ ~Las t Documented:~ Result Date Time~ Pulse Ox 98 04/19 1315~ B/P 114/6 4 04/19 1315~ B/P Mean 82 04/19 1315~ Pulse 66 04/19 1315~ O2 Del uyen Room air 04/19 1041~ Temp 36.6 04/19 1041~ Resp 21 04/19 104 1~ ~ ~CC: flank pain x1 week~ ~HPI: This 31-year-old female pre sents complaint of bilateral flank pain for the ~past week . She states that she has a history of UTIs and that for the past w [place]~she has had bilateral flank pain but denies any manner of fal ling, twisting, or ~any injury to any part of her body. She sta jean claude that yesterday she began having ~burning and itching with urination and was concerned that she may have a UTI. ~She also stat es that she has felt slightly nauseous but has not vomited. She ~denies difficulty breathing, chest pain, vaginal bleeding , vaginal discharge, ~abdominal pain, pelvic pain.~ ~ ~ ~Rev iew of Systems~ ~Constitutional: denies chills, fever, malaise~Skin: denies rash, color changes~Eyes: denies diplopia, bl urry vision~ENT: denies rhinorrhea, ear pain~Cardiovascular: de nies chest pain, palpitations~Respiratory: denies cough, hemoptysis, pleuritic pain, wheezing, shortness of ~breath~GI : denies abdominal pain, constipation, diarrhea, nausea, vomitin g~: reports dysuria, denies hematuria, reports flank pain~He me: denies easy bruising or bleeding~MSK: reports back pain~Neuro: denies dizziness, focal weakness, headache, confusion, altered LOC, ~syncope~Psych: denies suicidal ideation, desire to harm other s or themselves~ ~All systems reviewed and are otherwise nega tive unless noted~ ~Physical Exam~All vitals signs have be en reviewed~ ~General: awake, alert, no acute distress, brittany ative, appears uncomfortable~Head: normocephalic, atra umatic~Eyes: EOMI, normal conjunctiva, normal sclera, atraumatic~ ENT: airway patent, mucous membranes moist~Neck: atraumatic, trach ea midline~Cardio: heart rate regular, rhythm regular, no murmur s noted~Pulm/Chest: lung sounds equal bilaterally, lung sounds n ormal, no wheezes noted,~no rales noted~GI: soft, mildly tender to palpation diffusely, no distension~Skin: warm, dry, color shahnaz l for ethnicity, no rash~Neuro: oriented x3, speech normal, no motor deficits, no sensory deficits, CN II~-XII intact, pa franco ambulates independently with no gait abnormalitie s~ ~ ~Medical Decision Making:~This is a 39-year-old female wi th a past medical history relevant for UTIs who ~presents with co mplaint of dysuria and bilateral flank pain. She denies any ~h istory of trauma or injury to her back or any part of her body. e is ~afebrile, non-tachycardic, not hypoxic, normotens zunilda on initial examination. ~She endorses nausea but no vomiting. W e will therefore proceed with urinalysis ~and evaluati on and symptomatic treatment in the ER.~ ~Review patient's records through the [facility] system reveals that patient has a ~hist ory of lumbar radiculopathy, chronic low back pain, b orderline personality ~disorder, PTSD, anxiety. She had a pos itive UDS for methamphetamine and ~cannabinoid usage on 04/08/2020 at [facility] in [place]. Setting ~with p atient and informed her of laboratory results and patient replies ~understanding, stating she felt comfortable going home with a wait -and-see ~prescription for Keflex as well as pain nausea medicatio ns. Patient is afebrile~, non-tachycardic, normotensive, not hypo xic, resting comfortably in exam bed, ~nontoxic-appearing, stable f or discharge at this time.~ ~ ~Data Interpretation:~All ordered lab oratory and radiographic studies have been reviewed and ~conside red in the medical decision making including ED course, treatment p hilary, ~differential diagnosis, and disposition of the patie nt. ~ ~Mid-level Attestation:~I Johny PA-C, hav e evaluated and treated this patient independently in ~a manner consistent with my level of training and licensure.~ ~Edwin mcgill:~Parts of this medical record were created with voice dictation software. All ~efforts were made to review the gramma r, syntax, and vocabulary of this medical ~record and to edit and correct as necessary to reflect the words and actions of ~this medical encounter as accurately as possible. This medical re cord was ~dictated in a noisy patient care environment. Further more, diagnostic data may ~be automatically imported into this do cument after patient disposition and ~medical decision chilo maki~ ~Past Medical History~Stated Complaint FEVER/FLANK PA IN~Allergies~Coded Allergies:~No Known Allergies (04/19/20 )~ ~ ~COURSE~ ~Data~Diagnostics~Laboratory Tests:~ 04/19~ 1049 1049~ Urines~ Urine pH (5.0 - 7.0) 6.0~ Ur Sp ecific [place] (1.015 - 1.025) 1.009 L~ Urine Protein (NEGATIVE ) NEGATIVE~ Urine Ketones (NEGATIVE) NEGATIVE~ Urine Blood (NEGAT ZUNILDA) NEGATIVE~ Urine Nitrite (NEGATIVE) NEGATIVE~ Urine Bili rea (NEGATIVE) NEGATIVE~ Urine Urobilinogen (NORMAL) NORMAL~ Ur Leukocyte Esterase (NEGATIVE) 2+ *~ Urine RBC (0 - 3 rbc/h pf) 0-3~ Urine WBC (0 - 5 wbc/hpf) 2-5~ Ur Epithelial Cells (0 - 1+ epi/hpf) 2+ *~ Urine Bacteria (NEGATIVE) 2+ *~ Vol Urine Mar trifuged ((12mL STD) mL) 6.0~ Urine Glucose (NEGATIVE) NEGATIVE~ Urine Test (NEGATIVE) NEGATIVE~ ~ ~ ~Med Data~Med Data~Medication(s) Ordered:~Central Nervous System Agents~ Sig/Mraion Start time Last~ Medication Dose Route Stop Time Status Admin~ Morphine Sulfate 4 MG X1ED STA 04/19 1105 DC 04/19~ IV 110 1220~ Hydrocodone Bitart/ 1 TABLET X1ED STA 04/19 1057 CA N~ Acetaminophen PO 04/19 1058~ Ketorolac 15 MG X1ED STA 04/19 10 57 CAN~ Tromethamine IM 04/19 1058~ ~Electrolytic, Caloric, And Kaushik~ Sig/Marion Start time Last~ Medication Dose Route Stop Time S tatus Admin~ Sodium Chloride 1,000 ML BOLUS STA 04/19 1104 DC 04/19~ IV 04/19 1203 1206~ ~Gastrointestinal Drugs~ Sig/Marion Start time Last~ Medication Dose Route Stop Time Status Admin~ Onda nsetron HCl 4 MG X1ED STA 04/19 1105 DC 04/19~ IV 04/19 1106 1220 ~ Ondansetron HCl 4 MG X1ED STA 04/19 1057 CAN~ PO 04/19 1058~ ~ ~ ~Patient Discharge Departure~ ~Vital Signs/Condition~Vital Signs~First Documented:~ Result Date Time~ Pulse Ox 100 04/19 10 41~ B/P 128/72 04/19 1041~ B/P Mean 90 04/19 1041~ O2 Delivery Nikky m air 04/19 1041~ Temp 36.6 04/19 1041~ Pulse 78 04/19 1041~ Resp 2 1 04/19 1041~ ~Last Documented:~ Result Date Time~ Pulse Ox 98 04/19 1315~ B/P 114/64 04/19 1315~ B/P Mean 82 04/19 1315~ Pul se 66 04/19 1315~ O2 Delivery Room air 04/19 1041~ Temp 36.6 04/19 1041~ Resp 21 04/19 1041~ ~All vital signs available at the time of this entry have been reviewed.~ ~ ~Clinical Impression~ Clinical Impression~Primary Impression: Lumbar pain~Secondary Impre ssions: Dysuria, Flank pain~ ~Disposition Decision~Discharge~ )( Discharged to Home Yes~ )( Time 1251~ )( Date 04/19/20~ ~Discha rge/Care Plan~Counseled Regarding Diagnosis, Lab results, Presc riptions, Need for follow-up, ~When to return to ED~Prescr iptions~keflex~norco 5mg #12~zofran odt~ Discharge Note~I have s poken with the patient and/or caregivers. I have explained the patient's~condition, diagnoses and treatment plan based on t he information available to me~at this time. I have answered the pa tient's and/or caregiver's questions and ~addressed any concerns. The patient and/or caregivers have as good an ~understandi ng of the patient's diagnosis, condition and treatment plan as can be~expected at this point. The vital signs have been stable . The patient's ~condition is stable and appropriate for discharge from the emergency department.~ ~ ~The patient will pursue further outpatient evaluation with the primary care ~physi pepe or other designated or consulting physician as outlined in the ~discharge instructions. The patient and/or caregivers are agree able to this plan~of care and follow-up instructions have been ex plained in detail. The patient ~and/or caregivers have receive d these instructions in written format and have ~expressed an u nderstanding of the discharge instructions. The patient and /or ~caregivers are aware that any significant change in conditio n or worsening of ~symptoms should prompt an immediate return to [facility] or the closest emergency ~department or a call to 911.~ ~ ~Elect ronically Signed by Rashaad Simons on 04/19/20 at 163 5~ at 1649~ T #: [phone]~END OF REPORT~ Evaluation No Assessments Information Available A scension Via note [facility] ([id number]) History general Narrative - Reported Type Medical Borderline personality diso rder History Medical PTSD History Medical ADHD History Medical L4-5 pain (resolved) History Medical Gestational diabetes History [facility] ([id number]) History general Narrative - Reported Type Description Date Medical History HBP Medical History Back probl ems Medical History Maternal d rug dependence complicating , childbirth, or the puerperium, unspecified as to episode of care [facility] ([id number]) Note Reason For Exam\.br\Abdominal pain, generalized\.br\ \.br\REPORT\.br\PROCEDURE: CT Abdomen Pelvis without contrast.\.br\ \.br\TECHNIQUE: Multiple contiguous axial images were obtained through the abdomen\.br\and pelvis without the use of intravenous contrast. All CT scans use one or more\.br\of the following dose optimizing techniques: automated exposure control, MA\.br\and/or KvP adjustment based on a patient size and exam type, or iterative\.br\reconstruction.\.br\ \.br\INDICATION: Abdominal pain.\.br\ \.br\Comparison made with prior examination of 10/12/2019.\.br\ \.br\FINDINGS: The heart size is normal. The lung bases are clear. The liver is\.br\normal in size without focal lesions. Gallbladder is unremarkable. No biliary\.br\duct dilatation. Spleen is normal. The pancreas and adrenal glands are\.br\unremarkable. There is no evidence of nephrolithiasis or obstructive uropathy.\.br\Aorta is nonaneurysmal. Bowel gas pattern is nonspecific. No free air. No\.br\ascites. No focal inflammatory changes. Bladder is normal. No pelvic mass,\.br\adenopathy or free fluid. There are numerous calcified phleboliths in the\.br\pelvis. It is difficult to completely exclude a distal ureteral sto ne.\.br\ \.br\IMPRESSION: Multiple calcified phleboliths in the pelvis. Difficul t to exclude\.br\the distal or ureteral ureteral stone although there is no over t evidence of\.br\hydronephrosis.\.br\ \.br\No other acute abnormality in the ab domen or pelvis.\.br\ \.br\\.br\Dictated on workstation:[id number]\.br\ \.b r\Signature Line\.br\ FINAL \.br\ \.br\DICTATED BY: VINH JONAS II, MD\.br\DICTATED DT/TM: 12/24/2019 7:40 AM\.br\SIGNED BY: VINH JONAS II, MD\ .br\SIGNED (ELECTRONIC SIGNATURE): 12/24/2019 7:45 AM\.br\ \.br\TECHNOLOGIST: VIKTOR HARMAN RT(R)(CT)\.br\ \.br\ [facility] ([id number]) Advance Directives Directive Response Recor ded Date/Time Advance Directives No 2:43pm Health Care Power of Ticket Clerk No 09/19/15 2:43pm Organ Donor Yes 09/19/15 2:43pm Resuscitation Status Full Code 09/19/15 2:43pm Directive Response Recor ded Date/Time Advance Directives No 6:44pm Health Care Power of Ticket Clerk No 08/14/14 6:44pm Organ Donor Yes 08/14/14 6:44pm Resuscitation Status Full Code 08/14/14 6:44pm Directive Response Recor ded Date/Time Advance Directives No 10:24pm Health Care Power of Ticket Clerk No 08/28/14 10:24pm Organ Donor Yes 08/28/14 10:24pm Resuscitation Status Full Code 08/28/14 10:24pm Resuscitation Status Full Code 08/28/14 8:48pm Advance Directive Response Recorded Date/Time Advance Directives No Ma 2019 2:24pm Health Care Power of Ticket Clerk No September 19, 2015 2:43pm Organ Donor [...] Complaint Psych/Social Disorde r Reason for Visit [id number] Additional Source Comments This clinical document has been generated using [employer] software that has been certified by the Office of the National Coordinator for Health Information Technology (ONC 15.99.04.3023.Diam.31.00.0.307661) and the National Committee for Job Counselor (NCQA, as an eMeasure certified technology). FOR [...] BASED ON T HE PRIMARY CLINICAL RECORDS. [employer] provides no warranty or guara ntee of the accuracy or completeness of information in this document.The followi ng information is based on time limited clinical information UNRECOGNIZED CONTENT PROVIDED BELOW FOR UNRECOGNIZED SECTION REASON FOR VISIT OAP-VkhPWF-NyuTCS-NxfIAW-GayAGS-KspWER-Migestablish care and BHanxiety medsMAPpa in right sideTest resultsDCF Reportstate insurance inquiryMed refillMessage to bon [place] [facility]
--- OUTSIDE RECORDS SUMMARY | 2020-06-18 21:44 | XMS REPORT ---
Author Author Faith LEE Organization [facility] Address [address] [place] [address] Care Team Providers [facility] Former Name Role Phone RONALDO LEEY Unavailable PROBLEMS Type Condition ICD9-CM Code AZL01-PE Code Onset Dates Condition S tatus SNOMED Code Problem Generalized abdominal pain R10.84 Act yuriy 411120920 Problem Borderline personality disorder in adult F60.3 Active 33987195 Problem Drowsiness R40.0 Active 226317814 Problem Constipation, unspecified constipation type K59.00 Active 19616243 Problem Drug abuse F19.10 Active 53074067 Problem Bipolar affective disorder, currently depressed, moderate F31.32 Active 735224551 Problem Seizure disorder G40.909 Active 128 333925 ALLERGIES No Information ENCOUNTERS Encounter Location Date Diagnosis [facility] [address] [facility] [id number] [address] [address] 14 May, [address] [address] 25 J un, [address] [address] 22 J un, 2019 Seizure disorder G40.[address] [address] 15 J un, 2019 Seizure-like activity R56.9 and Drowsiness R40.0 [facility] [address] [id number] [place], [place] [address] Apr, [facility] [address] [id number] [place], [place] [address] Apr, [facility] [address] [id number] [place] [address] 03 Apr, 2020 Bipolar affective disorder, currently depressed, moderate F31.32 ; Borderline personality disorder in adult F60.3 ; Flank pain R10.9 ; Seizure disorder G40.909 and Bizarre behavior R46.2 [facility] [address] [facility] [id number] [address] [place] [address] 14 Feb, 2020 [facility] [address] [id number] [place], [place] [address] 14 Feb, 2020 Sore throat J02.9 and Dental infection K04.7 [facility] [address] [id number] [place] [address] Feb, [facility] [address] [facility] [id number] [address] [place] [address] Jul, Generalized abdominal pain R 10.84 ; Constipation, unspecified constipation type K59.00 and Drug abuse F19.10 [facility] [address] [id number] [address] [place] [id number] Jan, Encounter for dental examina tion Z01.20 and Dental caries K02.9 [facility] [address] [facility] [id number] [address] [place] [address] Feb, [facility] [address] [facility] [id number] [address] [place] [address] Feb, [facility] [address] [facility] [id number] [address] [place] [address] Sep, [facility] [address] [facility] [id number] [address] [place] [address] Sep, [facility] [address] [facility] [id number] [address] [place] [address] Aug, [facility] [address] [facility] [id number] [address] [place] [address] Aug, [facility] [address] [facility] [id number] [address] [place] [phone] Aug, [facility] [address] [facility] [id number] [address] [place] [id number] 30 Jul, 2014 [facility] [address] [id number] [facility] [place] [address] 29 Sep, 2013 [facility] [address] [id number] [facility] [place] [address] 29 Sep, 2013 [facility] [address] [id number] [facility] [place] [address] 22 Sep, 2013 [facility] [address] [id number] [facility] [place] [address] 22 Sep, 2013 [facility] [address] [id number] [facility] [place] [address] 22 Sep, 2013 [facility] [address] [id number] [address] [place] [address], [place] [address] 22 Sep, 2013 [facility] [address] [id number] [address] [place] [address], [place] [address] 17 Sep, 2013 [facility] [address] [id number] [address] [place] [address], [place] [address] 17 Sep, 2013 [facility] [address] [id number] [address] [place] [address], [place] [address] 15 Sep, 2013 [facility] [address] [id number] [address] [place] [address], [place] [address] 15 Sep, 2013 [facility] [address] [id number] [address] [place] [address], [place] [address] 10 Sep, 2013 [facility] [address] [id number] [address] [place] [address], [place] [address] 10 Sep, 2013 [facility] [address] [id number] [address] [place] [address], [place] [address] 05 Sep, 2013 [facility] [address] [id number] [address] [place] [address], [place] [address] 04 Sep, 2013 [facility] [address] [id number] [address] [place] [address], [place] [address] 03 Sep, 2013 [facility] [address] [id number] [address] [place] [address], [place] [address] Jul, [facility] [address] [id number] [address] [place] [address], [place] [address] Jul, [facility] [address] [id number] [address] [place] [address], [place] [address] Jun, [facility] [address] [id number] [address] [place] [address], [place] [address] Jun, [facility] [address] [id number] [address] [place] [address], [place] [address] Jun, [facility] [address] [id number] [address] [place] [address], [place] [address] Jun, [facility] [address] [id number] [address] [place] [address], [place] [address] May, [facility] [address] [id number] [address] [place] [address], [place] [address] May, [facility] [address] [id number] [address] [place] [address], [place] [address] May, [facility] [address] [id number] [address] [place] [address], [place] [address] May, [facility] [address] [id number] [address] [place] [address], [place] [address] Apr, [facility] [address] [id number] [address] [place] [address], [place] [address] Apr, [facility] [address] [id number] [address] [place] [address], [place] [address] Aug, [facility] [address] [id number] [address] [place] [address], [place] [address] Aug, [facility] [address] [id number] [address] [place] [address], [place] [address] Aug, [facility] [address] [id number] [address] [place] [address], [place] [address] Aug, [facility] [address] [id number] [address] [place] [address] Aug, [facility] [address] [facility] [id number] [address] [place] [address] Aug, [facility] [address] [facility] [id number] [address] [place] [address] Jul, [facility] [address] [facility] [id number] [address] [place] [address] Jun, [facility] [address] [facility] [id number] [address] [place] [address] Aug, IMMUNIZATIONS No Known Immunizations SOCIAL HISTORY [...] puerperium, unspecified as to episode of care Medical History Seizures Medical History ptsd Medical History Border line personality disorder
--- OUTSIDE RECORDS SUMMARY | 2020-06-18 21:44 | XMS REPORT ---
Author Author Faith LEE Organization [facility] Address [address] [place] [address] Care Team Providers Care Clerk Of Superior Court Name Role Phone OMAR LEEHANY Unavailable PROBLEMS Type Condition ICD9-CM Code LXU68-RO Code Onset Dates Condition S tatus SNOMED Code Problem Generalized abdominal pain R10.84 Act yuriy 416347474 Problem Constipation, unspecified constipation type K59.00 Active 97543553 Problem Drowsiness R40.0 Active 941790189 Problem Anxiety F41.9 Active 44651693 Problem Drug abuse F19.10 Active 32049550 Problem Bipolar affective disorder, currently depressed, moderate F31.32 Active 471199345 Problem Seizure disorder G40.909 Active 128 819397 Problem Borderline personality disorder in adult F60.3 Active 41957395 ALLERGIES No Information ENCOUNTERS Encounter Location Date Diagnosis [facility] [address] [facility] [id number] [address] [place] [id number] May, [facility] [address] [facility] [id number] [address] [place] [address] [id number] May, [facility] [address] [place] [address] [id number] [address] [place] [address] [id number] Apr, Caries K02.9 and Dental exam ination Z01.[address] [address] 25 J un, 2020 Seizure-like activity R56.9 ; Hx of borderline personality disorder Z86.59 ; Anxiety F41.9 ; Costovertebral angle tenderness M54.9 ; Diffuse pain R52 ; History of illicit drug use Z87.898 ; High risk medication use Z79.899 ; Lipid screening Z13.220 and Thyroid disorder screening Z13.[address] [address] 22 J un, 2020 Seizure disorder G40.[address] [facility] [address] [place] [address] 15 J 2019 Seizure-like activity R56.9 and Drowsiness R40.0 [facility] [place] [address] [facility] [id number] [place] [address] 05 Apr, 2020 [facility] [place] [address] [facility] [id number] [place] [address] Apr, [facility] [place] [address] [facility] [id number] [place] [address] 03 Apr, 2020 Bipolar affective disorder, currently depressed, moderate F31.32 ; Borderline personality disorder in adult F60.3 ; Flank pain R10.9 ; Seizure disorder G40.909 and Bizarre behavior R46.2 [facility] [address] [facility] [id number] [place] [address] Feb, [facility] [place] [address] [place] [id number] [place] [phone] Feb, Sore throat J02.9 and Dental infection K04.[address] [facility] [place] [id number] [place] [phone] Feb, [facility] [address] [id number] [address] [place] [phone] Jul, Generalized abdominal pain R 10.84 ; Constipation, unspecified constipation type K59.00 and Drug abuse F19.10 [facility] [address] [facility] [id number] [address] [place] [address] [id number] Jan, Encounter for dental examina tion Z01.20 and Dental caries K02.9 [facility] [address] [facility] [id number] [place] [id number] 14 Feb, 2015 [facility] [address] [id number] [address] [place] [phone] 13 Feb, 2015 [facility] [address] [id number] [address] [place] [phone] Sep, [facility] [address] [id number] [address] [place] [address], [place] [address] 17 Sep, 2014 [facility] [address] [id number] [address] [place] [address], [place] [address] 20 Aug, 2014 [facility] [address] [id number] [address] [place] [address], [place] [address] 20 Aug, 2014 [facility] [address] [id number] [address] [place] [address], [place] [address] 17 Aug, 2014 [facility] [address] [id number] [address] [place] [address], [place] [address] 30 Sep, 2013 [facility] [address] [id number] [address] [place] [address], [place] [address] 29 Sep, 2013 [facility] [address] [id number] [address] [place] [address], [place] [address] 29 Sep, 2013 [facility] [address] [id number] [address] [place] [address], [place] [address] 22 Sep, 2013 [facility] [address] [id number] [address] [place] [address], [place] [address] 22 Sep, 2013 [facility] [address] [id number] [address] [place] [address], [place] [address] 22 Sep, 2013 [facility] [address] [id number] [address] [place] [address], [place] [address] 22 Sep, 2013 [facility] [address] [id number] [address] [place] [address], [place] [address] 17 Sep, 2013 [facility] [address] [id number] [address] [place] [address], [place] [address] 17 Sep, 2013 [facility] [address] [id number] [address] [place] [address], [place] [address] 15 Sep, 2013 [facility] [address] [id number] [address] [place] [address], [place] [address] 15 Sep, 2013 [facility] [address] [id number] [address] [place] [address], [place] [address] 10 Sep, 2013 [facility] [address] [id number] [facility] [place] [address] 10 Jul, 2013 [facility] [address] [id number] [address] [place] [address], [place] [address] 05 Jul, 2013 [facility] [address] [id number] [address] [place] [address], [place] [address] 04 Jul, 2013 [facility] [address] [id number] [address] [place] [address], [place] [address] 03 Jul, 2013 [facility] [address] [id number] [address] [place] [address], [place] [address] Jul, [facility] [address] [id number] [address] [place] [address], [place] [address] Jul, [facility] [address] [id number] [address] [place] [address], [place] [address] Jun, [facility] [address] [id number] [address] [place] [address], [place] [address] Jun, [facility] [address] [id number] [address] [place] [address], [place] [address] Jun, [facility] [address] [id number] [address] [place] [address], [place] [address] Jun, [facility] [address] [id number] [address] [place] [address], [place] [address] May, [facility] [address] [id number] [address] [place] [address], [place] [address] May, [facility] [address] [id number] [address] [place] [address], [place] [address] May, [facility] [address] [id number] [address] [place] [address], [place] [address] May, [facility] [address] [id number] [address] [place] [address], [place] [address] Apr, [facility] [address] [id number] [address] [place] [id number] Apr, [facility] [address] [id number] [address] [place] [phone] Aug, [facility] [address] [id number] [address] [place] [phone] Aug, [facility] [address] [id number] [address] [place] [phone] Aug, [facility] [address] [id number] [address] [place] [id number] Aug, [facility] [address] [id number] [address] [place] [address] Aug, [facility] [address] [id number] [address] [place] [id number] Aug, [facility] [address] [id number] [address] [place] [phone] Jul, [facility] [address] [id number] [address] [place] [phone] Jun, [facility] [address] [id number] [address] [place] [address] Aug, IMMUNIZATIONS No Known Immunizations SOCIAL HISTORY Never Assessed REASON FOR VISIT PLAN OF CARE VITAL SIGNS Height 65 in 2013-07-05 Weight 161.05 lbs 2013-07-05 Temperature 97.2 degrees Fahrenheit 2013-07-05 Heart Rate 92 bpm 2013-07-05 Respiratory Rate 18 2013-07-05 Blood pressure systolic 116 mmHg 2013-07-05 Blood pressure diastolic 88 mmHg 2013-07-05 MEDICATIONS Unknown Medications RESULTS No Results PROCEDURES No Known procedures INSTRUCTIONS MEDICATIONS ADMINISTERED No Known Medications MEDICAL (GENERAL) HISTORY Type Description Date Medical History HBP Medical History Back problems Medical History Maternal drug dependence com plicating , childbirth, or the puerperium, unspecified as to episode of care Medical History Seizures Medical History ptsd Medical History Border line personality disorder Surgical History No Surgical history information
--- OUTSIDE RECORDS SUMMARY | 2020-06-18 21:44 | XMS REPORT ---
Author Author Faith Pat [facility] Address [address] [place] [address] Care Team Providers Care Firer Bisque Kiln Name Role Phone Raffy Patistin Unavailable PROBLEMS Type Condition ICD9-CM Code CAQ65-IG Code Onset Dates Condition S tatus SNOMED Code Problem Encounter for weight loss counseling Z71.3 Active 430012580 Problem Dysuria R30.0 Active 04233047 Problem Borderline personality disorder in adult F60.3 Active 67609044 Problem Anxiety F41.9 Active 84891394 Problem History of PID Z87.42 Active 71012 2000 Problem Encounter for smoking cessation counseling Z71.6 Active 200831271 ALLERGIES Substance Reaction Event Type Date Status Depakot NIght terrors Non Drug Allergy March, Active ENCOUNTERS Encounter Location Date Diagnosis [facility] [address] [place] [address] [id number] Apr, [facility] [address] [place] [address] [id number] March, Seizure R56.9 [facility] [address] [place] [address] [id number] March, [facility] [address] [place] [address] [id number] March, Borderline personality disorder in adult F60.3 and Anxiety F41.9 [facility] [address] [place] [address] [id number] Feb, Anxiety F41.9 [facility] [address] [place] [address] [id number] Feb, Anxiety F41.9 [facility] [address] [place] [address] [id number] Oct, Dysuria R30.0 ; History of PID Z87.42 ; Encounter for smoking cessation counseling Z71.6 and Encounter for weight loss counseling Z71.3 [facility] [address] [place] [address] [id number] Oct, [facility] [address] [place] [address] [id number] Oct, Anxiety F41.9 [facility] [address] [place] [address] [id number] Oct, Anxiety F41.9 [facility] [address] [place] [address] [id number] Oct, [facility] [address] [place] [address] [id number] Oct, [facility] [address] [place] [address] [id number] Oct, Anxiety F41.9 and Problems in relationship with spouse or partner Z63.0 [employer] [facility] [address] [place] [address] [id number] Oct, [facility] [address] [place] [address] [id number] Oct, Borderline personality disorder in adult F60.3 ; Screening cholesterol level Z13.220 and Screening for diabetes mellitus Z13.1 [facility] [address] [place] [address] [id number] Oct, Problems in relationship with spouse or partner Z63.0 IMMUNIZATIONS No Known Immunizations SOCIAL HISTORY Never Assessed REASON FOR VISIT seizures PLAN OF CARE Activity Details Follow Up 3 Weeks Reason: VITAL SIGNS Temperature 98.0 degrees Fahrenheit 2020-04-15 Heart Rate 87 /min 2020-04-15 Respiratory Rate 17 /min 2020-04-15 Oximetry 100 % 2020-04-15 Weight 149.4 lbs 2020-04-15 Height 65.0 in 2020-04-15 BMI 24.86 kg/m2 2020-04-15 Blood pressure systolic 136 mm Hg 2020-04-15 Blood pressure diastolic 82 mm Hg 2020-04-15 MEDICATIONS Medication Instructions Dosage Frequency Start Date End Date Duration S tatus Latuda 60 MG Orally Once a day 1 tablet with food 24h 30 days Not-Taking Lamictal 25 MG Orally Once a day 1 tablet 24h March, 3 0 day(s) Active HydrOXYzine HCl 25 MG Orally every 8 hrs 1 tablet as needed 8h March, 30 day(s) Active Gabapentin 600 MG Orally four times a day 1 tablet 6h Oct, 30 day(s) Active RESULTS No Results PROCEDURES No Known procedures INSTRUCTIONS MEDICATIONS ADMINISTERED No Known Medications MEDICAL (GENERAL) HISTORY Type Description Date Medical History Borderline personality disorder Medical History PTSD Medical History ADHD Medical History L4-5 pain (resolved) Medical History Gestational diabetes
--- OUTSIDE RECORDS SUMMARY | 2020-06-18 21:44 | XMS REPORT ---
Author Author Faith LEE EVGENY [facility] Address [address] [place] [address] Care Team Providers Care Safety Instruction Police Officer Name Role Phone EVGENY LEE Unavailable PROBLEMS Type Condition ICD9-CM Code SFX80-LD Code Onset Dates Condition S tatus SNOMED Code Problem Constipation, unspecified constipation type K59.00 Active 35152021 Problem Generalized abdominal pain R10.84 Act yuriy [id number] ALLERGIES No Information ENCOUNTERS Encounter Location Date Diagnosis [facility] [address] [facility] [id number] [address] [place] [id number] Feb, [facility] [address] [phone] Feb, Sore throat J02.9 and Dental infection K04.7 [facility] [id number] [place] [phone] Feb, [facility] [address] [id number] [address] [place] [phone] Jul, Generalized abdominal pain R 10.84 ; Constipation, unspecified constipation type K59.00 and Drug abuse F19.10 [facility] [address] [facility] [id number] [address] [place] [address] [id number] Jan, Encounter for dental examina tion Z01.20 and Dental caries K02.9 [facility] [address] [id number] [address] [place] [phone] 14 Feb, 2015 [facility] [id number] [place] [phone] 13 Feb, 2015 [facility] [address] [id number] [address] [place] [phone] Sep, [facility] [address] [id number] [address] [place] [address], [place] [address] 17 Sep, 2014 [facility] [address] [id number] [address] [place] [address], [place] [address] 20 Aug, 2014 [facility] [address] [id number] [address] [place] [address], [place] [address] 20 Aug, 2014 [facility] [address] [id number] [address] [place] [address], [place] [address] 17 Aug, 2014 [facility] [address] [id number] [address] [place] [address], [place] [address] 30 Sep, 2013 [facility] [address] [id number] [address] [place] [address], [place] [address] 29 Sep, 2013 [facility] [address] [id number] [address] [place] [address], [place] [address] 29 Sep, 2013 [facility] [address] [id number] [address] [place] [address], [place] [address] 22 Sep, 2013 [facility] [address] [id number] [address] [place] [address], [place] [address] 22 Sep, 2013 [facility] [address] [id number] [address] [place] [address], [place] [address] 22 Sep, 2013 [facility] [address] [id number] [address] [place] [address], [place] [address] 22 Sep, 2013 [facility] [address] [id number] [address] [place] [address], [place] [address] 17 Sep, 2013 [facility] [address] [id number] [address] [place] [address], [place] [address] 17 Sep, 2013 [facility] [address] [id number] [address] [place] [address], [place] [address] 15 Sep, 2013 [facility] [address] [id number] [address] [place] [address], [place] [address] 15 Sep, 2013 [facility] [address] [id number] [address] [place] [address], [place] [address] 10 Sep, 2013 [facility] [address] [id number] [facility] [address] 10 Jul, 2013 [facility] [address] [id number] [address] [place] [address], [place] [address] 05 Jul, 2013 [facility] [address] [id number] [address] [place] [address], [place] [address] 04 Jul, 2013 [facility] [address] [id number] [address] [place] [address], [place] [address] 03 Jul, 2013 [facility] [address] [id number] [address] [place] [address], [place] [address] Jul, [facility] [address] [id number] [address] [place] [address], [place] [address] Jul, [facility] [address] [id number] [address] [place] [address], [place] [address] Jun, [facility] [address] [id number] [address] [place] [address], [place] [address] Jun, [facility] [address] [id number] [address] [place] [address], [place] [address] Jun, [facility] [address] [id number] [address] [place] [address], [place] [address] Jun, [facility] [address] [id number] [address] [place] [address], [place] [address] May, [facility] [address] [id number] [address] [place] [address], [place] [address] May, [facility] [address] [id number] [address] [place] [address], [place] [address] May, [facility] [address] [id number] [address] [place] [address], [place] [address] May, [facility] [address] [id number] [address] [place] [address], [place] [address] Apr, [facility] [address] [id number] [address] [place] [phone] Apr, [facility] [address] [id number] [address] [place] [id number] Aug, [facility] [address] [id number] [address] [place] [phone] Aug, [facility] [address] [id number] [address] [place] [phone] Aug, [facility] [address] [id number] [address] [place] [id number] Aug, [facility] [address] [id number] [address] [place] [phone] Aug, [facility] [address] [id number] [address] [place] [phone] Aug, [facility] [address] [id number] [address] [place] [phone] Jul, [facility] [address] [id number] [address] [place] [phone] Jun, [facility] [address] [id number] [address] [place] [phone] Aug, IMMUNIZATIONS No Known Immunizations SOCIAL HISTORY Never Assessed REASON FOR VISIT PLAN OF CARE VITAL SIGNS Height 65 in 2013-08-01 Weight 165.5 lbs 2013-08-01 Temperature 97.4 degrees Fahrenheit 2013-08-01 Heart Rate 84 bpm 2013-08-01 Respiratory Rate 18 2013-08-01 Blood pressure systolic 120 mmHg 2013-08-01 Blood pressure diastolic 82 mmHg 2013-08-01 MEDICATIONS Unknown Medications RESULTS No Results PROCEDURES No Known procedures INSTRUCTIONS MEDICATIONS ADMINISTERED No Known Medications MEDICAL (GENERAL) HISTORY Type Description Date Medical History HBP Medical History Back problems Medical History Maternal drug dependence com plicating , childbirth, or the puerperium, unspecified as to episode of care
--- OUTSIDE RECORDS SUMMARY | 2020-06-18 21:44 | XMS REPORT ---
Author Author Faith Pat [facility] Address [address] [place] [address] Care Team Providers Care Box Icer Name Role Phone Raffy Patistin Unavailable PROBLEMS Type Condition ICD9-CM Code SFU42-QI Code Onset Dates Condition S tatus SNOMED Code Problem Encounter for weight loss counseling Z71.3 Active 931293091 Problem Dysuria R30.0 Active 18666788 Problem Borderline personality disorder in adult F60.3 Active 48134459 Problem Anxiety F41.9 Active 16781850 Problem History of PID Z87.42 Active 54313 2000 Problem Encounter for smoking cessation counseling Z71.6 Active [id number] ALLERGIES No Information ENCOUNTERS Encounter Location Date Diagnosis [facility] [address] [place] [address] [id number] Apr, [facility] [address] [place] [address] [id number] March, Seizure R56.9 [facility] [address] [place] [address] [id number] March, [facility] [address] [place] [address] [id number] March, Borderline personality disorder in adult F60.3 and Anxiety F41.9 [facility] [address] [place] [address] [id number] Feb, Anxiety F41.9 [facility] [address] [place] [address] [id number] Feb, Anxiety F41.9 [facility] [address] [place] [address] [id number] Oct, Dysuria R30.0 ; History of PID Z87.42 ; Encounter for smoking cessation counseling Z71.6 and Encounter for weight loss counseling Z71.3 [facility] [address] [place] [address] [id number] Oct, [facility] [address] [place] [address] [id number] Oct, Anxiety F41.9 [facility] [address] [place] [address] [id number] Oct, Anxiety F41.9 [facility] [address] [place] [address] [id number] Oct, [facility] [address] [place] [address] [id number] Oct, [facility] [address] [place] [address] [id number] Oct, Anxiety F41.9 and Problems in relationship with spouse or partner Z63.0 [facility] [address] [place] [address] [id number] Oct, [facility] [address] [place] [address] [id number] Oct, Borderline personality disorder in adult F60.3 ; Screening cholesterol level Z13.220 and Screening for diabetes mellitus Z13.1 [facility] [address] [place] [address] [id number] Oct, Problems in relationship with spouse or partner Z63.0 IMMUNIZATIONS No Known Immunizations SOCIAL HISTORY Never Assessed REASON FOR VISIT Needs call back from office PLAN OF CARE VITAL SIGNS MEDICATIONS Unknown Medications RESULTS No Results PROCEDURES No Known procedures INSTRUCTIONS MEDICATIONS ADMINISTERED No Known Medications MEDICAL (GENERAL) HISTORY Type Description Date Medical History Borderline personality disorder Medical History PTSD Medical History ADHD Medical History L4-5 pain (resolved) Medical History Gestational diabetes
--- OUTSIDE RECORDS SUMMARY | 2020-06-18 21:45 | XMS REPORT | Continuity of Care Document ---
Author Organization Unknown Address Unknown Phone Unavailable Allergies Active Description Code Type Severity Reaction Onset Reported/Identified Relationship to Patient Clinical Status Yes NO KNOWN DRUG ALLERGIES UNKNOWN UNKNOWN Yes No Known Drug Allergies [id number] Drug Allergy Mild N/A 01/23/2010 Yes No Known Medication Allergies NKMA N/A N/A 10/12/2019 Yes No Known Allergies No Known Allergies Drug Allergy Unknown N/A 04/19/2020 Medications Medication Packaging Start Date St op Date Route Dosage Sig KETOROLAC VIAL INJ 30 MG/CC (TORADOL VIAL) MG 07/03/2019 07/03/2019 ONCE&1833 PROMETHAZINE VIAL INJ 25 MG/CC (PHENERGAN VIAL) MG 07/03/2019 07/03/2019 ONCE&1833 NORMAL SALINE 1000CC IV BAG INJ 0.9 % (NS 1000CC IV BAG) ml 07/03/2019 07/03/2019 ONCE&1833 Sodium Chloride 0.9% intrave nous solutio(Sodium Chloride 0.9% Bolus) 1,000 mL 10/12/2019 10/12/2019 Bolus IV 1,000 mL , Bolus IV, Once acetaminophen(acetaminophen) 2 tabs 10/12/2019 10/12/2019 Oral 1,000 mg 1,000 mg = 2 tabs, Oral, Once fentaNYL(fentaNYL) 1 mL 10/12/2019 10/12/2019 IV Push 50 mcg 50 mcg = 1 mL, IV Push, Once ketorolac(Toradol) 1 mL 10/12/2019 10/12/2019 IV Push 30 mg 30 mg = 1 mL, IV Push, Once morphine(morphine) 3 mL 10/12/2019 10/12/2019 IV Push 6 mg 6 mg = 3 mL, IV Push, Once ciprofloxacin(ciprofloxacin 500 mg oral ta blet) 1 tabs 10/12/2019 10/19/2019 Oral 500 m g 500 mg = 1 tabs, Oral, BID, for 7 days, for infection, 14 tabs, 0 Refill(s) HYDROcodone-acetaminophen(HY DROcodone-acetaminophen 5 mg-325 mg oral tablet) 1 tabs 10/12/2019 10/15/2019 Oral 1 tabs, Oral, q6hr, PRN: Pain Moderate (4-6), 12 tabs, 0 Refill(s) naproxen(naproxen 250 mg oral tablet) 1 tabs 10/12/2019 10/18/2019 Oral 250 mg 250 mg = 1 tabs, Oral, q8hr, PRN: as needed for pain, 20 tabs, 0 Refill(s) ondansetron(Zofran) 2 mL 12/24/2019 12/24/2019 IV Push 4 mg 4 mg = 2 mL, IV Push, Once ketorolac(Toradol) 1 mL 12/24/2019 12/24/2019 IV Push 30 mg 30 mg = 1 mL, IV Push, Once Problems Date Dx Coded Attending Type Code Diagnosis Diagnosed By 07/04/2008 MARGI LYONS DO 780.52 INSOMNIA UNSPECIFIED 07/04/2008 MARGI LYONS DO V58.69 MEDICATION HIGH RISK 07/04/2008 AMOS DRINKING WATER TECHNICIAN, JENA A 780.52 INSOMNIA UNSPECIFIED 07/04/2008 AMOS DRINKING WATER TECHNICIAN, JENA A V58.69 MEDICATION HIGH RISK 07/04/2008 AMOS DRINKING WATER TECHNICIAN, JENA A 780.52 INSOMNIA UNSPECIFIED 07/04/2008 AMOS DRINKING WATER TECHNICIAN, JENA A V58.69 MEDICATION HIGH RISK 07/04/2008 MARGI LYONS DO 780.52 INSOMNIA UNSPECIFIED 07/04/2008 MARGI LYONS DO V58.69 MEDICATION HIGH RISK 07/04/2008 AMOS DRINKING WATER TECHNICIAN, JENA A 780.52 INSOMNIA UNSPECIFIED 07/04/2008 AMOS DRINKING WATER TECHNICIAN, JENA A V58.69 MEDICATION HIGH RISK 07/04/2008 AMOS DRINKING WATER TECHNICIAN, JENA A 780.52 INSOMNIA UNSPECIFIED 07/04/2008 AMOS DRINKING WATER TECHNICIAN, JENA A V58.69 MEDICATION HIGH RISK 07/04/2008 MARGI LYONS DO 780.52 INSOMNIA UNSPECIFIED 07/04/2008 MARGI LYONS DO V58.69 MEDICATION HIGH RISK 07/04/2008 MARGI LYONS DO 780.52 INSOMNIA UNSPECIFIED 07/04/2008 MARGI LYONS DO V58.69 MEDICATION HIGH RISK 07/04/2008 LYONS DO, MARGI K 780.52 INSOMNIA UNSPECIFIED 07/04/2008 LYONS DO, MARGI K V58.69 MEDICATION HIGH RISK 07/04/2008 LYONS DO, MARGI K 780.52 INSOMNIA UNSPECIFIED 07/04/2008 LYONS DO, MARGI K V58.69 MEDICATION HIGH RISK 07/04/2008 LYONS DO, MARGI K 780.52 INSOMNIA UNSPECIFIED 07/04/2008 LYONS DO, MARGI K V58.69 MEDICATION HIGH RISK 08/01/2008 LYONS DO, MARGI K 477.9 RHINITIS ALLERGIC 08/01/2008 AMOS DRINKING WATER TECHNICIAN, JENA A 47 7.9 RHINITIS ALLERGIC 08/01/2008 AMOS DRINKING WATER TECHNICIAN, JENA A 47 7.9 RHINITIS ALLERGIC 08/01/2008 LYONS DO, MARGI K 477.9 RHINITIS ALLERGIC 08/01/2008 AMOS DRINKING WATER TECHNICIAN, JENA A 47 7.9 RHINITIS ALLERGIC 08/01/2008 AMOS DRINKING WATER TECHNICIAN, JENA A 47 7.9 RHINITIS ALLERGIC 08/01/2008 LYONS DO, MARGI K 477.9 RHINITIS ALLERGIC 08/01/2008 LYONS DO, MARGI K 477.9 RHINITIS ALLERGIC 08/01/2008 LYONS DO, MARGI K 477.9 RHINITIS ALLERGIC 08/01/2008 LYONS DO, MARGI K 477.9 RHINITIS ALLERGIC 08/01/2008 LYONS DO, MARGI K 477.9 RHINITIS ALLERGIC 08/23/2008 LYONS DO, MARGI K 844.9 SPRAIN/STRAIN KNEE/LEG 08/23/2008 AMOS DRINKING WATER TECHNICIAN, JENA A 84 4.9 SPRAIN/STRAIN KNEE/LEG 08/23/2008 AMOS DRINKING WATER TECHNICIAN, JENA A 84 4.9 SPRAIN/STRAIN KNEE/LEG 08/23/2008 LYONS DO, MARGI K 844.9 SPRAIN/STRAIN KNEE/LEG 08/23/2008 AMOS DRINKING WATER TECHNICIAN, JENA A 84 4.9 SPRAIN/STRAIN KNEE/LEG 08/23/2008 AMOS DRINKING WATER TECHNICIAN, JENA A 84 4.9 SPRAIN/STRAIN KNEE/LEG 08/23/2008 LYONS DO, MARGI K 844.9 SPRAIN/STRAIN KNEE/LEG 08/23/2008 LYONS DO, MARGI K 844.9 SPRAIN/STRAIN KNEE/LEG 08/23/2008 LYONS DO, MARGI K 844.9 SPRAIN/STRAIN KNEE/LEG 08/23/2008 LYONS DOPHANA K 844.9 SPRAIN/STRAIN KNEE/LEG 08/23/2008 LYONS DOPHANA K 844.9 SPRAIN/STRAIN KNEE/LEG 09/24/2008 LYONS DOMARGI K 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 09/24/2008 AMOS DRINKING WATER TECHNICIAN, JENA A 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 09/24/2008 AMOS DRINKING WATER TECHNICIAN, JENA A 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 09/24/2008 LYONS DOPHANA K 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 09/24/2008 AMOS DRINKING WATER TECHNICIAN, JENA A 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 09/24/2008 AMOS DRINKING WATER TECHNICIAN, JENA A 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 09/24/2008 PHAN LYONS DOA K 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 09/24/2008 PHAN LYONS DOA K 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 09/24/2008 LYONS DOPHANA K 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 09/24/2008 PHAN LYONS DOA K 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 09/24/2008 PHAN LYONS DOA K 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 12/06/2008 PHAN LYONS DOA K 305.9 DRUG ABUSE UNSPECIFIED 12/06/2008 AMOS DRINKING WATER TECHNICIAN, JENA A 30 5.9 DRUG ABUSE UNSPECIFIED 12/06/2008 AMOS DRINKING WATER TECHNICIAN, JENA A 30 5.9 DRUG ABUSE UNSPECIFIED 12/06/2008 LYONS DOPHANA K 305.9 DRUG ABUSE UNSPECIFIED 12/06/2008 AMOS DRINKING WATER TECHNICIAN, JENA A 30 5.9 DRUG ABUSE UNSPECIFIED 12/06/2008 AMOS DRINKING WATER TECHNICIAN, JENA A 30 5.9 DRUG ABUSE UNSPECIFIED 12/06/2008 SERENA DOMARGI K 305.9 DRUG ABUSE UNSPECIFIED 12/06/2008 PHAN LYONS DOA K 305.9 DRUG ABUSE UNSPECIFIED 12/06/2008 PHAN LYONS DOA K 305.9 DRUG ABUSE UNSPECIFIED 12/06/2008 LYONS DO, MARGI K 305.9 DRUG ABUSE UNSPECIFIED 12/06/2008 LYONS DO, MARGI K 305.9 DRUG ABUSE UNSPECIFIED 03/30/2011 LYONS DO, MARGI K 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 03/30/2011 LYONS DO, MARGI K 380.10 OTITIS EXTERNA 03/30/2011 AMOS DRINKING WATER TECHNICIAN, JENA A 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 03/30/2011 AMOS DRINKING WATER TECHNICIAN, JENA A 380.10 OTITIS EXTERNA 03/30/2011 AMOS DRINKING WATER TECHNICIAN, JENA A 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 03/30/2011 AMOS DRINKING WATER TECHNICIAN, JENA A 380.10 OTITIS EXTERNA 03/30/2011 LYONS DO, MARGI K 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 03/30/2011 LYONS DO, MARGI K 380.10 OTITIS EXTERNA 03/30/2011 AMOS DRINKING WATER TECHNICIAN, JENA A 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 03/30/2011 AMOS DRINKING WATER TECHNICIAN, JENA A 380.10 OTITIS EXTERNA 03/30/2011 AMOS DRINKING WATER TECHNICIAN, JENA A 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 03/30/2011 AMOS DRINKING WATER TECHNICIAN, JENA A 380.10 OTITIS EXTERNA 03/30/2011 LYONS DO, MARGI K 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 03/30/2011 LYONS DO, MARGI K 380.10 OTITIS EXTERNA 03/30/2011 LYONS DO, MARGI K 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 03/30/2011 LYONS DO, MARGI K 380.10 OTITIS EXTERNA 03/30/2011 LYONS DO, MARGI K 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 03/30/2011 LYONS DO, MARGI K 380.10 OTITIS EXTERNA 03/30/2011 LYONS DO, MARGI K 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 03/30/2011 LYONS DO, MARGI K 380.10 OTITIS EXTERNA 03/30/2011 LYONS DO, MARGI K 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 03/30/2011 MARGI LYONS DO K 380.10 OTITIS EXTERNA 01/02/2012 Ot 646.83 PRE G COMPL NEC- ANTEPART 01/02/2012 Ot 780.2 SYNC OPE AND COLLAPSE 07/05/2013 PHAN LYONS DOA K 300.00 AN ANXIETY UNSPEC 07/05/2013 SERENA PAGE MARGI K 724.2 BACK PAIN, LOWER 07/05/2013 LYONS DO MARGI K 796.2 ELEVATED BLOOD PRESSURE READING WITHOUT DIAGNOSIS OF HYPERTENSION 07/05/2013 AMOS DRINKING WATER TECHNICIAN, JENA A 300.00 AN ANXIETY UNSPEC 07/05/2013 AMOS DRINKING WATER TECHNICIAN, JENA A 72 4.2 BACK PAIN, LOWER 07/05/2013 AMOS DRINKING WATER TECHNICIAN, JENA A 79 6.2 ELEVATED BLOOD PRESSURE READING WITHOUT DIAGNOSIS OF HYPERTENSION 07/05/2013 AMOS DRINKING WATER TECHNICIAN, JENA A 300.00 AN ANXIETY UNSPEC 07/05/2013 AMOS DRINKING WATER TECHNICIAN, JENA A 72 4.2 BACK PAIN, LOWER 07/05/2013 AMOS DRINKING WATER TECHNICIAN, JENA A 79 6.2 ELEVATED BLOOD PRESSURE READING WITHOUT DIAGNOSIS OF HYPERTENSION 07/05/2013 LYONS DOPHANA K 300.00 AN ANXIETY UNSPEC 07/05/2013 LYONS DOPHANA K 724.2 BACK PAIN, LOWER 07/05/2013 LYONS DO MARGI K 796.2 ELEVATED BLOOD PRESSURE READING WITHOUT DIAGNOSIS OF HYPERTENSION 07/05/2013 AMOS DRINKING WATER TECHNICIAN, JENA A 300.00 AN ANXIETY UNSPEC 07/05/2013 AMOS DRINKING WATER TECHNICIAN, JENA A 72 4.2 BACK PAIN, LOWER 07/05/2013 AMOS DRINKING WATER TECHNICIAN, JENA A 79 6.2 ELEVATED BLOOD PRESSURE READING WITHOUT DIAGNOSIS OF HYPERTENSION 07/05/2013 AMOS DRINKING WATER TECHNICIAN, JENA A 300.00 AN ANXIETY UNSPEC 07/05/2013 AMOS DRINKING WATER TECHNICIAN, JENA A 72 4.2 BACK PAIN, LOWER 07/05/2013 AMOS DRINKING WATER TECHNICIAN, JENA A 79 6.2 ELEVATED BLOOD PRESSURE READING WITHOUT DIAGNOSIS OF HYPERTENSION 07/05/2013 LYONS DO MARGI K 300.00 AN ANXIETY UNSPEC 07/05/2013 LYONS DO MARGI K 724.2 BACK PAIN, LOWER 07/05/2013 LYONS DO MARGI K 796.2 ELEVATED BLOOD PRESSURE READING WITHOUT DIAGNOSIS OF HYPERTENSION 07/05/2013 LYONS DO, MARGI K 300.00 AN ANXIETY UNSPEC 07/05/2013 LYONS DO, MARGI K 724.2 BACK PAIN, LOWER 07/05/2013 LYONS DO, MARGI K 796.2 ELEVATED BLOOD PRESSURE READING WITHOUT DIAGNOSIS OF HYPERTENSION 07/05/2013 LYONS DO, MARGI K 300.00 AN ANXIETY UNSPEC 07/05/2013 LYONS DO, MARGI K 724.2 BACK PAIN, LOWER 07/05/2013 LYONS DO, MARGI K 796.2 ELEVATED BLOOD PRESSURE READING WITHOUT DIAGNOSIS OF HYPERTENSION 07/05/2013 LYONS DO, MARGI K 300.00 AN ANXIETY UNSPEC 07/05/2013 LYONS DO, MARGI K 724.2 BACK PAIN, LOWER 07/05/2013 LYONS DO, MARGI K 796.2 ELEVATED BLOOD PRESSURE READING WITHOUT DIAGNOSIS OF HYPERTENSION 07/05/2013 LYONS DO, MARGI K 300.00 AN ANXIETY UNSPEC 07/05/2013 LYONS DO, MARGI K 724.2 BACK PAIN, LOWER 07/05/2013 LYONS DO, MARGI K 796.2 ELEVATED BLOOD PRESSURE READING WITHOUT DIAGNOSIS OF HYPERTENSION 06/10/2014 AMOS DRINKING WATER TECHNICIAN, JENA A 648.30 COMPL OF - DRUG DEPENDENCE 06/10/2014 AMOS JOHNSONN, JENA A V0 6.1 TDAP DX 06/10/2014 AMOS JOHNSONN, JENA A V2 3.7 , HIGH RISK W/ INSUFFICIENT CARE 06/10/2014 AMOS JOHNSONN, JENA A V7 7.1 DIABETES SCREENING 06/10/2014 AMOS JOHNSONN, JENA A V7 8.0 ANEMIA SCREENING 06/10/2014 AMOS JOHNSONN, JENA A 648.30 COMPL OF - DRUG DEPENDENCE 06/10/2014 AMOS JOHNSONN, JENA A V0 6.1 TDAP DX 06/10/2014 AMOS JOHNSONN, JENA A V2 3.7 , HIGH RISK W/ INSUFFICIENT CARE 06/10/2014 AMOS JOHNSONN, JENA A V7 7.1 DIABETES SCREENING 06/10/2014 AMOS JOHNSONN, JENA A V7 8.0 ANEMIA SCREENING 06/10/2014 LYONS DO, MARGI K 648.30 COMPL OF - DRUG DEPENDENCE 06/10/2014 LYONS DO, MARGI K V06.1 TDAP DX 06/10/2014 LYONS DO MARGI K V23.7 , HIGH RISK W/ INSUFFICIENT CARE 06/10/2014 LOYNS DO MARGI K V77.1 DIABETES SCREENING 06/10/2014 LYONS DO, MARGI K V78.0 ANEMIA SCREENING 06/10/2014 AMOS DRINKING WATER TECHNICIAN, JENA A 648.30 COMPL OF - DRUG DEPENDENCE 06/10/2014 AMOS DRINKING WATER TECHNICIAN, JENA A V0 6.1 TDAP DX 06/10/2014 AMOS DRINKING WATER TECHNICIAN, JENA A V2 3.7 , HIGH RISK W/ INSUFFICIENT CARE 06/10/2014 AMOS DRINKING WATER TECHNICIAN, JENA A V7 7.1 DIABETES SCREENING 06/10/2014 AMOS DRINKING WATER TECHNICIAN, JENA A V7 8.0 ANEMIA SCREENING 06/10/2014 AMOS DRINKING WATER TECHNICIAN, JENA A 648.30 COMPL OF - DRUG DEPENDENCE 06/10/2014 AMOS DRINKING WATER TECHNICIAN, JENA A V0 6.1 TDAP DX 06/10/2014 AMOS DRINKING WATER TECHNICIAN, JENA A V2 3.7 , HIGH RISK W/ INSUFFICIENT CARE 06/10/2014 AMOS DRINKING WATER TECHNICIAN, JENA A V7 7.1 DIABETES SCREENING 06/10/2014 AMOS DRINKING WATER TECHNICIAN, JENA A V7 8.0 ANEMIA SCREENING 06/10/2014 LYONS DO MARGI K 648.30 COMPL OF - DRUG DEPENDENCE 06/10/2014 LYONS DO MARGI K V06.1 TDAP DX 06/10/2014 LYONS DO MARGI K V23.7 , HIGH RISK W/ INSUFFICIENT CARE 06/10/2014 SERENA PAGE MARGI K V77.1 DIABETES SCREENING 06/10/2014 LYONS DO MARGI K V78.0 ANEMIA SCREENING 06/10/2014 LYONS DO, MARGI K 648.30 COMPL OF - DRUG DEPENDENCE 06/10/2014 LYONS DO MARGI K V06.1 TDAP DX 06/10/2014 LYONS DO MARGI K V23.7 , HIGH RISK W/ INSUFFICIENT CARE 06/10/2014 LYONS DO MARGI K V77.1 DIABETES SCREENING 06/10/2014 LYONS DO, MARGI K V78.0 ANEMIA SCREENING 06/10/2014 LYONS DO MARGI K 648.30 COMPL OF - DRUG DEPENDENCE 06/10/2014 LYONS DO, MARGI K V06.1 TDAP DX 06/10/2014 LYONS DO, MARGI K V23.7 , HIGH RISK W/ INSUFFICIENT CARE 06/10/2014 LYONS DO, MARGI K V77.1 DIABETES SCREENING 06/10/2014 LYONS DO, MARGI K V78.0 ANEMIA SCREENING 06/10/2014 LYONS DO, MARGI K 648.30 COMPL OF - DRUG DEPENDENCE 06/10/2014 LYONS DO, MARGI K V06.1 TDAP DX 06/10/2014 LYONS DO, MARGI K V23.7 , HIGH RISK W/ INSUFFICIENT CARE 06/10/2014 LYONS DO, MARGI K V77.1 DIABETES SCREENING 06/10/2014 LYONS DO, MARGI K V78.0 ANEMIA SCREENING 06/10/2014 LYONS DO, MARGI K 648.30 COMPL OF - DRUG DEPENDENCE 06/10/2014 LYONS DO, MARGI K V06.1 TDAP DX 06/10/2014 LYONS DO, MARGI K V23.7 , HIGH RISK W/ INSUFFICIENT CARE 06/10/2014 LYNOS DO, MARGI K V77.1 DIABETES SCREENING 06/10/2014 LYONS DO, MARGI K V78.0 ANEMIA SCREENING 07/30/2014 AMOS DRINKING WATER TECHNICIAN, JENA A 780.79 OTHER MALAISE AND FATIGUE 07/30/2014 AMOS DRINKING WATER TECHNICIAN, JENA A V2 8.6 GBS SCREENING 07/30/2014 AMOS DRINKING WATER TECHNICIAN, JENA A 780.79 OTHER MALAISE AND FATIGUE 07/30/2014 AMOS DRINKING WATER TECHNICIAN, JENA A V2 8.6 GBS SCREENING 07/30/2014 LYONS DO, MARGI K 780.79 OTHER MALAISE AND FATIGUE 07/30/2014 LYONS DO, MARGI K V28.6 GBS SCREENING 07/30/2014 LYONS DO, MARGI K 780.79 OTHER MALAISE AND FATIGUE 07/30/2014 LYONS DO, MARGI K V28.6 GBS SCREENING 07/30/2014 LYONS DO, MARGI K 780.79 OTHER MALAISE AND FATIGUE 07/30/2014 LYONS DO, MARGI K V28.6 GBS SCREENING 07/30/2014 LYONS DO, MARGI K 780.79 OTHER MALAISE AND FATIGUE 07/30/2014 LYONS DO, MARGI K V28.6 GBS SCREENING 07/30/2014 LYONS MARGI PAGE K 780.79 OTHER MALAISE AND FATIGUE 07/30/2014 SERENA PAGE, MARGI K V28.6 GBS SCREENING 08/14/2014 SERENA DO, MARGI Ferraro Ot 644.03 08/26/2014 LYONS DO, MARGI Ferraro V04.81 FLU SHOT 08/26/2014 LYONS DO, MARGI K V04.81 FLU SHOT 08/26/2014 LYONS DO, MARGI K V04.81 FLU SHOT 08/30/2014 LYONS DO, MARGI K Ot 285.1 08/30/2014 LYONS DO, MARGI K Ot 300.00 08/30/2014 LYONS DO, MARGI K Ot 311 08/30/2014 LYONS DO, MARGI K Ot 648.22 08/30/2014 LYONS DO, MARGI K Ot 648.41 08/30/2014 LYONS DO, MARGI K Ot 660.41 08/30/2014 LYONS DO, MARGI K Ot 666.12 08/30/2014 LYONS DO, MARGI Ferraro Ot V27.0 09/19/2015 AMOS, JENA A DRINKING WATER TECHNICIAN Ot 648.33 09/19/2015 AMOS, JENA A DRINKING WATER TECHNICIAN Ot 793.2 09/19/2015 AMOS, JENA A DRINKING WATER TECHNICIAN Ot V06.1 09/19/2015 AMOS, JENA A DRINKING WATER TECHNICIAN Ot V23.7 09/19/2015 AMOS, JENA A DRINKING WATER TECHNICIAN Ot V28.81 09/19/2015 AMOS, JENA A DRINKING WATER TECHNICIAN Ot V77.1 09/19/2015 AMOS, JENA A DRINKING WATER TECHNICIAN Ot V78.0 09/19/2015 SHERRIE MAN Ot F12.10 CANNABIS ABUSE, UNCOMPLICATED 09/19/2015 SHERRIE MAN Ot M54.5 LOW BACK PAIN 09/19/2015 SHERRIE MAN Ot Z53.21 PROC/TRTMT NOT CRD OUT D/T PT LV BEF SEE 07/03/2019 Kory Mae 724.5 BACKACHE, UNSPECIFIED 07/03/2019 Kory Mae M54.9 DORSALGIA, UNSPECIFIED 07/03/2019 Kory Mae 724.5 BACKACHE, UNSPECIFIED 07/03/2019 Elianebrian Kory W M54.9 DORSALGIA, UNSPECIFIED 07/03/2019 Kory Mae W 724.5 BACKACHE, UNSPECIFIED 07/03/2019 Kory Mae W M54.9 DORSALGIA, UNSPECIFIED 10/16/2019 Paola Perez Broderick Final N1 2 Tubulo-interstitial nephritis, not specified as acute or chronic 10/16/2019 Paola Perez Broderick Reason R10.30 Lower abdominal pain, unspecified 10/16/2019 PerezPaola Broderick Final Z32.02 Encounter for test, result negative 10/16/2019 PerezPaola Broderick Final Z79.899 Other correction (current) drug therapy 10/16/2019 Paola Perez Broderick Final Z87.440 Personal history of urinary (tract) infections 10/16/2019 Paola Perez Broderick Final Z87.442 Personal history of urinary calculi 12/27/2019 Robert, Bel L Final F17.2 10 Nicotine dependence, cigarettes, uncomplicated 12/27/2019 Robert, Bel L Reason M54. 9 Dorsalgia, unspecified 12/27/2019 Robert, Bel L Final Z32.0 2 Encounter for test, result negative 12/27/2019 Robert, Bel L Final Z87.4 48 Personal history of other diseases of urinary system 03/16/2020 [place] W 782.0 DISTURBANCE OF SKIN SENSATION 03/16/2020 BrownOg W M54.9 DORSALGIA, UNSPECIFIED 03/16/2020 BrownOg W R20.0 ANESTHESIA OF SKIN 04/14/2020 RENY CARY APRN Ot F15.10 OTHER STIMULANT ABUSE, UNCOMPLICATED 04/14/2020 RENY CARY APRN Ot F41 .9 ANXIETY DISORDER, UNSPECIFIED 04/14/2020 RENY CARY APRN Ot R56 .9 UNSPECIFIED CONVULSIONS 04/14/2020 RENY CARY APRN Ot Z11.59 ENCOUNTER FOR SCREENING FOR OTHER VIRAL 04/17/2020 RENY CARY APRN Ot F15.10 OTHER STIMULANT ABUSE, UNCOMPLICATED 04/17/2020 RENY CARY APRN Ot F41 .9 ANXIETY DISORDER, UNSPECIFIED 04/17/2020 RENY CARY APRN Ot R56 .9 UNSPECIFIED CONVULSIONS Procedures Code Description [place] [address] ROUT SHARMILA VENIPUNCTURE 06/10/2014 15895 US O B - COMPLETE >14 WEEKS 06/10/2014 01979 UA OB DIP 06/10/2014 86995 URIN E DRUG SCREEN (IN-HOUSE) 06/10/2014 11674 CBC 06/10/2014 46350 GLUC OSE SONU 1 HOUR 06/10/2014 52262 UA OB DIP 06/25/2014 72352 UA OB DIP 07/23/2014 45396 CULT URE GROUP B STREP VAG 07/30/2014 33560 UA L JENNIFER DIP 07/30/2014 99469 GLUC OSE FINGER STICK 07/30/2014 63172 UA OB DIP 08/07/2014 83102 UA OB DIP 08/14/2014 31698 UA OB DIP 08/19/2014 64515 UA OB DIP 08/26/2014 Results Test Result Range CBC With Differential/Platelet - 7 09:49 WBC 9.6 x10E3/uL 3.4-10.8 RBC 4.53 x10E6/uL 3.77-5.28 Hemoglobin 13.4 g/dL 11.1-15.9 Hematocrit 42.1 % 34.0-46.6 MCV 93 fL 79-97 MCH 29.6 pg 26.6-33.0 MCHC 31.8 g/dL 31.5-35.7 RDW 14.1 % 12.3-15.4 Platelets 344 x10E3/uL 150-379 Neutrophils 68 % Lymphs 27 % Monocytes 5 % Eos 0 % Basos 0 % Neutrophils (Absolute) 6.4 x10E3/uL 1.4- 7.0 Lymphs (Absolute) 2.6 x10E3/uL 0.7-3.1 Monocytes(Absolute) 0.5 x10E3/uL 0.1-0.9 Eos (Absolute) 0.0 x10E3/uL 0.0-0.4 Baso (Absolute) 0.0 x10E3/uL 0.0-0.2 Immature Granulocytes 0 % Immature Grans (Abs) 0.0 x10E3/uL 0.0-0. 1 Comp. Metabolic Panel (14) - 08/18/17 09 :49 Glucose, Serum 97 mg/dL 65-99 BUN 7 mg/dL 6-20 Creatinine, Serum 0.65 mg/dL 0.57-1.00 eGFR If NonAfricn Am 116 mL/min/1.73 >59 eGFR If Africn Am 134 mL/min/1.73 >5 9 BUN/Creatinine Ratio 11 9-23 Sodium, Serum 139 mmol/L 134-144 Potassium, Serum 4.1 mmol/L 3.5-5.2 Chloride, Serum 101 mmol/L 96-106 Carbon Dioxide, Total 18 mmol/L 18-29 Calcium, Serum 9.1 mg/dL 8.7-10.2 Protein, Total, Serum 7.0 g/dL 6.0-8.5 Albumin, Serum 4.3 g/dL 3.5-5.5 Globulin, Total 2.7 g/dL 1.5-4.5 A/G Ratio 1.6 1.2-2.2 Bilirubin, Total 1.0 mg/dL 0.0-1.2 Alkaline Phosphatase, S 76 IU/L 39-117 AST (SGOT) 16 IU/L 0-40 ALT (SGPT) 16 IU/L 0-32 Lipid Panel - 08/18/17 09:49 Cholesterol, Total 145 mg/dL 100-199 Triglycerides 169 mg/dL 0-149 HDL Cholesterol 38 mg/dL >39 VLDL Cholesterol [place] 34 mg/dL 5-40 LDL Cholesterol Calc 73 mg/dL 0-99 FSH and LH - 08/18/17 09:49 LH 8.7 mIU/mL FSH 3.2 mIU/mL Anti-Mullerian Hormone (AMH) - 08/18/17 09:49 Anti-Mullerian Hormone (AMH) 2.61 ng/mL Hemoglobin A1c - 08/18/17 09:49 Hemoglobin A1c 5.7 % 4.8-5.6 DHEA, Serum - 08/18/17 09:49 Dehydroepiandrosterone (DHEA) 243 ng/dL 31-701 Testosterone, Serum - 08/18/17 09:49 Testosterone, Serum 50 ng/dL 8-48 TSH - 08/18/17 09:49 TSH 1.530 uIU/mL 0.450-4.500 hCG,Beta Subunit, Qnt, Serum - 08/18/17 09:49 hCG,Beta Subunit,Qnt,Serum <1 mIU/mL Prolactin - 08/18/17 09:49 Prolactin 19.8 ng/mL 4.8-23.3 Progesterone - 08/18/17 09:49 Progesterone 8.1 ng/mL Insulin - 08/18/17 09:49 Insulin 8.8 uIU/mL 2.6-24.9 Estrogens, Total - 08/18/17 09:49 Estrogens, Total 161 pg/mL CBC with Auto Diff - 07/03/19 18:33 Baso% 0.20 % 0.00-2.50 Eos 0.2 K/uL 0.0-0.7 Eos% 3.7 % 0.0-7.0 Hct 45.0 % 36.0-46.0 Hgb 14.9 g/dL 13.0-15.0 Lym 1.97 K/uL 0.60-3.40 Lym% 32.8 % 10.0-50.0 MCH 30.6 pg 27.0-31.0 MCHC 33.1 g/dL 32.0-36.0 MCV 92.4 fL 80.0-97.0 [place]ansom% 8.0 % 0.0-12.0 MPV 11.0 fL 7.4-10.0 Monty% 55.3 % 37.0-80.0 Plt 294 K/uL 150-400 RBC 4.87 M/uL 3.60-5.00 RDW 12.0 % 11.6-14.8 WBC 6.00 K/uL 5.00-10.00 Monty 3.32 K/uL 2.00-6.90 [place]ansom 0.5 K/uL 0.0-0.9 Baso 0.0 K/uL 0.0-0.2 Urinalysis - 07/03/19 19:07 Icotest N/A Negative Urine Volume Urine Volume Sufficient (10mL) Urine Yeast No Yeast present Urine-Appearance Clear Clear Urine-Bacteria Negative Urine-Bilirubin Negative Negative Urine-Blood Negative Negative Urine-Color Yellow Colorless-Lt. [place] ow Urine-Epithelial Cells 0-5/HPF Urine-Glucose Negative Negative Urine-Ketones Negative Negative Urine-Leukocytes Negative Negative Urine-Nitrite Negative Negative Urine-Other Urine Saved if Culture Need ed (48hrs from time of collection) Urine-pH 8.5 5-8.5 Urine-Protein Negative Negative Urine-RBC Negative Urine-Specific [place] 1.015 1.000-1 .030 Urine-WBC Nothing Seen on Microscopic Urobilinogen 0.2 0.2-1.0 CBC With Platelet and Differential - 14:10 Absolute Basophils 0.02 10*3/uL 0.00-0.2 0 Absolute Eosinophils 0.02 10*3/uL 0.00-0 .50 Absolute Lymphocytes 1.08 10*3/uL 0.80-3 .30 Absolute Monocytes 1.03 10*3/uL 0.30-1.0 0 Absolute Neutrophils 6.58 10*3/uL 1.90-7 .00 Basophils 0 % 0-2 Eosinophils 0 % 0-4 HCT 35.9 % 37.0-47.0 HGB 11.7 g/dL 12.0-16.0 Immature Granulocytes 0.3 % 0.0-1.0 Lymphocytes 12 % 20-46 MCH 30.2 pg 27.0-32.0 MCHC 32.6 g/dL 32.0-36.0 MCV 92.8 fL 82.0-99.0 Monocytes 12 % 4-11 MPV 11.5 fL 9.4-12.4 Neutrophils 75 % 51-75 Nucleated RBC Automated 0.0 /100 WBC Platelet Count 261 K/uL 150-400 RBC 3.87 10*6/uL 4.00-5.20 RDW 12.7 % 11.5-14.5 WBC 8.8 K/uL 4.8-10.8 Comprehensive Metabolic Panel (CMP) - 14:10 Albumin 3.7 g/dL 3.5-4.8 Alkaline Phosphatase 63 U/L 26-104 ALT (SGPT) 35 U/L 14-54 Anion Gap 10 mEq/L 3-20 AST (SGOT) 34 U/L 15-41 Bilirubin Total 0.8 mg/dL 0.2-1.2 BUN 5 mg/dL 4-20 Calcium 8.3 mg/dL 8.6-10.0 Chloride 99 mEq/L 99-109 CO2 21 mEq/L 22-32 Creatinine 0.70 mg/dL 0.44-1.03 Globulin 3.2 g/dL 1.9-4.3 Glucose 108 mg/dL 70-100 Potassium 3.9 mEq/L 3.6-5.1 Protein 6.9 g/dL 6.1-7.9 Sodium 130 mEq/L 136-144 eGFR - 10/12/19 14:10 eGFR >60 mL/min >60 Chem 8 NPT - 10/12/19 14:16 Anion Gap 11 mEq/L 3-20 BUN Venous 6 mg/dl 4-20 Calcium Ionized Venous 1.03 mmol/L 1.19- 1.41 Creatinine Venous 0.6 mg/dL 0.4-1.0 Glucose Venous 107 mg/dL 70-100 Potassium, WB 4.0 mEq/L 3.6-5.1 Sodium Venous 134 mEq/L 136-144 Total CO2 Venous 22 mEq/L 25-29 Venous CL 101 mEq/L 99-109 HCT Venous 36.0 % 37.0-47.0 HGB Venous NPT 12.2 g/dL 12.0-16.0 Screen, Urine NPT - 10/12/19 1 4:19 Screen, Urine NPT Negative NA Negative Urinalysis with reflex microscopic - 14:20 Appearance Clear NA Bilirubin Negative NA Negative Blood Negative NA Negative Color Straw NA Glucose, Urine Negative Negative Ketones Negative Negative Leukocyte Esterase Negative NA Negative Nitrites Negative NA Negative pH 9.0 NA 5.0-8.0 Protein Negative NA Negative Specific [place] 1.005 NA 1.003-1.030 UA Collection type Catheter NA Urobilinogen Negative mg/dL <1.0 Urine Drug Screen - 10/12/19 14:20 Tricyclics Negative NA Not Detected Amph/Meth/Ecstasy Negative NA Not Detect ed Barbiturates Negative NA Not Detected Benzodiazepine Negative NA Not Detected Cannabinoid Positive NA Not Detected Cocaine Negative NA Not Detected EDDP (Methadone met.) Negative NA Not De tected Opiate Negative NA Not Detected Phencyclidine (PCP) Negative NA Not Dete cted HEMOGLOBIN A1c - 11/09/19 15:25 HEMOGLOBIN A1c 5.2 % of total Hgb <5.7 LIPID PANEL WITH REFLEX TO DIRECT LDL - 11/09/19 15:25 CHOLESTEROL, TOTAL 172 mg/dL <200 HDL CHOLESTEROL 63 mg/dL >50 TRIGLYCERIDES 114 mg/dL <150 LDL-CHOLESTEROL 88 mg/dL (calc) NRG CHOL/HDLC RATIO 2.7 (calc) <5.0 NON HDL CHOLESTEROL 109 mg/dL (calc) <13 0 CBC With Platelet No Differential - 11/29 06/16 02:20 HCT 38.0 % 37.0-47.0 HGB 12.5 g/dL 12.0-16.0 MCH 30.3 pg 27.0-32.0 MCHC 32.9 g/dL 32.0-36.0 MCV 92.0 fL 82.0-99.0 MPV 10.7 fL 9.4-12.4 Platelet Count 268 K/uL 150-400 RBC 4.13 10*6/uL 4.00-5.20 RDW 12.8 % 11.5-14.5 WBC 6.3 K/uL 4.8-10.8 Comprehensive Metabolic Panel (CMP) - 02:20 Albumin 4.0 g/dL 3.5-4.8 Alkaline Phosphatase 46 U/L 26-104 ALT (SGPT) 14 U/L 14-54 Anion Gap 9 mEq/L 3-20 AST (SGOT) 14 U/L 15-41 Bilirubin Total 0.9 mg/dL 0.2-1.2 BUN 5 mg/dL 4-20 Calcium 9.0 mg/dL 8.6-10.0 Chloride 105 mEq/L 99-109 CO2 23 mEq/L 22-32 Creatinine 0.60 mg/dL 0.44-1.03 Globulin 2.6 g/dL 1.9-4.3 Glucose 94 mg/dL 70-100 Potassium 3.4 mEq/L 3.6-5.1 Protein 6.6 g/dL 6.1-7.9 Sodium 137 mEq/L 136-144 eGFR - 12/24/19 02:20 eGFR >60 mL/min >60 Urinalysis with reflex microscopic - 21:40 Appearance Clear NA Bilirubin Negative NA Negative Blood Negative NA Negative Color Straw NA Glucose, Urine Negative Negative Ketones Negative Negative Leukocyte Esterase Negative NA Negative Nitrites Negative NA Negative pH 8.0 NA 5.0-8.0 Protein Negative NA Negative Specific [place] 1.005 NA 1.003-1.030 UA Collection type Clean Catch NA Urobilinogen Negative mg/dL <1.0 Screen, Urine - 12/24/19 21:40 Screen, Urine Negative NA Nega tive Complete blood count (CBC) with automate d white blood cell (WBC) differential - 04/08/20 15:10 Blood leukocytes automated count (number/volume) 6.7 10*3/uL 4.3-11.0 Blood erythrocytes automated count (number/volume) 5.00 10*6/uL 4.35-5.85 Venous blood hemoglobin measurement (mass/volume) 15.1 g/dL 11.5-16.0 Blood hematocrit (volume fraction) 46 % 35-52 Automated erythrocyte mean corpuscular volume 91 [ foz_us] 80-99 Automated erythrocyte mean corpuscular h emoglobin (mass per erythrocyte) 30 pg 25-34 Automated erythrocyte mean corpuscular h emoglobin concentration measurement (mass/volume) 33 g/dL 32-36 Automated erythrocyte distribution width ratio 13. 4 % 10.0- 14.5 Automated blood platelet count (count/volume) 267 10*3/uL 130-400 Automated blood platelet mean volume measurement 10.8 [foz_us] 7.4-10.4 Automated blood neutrophils/100 leukocytes 63 % 42-75 Automated blood lymphocytes/100 leukocytes 28 % 12-44 Blood monocytes/100 leukocytes 8 % 0-12 Automated blood eosinophils/100 leukocytes 2 % 0-10 Automated blood basophils/100 leukocytes 0 % 0-10 Blood neutrophils automated count (number/volume) 4.2 10*3 1.8-7.8 Blood lymphocytes automated count (number/volume) 1.9 10*3 1.0-4.0 Blood monocytes automated count (number/volume) 0. 5 10*3 0.0-1.0 Automated eosinophil count 0.1 10*3/uL 0 .0-0.3 Automated blood basophil count (count/volume) 0.0 10*3/uL 0.0-0.1 Comprehensive metabolic panel - 04/08/20 15:10 Serum or plasma sodium measurement (moles/volume) 139 mmol/L 135-145 Serum or plasma potassium measurement (moles/volume) 4.1 mmol/L 3.6-5.0 Serum or plasma chloride measurement (moles/volume) 104 mmol/L 98-107 Carbon dioxide 25 mmol/L 21-32 Serum or plasma anion gap determination (moles/volume) 10 mmol/L 5-14 Serum or plasma urea nitrogen measurement (mass/volume ) 9 mg/dL 7-18 Serum or plasma creatinine measurement (mass/volume) 0.92 mg/dL 0.60-1.30 Serum or plasma urea nitrogen/creatinine mass ratio 10 NRG Serum or plasma creatinine measurement w ith calculation of estimated glomerular filtration rate > NRG Serum or plasma glucose measurement (mass/volume) 86 mg/dL 70-105 Serum or plasma calcium measurement (mass/volume) 10.0 mg/dL 8.5-10.1 Serum or plasma total bilirubin measurement (mass/volu me) 0.4 mg/dL 0.1-1.0 Serum or plasma alkaline phosphatase antonio surement (enzymatic activity/volume) 66 U/L 40-136 Serum or plasma aspartate aminotransfera se measurement (enzymatic activity/volume) 18 U/L 5-34 Serum or plasma alanine aminotransferase measurement (enzymatic activity/volume) 15 U/L 0-55 Serum or plasma protein measurement (mass/volume) 8.4 g/dL 6.4-8.2 Serum or plasma albumin measurement (mass/volume) 4.7 g/dL 3.2-4.5 Complete urinalysis with reflex to cultu re - 04/08/20 15:27 Urine color determination YELLOW NRG Urine clarity determination CLEAR NR G Urine pH measurement by test strip 8.0 5-9 Specific gravity of urine by test strip 1.010 1.016-1.022 Urine protein assay by test strip, semi-quantitative NEGATIVE NEGATIVE Urine glucose detection by automated test strip NE GATIVE NEGATIVE Erythrocytes detection in urine sediment by light micr oscopy NEGATIVE NEGATIVE Urine ketones detection by automated test strip NE GATIVE NEGATIVE Urine nitrite detection by test strip NEGATIVE NEGATIVE Urine total bilirubin detection by test strip NEGA TIVE NEGATIVE Urine urobilinogen measurement by automated test strip (mass/volume) 0.2 mg/dL < = 1.0 Urine leukocyte esterase detection by dipstick NEG ATIVE NEGATIVE Automated urine sediment erythrocyte cou nt by microscopy (number/high power field) NONE NRG Automated urine sediment leukocyte count by microscopy (number/high power field) NONE NRG Bacteria detection in urine sediment by light microsco py NEGATIVE NRG Squamous epithelial cells detection in u rine sediment by light microscopy 0-2 NRG Crystals detection in urine sediment by light microsco py NONE NRG Casts detection in urine sediment by light microscopy NONE NRG Mucus detection in urine sediment by light microscopy NEGATIVE NRG Complete urinalysis with reflex to culture NO NRG Urine drug screening test - 04/08/20 15: 27 Urine phencyclidine detection by screening method NEGATIVE NEGATIVE Urine benzodiazepines detection by screening method NEGATIVE NEGATIVE Urine cocaine detection NEGATIVE NEGATI VE Urine amphetamines detection by screening method P OSITIVE NEGATIVE Urine methamphetamine detection by screening method POSITIVE NEGATIVE Urine cannabinoids detection by screening method N EGATIVE NEGATIVE Urine opiates detection by screening method NEGATI VE NEGATIVE Urine barbiturates detection NEGATIVE N EGATIVE Screening urine tricyclic antidepressants detection NEGATIVE NEGATIVE Urine methadone detection by screening method NEGA TIVE NEGATIVE Urine oxycodone detection NEGATIVE NEGA TIVE Urine propoxyphene detection NEGATIVE N EGATIVE UR TEST - 04/19/20 10:49 UR TEST NEGATIVE NEGATIVE URINALYSIS, ROUTINE - 04/19/20 10:49 UA LEUKOCYTE ESTERASE DIPSTICK 2+ NEGATIVE UA NITRITE DIPSTICK NEGATIVE NEGATIVE UA PROTEIN DIPSTICK NEGATIVE NEGATIVE UA GLUCOSE DIPSTICK NEGATIVE NEGATIVE UA KETONE DIPSTICK NEGATIVE NEGATIVE UA UROBILINOGEN DIPSTICK NORMAL [place] L UA BILIRUBIN DIPSTICK NEGATIVE NEGATIVE UA BLOOD DIPSTICK NEGATIVE NEGATIVE UA SPECIFIC GRAVITY 1.009 1.015-1.02 5 UR PH 6.0 5.0-7.0 UA MICROSCOPIC - 04/19/20 10:49 UA BACTERIA 2+ NEGATIVE UA EPITHELIAL CELLS 2+ epi/hpf 0 - 1+ UA RBC 0-3 rbc/hpf 0 - 3 UA VOLUME FOR EXAM 6.0 mL (12mL STD) UA WBC 2-5 wbc/hpf 0 - 5 PDM - 09 PANEL (PROFILE 1) - 04/30/20 10 :46 Creatinine 16.8 mg/dL > or = 20.0 pH 6.4 4.5-9.0 Oxidant NEGATIVE mcg/mL <200 Amphetamines NEGATIVE ng/mL <500 medMATCH Amphetamines CONSISTENT NRG Benzodiazepines NEGATIVE ng/mL <100 medMATCH Benzodiazepines CONSISTENT NRG Marijuana Metabolite POSITIVE ng/mL <20 Cocaine Metabolite NEGATIVE ng/mL <150 medMATCH Cocaine Metab CONSISTENT NRG Opiates NEGATIVE ng/mL <100 medMATCH Opiates CONSISTENT NRG Oxycodone NEGATIVE ng/mL <100 medMATCH Oxycodone CONSISTENT NRG COMMENT NRG Specific [place] 1.006 > or = 1.003 Marijuana Metabolite 12 ng/mL <5 medMATCH Marijuana Metab INCONSISTENT N RG Barbiturates NEGATIVE ng/mL <300 medMATCH Barbiturates CONSISTENT NRG Methadone Metabolite NEGATIVE ng/mL <100 medMATCH Methadone Metab CONSISTENT NRG Phencyclidine NEGATIVE ng/mL <25 medMATCH Phencyclidine CONSISTENT NRG PDM - 09 PANEL (PROFILE 1) - 05/22/20 16 :19 Prescribed Drug 1 Gabapentin NRG Creatinine 38.6 mg/dL > or = 20.0 pH 7.1 4.5-9.0 Oxidant NEGATIVE mcg/mL <200 Amphetamines NEGATIVE ng/mL <500 medMATCH Amphetamines CONSISTENT NRG Benzodiazepines NEGATIVE ng/mL <100 medMATCH Benzodiazepines CONSISTENT NRG Marijuana Metabolite POSITIVE ng/mL <20 Cocaine Metabolite NEGATIVE ng/mL <150 medMATCH Cocaine Metab CONSISTENT NRG Opiates NEGATIVE ng/mL <100 medMATCH Opiates CONSISTENT NRG Oxycodone NEGATIVE ng/mL <100 medMATCH Oxycodone CONSISTENT NRG COMMENT NRG Prescribed Drug 2 Gabapentin NRG Prescribed Drug 3 Gabapentin NRG Prescribed Drug 4 Gabapentin NRG Prescribed Drug 5 Gabapentin NRG Marijuana Metabolite 17 ng/mL <5 medMATCH Marijuana Metab INCONSISTENT N RG Barbiturates NEGATIVE ng/mL <300 medMATCH Barbiturates CONSISTENT NRG Methadone Metabolite NEGATIVE ng/mL <100 medMATCH Methadone Metab CONSISTENT NRG Phencyclidine NEGATIVE ng/mL <25 medMATCH Phencyclidine CONSISTENT NRG Radiology Report from [id number] on 10/13 01:27:00 Reason For Examfever w abdominal and cory k painREPORTEXAMINATION: CT Abdomen and Pelvis with intravenous contrast.TECHNIQUE: Multiple contiguous axial images were obtained through the abdomenand pelvis after the uneventful administration of intravenous contrast. All CTscans use one or more of the following dose optimizing techniques: automatedexposure control, MA and/or KvP adjustment based on a patient size and examtype, or iterative reconstruction.HISTORY: Abdominal pain.COMPARISON: None available.FINDINGS:Limited views of the lower thorax are unremarkable.The liver is normal without focal lesion. There is no biliary ductal dilation.Gallbladder is normal. Pancreas is normal. Spleen is normal. Adrenal glandsare normal.There are patchy areas of linear hypoenhancement in the right kidney with milddilation of the renal pelvis and urothelial enhancement suggestive ofpyelonephritis. No obstructing stone is seen. Left kidney appears normal.Urinary bladder is normal.There are no dilated loops of large or small bowel. No obstruction orinflammation. No free fluid or air. No abdominal or pelvic lymphadenopathy.Aorta is normal in caliber without aneurysm.There are no suspicious osseous lesions.IMPRESSION:1. CT findings suggestive of right-sided pyelonephritis.Tech Comments: IV Contrast Name: Omnipaque 300Contrast amount in ml's: 80.000Dictated on workstation:[id number] Line FINAL DICTATED BY: ANNIA MATTSON MDDICTATED DT/TM: 10/12/2019 5:05 PMSIGNED BY: ANNIA MATTSON MDSIGNED (ELECTRONIC SIGNATURE): 10/12/2019 6:16 PMTECHNOLOGIST: HUGH FARMER RT(R),SHABBIR LOONEY Radiology Report from [id number] on 01/04 02:59:00 Reason For ExamAbdominal pain, generaliz edREPORTPROCEDURE: CT Abdomen Pelvis without contrast.TECHNIQUE: Multiple contiguous axial images were obtained through the abdomenand pelvis without the use of intravenous contrast. All CT scans use one or moreof the following dose optimizing techniques: automated exposure control, MAand/or KvP adjustment based on a patient size and exam type, or iterativereconstruction.INDICATION: Abdominal pain.Comparison made with prior examination of 10/12/2019.FINDINGS: The heart size is normal. The lung bases are clear. The liver isnormal in size without focal lesions. Gallbladder is unremarkable. No biliaryduct dilatation. Spleen is normal. The pancreas and adrenal glands areunremarkable. There is no evidence of nephrolithiasis or obstructive uropathy.Aorta is nonaneurysmal. Bowel gas pattern is nonspecific. No free air. Noascites. No focal inflammatory changes. Bladder is normal. No pelvic mass,adenopathy or free fluid. There are numerous calcified phleboliths in thepelvis. It is difficult to completely exclude a distal ureteral stone.IMPRESSION: Multiple calcified phleboliths in the pelvis. Difficult to excludethe distal or ureteral ureteral stone although there is no overt evidence ofhydronephrosis.No other acute abnormality in the abdomen or pelvis.Dictated on workstation:[id number] Line FINAL DICTATED BY: VINH JONAS II MDDICTATED DT/TM: 12/24/2019 7:40 AMSIGNED BY: VINH JONAS II MDSIGNED (ELECTRONIC SIGNATURE): 12/24/2019 7:45 AMTECHNOLOGIST: VIKTOR ABBOTT(R)(CT) Encounters ACCT No. Visit Date/Time Discharge Status Pt. Type Provider Facility Loc./Unit Complaint [id number] 12/23/2019 20:57:00 04:04:00 DIS Emergency Bel Jones [facility] ED Flank pain [id number] 10/12/2019 12:47:00 18:50:00 DIS Emergency Paola Perez [facility] ED poss kidney stone [id number] 12/24/2019 05:11:36 Document Registration [id number] 10/13/2019 05:22:42 Document Registration [id number] 04/19/2020 10:30:00 13:25:00 DIS Emergency Americo ARCE, [facility] [id number] 03/16/2020 17:02:00 03/16/2020 17:13 :00 DIS Outpatient [place] [id number] 07/03/2019 17:58:00 07/03/2019 22:10: 00 [id number] 07/03/2019 18:36:12 Document Registration [id number] 04/08/2020 14:20:00 16:14:00 DIS Outpatient RENY CARY APRN [facility] ER CONVULSIONS [id number] 09/19/2015 14:25:00 015 17:12:00 DIS Emergency SHERRIE MAN [facility] ER BACK PAIN [id number] 08/28/2014 20:25:00 014 16:45:00 DIS Inpatient MARGI LYONS DO, [facility] LDRP [id number] 08/14/2014 18:37:00 014 19:17:00 DIS Outpatient MARGI LYONS DO [facility] WSo [id number] 06/14/2014 14:10:00 23:59:59 CLS Outpatient JENA TRINIDAD [employer]CH[employer] [facility] RAD [id number] 05/15/2014 13:04:00 014 23:59:59 CLS Emergency [id number] 05/15/2014 11:55:00 014 12:35:00 DIS Outpatient [id number] 03/29/2013 10:40:00 013 23:59:59 CLS Outpatient [id number] 06/18/2020 21:38:[address] Emergency PASHA ARCE, BRI Ferraro [facility] ER SEIZURE [id number] 01/02/2012 13:15:00 Document Registration [id number] 12/23/2019 20:57:00 Document Registration [id number] 10/12/2019 12:47:00 Document Registration [id number] 08/22/2017 18:06:00 Document Registration [id number] 08/18/2016 10:06:00 Document Registration [id number] 05/23/2020 08:00:00 05/23/2020 23:59:5 9 CLS Outpatient CHRIS BETTENCOURT [facility] DENTAL [id number] 05/22/2020 15:00:00 Document Registration [id number] 04/30/2020 08:40:00 Document Registration [id number] 11/13/2019 14:40:00 11/13/2019 23:59:5 9 CLS Outpatient Ziggy Norris [facility] [id number] 11/09/2019 14:20:00 Document Registration [id number] 09/21/2014 11:34:00 09/21/2014 23:59: 59 CLS Outpatient MARGI LYONS DO [id number] 08/26/2014 15:55:00 08/26/2014 23:59: 59 CLS Outpatient MARGI LYONS DO [id number] 08/19/2014 15:40:00 08/19/2014 23:59: 59 CLS Outpatient MARIG LYONS DO [id number] 08/19/2014 15:40:00 08/19/2014 23:59: 59 CLS Outpatient MARGI LYONS DO [id number] 08/07/2014 09:59:00 08/07/2014 23:59: 59 CLS Outpatient MARGI LYONS DO [id number] 07/30/2014 13:52:00 07/30/2014 23:59: 59 CLS Outpatient JENA TRINIDAD APRN [id number] 07/30/2014 13:52:00 07/30/2014 23:59: 59 CLS Outpatient JENA TRINIDAD APRN [id number] 06/25/2014 14:54:00 06/25/2014 23:59: 59 CLS Outpatient MARGI LYONS DO [id number] 06/10/2014 10:57:00 06/10/2014 23:59: 59 CLS Outpatient JENA TRINIDAD APRN [id number] 06/10/2014 10:57:00 06/10/2014 23:59: 59 CLS Outpatient JENA TRINIDAD APRN [id number] 08/01/2013 14:33:00 08/01/2013 23:59: 59 CLS Outpatient MARGI LYONS DO
[2020-06-18 21:53] VITALS: BP 130/94
[2020-06-18] MEDS ORDERED: BENZTROPINE 2 MG/2 ML INJ (COGENTIN) AMP IV ONE (22:00)
--- NOTE | 2020-06-18 22:06 | ED Neurological Problem ---
General Chief Complaint: Neurological Problems Stated Complaint: SEIZURE Nursing Triage Note: Patient presented to the ER via EMS secondary to seizures. Patients friends advised ems that she has had approximately 10 seizures today and 2 yesterday. Patient has a seizure history and has been compliant with her medications however she has recently had increased stress in her life. Nursing Sepsis Screen: No Definite Risk Source: patient Exam Limitations: no limitations History of Present Illness Date Seen by Provider: Jun 18, 2020 Time Seen by Provider: 21:36 Initial Comments She presents ER from home by EMS with chief complaint she's had 10 seizures today. She's upset because her friends insisted she come in today. She has a baseline seizure disorder and takes Lamictal 100 mg daily. She is followed by primary care the [facility] at [place], [place]. She has no appointment in 2 weeks with a neurologist at [place], [place] but does not follow with a neurologist now. She has not had an EEG. She's upset her friends made her come in because she says whenever she comes in here for this we do some workup and told her was nothing we can do is send her home. She does state she has a occipital headache and her eyes hurt but no blurry vision double vision. No fevers chills cough shortness of breath chest pain nausea vomiting diarrhea or dysuria. She says she takes half of a Klonopin unknown dose earlier this afternoon and about 2-3 hours ago took another half of a tablet of Klonopin but this did not help with her seizure-like activity. Patient says typically she only has this happen about once every week or 2 and the past 2-3 days she's had no increase uptake and her activity. Patient is having some spasming, rhythmic movement throughout our examination. When asked if this is her increased seizure activity she indicates yes. Patient states she has been faithfully taking her Lamictal. She denies other medical problems or taking other medicines except for a history of traumatic brain injury. Allergies and Home Medications Allergies Coded Allergies: No Known Drug Allergies (Unverified , 01/23/10) Home Medications Buspirone Hcl 10 Mg Tablet, 15 MG PO BID, (Reported) Ferrous Sulfate 325 Mg Tab, 325 MG PO BID WITH MEALS Prescribed by: EVGENY LEE on 08/30/14 1516 Hydroxyzine HCl 25 Mg Tablet, 25 MG PO Q4H Prescribed by: RENY CARY on 04/08/20 1610 Hydroxyzine Hcl 50 Mg Tablet, 1 EACH PO TID, (Reported) Lorazepam 0.5 Mg Tablet, 0.5 MG PO TID PRN for SEVERE ANXIETY Prescribed by: EVGENY LEE on 08/30/14 1516 Vits W-Ca,Fe,Fa(<1MG) 1 Each Tablet, 1 EACH PO DAILY, (Reported) Sertraline Hcl 50 Mg Tablet, 50 MG PO DAILY, (Reported) [Ibuprofen] 600 MG TAB, 600 MG PO Q6H PRN for PAIN Prescribed by: EVGENY LEE on 08/30/14 1516 Patient Home Medication List Home Medication List Reviewed: Yes Review of Systems Review of Systems Constitutional: No chills, No diaphoresis Eyes: Denies Blindness, Denies Blurred Vision, Denies Drainage Ears, Nose, Mouth, Throat: denies ear pain, denies ear discharge Respiratory: No cough, No short of breath Cardiovascular: No edema, No Hx of Intervention, No palpitations Gastrointestinal: No abdominal pain, No constipation, No diarrhea, No nausea, No vomiting Genitourinary: No discharge, No dysuria Musculoskeletal: No back pain, No joint pain Psychiatric/Neurological: See HPI; Denies Anxiety, Denies Depressed All Other Systems Reviewed Negative Unless Noted: Yes Past Ldtslmx-Oipfec-Ltdogz Hx Patient Social History Alcohol Use: Denies Use Recreational Drug Use: Yes Drug of Choice: METH Smoking Status: Unknown if Ever Smoked 2nd Hand Smoke Exposure: No Recent Foreign Travel: No Contact w/Someone Who Travel: No Recent Infectious Disease Expo: No Immunizations Up To Date Tetanus Booster (TDap): Unknown PED Vaccines UTD: Yes Date of Influenza Vaccine: Aug 26, 2014 Past Medical History Surgeries: Yes (D&C X2) Respiratory: No Cardiac: No Neurological: Yes Seizure Disorder, Traumatic Brain Injury Reproductive Disorders: No Gastrointestinal: No Musculoskeletal: No Endocrine: No Cancer: No Psychosocial: Yes Anxiety Integumentary: No Blood Disorders: No Adverse Reaction/Blood Tranf: No Family Medical History Patient reports no known family medical history. No Pertinent Family Hx Physical Exam Vital Signs Vital Signs - First Documented Capillary Refill : Less Than 3 Seconds Height, Weight, BMI Height: 5'6" Weight: 150lbs. oz. [id number]; 24.00 BMI Method:Stated General Appearance: WD/WN, mild distress HEENT: PERRL/EOMI, normal ENT inspection, pharynx normal, other (bilateral TMs with mild retraction and clear effusion but no injection, erythema or tenderness to manipulation of the pinna.) Neck: non-tender, full range of motion, supple, normal inspection Respiratory: lungs clear, normal breath sounds, no respiratory distress, no accessory muscle use Cardiovascular: normal peripheral pulses, regular rate, rhythm Peripheral Pulses: 2+ Radial Pulses (R), 2+ Radial Pulses (L) Gastrointestinal: normal bowel sounds, non tender, soft Extremities: normal range of motion, non-tender, normal inspection, no pedal edema, normal capillary refill Neurologic/Psychiatric: operations superintendent II-XII nml as tested, no motor/sensory deficits, alert, normal mood/affect, oriented x 3, other (rhythmic, arriving movement with some dystonic spasmodic action. No tonic-clonic seizure activity witnessed.) Crainal Nerves: normal hearing, normal speech, PERRL Motor/Sensory: no motor deficit, no sensory deficit, no pronator drift Skin: normal color, warm/dry Progress/Results/Core Measures Results/Orders Lab Results Laboratory Tests Test 06/18/20 21:49 06/18/20 22:10 Range/Units White Blood Count 6.7 4.3-11.0 10^3/uL Red Blood Count 4.34 L 4.35-5.85 10^6/uL Hemoglobin 13.4 11.5-16.0 G/DL Hematocrit 40 35-52 % Mean Corpuscular Volume 92 80-99 FL Mean Corpuscular Hemoglobin 31 25-34 PG Mean Corpuscular Hemoglobin Concent 34 32-36 G/DL Red Cell Distribution Width 12.3 10.0-14.5 % Platelet Count 246 130-400 10^3/uL Mean Platelet Volume 11.1 H 7.4-10.4 FL Neutrophils (%) (Auto) 58 42-75 % Lymphocytes (%) (Auto) 28 12-44 % Monocytes (%) (Auto) 12 0-12 % Eosinophils (%) (Auto) 2 0-10 % Basophils (%) (Auto) 0 0-10 % Neutrophils # (Auto) 3.9 1.8-7.8 X 10^3 Lymphocytes # (Auto) 1.9 1.0-4.0 X 10^3 Monocytes # (Auto) 0.8 0.0-1.0 X 10^3 Eosinophils # (Auto) 0.1 0.0-0.3 10^3/uL Basophils # (Auto) 0.0 0.0-0.1 10^3/uL Sodium Level 138 135-145 MMOL/L Potassium Level 4.4 3.6-5.0 MMOL/L Chloride Level 106 98-107 MMOL/L Carbon Dioxide Level 21 21-32 MMOL/L Anion Gap 11 5-14 MMOL/L Blood Urea Nitrogen 10 7-18 MG/DL Creatinine 0.83 0.60-1.30 MG/DL Estimat Glomerular Filtration Rate > 60 BUN/Creatinine Ratio 12 Glucose Level 103 70-105 MG/DL Calcium Level 9.0 8.5-10.1 MG/DL Corrected Calcium 8.8 8.5-10.1 MG/DL Total Bilirubin 0.3 0.1-1.0 MG/DL Aspartate Amino Transf (AST/SGOT) 16 5-34 U/L Alanine Aminotransferase (ALT/SGPT) 11 0-55 U/L Alkaline Phosphatase 55 40-136 U/L Total Protein 7.2 6.4-8.2 GM/DL Albumin 4.3 3.2-4.5 GM/DL Urine Color YELLOW Urine Clarity CLEAR Urine pH 7.0 5-9 Urine Specific Tyler 1.010 L 1.016-1.022 Urine Protein NEGATIVE NEGATIVE Urine Glucose (UA) NEGATIVE NEGATIVE Urine Ketones NEGATIVE NEGATIVE Urine Nitrite NEGATIVE NEGATIVE Urine Bilirubin NEGATIVE NEGATIVE Urine Urobilinogen 0.2 < = 1.0 MG/DL Urine Leukocyte Esterase TRACE H NEGATIVE Urine RBC (Auto) NEGATIVE NEGATIVE Urine RBC NONE /HPF Urine WBC 0-2 /HPF Urine Squamous Epithelial Cells 2-5 /HPF Urine Crystals NONE /LPF Urine Bacteria TRACE /HPF Urine Casts NONE /LPF Urine Mucus NEGATIVE /LPF Urine Culture Indicated NO Urine Test NEGATIVE NEGATIVE Urine Opiates Screen NEGATIVE NEGATIVE Urine Oxycodone Screen NEGATIVE NEGATIVE Urine Methadone Screen NEGATIVE NEGATIVE Urine Propoxyphene Screen NEGATIVE NEGATIVE Urine Barbiturates Screen NEGATIVE NEGATIVE Ur Tricyclic Antidepressants Screen NEGATIVE NEGATIVE Urine Phencyclidine Screen NEGATIVE NEGATIVE Urine Amphetamines Screen POSITIVE H NEGATIVE Urine Methamphetamines Screen POSITIVE H NEGATIVE Urine Benzodiazepines Screen NEGATIVE NEGATIVE Urine Cocaine Screen NEGATIVE NEGATIVE Urine Cannabinoids Screen POSITIVE H NEGATIVE My Orders Orders - PASHA,BRI Ronan Benztropine Injection (Cogentin Injectio (06/18/20 22:00) Ua Culture If Indicated (06/18/20 21:51) Drug Screen Stat (Urine) (06/18/20 21:51) Urine Bedside (06/18/20 21:51) Cbc With Automated Diff (06/18/20 21:51) Comprehensive Metabolic Panel (06/18/20 21:51) Ekg Tracing (06/18/20 22:07) Continuous Ekg Monitoring (06/18/20 22:07) Hcg,Qualitative Urine (06/18/20 22:16) Medications Given in ED Current Medications Medications Dose Ordered Sig/Marion Route Start Time Stop Time Status Last Admin Dose Admin Benztropine Mesylate 2 mg ONCE ONCE IV 06/18/20 22:00 06/18/20 22:01 DC 06/18/20 22:01 2 MG Vital Signs/I&O 06/18/20 06/18/20 06/19/20 21:53 21:53 00:07 Temp 36.8 36.8 Pulse 98 98 63 Resp 14 16 14 B/P (MAP) 130/94 (106) 130/94 (106) 111/68 Pulse Ox 98 98 99 O2 Delivery Room Air Room Air Room Air Blood Pressure Mean: 106 Progress Progress Note #1: Time: 22:06 Progress Note I suspect she is having a dystonic reaction not seizure community living specialist and Klonopin did not help. We are going to give her 2 mg IV Cogentin and assess some labs and urine. Patient has no other symptoms or history to suggest infection. She does have a history of presenting with convulsions/dystonic reaction related to her methamphetamine use. Urine drug screen. Bedside test. Progress Note #2: Time: 00:22 Progress Note After receiving the Cogentin the patient's symptoms went away and she fell asleep. She arouses easily for staff and we allowed her to go home after discussing her symptoms and encouraging her to follow-up with her primary care doctor to review her medications. We did encourage her to discontinue use of methamphetamines and she states that that is not the source of her problems. Initial ECG Impression Date: Jun 18, 2020 Initial ECG Impression Time: 23:59 Initial ECG Rate: 64 Initial ECG Rhythm: Normal Sinus Initial ECG Intervals: Normal Initial ECG Impression: Normal Comment Normal sinus rhythm without clinically relevant ST elevation or depression. Departure Impression Primary Impression: Acute dystonic reaction due to drugs Disposition: 01 HOME, SELF-CARE Condition: Stable Departure-Patient Inst. Decision time for Depature: 23:56 Referrals: NO,LOCAL PHYSICIAN (PCP/Family) Primary Care Physician Patient Instructions: Tardive Dyskinesia Add. Discharge Instructions: Please follow-up with her primary care doctor to discuss whether Cogentin could be helpful for you in the future. Return to the ER if we can help you. All discharge instructions reviewed with patient and/or family. Voiced understanding. BRI PAK Jun 18, 2020 22:06
[2020-06-18 22:07] LABS: BASOPHILS % (AUTO) 0 % (0-10); EOSINOPHILS # (AUTO) 0.1 10^3/uL (0.0-0.3); EOSINOPHILS % (AUTO) 2 % (0-10); HEMATOCRIT 40 % (35-52); HEMOGLOBIN 13.4 G/DL (11.5-16.0); LYMPHOCYTES # (AUTO) 1.9 X 10^3 (1.0-4.0); LYMPHOCYTES % (AUTO) 28 % (12-44); MEAN CORPUSCULAR HEMOGLOBIN 31 PG (25-34); MEAN CORPUSCULAR HGB CONC 34 G/DL (32-36); MEAN CORPUSCULAR VOLUME 92 FL (80-99); MEAN PLATELET VOLUME 11.1 FL (7.4-10.4); MONOCYTES # (AUTO) 0.8 X 10^3 (0.0-1.0); MONOCYTES % (AUTO) 12 % (0-12); NEUTROPHILS # (AUTO) 3.9 X 10^3 (1.8-7.8); NEUTROPHILS % (AUTO) 58 % (42-75); PLATELET COUNT 246 10^3/uL (130-400); RED CELL DISTRIBUTION WIDTH 12.3 % (10.0-14.5); WHITE BLOOD COUNT 6.7 10^3/uL (4.3-11.0)
[2020-06-18 22:16] LABS: BILIRUBIN,URINE NEGATIVE (NEGATIVE); CLARITY,URINE CLEAR; COLOR,URINE YELLOW; GLUCOSE, URINE (UA) NEGATIVE (NEGATIVE); KETONES,URINE NEGATIVE (NEGATIVE); LEUKOCYTE ESTERASE ,URINE TRACE (NEGATIVE); NITRITE,URINE NEGATIVE (NEGATIVE); PROTEIN,URINE NEGATIVE (NEGATIVE)
[2020-06-18 22:18] LABS: ALANINE AMINOTRANSFERASE 11 U/L (0-55); ALBUMIN 4.3 GM/DL (3.2-4.5); ALKALINE PHOSPHATASE 55 U/L (40-136); BILIRUBIN,TOTAL 0.3 MG/DL (0.1-1.0); BUN/CREATININE RATIO 12; CARBON DIOXIDE 21 MMOL/L (21-32); CHLORIDE 106 MMOL/L (98-107); CREATININE SERUM 0.83 MG/DL (0.60-1.30); GFR ESTIMATED > 60; GLUCOSE 103 MG/DL (70-105); POTASSIUM 4.4 MMOL/L (3.6-5.0); SODIUM 138 MMOL/L (135-145); TOTAL PROTEIN 7.2 GM/DL (6.4-8.2)
[2020-06-18 22:21] LABS: BACTERIA,URINE TRACE /HPF; WBC,URINE 0-2 /HPF
[2020-06-18 22:26] LABS: AMPHETAMINE SCREEN, URINE POSITIVE (NEGATIVE); BARBITURATE SCREEN URINE NEGATIVE (NEGATIVE); BENZODIAZEPINES SCREEN URINE NEGATIVE (NEGATIVE); CANNABINOID SCREEN, URINE POSITIVE (NEGATIVE); COCAINE SCREEN URINE NEGATIVE (NEGATIVE); METHADONE STAT NEGATIVE (NEGATIVE); METHAMPHETAMINE SCREEN URINE S POSITIVE (NEGATIVE); OPIATE SCREEN URINE NEGATIVE (NEGATIVE); OXYCODONE STAT NEGATIVE (NEGATIVE); PROPOXYPHENE STAT NEGATIVE (NEGATIVE); TRICYCLIC ANTIDEPRESSANTS SCRE NEGATIVE (NEGATIVE)
--- NOTE | 2020-06-18 22:42 | NUR ---
Vitals HR-67 SPO2-98% RR-14 BP-130/94
[2020-06-19 00:07] VITALS: BP 111/68
== END 2020-06-19 00:07 | disposition home or self-care (01) ==
LOC: EDUNIT# 21:37 → ER 21:38
DX: G24.09 Other drug induced dystonia (principal); T42.4X5A Adverse effect of benzodiazepines, initial encounter; G40.909 Epilepsy, unspecified, not intractable, without status epilepticus; F41.9 Anxiety disorder, unspecified; Z87.820 Personal history of traumatic brain injury
CPT/HCPCS: 36415; 51701; 80053; 80306; 81000; 84703; 85025; 93005; 96374

== ENCOUNTER 2022-04-28 20:13 | Emergency (ER) | payer SELFPAY ==
[~2022-04-28] VITALS: Ht 165 cm; Wt 66.0 kg
--- NOTE | 2022-04-28 20:19 | ED GI ---
General Chief Complaint: General Problems/Pain Stated Complaint: AMS Source of Information: Patient Exam Limitations: Intoxication History of Present Illness Date Seen by Provider: Apr 28, 2022 Time Seen by Provider: 20:13 Initial Comments Patient to the ER by private conveyance with significant others and chief complaint she had some seizure-like activity. No history of epilepsy. She did use some THC earlier today and some methamphetamines about 2 days ago. She has never had EPS syndrome before. She is now having uncontrollable nausea and vomiting. She does not have a history of hyperemesis cannabis. Patient is a little obtunded and does not give a very good history. Just prior to coming in though she says she took a shot of THC indicating a drink and some THC Gummies. She uses methamphetamines by injection. She denies chest pain. She denies any alcohol use. Review of the patient's history reveals that she was here about a year ago with the same appearance and was at that time being worked up by neurology for possible seizure activity but had not had an EEG yet. At that time she appeared to be having a dystonic reaction just like today and responded well to Cogentin. She endorses frequent meth use. She has a history of TBI. Allergies and Home Medications Allergies Coded Allergies: No Known Drug Allergies (Unverified , 01/23/10) Patient Home Medication List Home Medication List Reviewed: Yes Buspirone Hcl (Buspar) 10 Mg Tablet, 15 MG PO BID, (Reported) Entered as Reported by: LYLE MART on 08/14/14 185 Ferrous Sulfate (Feosol Tab) 325 Mg Tab, 325 MG PO BID WITH MEALS Prescribed by: EVGENY LEE on 08/30/14 151 Hydroxyzine HCl (Hydroxyzine HCl) 25 Mg Tablet, 25 MG PO Q4H Prescribed by: RENY CARY on 04/08/20 1610 Hydroxyzine Hcl (Hydroxyzine 50 Mg Tablet) 50 Mg Tablet, 1 EACH PO TID, (Reported) Entered as Reported by: LYLE MART on 08/14/14 185 Lorazepam (Ativan) 0.5 Mg Tablet, 0.5 MG PO TID PRN for SEVERE ANXIETY Prescribed by: EVGENY LEE on 08/30/14 151 Vits W-Ca,Fe,Fa(<1MG) () 1 Each Tablet, 1 EACH PO DAILY, (Reported) Entered as Reported by: MAHENDRA ARRINGTON on 12/10/11 1834 Sertraline Hcl (Zoloft) 50 Mg Tablet, 50 MG PO DAILY, (Reported) Entered as Reported by: LYLE MART on 08/14/14 1855 [Ibuprofen] 600 MG TAB, 600 MG PO Q6H PRN for PAIN Prescribed by: EVGENY LEE on 08/30/14 1516 Review of Systems Review of Systems Constitutional: see HPI; No chills, No fever; malaise, weakness EENTM: No Blurred Vision, No Double Vision Respiratory: Denies Cough, Denies Shortness of Air Cardiovascular: Denies Chest Pain, Denies Lightheadedness Gastrointestinal: See HPI; Denies Abdominal Pain, Denies Constipated, Denies Diarrhea; Nausea; Denies Poor Fluid Intake; Vomiting Genitourinary: Denies Burning, Denies Discharge Musculoskeletal: No back pain, No joint pain All Other Systems Reviewed Negative Unless Noted: Yes Past Prdfabc-Srdwyp-Ozlmjq Hx Patient Social History Substance use?: Yes Substance type: Methamphetamine (Last used 2 days ago), Marijuana Alcohol Use?: No Immunizations Up To Date Tetanus Booster (TDap): Unknown PED Vaccines UTD: Yes Past Medical History Surgeries: Yes (D&C X2) Respiratory: No Cardiac: No Neurological: Yes Seizure Disorder, Traumatic Brain Injury Reproductive Disorders: No Gastrointestinal: No Musculoskeletal: No Endocrine: No Cancer: No Psychosocial: Yes Anxiety Integumentary: No Blood Disorders: No Adverse Reaction/Blood Tranf: No Family Medical History Patient reports no known family medical history. No Pertinent Family Hx Physical Exam Vital Signs Capillary Refill : Height/Weight/BMI Height: 5'6" Weight: 150lbs. oz. 68.063849pa; 24.00 BMI Method:Stated General Appearance: WD/WN, moderate distress HEENT: PERRL/EOMI, pharynx normal Neck: full range of motion, supple, normal inspection Respiratory: lungs clear, normal breath sounds, no respiratory distress, no accessory muscle use Cardiovascular: normal peripheral pulses, regular rate, rhythm Peripheral Pulses: 2+ Radial Pulses (R), 2+ Radial Pulses (L) Gastrointestinal: normal bowel sounds, non tender, soft, no organomegaly Extremities: normal range of motion, normal inspection, normal capillary refill Neurologic/Psychiatric: alert, other (Anxious affect, GCS 13 but oriented x4.) Skin: normal color, warm/dry Progress/Results/Core Measures Results/Orders Lab Results Laboratory Tests Test 04/28/22 20:18 04/28/22 20:30 Range/Units White Blood Count 8.5 4.3-11.0 10^3/uL Red Blood Count 4.20 3.80-5.11 10^6/uL Hemoglobin 12.6 11.5-16.0 g/dL Hematocrit 38 35-52 % Mean Corpuscular Volume 91 80-99 fL Mean Corpuscular Hemoglobin 30 25-34 pg Mean Corpuscular Hemoglobin Concent 33 32-36 g/dL Red Cell Distribution Width 12.8 10.0-14.5 % Platelet Count 280 130-400 10^3/uL Mean Platelet Volume 10.7 9.0-12.2 fL Immature Granulocyte % (Auto) 0 % Neutrophils (%) (Auto) 46 42-75 % Lymphocytes (%) (Auto) 44 12-44 % Monocytes (%) (Auto) 8 0-12 % Eosinophils (%) (Auto) 1 0-10 % Basophils (%) (Auto) 1 0-10 % Neutrophils # (Auto) 3.9 1.8-7.8 10^3/uL Lymphocytes # (Auto) 3.7 1.0-4.0 10^3/uL Monocytes # (Auto) 0.7 0.0-1.0 10^3/uL Eosinophils # (Auto) 0.1 0.0-0.3 10^3/uL Basophils # (Auto) 0.0 0.0-0.1 10^3/uL Immature Granulocyte # (Auto) 0.0 0.0-0.1 10^3/uL Prothrombin Time 13.4 12.2-14.7 SEC INR Comment 1.0 0.8-1.4 Activated Partial Thromboplast Time 27 24-35 SEC Sodium Level 139 135-145 MMOL/L Potassium Level 3.2 L 3.6-5.0 MMOL/L Chloride Level 105 98-107 MMOL/L Carbon Dioxide Level 21 21-32 MMOL/L Anion Gap 13 5-14 MMOL/L Blood Urea Nitrogen 11 7-18 MG/DL Creatinine 0.75 0.60-1.30 MG/DL Estimat Glomerular Filtration Rate 103 BUN/Creatinine Ratio 15 Glucose Level 121 H 70-105 MG/DL Calcium Level 8.8 8.5-10.1 MG/DL Corrected Calcium 8.6 8.5-10.1 MG/DL Magnesium Level 2.3 1.6-2.4 MG/DL Total Bilirubin 0.9 0.1-1.0 MG/DL Aspartate Amino Transf (AST/SGOT) 17 5-34 U/L Alanine Aminotransferase (ALT/SGPT) 18 0-55 U/L Alkaline Phosphatase 54 40-136 U/L Total Creatine Kinase 136 29-168 U/L C-Reactive Protein High Sensitivity 0.06 0.00-0.50 MG/DL Total Protein 6.9 6.4-8.2 GM/DL Albumin 4.2 3.2-4.5 GM/DL Lipase 16 8-78 U/L Serum Test, Qualitative NEGATIVE NEGATIVE Salicylates Level < 5.0 L 5.0-20.0 MG/DL Acetaminophen Level < 10 L 10-30 UG/ML Serum Alcohol < 10 <10 MG/DL Blood Gas Puncture Site RRAD Blood Gas Patient Temperature 36.2 Arterial Blood pH 7.36 L 7.37-7.43 Arterial Blood Partial Pressure CO2 43 35-45 MMHG Arterial Blood Partial Pressure O2 178 H 79-93 MMHG Arterial Blood HCO3 24 23-27 MMOL/L Arterial Blood Total CO2 25.1 21.0-31.0 MMOL/L Arterial Blood Oxygen Saturation 99 94-100 % Arterial Blood Base Excess -1.1 -2.5-2.5 MMOL/L Yuri Test YES-POS Blood Gas Ventilator Setting NO Blood Gas Inspired Oxygen 2L My Orders Orders - BRI PAK Ondansetron Injection (Zofran Injectio (04/28/22 20:30) Benztropine Injection (Cogentin Injectio (04/28/22 20:30) Ed Iv/Invasive Line Start (04/28/22 20:16) Lactated Ringers (Lr 1000 Ml Iv Solution (04/28/22 20:30) Cbc With Automated Diff (04/28/22 20:16) Comprehensive Metabolic Panel (04/28/22 20:16) Hs C Reactive Protein (04/28/22 20:16) Hcg,Qualitative Serum (04/28/22 20:16) Ua Culture If Indicated (04/28/22 20:16) Drug Screen Stat (Urine) (04/28/22 20:16) Lipase (04/28/22 20:16) Alcohol (04/28/22 20:16) Creatine Kinase (04/28/22 20:30) Magnesium (04/28/22 20:30) Arterial Blood Gas (04/28/22 20:31) Continuous Ekg Monitoring (04/28/22 20:34) Ekg Tracing (04/28/22 20:34) Chest 1 View, Ap/Pa Only (04/28/22 20:34) Acetaminophen (04/28/22 20:34) Salicylate (04/28/22 20:34) End Tidal Co2 (04/28/22 20:34) Protime With Inr (04/28/22 20:43) Partial Thromboplastin Time (04/28/22 20:43) Medications Given in ED Current Medications Medications Dose Ordered Sig/Marion Route Start Time Stop Time Status Last Admin Dose Admin Benztropine Mesylate 2 mg ONCE ONCE IV 04/28/22 20:30 04/28/22 20:31 DC 04/28/22 20:26 2 MG Lactated Ringer's 1,000 ml @ 0 mls/hr Q0M ONCE IV 04/28/22 20:30 04/28/22 20:31 DC 04/28/22 20:26 0 MLS/HR Ondansetron HCl 8 mg ONCE ONCE IVP 04/28/22 20:30 04/28/22 20:31 DC 04/28/22 20:26 8 MG Progress Progress Note #1: Time: 20:28 Progress Note Patient comes in very anxious, emesis of thin, brown chocolate milk appearance in the lobby. She answers questions and can stand but is very weak and requires 1 person support to get in the bed. Denies any trauma but apparently did take a large dose of THC both edibles and drinking it. She is having some rhythmic convulsive like movement consistent with EPS. When questioned about methamphetamine she states she did use about 2 days ago by injection. We will order some Cogentin and 8 mg of Zofran, a liter of lactated Ringer's and will check some labs including a CPK, EKG, ABG, toxicology screen. Shortly after the IV was initiated but before medications were given the patient had a pretty good plethysmography waveform showing 81% on room air. He put her on 2 L by nasal cannula. Before we can turn the oxygen on she was back up to 91% and rousing. Still answering questions appropriately. Lethargic appearing. Progress Note #2: Time: 20:48 Progress Note After receiving the Cogentin the patient is feeling much better. Her nausea is gone. Her dystonic reaction is improving. She is able to answer questions and wants to rest so were going to let her sleep. We will discontinue the CT head as she endorses no trauma. Progress Note #3: Time: 21:30 Progress Note We discussed Narcotics Anonymous and [facility] addiction [facility] and she says she is aware of all the docs out there. She is not interested in entering into rehab at this time but we told her that we would include their number for when she is ready. We discussed return precautions. We will send out a prescription for some Cogentin in case she has more EPS as well as ondansetron. Initial ECG Impression Date: Apr 28, 2022 Initial ECG Impression Time: 20:39 Initial ECG Rate: 72 Initial ECG Rhythm: Normal Sinus Initial ECG Intervals: Normal Initial ECG Impression: Normal Initial ECG Comparisson: Unchanged Comment Normal sinus rhythm without clinically relevant ST changes. Diagnostic Imaging Diagonstic Imaging: Xray Plain Films/CT/US/NM/MRI: chest Comments [facility], [place] NAME: LUIS FELIPE HYMAN [facility] REC#: [id number] PT STATUS: REG ER : 1980 PHYSICIAN: BRI PAK MD ADMIT DATE: 04/28/22/ER Draft Date of Exam:04/28/22 CHEST 1 VIEW, AP/PA ONLY Chest 1 view, AP/PA only. Indication: Lethargic, overdose. Comparison: None available. Findings: Hazy opacities of the lung bases are likely due to summation of patient's breast tissue. No pleural effusion or pneumothorax. Posterior lower lobes are poorly evaluated by portable radiography. Impression: Hazy opacities of the lung bases are highly likely due to summation shadow from patient's breast. Less likely, this could represent areas of atelectasis, edema or atypical infection. Dictated on workstation # [id number] Dict: 04/28/222114 Trans: 04/28/222117 [facility] [id number] Interpreted by: CHATA SMALLS MD Electronically signed by: Reviewed: Reviewed by Me Departure Impression Primary Impression: Acute dystonia due to drugs Disposition: HOME, SELF-CARE Condition: Improved Departure-Patient Inst. Decision time for Depature: 21:31 Referrals: [facility] [place],LOCAL PHYSICIAN (PCP) Primary Care Physician Patient Instructions: Drug Abuse and Drug Addiction (DC), Tardive Dyskinesia Add. Discharge Instructions: Cogentin 1 mg every 8 hours as needed for tardive dyskinesia or your problematic, rhythmic moving. Ondansetron 1 to 2 tablets every 6 hours as needed for nausea and/or vomiting. Follow-up with [facility] if you need help. All discharge instructions reviewed with patient and/or family. Voiced understanding. Scripts Ondansetron (Ondansetron Odt) 4 Mg Tab.rapdis 4-8 MG PO Q6H PRN for NAUSEA/VOMITING, #8 TAB 0 Refills Prov: BRI PAK 04/28/22 Benztropine Mesylate (Benztropine Mesylate) 1 Mg Tablet 1 MG PO Q8H PRN for tardive dyskinesia, #14 TAB 0 Refills Prov: BRI PAK 04/28/22 Work/School Note: Work Release Form Date Seen in the Emergency Department: Apr 28, 2022 Return to Work: May 03, 2022 Restrictions: No Restrictions BRI PAK Apr 28, 2022 20:19
[2022-04-28 20:26] LABS: BASOPHILS % (AUTO) 1 % (0-10); EOSINOPHILS # (AUTO) 0.1 10^3/uL (0.0-0.3); EOSINOPHILS % (AUTO) 1 % (0-10); HEMATOCRIT 38 % (35-52); HEMOGLOBIN 12.6 g/dL (11.5-16.0); LYMPHOCYTES # (AUTO) 3.7 10^3/uL (1.0-4.0); LYMPHOCYTES % (AUTO) 44 % (12-44); MEAN CORPUSCULAR HEMOGLOBIN 30 pg (25-34); MEAN CORPUSCULAR HGB CONC 33 g/dL (32-36); MEAN CORPUSCULAR VOLUME 91 fL (80-99); MEAN PLATELET VOLUME 10.7 fL (9.0-12.2); MONOCYTES # (AUTO) 0.7 10^3/uL (0.0-1.0); MONOCYTES % (AUTO) 8 % (0-12); NEUTROPHILS # (AUTO) 3.9 10^3/uL (1.8-7.8); NEUTROPHILS % (AUTO) 46 % (42-75); PLATELET COUNT 280 10^3/uL (130-400); WHITE BLOOD COUNT 8.5 10^3/uL (4.3-11.0)
[2022-04-28] MEDS ORDERED: LACTATED RINGERS 1,000 ML IV ONE (20:30)
[2022-04-28] MEDS ORDERED: BENZTROPINE 2 MG/2 ML INJ (COGENTIN) AMP IV ONE ×2 (20:30→21:45)
[2022-04-28] MEDS ORDERED: ONDANSETRON 4 MG/2 ML (SDV) Z0FRAN IVP ONE (20:30)
[2022-04-28 20:36] LABS: ABG BASE EXCESS -1.1 MMOL/L (-2.5-2.5); ABG OXYGEN SATURATION 99 % (94-100); ABG PCO2 43 MMHG (35-45); ABG PH 7.36 (7.37-7.43); ABG PO2 178 MMHG (79-93); ABG TCO2 25.1 MMOL/L (21.0-31.0); ALLENS TEST YES-POS; INSPIRED O2 2L; PATIENT TEMP 36.2; VENTILATOR NO
[2022-04-28 20:40] LABS: ALBUMIN 4.2 GM/DL (3.2-4.5); CHLORIDE 105 MMOL/L (98-107); POTASSIUM 3.2 MMOL/L (3.6-5.0); SODIUM 139 MMOL/L (135-145)
[2022-04-28 20:41] LABS: CALCIUM 8.8 MG/DL (8.5-10.1)
[2022-04-28 20:42] LABS: GLUCOSE 121 MG/DL (70-105); TOTAL PROTEIN 6.9 GM/DL (6.4-8.2)
[2022-04-28 20:43] LABS: CARBON DIOXIDE 21 MMOL/L (21-32)
[2022-04-28 20:44] LABS: BILIRUBIN,TOTAL 0.9 MG/DL (0.1-1.0)
[2022-04-28 20:46] LABS: ALKALINE PHOSPHATASE 54 U/L (40-136); CREATININE SERUM 0.75 MG/DL (0.60-1.30); GFR ESTIMATED 103
[2022-04-28 20:47] LABS: BUN/CREATININE RATIO 15
[2022-04-28 20:49] LABS: ALANINE AMINOTRANSFERASE 18 U/L (0-55); LIPASE 16 U/L (8-78)
[2022-04-28 20:59] LABS: SALICYLATE < 5.0 MG/DL (5.0-20.0)
[2022-04-28 21:01] LABS: ACETAMINOPHEN < 10 UG/ML (10-30)
[2022-04-28 21:07] LABS: MAGNESIUM 2.3 MG/DL (1.6-2.4)
--- NOTE | 2022-04-28 21:19 | Diagnostic Imaging Report ---
Chest 1 view, AP/PA only. Indication: Lethargic, overdose. Comparison: None available. Findings: Hazy opacities of the lung bases are likely due to summation of patient's breast tissue. No pleural effusion or pneumothorax. Posterior lower lobes are poorly evaluated by portable radiography. Impression: Hazy opacities of the lung bases are highly likely due to summation shadow from patient's breast. Less likely, this could represent areas of atelectasis, edema or atypical infection. Dictated by: Dictated on workstation # [id number]
[2022-04-28 21:23] LABS: PROTHROMBIN TIME PATIENT 13.4 SEC (12.2-14.7)
[2022-04-28] MEDS ORDERED: ONDA4TAB11 PO (21:34)
[2022-04-28] MEDS ORDERED: BENZ1TAB6 PO (21:34)
[2022-04-28 22:11] VITALS: BP 110/79
== END 2022-04-28 21:55 | disposition home or self-care (01) ==
LOC: EDUNIT# 20:13 → ER 20:15
DX: T40.711A Poisoning by cannabis, accidental (unintentional), initial encounter (principal); G24.02 Drug induced acute dystonia
CPT/HCPCS: 71045; 80053; 82550; 82805; 83690; 83735; 84703; 85025; 85610; 85730; 86141; 93005; 99285; G0480 ×3; 36415; 80320; 80329